=== PATIENT | female | born 1955 | race Caucasian/White ===

== ENCOUNTER 2016-10-11 17:23 | Emergency (ER) | payer OTHER ==
[2016-10-11 18:29] VITALS: RESP 18; TEMP 97.3
[2016-10-11] MEDS ORDERED: ONDANSETRON 4 MG/2 ML VIAL IVP STA (20:30)
[2016-10-11] MEDS ORDERED: SODIUM CHLORIDE 0.9% 1,000 ML IV STA (20:30)
[2016-10-11] MEDS ORDERED: hydrALAZINE HCL 20 MG/ML 1 ML VIAL IVP STA (20:48)
--- NOTE | 2016-10-11 20:50 | ED ---
General Adult HPI - General Chief complaint: Urogenital Stated complaint: UTI Time Seen by Provider: 10/11/16 20:17 Source: patient, RN notes reviewed Mode of arrival: ambulatory Limitations: no limitations - History of Present Illness Initial comments: Patient is a 7-year-old female who presents to emergency room with multiple complaints. She does admit that she's been having abdominal pain and lower abdomen over the last 2 weeks. Does admit that she had a urinary tract infection which she did take Macrobid for. States still feels like she maybe has this is same infection. She states she's felt nauseated. She states she had an episode of vomiting. She denies any diarrhea or constipation. She also admits to having a headache over the last 3 days. She states she's noticed blood pressures been running high. States she did not take her medications today She knew she was getting come to the emergency room. Patient states she feels that the headache may be attributed to her blood pressure. She states comes and goes. States headache is located in the front of her head. She denies any other complaints or associated symptoms. Patient denies any recent fever, chills, shortness of breath, chest pain, back pain, numbness or tingling , dysuria or hematuria, constipation or diarrhea, visual changes, or any other complaints. - Related Data Home Medications Medication Instructions Recorded Confirmed Albuterol Inhaler [Ventolin Hfa 2 puff INHALATION RT-Q6H PRN 10/11/16 10/11/16 Inhaler] Aspirin EC [Ecotrin Low Dose] 81 mg PO DAILY 10/11/16 10/11/16 Atorvastatin [Lipitor] 10 mg PO HS 10/11/16 10/11/16 Cetirizine HCl [Zyrtec] 5 mg PO DAILY 10/11/16 10/11/16 Cyclobenzaprine [Flexeril] 10 mg PO BID 10/11/16 10/11/16 Diazepam [Valium] 5 mg PO HS PRN 10/11/16 10/11/16 Fluticasone Nasal [place] [Flonase 2 spr EA NOSTRIL DAILY PRN 10/11/16 10/11/16 Nasal [place]] Fluticasone/Salmeterol [Advair 1 puff INHALATION RT-BID 10/11/16 10/11/16 100-50 Diskus] Furosemide [Lasix] 40 mg PO DAILY PRN 10/11/16 10/11/16 Previous Rx's Medication Instructions Recorded Amoxicillin/Potassium Clav 1 each PO Q12HR #20 tab 10/11/16 [Augmentin 875-125 Tablet] Fluticasone Propionate [Flonase 1 - 2 spray EA NOSTRIL DAILY 5 Days 10/11/16 Allergy Relief] Allergies Allergy/AdvReac Type Severity Reaction Status Date / Time ibuprofen [From Motrin] Allergy Rash/Hives Verified 10/11/16 20:28 sulfamethoxazole Allergy Rash/Hives Verified 10/11/16 20:28 [From Septra] trimethoprim [From Mayra] Allergy Rash/Hives Verified 10/11/16 20:28 Review of Systems ROS Statement: Those systems with pertinent positive or pertinent negative responses have been documented in the HPI. ROS Other: All systems not noted in ROS Statement are negative. Past Medical History Past Medical History: No Reported History Additional Past Medical History / Comment(s): endometriosis History of Any Multi-Drug Resistant Organisms: MRSA Date of last positivie culture/infection: 2005 MDRO Source:: foot Past Surgical History: Section, Cholecystectomy Additional Past Surgical History / Comment(s): endometriosis Past Anesthesia/Blood Transfusion Reactions: No Reported Reaction Past Psychological History: No Psychological Hx Reported Smoking Status: Never smoker Past Alcohol Use History: None Reported Past Drug Use History: None Reported - Past Family History Mother Family Medical History: No Reported History Father Family Medical History: Coronary Artery Disease (CAD) General Exam - General Exam Comments Initial Comments: General: The patient is awake and alert, in no distress, and does not appear acutely ill. Eye: Pupils are equal, round and reactive to light, extra-ocular movements are intact. No nystagmus. There is normal conjunctiva bilaterally. No signs of icterus. Ears, nose, mouth and throat: There are moist mucous membranes and no oral lesions. Neck: The neck is supple, there is no tenderness or JVD. Cardiovascular: There is a regular rate and rhythm. No murmur, rub or gallop is appreciated. Respiratory: Lungs are clear to auscultation, respirations are non-labored, breath sounds are equal. No wheezes, stridor, rales, or rhonchi. Gastrointestinal: Normal appearance them. Normal bowel sounds. Abdomen soft on palpation. Patient does have mild tenderness lower abdomen. No rebound tenderness. No guarding. No CVA tenderness. Musculoskeletal: Normal ROM, no tenderness. Strength 5/5. Sensation intact. Pulses equal bilaterally 2+. Neurological: A&O x 3. CN II-XII intact, There are no obvious motor or sensory deficits. Coordination appears grossly intact. Speech is normal. Skin: Skin is warm and dry and no rashes or lesions are noted. Psychiatric: Cooperative, appropriate mood & affect, normal judgment. Limitations: no limitations Course Vital Signs 10/11/16 10/11/16 18:25 21:45 Temperature 97.3 F L Pulse Rate 66 74 Respiratory 18 18 Rate Blood Pressure 180/103 168/88 O2 Sat by Pulse 98 96 Oximetry Medical Decision Making - Medical Decision Making Patient reexamined at this time shows no signs of distress. Does not that her blood pressure has improved here in the emergency room after medication and headache is improved and gone at this time. States feeling better. Patient's labs reviewed are unremarkable. No evidence for UTI. Patient does admit to increased sinus drainage on reexam. Does have tenderness over both frontal and maxillary sinuses. Will be started on amoxicillin advised most with a viral illness. Advised follow-up family doctor. He'll be given a prescription for Flonase. Advised return for any other concerns. - Lab Data Result diagrams: 10/11/16 21:10 10/11/16 21:10 Lab Results 10/11/16 10/11/16 10/11/16 Range/Units 21:10 21:10 21:10 WBC 5.1 (3.8-10.6) k/uL RBC 4.20 (3.80-5.40) m/uL Hgb 11.9 (11.4-16.0) gm/dL Hct 37.3 (34.0-46.0) % MCV 88.9 (80.0-100.0) fL MCH 28.4 (25.0-35.0) pg MCHC 31.9 (31.0-37.0) g/dL RDW 13.2 (11.5-15.5) % Plt Count 292 (150-450) k/uL Neutrophils % 63 % Lymphocytes % 27 % Monocytes % 6 % Eosinophils % 3 % Basophils % 1 % Neutrophils # 3.2 (1.3-7.7) k/uL Lymphocytes # 1.3 (1.0-4.8) k/uL Monocytes # 0.3 (0-1.0) k/uL Eosinophils # 0.1 (0-0.7) k/uL Basophils # 0.0 (0-0.2) k/uL Sodium 143 (137-145) mmol/L Potassium 4.4 (3.5-5.1) mmol/L Chloride 106 (98-107) mmol/L Carbon Dioxide 26 (22-30) mmol/L Anion Gap 11 mmol/L BUN 12 (7-17) mg/dL Creatinine 0.70 (0.52-1.04) mg/dL Est GFR (MDRD) Af Amer >60 (>60 ml/min/1.73 sqM) Est GFR (MDRD) Non-Af >60 (>60 ml/min/1.73 sqM) Glucose 93 (74-99) mg/dL Calcium 9.6 (8.4-10.2) mg/dL Total Bilirubin 0.5 (0.2-1.3) mg/dL AST 43 H (14-36) U/L ALT 38 (9-52) U/L Alkaline Phosphatase 102 (38-126) U/L Total Protein 6.6 (6.3-8.2) g/dL Albumin 4.4 (3.5-5.0) g/dL Amylase 41 (30-110) U/L Lipase 38 (23-300) U/L Urine Color Light Yellow Urine Appearance Clear (Clear) Urine pH 6.5 (5.0-8.0) Ur Specific [place] 1.007 (1.001-1.035) Urine Protein Negative (Negative) Urine Glucose (UA) Negative (Negative) Urine Ketones Negative (Negative) Urine Blood Negative (Negative) Urine Nitrate Negative (Negative) Urine Bilirubin Negative (Negative) Urine Urobilinogen <2.0 (<2.0) mg/dL Ur Leukocyte Esterase Negative (Negative) Disposition Clinical Impression: Acute sinusitis, Hypertension Disposition: HOME SELF-CARE Condition: Good Instructions: Sinusitis (ED) Additional Instructions: Please use medication as discussed. Please follow-up family doctor have blood pressure rechecked. Please follow-up with family doctor in the next 2 days of symptoms have not improved. Please return to emergency room if the symptoms increase or worsen or for any other concerns. Prescriptions: Amoxicillin/Potassium Clav [Augmentin 875-125 Tablet] 1 each PO Q12HR #20 tab Fluticasone Propionate [Flonase Allergy Relief] 1 - 2 spray EA NOSTRIL DAILY 5 Days Time of Disposition: 22:04
--- NOTE | 2016-10-11 21:28 | XR ---
EXAMINATION TYPE: XR KUB DATE OF EXAM: 10/11/2016 9:25 PM COMPARISON: NONE HISTORY: Pain TECHNIQUE: Single supine KUB image of the abdomen is obtained FINDINGS: Small bowel demonstrates no evidence for dilatation or air fluid levels. Gas and fecal material is seen in non-distended colon. No convincing evidence for pneumoperitoneum. No unusual calcifications. The lung bases are clear. The osseous structures are intact. IMPRESSION: 1. Overall nonobstructive bowel gas pattern.
[2016-10-11 21:35] LABS: Basophils % (A) 1 %; CHCM 33.9; Eosinophils # (A) 0.1 k/uL (0-0.7); Eosinophils % (A) 3 %; HCT 37.3 % (34.0-46.0); HDW 2.85; HGB 11.9 gm/dL (11.4-16.0); Luc # (Auto) 0.06; Luc % (Auto) 1; Lymphocytes # (A) 1.3 k/uL (1.0-4.8); Lymphocytes % (A) 27 %; MCH 28.4 pg (25.0-35.0); MCHC 31.9 g/dL (31.0-37.0); MCV 88.9 fL (80.0-100.0); Mean Platelet Volume 7.6; Monocytes # (A) 0.3 k/uL (0-1.0); Monocytes % (A) 6 %; Neutrophils # (A) 3.2 k/uL (1.3-7.7); Neutrophils % (A) 63 %; RDW 13.2 % (11.5-15.5); WBC 5.1 k/uL (3.8-10.6); WBC (Perox) 5.19
[2016-10-11 21:38] LABS: Appearance,Urine Clear (Clear); Bilirubin,Urine Negative (Negative); Glucose,Urine (UA) Negative (Negative); Ketones,Urine Negative (Negative); Leukocyte Esterase,Urine Negative (Negative); Nitrite,Urine Negative (Negative); PH, Urine 6.5 (5.0-8.0); Protein,Urine Negative (Negative); Specific Gravity,Urine 1.007 (1.001-1.035); UA Billing (MACRO vs. MICRO) CHEM; Urobilinogen,Urine <2.0 mg/dL (<2.0)
[2016-10-11 21:44] LABS: ALT 38 U/L (9-52); AST 43 U/L (14-36); Alkaline Phosphatase 102 U/L (38-126); Amylase 41 U/L (30-110); Anion Gap 11 mmol/L; Blood Urea Nitrogen 12 mg/dL (7-17); Calcium 9.6 mg/dL (8.4-10.2); Carbon Dioxide 26 mmol/L (22-30); Chloride 106 mmol/L (98-107); Glucose 93 mg/dL (74-99); Non-African American GFR(MDRD) >60 (>60 ml/min/1.73 sqM); Potassium 4.4 mmol/L (3.5-5.1); Sodium 143 mmol/L (137-145); Total Bilirubin 0.5 mg/dL (0.2-1.3); Total Protein 6.6 g/dL (6.3-8.2)
[2016-10-11 21:46] VITALS: BP 168/88; PULSE 74
[2016-10-11] MEDS ORDERED: ACETAMINOPHEN TAB 325 MG TAB PO STA (22:21)
[2016-10-11] MEDS ORDERED: AMOXIC-POT CLAV 875MG STARTER 2 EACH TABLET PO STA (22:21)
== END 2016-10-11 22:28 | disposition home or self-care (01) ==
LOC: EC 17:23
DX: J01.90 Acute sinusitis, unspecified (principal); I10 Essential (primary) hypertension; B34.9 Viral infection, unspecified; R10.9 Unspecified abdominal pain; R11.2 Nausea with vomiting, unspecified; Z79.82 Long term (current) use of aspirin; Z79.51 Long term (current) use of inhaled steroids; Z79.899 Other long term (current) drug therapy; Z88.8 Allergy status to other drugs, medicaments and biological substances; Z88.1 Allergy status to other antibiotic agents; Z88.2 Allergy status to sulfonamides
CPT/HCPCS: 96374; 96375; 36415; 80053; 82150; 83690; 85025; 81003; 87086; 74000; 99283; J0360; J2405

== ENCOUNTER 2016-11-16 18:29 | Emergency (ER) | payer OTHER ==
[2016-11-16] MEDS ORDERED: ACETAMINOPHEN TAB 500 MG TAB PO STA (19:05)
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
--- NOTE | 2016-11-16 19:33 | XR ---
EXAMINATION TYPE: XR wrist complete RT DATE OF EXAM: 11/16/2016 7:28 PM COMPARISON: NONE HISTORY: Wrist pain TECHNIQUE: 4 views FINDINGS: I see no fracture nor dislocation. Radial styloid process is slightly irregular that could relate to old injury. I see no fracture line. IMPRESSION: No acute abnormality of the right wrist.
--- NOTE | 2016-11-16 19:34 | XR ---
EXAMINATION TYPE: XR elbow complete RT DATE OF EXAM: 11/16/2016 7:28 PM COMPARISON: NONE HISTORY: Pain and injury TECHNIQUE: 3 views FINDINGS: I see no fracture nor dislocation. Joint spaces are normal. There is no sign of elbow joint effusion. IMPRESSION: Negative right elbow exam.
--- NOTE | 2016-11-16 19:35 | XR ---
EXAMINATION TYPE: XR Hip Complete RT DATE OF EXAM: 11/16/2016 7:28 PM COMPARISON: NONE HISTORY: Pain TECHNIQUE: 2 views FINDINGS: I see no fracture nor dislocation. Hip joint space is fairly normal. Sacroiliac joint appea rs normal. IMPRESSION: Negative right hip exam.
--- NOTE | 2016-11-16 19:35 | XR ---
EXAMINATION TYPE: XR knee complete RT DATE OF EXAM: 11/16/2016 7:28 PM COMPARISON: NONE HISTORY: Knee pain TECHNIQUE: 3 views FINDINGS: There is spurring of the femoral and tibial condyles. There is spurring on the patella. The re is narrowing of patellofemoral joint space. I see no fracture nor dislocation. There is no sign of joint effusion. 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 No fracture.
[2016-11-16 20:37] VITALS: BP 138/78; PULSE 72; RESP 14; TEMP 97.8
== END 2016-11-16 20:36 | disposition home or self-care (01) ==
LOC: EC 18:29
DX: S70.00XA Contusion of unspecified hip, initial encounter (principal); S80.00XA Contusion of unspecified knee, initial encounter; S60.219A Contusion of unspecified wrist, initial encounter; S50.00XA Contusion of unspecified elbow, initial encounter; V09.9XXA Pedestrian injured in unspecified transport accident, initial encounter; Z79.82 Long term (current) use of aspirin; Z79.899 Other long term (current) drug therapy; Z79.51 Long term (current) use of inhaled steroids; Z86.14 Personal history of Methicillin resistant Staphylococcus aureus infection; Z88.6 Allergy status to analgesic agent; Z88.1 Allergy status to other antibiotic agents; Z88.2 Allergy status to sulfonamides
CPT/HCPCS: 73502; 99284

== ENCOUNTER 2016-12-14 13:22 | Emergency (ER) | payer OTHER ==
[2016-12-14 13:55] VITALS: TEMP 97.9
[2016-12-14 15:04] LABS: Basophils % (A) 1 %; CH 30.1; CHCM 33.4; Eosinophils # (A) 0.1 k/uL (0-0.7); Eosinophils % (A) 3 %; HCT 38.8 % (34.0-46.0); HDW 2.87; Luc # (Auto) 0.15; Luc % (Auto) 3; Lymphocytes # (A) 1.3 k/uL (1.0-4.8); Lymphocytes % (A) 29 %; MCH 30.3 pg (25.0-35.0); MCHC 33.5 g/dL (31.0-37.0); MCV 90.5 fL (80.0-100.0); Mean Platelet Volume 6.8; Monocytes # (A) 0.2 k/uL (0-1.0); Monocytes % (A) 5 %; Neutrophils # (A) 2.7 k/uL (1.3-7.7); Neutrophils % (A) 59 %; RBC 4.29 m/uL (3.80-5.40); RDW 13.1 % (11.5-15.5); WBC 4.6 k/uL (3.8-10.6)
[2016-12-14 15:10] LABS: Anion Gap 10 mmol/L; Blood Urea Nitrogen 17 mg/dL (7-17); Calcium 9.4 mg/dL (8.4-10.2); Carbon Dioxide 26 mmol/L (22-30); Chloride 108 mmol/L (98-107); Glucose 102 mg/dL (74-99); Non-African American GFR(MDRD) >60 (>60 ml/min/1.73 sqM); Potassium 4.4 mmol/L (3.5-5.1); Sodium 144 mmol/L (137-145)
[2016-12-14 15:11] VITALS: BP 166/99; PULSE 75; RESP 18
--- NOTE | 2016-12-14 15:52 | ED ---
General Adult HPI - General Chief complaint: Recheck/Abnormal Lab/Rx Stated complaint: Dr Sent/EDILMA Time Seen by Provider: 12/14/16 14:17 Source: patient Mode of arrival: ambulatory Limitations: no limitations - History of Present Illness Initial comments: 61-year-old female presented for evaluation of hypertension. She was also have a dental procedure 2 days ago and due to her hypertension was canceled and she was advised to follow-up with her primary care physician. She called her primary care physician's office today and was advised to have her blood pressure rechecked at the local pharmacy and then to proceed to the ER if it was still elevated. Blood pressure was about 180 systolic and she proceeded to the ED. She denies any other symptoms with the exception of tooth #5 pain for which she was about to have her procedure. She denies any shortness breath , headache, chest pain, fevers, chills, nausea, vomiting. - Related Data Home Medications Medication Instructions Recorded Confirmed Cetirizine HCl [Zyrtec] 5 mg PO DAILY 10/11/16 12/14/16 Cyclobenzaprine [Flexeril] 10 mg PO BID 10/11/16 12/14/16 Furosemide [Lasix] 40 mg PO DAILY PRN 10/11/16 12/14/16 Previous Rx's Medication Instructions Recorded Acetaminophen-Codeine 300-30mg 1 tab PO Q4H PRN #14 tablet 12/14/16 [Tylenol #3] Hydrochlorothiazide 25 mg PO DAILY #30 tablet 12/14/16 Ibuprofen [Motrin] 800 mg PO Q8HR PRN #20 tab 12/14/16 Allergies Allergy/AdvReac Type Severity Reaction Status Date / Time ibuprofen [From Motrin] Allergy Rash/Hives Verified 12/14/16 14:27 sulfamethoxazole Allergy Rash/Hives Verified 12/14/16 14:27 [From Septra] trimethoprim [From Septra] Allergy Rash/Hives Verified 12/14/16 14:27 Review of Systems ROS Statement: Those systems with pertinent positive or pertinent negative responses have been documented in the HPI. General: Patient denies fever, chills,nausea, or vomiting. HEENT: No visual changes. No eye pain. No nasal symptoms. No dysphagia.No odynophagia. Positive tooth pain. Cardiac: No chest pain. No palpitations. Pulmonary; No dyspnea. Denies cough GI: No abdominal pain. No diarrhea. No constipation. No bowel habit changes. No melena. No hematochezia. See general. : No dysuria.No hematuria. No hesitancy. No urgency. No renal lithiasis history. Musculoskeletal: No musculoskeletal pain. Orthopedic: Denies fracture history. Integumentary: Denies rash. Denies pruritis. Neurologic: Denies any lateralizing weakness. Denies numbness. Denies tingling. No seizure activity. Denies TIA or CVA. Endocrine: Denies polyuria and polydipsia Heme/Onc: Denies anemia. Denies cancer. Denies adenopathy. ROS Other: All systems not noted in ROS Statement are negative. Past Medical History Past Medical History: No Reported History Additional Past Medical History / Comment(s): endometriosis History of Any Multi-Drug Resistant Organisms: ESBL, MRSA Date of last positivie culture/infection: 10/02/07 MRSA:09/19/16 ESBL E.coli MDRO Source:: MRSA-site unknonw; ESBL-Urine Past Surgical History: Section, Cholecystectomy Additional Past Surgical History / Comment(s): endometriosis Past Anesthesia/Blood Transfusion Reactions: No Reported Reaction Past Psychological History: No Psychological Hx Reported Smoking Status: Never smoker Past Alcohol Use History: None Reported Past Drug Use History: None Reported - Past Family History Mother Family Medical History: No Reported History Father Family Medical History: Coronary Artery Disease (CAD) General Exam Limitations: no limitations General appearance: alert, in no apparent distress Head exam: Present: atraumatic, normocephalic Eye exam: Present: normal appearance, PERRL, EOMI. Absent: scleral icterus, conjunctival injection ENT exam: Present: normal exam, mucous membranes moist Neck exam: Present: normal inspection, full ROM Respiratory exam: Present: normal lung sounds bilaterally. Absent: respiratory distress, wheezes, rales Cardiovascular Exam: Present: regular rate, normal rhythm, normal heart sounds. Absent: bradycardia, tachycardia, irregular rhythm GI/Abdominal exam: Present: soft, normal bowel sounds. Absent: distended, tenderness Rectal exam: Present: deferred Extremities exam: Present: normal inspection, full ROM. Absent: tenderness Back exam: Present: normal inspection, full ROM. Absent: tenderness, CVA tenderness (R) Neurological exam: Present: alert, oriented X3, CN II-XII intact Psychiatric exam: Present: normal affect, normal mood Skin exam: Present: warm, dry, intact Course Vital Signs 12/14/16 12/14/16 12/14/16 13:49 14:24 15:10 Temperature 97.9 F Pulse Rate 87 75 Pulse Rate [ 84 Pulse Oximetery ] Respiratory 20 18 Rate Blood Pressure 184/87 166/99 O2 Sat by Pulse 96 99 Oximetry EKG Findings - EKG Comments: EKG Findings:: Normal sinus rhythm with a ventricular rate of 66, ERMA 164, QRS 72, QT/QTc 408/427. Medical Decision Making - Medical Decision Making 61-year-old female presented for evaluation of hypertension. She states that she has been diagnosed with hypertension the past but has not been prescribed medications. She does present with an elevated blood pressure but no signs of hypertensive emergency. Baseline labs were obtained as well as EKG which showed no significant abnormalities. The patient was reevaluated and had improvement in her blood pressure. She was informed of these results and that should be discharged with instructions to follow-up with her primary care physician. She was further informed that should be given a prescription for chlorothiazide which she should take as instructed on the prescription. The patient acknowledged an understanding of this information and agreed with this plan of care. - Lab Data Result diagrams: 12/14/16 14:46 12/14/16 14:46 Lab Results 12/14/16 12/14/16 Range/Units 14:46 14:46 WBC 4.6 (3.8-10.6) k/uL RBC 4.29 (3.80-5.40) m/uL Hgb 13.0 (11.4-16.0) gm/dL Hct 38.8 (34.0-46.0) % MCV 90.5 (80.0-100.0) fL MCH 30.3 (25.0-35.0) pg MCHC 33.5 (31.0-37.0) g/dL RDW 13.1 (11.5-15.5) % Plt Count 297 (150-450) k/uL Neutrophils % 59 % Lymphocytes % 29 % Monocytes % 5 % Eosinophils % 3 % Basophils % 1 % Neutrophils # 2.7 (1.3-7.7) k/uL Lymphocytes # 1.3 (1.0-4.8) k/uL Monocytes # 0.2 (0-1.0) k/uL Eosinophils # 0.1 (0-0.7) k/uL Basophils # 0.0 (0-0.2) k/uL Sodium 144 (137-145) mmol/L Potassium 4.4 (3.5-5.1) mmol/L Chloride 108 H (98-107) mmol/L Carbon Dioxide 26 (22-30) mmol/L Anion Gap 10 mmol/L BUN 17 (7-17) mg/dL Creatinine 0.70 (0.52-1.04) mg/dL Est GFR (MDRD) Af Amer >60 (>60 ml/min/1.73 sqM) Est GFR (MDRD) Non-Af >60 (>60 ml/min/1.73 sqM) Glucose 102 H (74-99) mg/dL Calcium 9.4 (8.4-10.2) mg/dL Disposition Clinical Impression: Hypertension Disposition: HOME SELF-CARE Condition: Stable Instructions: Hydrochlorothiazide (By mouth), Hypertension (ED) Additional Instructions: Please use medication as discussed. Please follow up with family doctor if symptoms have not improved over the next two days. Please return to the emergency room if your symptoms increase or worsen or for any other concerns. Prescriptions: Acetaminophen-Codeine 300-30mg [Tylenol #3] 1 tab PO Q4H PRN #14 tablet PRN Reason: Pain Hydrochlorothiazide 25 mg PO DAILY #30 tablet Ibuprofen [Motrin] 800 mg PO Q8HR PRN #20 tab PRN Reason: Analgesia Referrals: Gene Cobos MD [Primary Care Provider] - 1-2 days Time of Disposition: 15:53
== END 2016-12-14 16:15 | disposition home or self-care (01) ==
LOC: EC 13:22
DX: I10 Essential (primary) hypertension (principal); Z79.899 Other long term (current) drug therapy; Z88.6 Allergy status to analgesic agent; Z88.8 Allergy status to other drugs, medicaments and biological substances
CPT/HCPCS: 36415; 80048; 85025; 93005; 99283

== ENCOUNTER 2016-12-18 16:15 | Emergency (ER) | payer OTHER ==
--- NOTE | 2016-12-18 19:11 | ED ---
General Adult HPI - General Chief complaint: Recheck/Abnormal Lab/Rx Stated complaint: Upset Stomach Time Seen by Provider: 12/18/16 18:52 Source: patient Mode of arrival: ambulatory Limitations: no limitations - History of Present Illness Initial comments: 61-year-old female presented for evaluation of hypertension. She was at the dentist and told that her blood pressure was too high to finish the procedure. She was therefore sent over to [facility] to have it re-taken and she was told that it remained high. Upon presentation to the ED her blood pressure is within normal limits. Patient states she has no other complaints at this time. She was recently seen at this facility for hypertension was started on hydrochlorothiazide. She has yet to follow-up with her primary care physician - Related Data Home Medications Medication Instructions Recorded Confirmed Cetirizine HCl [Zyrtec] 5 mg PO DAILY 10/11/16 12/18/16 Cyclobenzaprine [Flexeril] 10 mg PO BID 10/11/16 12/18/16 Furosemide [Lasix] 40 mg PO DAILY PRN 10/11/16 12/18/16 Previous Rx's Medication Instructions Recorded Acetaminophen-Codeine 300-30mg 1 tab PO Q4H PRN #14 tablet 12/14/16 [Tylenol #3] Hydrochlorothiazide 25 mg PO DAILY #30 tablet 12/14/16 Ibuprofen [Motrin] 800 mg PO Q8HR PRN #20 tab 12/14/16 Allergies Allergy/AdvReac Type Severity Reaction Status Date / Time ibuprofen [From Motrin] Allergy Rash/Hives Verified 12/18/16 17:03 sulfamethoxazole Allergy Rash/Hives Verified 12/18/16 17:03 [From Septra] trimethoprim [From Septra] Allergy Rash/Hives Verified 12/18/16 17:03 Review of Systems ROS Statement: Those systems with pertinent positive or pertinent negative responses have been documented in the HPI. ROS Other: All systems not noted in ROS Statement are negative. Constitutional: Denies: fever, chills, weakness, weight change Eyes: Denies: eye pain, eye discharge ENT: Denies: ear pain, throat pain Respiratory: Denies: cough, dyspnea Cardiovascular: Denies: chest pain, palpitations Endocrine: Denies: fatigue, polydipsia Gastrointestinal: Denies: abdominal pain, nausea, vomiting Genitourinary: Denies: urgency, dysuria Musculoskeletal: Denies: back pain, arthralgia Skin: Denies: rash, lesions Neurological: Denies: headache, weakness Psychiatric: Denies: anxiety, depression Past Medical History Past Medical History: No Reported History Additional Past Medical History / Comment(s): endometriosis History of Any Multi-Drug Resistant Organisms: ESBL, MRSA Date of last positivie culture/infection: 10/02/07 MRSA:09/19/16 ESBL E.coli MDRO Source:: MRSA-site unknonw; ESBL-Urine Past Surgical History: Section, Cholecystectomy Additional Past Surgical History / Comment(s): endometriosis Past Anesthesia/Blood Transfusion Reactions: No Reported Reaction Past Psychological History: No Psychological Hx Reported Smoking Status: Never smoker Past Alcohol Use History: None Reported Past Drug Use History: None Reported - Past Family History Mother Family Medical History: No Reported History Father Family Medical History: Coronary Artery Disease (CAD) General Exam Limitations: no limitations General appearance: alert, in no apparent distress Head exam: Present: atraumatic, normocephalic, normal inspection Eye exam: Present: normal appearance, PERRL, EOMI. Absent: scleral icterus, conjunctival injection, periorbital swelling ENT exam: Present: normal exam, mucous membranes moist Neck exam: Present: normal inspection. Absent: tenderness, meningismus, lymphadenopathy Respiratory exam: Present: normal lung sounds bilaterally. Absent: respiratory distress, wheezes, rales, rhonchi, stridor Cardiovascular Exam: Present: regular rate, normal rhythm, normal heart sounds. Absent: systolic murmur, diastolic murmur, rubs, gallop, clicks GI/Abdominal exam: Present: soft, normal bowel sounds. Absent: distended, tenderness, guarding, rebound, rigid Rectal exam: Present: deferred Extremities exam: Present: normal inspection, full ROM, normal capillary refill. Absent: tenderness, pedal edema, joint swelling, calf tenderness Back exam: Present: normal inspection Neurological exam: Present: alert, oriented X3, CN II-XII intact Psychiatric exam: Present: normal affect, normal mood Skin exam: Present: warm, dry, intact, normal color. Absent: rash Course Vital Signs 12/18/16 12/18/16 16:59 19:23 Temperature 99.1 F 97.8 F Pulse Rate 82 98 Respiratory 16 18 Rate Blood Pressure 140/94 159/98 O2 Sat by Pulse 97 Oximetry Medical Decision Making - Medical Decision Making 7-year-old female presented for evaluation of hypertension after being sent away at the dentist office and having it rechecked at the local pharmacy. Upon presentation to this facility her blood pressures within normal limits. She is recently started on hydrochlorothiazide during her last visit to this ED but she has yet to follow-up with her primary care physician. She was informed about her blood pressure was and through continuous discussion it was decided that she would be discharged with instructions to follow-up with the primary care physician but to return to this facility if her symptoms should worsen or persist. She is further advised to talk with her dentist about what her pressure actually was and what pressures they were allowed to perform procedures under. The patient acknowledged an understanding of this information and agreed with this plan of care. Disposition Clinical Impression: HTN (hypertension), Anxiety Disposition: HOME SELF-CARE Condition: Stable Instructions: Chronic Hypertension (ED), Hypertensive Crisis (ED) Referrals: Richard Montano MD [Primary Care Provider] - 1-2 days Time of Disposition: 19:11
[2016-12-18 19:24] VITALS: BP 159/98; PULSE 98; RESP 18; TEMP 97.8
== END 2016-12-18 19:24 | disposition home or self-care (01) ==
LOC: EC 16:15
DX: I10 Essential (primary) hypertension (principal); F41.9 Anxiety disorder, unspecified; Z79.899 Other long term (current) drug therapy; Z88.6 Allergy status to analgesic agent; Z88.8 Allergy status to other drugs, medicaments and biological substances
CPT/HCPCS: 99283

== ENCOUNTER 2017-01-30 19:29 | Emergency (ER) | payer OTHER ==
[2017-01-30 19:46] VITALS: BP 146/75; PULSE 83; RESP 18; TEMP 97.2
--- NOTE | 2017-01-30 19:56 | ED ---
Lower Extremity Injury HPI - General Chief Complaint: Extremity Injury, Lower Stated Complaint: glass in rt foot Time Seen by Provider: 01/30/17 19:51 Source: patient, RN notes reviewed Mode of arrival: ambulatory Limitations: no limitations - History of Present Illness Initial Comments: 61 yo Female presents emergency department with right foot pain. Patient states that she felt like she stepped on something earlier today just to make sure this of her foot. Patient states there is no bleeding areas THAT she noticed she has noticed some pain when she was walking. Patient denies any falls or other injuries. Patient states she is not currently having any other symptoms.Patient denies any recent fever, chills, shortness of breath, chest pain, back pain, abdominal pain, nausea vomiting, numbness or tingling, dysuria or hematuria, constipation or diarrhea, headaches or visual changes, or any other current symptoms. - Related Data Home Medications Medication Instructions Recorded Confirmed Cetirizine HCl [Zyrtec] 5 mg PO DAILY 10/11/16 12/18/16 Cyclobenzaprine [Flexeril] 10 mg PO BID 10/11/16 12/18/16 Furosemide [Lasix] 40 mg PO DAILY PRN 10/11/16 12/18/16 Previous Rx's Medication Instructions Recorded Acetaminophen-Codeine 300-30mg 1 tab PO Q4H PRN #14 tablet 12/14/16 [Tylenol #3] Hydrochlorothiazide 25 mg PO DAILY #30 tablet 12/14/16 Ibuprofen [Motrin] 800 mg PO Q8HR PRN #20 tab 12/14/16 Allergies Allergy/AdvReac Type Severity Reaction Status Date / Time ibuprofen [From Motrin] Allergy Rash/Hives Verified 01/30/17 19:46 sulfamethoxazole Allergy Rash/Hives Verified 01/30/17 19:46 [From Septra] trimethoprim [From Septra] Allergy Rash/Hives Verified 01/30/17 19:46 Review of Systems ROS Statement: Those systems with pertinent positive or pertinent negative responses have been documented in the HPI. ROS Other: All systems not noted in ROS Statement are negative. Past Medical History Past Medical History: No Reported History Additional Past Medical History / Comment(s): endometriosis History of Any Multi-Drug Resistant Organisms: ESBL, MRSA Date of last positivie culture/infection: 10/02/07 MRSA:09/19/16 ESBL E.coli MDRO Source:: MRSA-site unknonw; ESBL-Urine Past Surgical History: Section, Cholecystectomy Additional Past Surgical History / Comment(s): endometriosis Past Anesthesia/Blood Transfusion Reactions: No Reported Reaction Past Psychological History: No Psychological Hx Reported Smoking Status: Never smoker Past Alcohol Use History: None Reported Past Drug Use History: None Reported - Past Family History Mother Family Medical History: No Reported History Father Family Medical History: Coronary Artery Disease (CAD) General Exam Limitations: no limitations General appearance: alert, in no apparent distress ENT exam: Present: normal exam, mucous membranes moist Neck exam: Present: normal inspection. Absent: tenderness, meningismus, lymphadenopathy Respiratory exam: Present: normal lung sounds bilaterally. Absent: respiratory distress, wheezes, rales, rhonchi, stridor Cardiovascular Exam: Present: regular rate, normal rhythm, normal heart sounds. Absent: systolic murmur, diastolic murmur, rubs, gallop, clicks Right Ankle exam: Present: normal inspection, full ROM. Absent: tenderness, swelling Foot/Toe exam: Present: normal inspection, full ROM. Absent: tenderness, swelling Neurovascular tendon exam: Present: no vascular compromise Gait: observed and normal Neurological exam: Present: alert, oriented X3 Skin exam: Present: warm, dry, intact, normal color. Absent: rash Course Vital Signs 01/30/17 19:43 Temperature 97.2 F L Pulse Rate 83 Respiratory 18 Rate Blood Pressure 146/75 O2 Sat by Pulse 94 L Oximetry Medical Decision Making - Medical Decision Making 61-year-old female presents emergency room chief complaint of concern for possible presents to the right foot. Exam shows no sign of trauma shows no sign of foreign body shows no sign of entry point. This time x-ray shows no foreign body. We discussed that she continue to follow-up with her doctor we did give her oral fluids well. We discussed return parameters and all her questions. She states she understood and she is in agreement with the plan. She will be discharged. - Radiology Data Radiology results: report reviewed, image reviewed Disposition Clinical Impression: Right foot pain Disposition: HOME SELF-CARE Condition: Stable Instructions: Foot Contusion (ED) Additional Instructions: Please use medication as discussed. Please follow up with family doctor if symptoms have not improved over the next two days. Please return to the emergency room if your symptoms increase or worsen or for any other concerns. Referrals: Richard Montano MD [Primary Care Provider] - 1-2 days Nakul Kent DO [Doctor of Osteopathic Medicine] - 1-2 days Time of Disposition: 20:12
--- NOTE | 2017-01-30 20:10 | XR ---
EXAMINATION TYPE: XR foot complete RT DATE OF EXAM: 01/30/2017 8:02 PM COMPARISON: NONE HISTORY: Laceration TECHNIQUE: 3 views FINDINGS: There is narrowing and spurring at the first MP joint. Metatarsals are intact. I see no fra cture nor dislocation. There is no sign of a foreign body. 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 No sign of a foreign body. No fracture.
== END 2017-01-30 20:25 | disposition home or self-care (01) ==
LOC: EC 19:29
DX: M79.671 Pain in right foot (principal); Z79.899 Other long term (current) drug therapy; Z88.6 Allergy status to analgesic agent; Z88.8 Allergy status to other drugs, medicaments and biological substances
CPT/HCPCS: 99283

== ENCOUNTER 2017-04-10 22:12 | Emergency (ER) | payer OTHER ==
[2017-04-10 22:38] VITALS: BP 146/87; PULSE 93; RESP 20; TEMP 98.3
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
[2017-04-11 00:17] LABS: Appearance,Urine Clear (Clear); Bilirubin,Urine Negative (Negative); Glucose,Urine (UA) Negative (Negative); Ketones,Urine Negative (Negative); Leukocyte Esterase,Urine Small (Negative); Mucus,Urine Rare /hpf; Nitrite,Urine Negative (Negative); PH, Urine 5.5 (5.0-8.0); Particle Count 452; Protein,Urine Negative (Negative); Specific Gravity,Urine 1.002 (1.001-1.035); Squamous Epithelial Cell,Urine <1 /hpf (0-4); UA Billing (MACRO vs. MICRO) MICRO; Urobilinogen,Urine <2.0 mg/dL (<2.0); WBC,Urine 2 /hpf (0-5)
== END 2017-04-11 00:57 | disposition home or self-care (01) ==
LOC: EC 22:12
DX: S09.90XA Unspecified injury of head, initial encounter (principal); Z86.14 Personal history of Methicillin resistant Staphylococcus aureus infection; Z00.8 Encounter for other general examination; Z79.1 Long term (current) use of non-steroidal anti-inflammatories (NSAID); Z79.51 Long term (current) use of inhaled steroids; Z79.82 Long term (current) use of aspirin; Z79.899 Other long term (current) drug therapy; Z88.1 Allergy status to other antibiotic agents; Z88.2 Allergy status to sulfonamides; Z88.6 Allergy status to analgesic agent; W26.0XXA Contact with knife, initial encounter
CPT/HCPCS: 80306; 81001; 82075; 99284

== ENCOUNTER 2017-05-04 12:29 | Emergency (ER) | payer OTHER ==
[2017-05-04 12:34] VITALS: BP 178/90; PULSE 72; RESP 18; TEMP 98.7
[2017-05-04] MEDS ORDERED: KETOROLAC 60 MG/2 ML VIAL IM STA (12:38)
[2017-05-04] MEDS ORDERED: diphenhydrAMINE 50 MG CAP PO STA (12:38)
--- NOTE | 2017-05-04 12:40 | ED ---
Skin/Abscess/FB HPI - General Chief complaint: Skin/Abscess/Foreign Body Stated complaint: Bee Sting Time Seen by Provider: 05/04/17 12:34 Source: patient Mode of arrival: ambulatory Limitations: no limitations - History of Present Illness Initial comments: 62-year-old female patient presents to emergency department today for evaluation of a bee sting to the left anterior thigh. Patient states that she was stung yesterday by a bumble bee. States that she does have an ALLERGY. States when she woke up today the area was more swollen and red. She states that she did apply some hydrocortisone cream to the area. Patient denies any throat swelling, shortness of breath, wheezing, or other symptoms. States she does have a mild headache and is requesting Toradol for this. Agent denies any blurred or double vision. States that this headache is very typical for her. She denies any neck pain, back pain, fever, chills, dizziness, weakness, abdominal pain, nausea, vomiting, hematuria, dysuria, urinary difficulty, urinary urgency. She denies any trouble with bowel movements. She states she did not take any Benadryl for the bee sting. - Related Data Home Medications Medication Instructions Recorded Confirmed Cyclobenzaprine [Flexeril] 10 mg PO BID 10/11/16 12/18/16 Furosemide [Lasix] 40 mg PO DAILY PRN 10/11/16 12/18/16 Albuterol Inhaler [Ventolin Hfa 1 - 2 puff INHALATION RT-Q6H PRN 04/10/17 Inhaler] Amoxicillin 500 mg PO Q12H 04/10/17 04/10/17 Aspirin EC [Ecotrin Low Dose] 81 mg PO DAILY 04/10/17 04/10/17 Atorvastatin [Lipitor] 10 mg PO DAILY 04/10/17 04/10/17 Cetirizine HCl [Zyrtec] 10 mg PO DAILY 04/10/17 04/10/17 Diazepam [Valium] 5 mg PO HS 04/10/17 04/10/17 Fluticasone/Salmeterol [Advair 1 puff INHALATION RT-BID 04/10/17 04/10/17 100-50 Diskus] HYDROcodone/APAP 7.5-325MG [[place] 1 tab PO BID PRN 04/10/17 04/10/17 7.5-325] Ibuprofen [Motrin] 800 mg PO BID 04/10/17 04/10/17 hydrALAZINE HCL [Hydralazine HCl] 25 mg PO DAILY 04/10/17 04/10/17 Previous Rx's Medication Instructions Recorded Hydrochlorothiazide 25 mg PO DAILY #30 tablet 12/14/16 Allergies Allergy/AdvReac Type Severity Reaction Status Date / Time ibuprofen [From Motrin] Allergy Rash/Hives Verified 05/04/17 12:34 sulfamethoxazole Allergy Rash/Hives Verified 05/04/17 12:34 [From Septra] trimethoprim [From Septra] Allergy Rash/Hives Verified 05/04/17 12:34 Review of Systems ROS Statement: Those systems with pertinent positive or pertinent negative responses have been documented in the HPI. ROS Other: All systems not noted in ROS Statement are negative. Past Medical History Past Medical History: No Reported History Additional Past Medical History / Comment(s): endometriosis History of Any Multi-Drug Resistant Organisms: ESBL, MRSA Date of last positivie culture/infection: 10/02/07 MRSA:09/19/16 ESBL E.coli MDRO Source:: MRSA-site unknonw; ESBL-Urine Past Surgical History: Section, Cholecystectomy Additional Past Surgical History / Comment(s): endometriosis Past Anesthesia/Blood Transfusion Reactions: No Reported Reaction Past Psychological History: No Psychological Hx Reported Smoking Status: Never smoker Past Alcohol Use History: None Reported Past Drug Use History: None Reported - Past Family History Mother Family Medical History: No Reported History Father Family Medical History: Coronary Artery Disease (CAD) General Exam Limitations: no limitations General appearance: alert, in no apparent distress Head exam: Present: atraumatic, normocephalic, normal inspection Eye exam: Present: normal appearance, PERRL, EOMI. Absent: scleral icterus, conjunctival injection, periorbital swelling ENT exam: Present: normal exam, normal oropharynx, mucous membranes moist Neck exam: Present: normal inspection, full ROM. Absent: tenderness, meningismus, lymphadenopathy Respiratory exam: Present: normal lung sounds bilaterally. Absent: respiratory distress, wheezes, rales, rhonchi, stridor Cardiovascular Exam: Present: regular rate, normal rhythm, normal heart sounds. Absent: systolic murmur, diastolic murmur, rubs, gallop, clicks GI/Abdominal exam: Present: soft, normal bowel sounds. Absent: distended, tenderness, guarding, rebound, rigid Extremities exam: Present: normal inspection, full ROM, normal capillary refill , other (Large area of warmth, erythema, and swelling to the anterior left thigh.). Absent: tenderness, pedal edema, joint swelling, calf tenderness Back exam: Present: normal inspection Neurological exam: Present: alert, oriented X3, CN II-XII intact Psychiatric exam: Present: normal affect, normal mood Skin exam: Present: warm, dry, intact, normal color. Absent: rash Course Vital Signs 05/04/17 12:32 Temperature 98.7 F Pulse Rate 72 Respiratory 18 Rate Blood Pressure 178/90 O2 Sat by Pulse 96 Oximetry Medical Decision Making - Medical Decision Making 2-year-old female patient presents for evaluation of bee sting to the left anterior thigh. Patient witnessed a bumble bee sting her. She did apply hydrocortisone cream however was continued to have pain and swelling to the area. Patient will be given a dose of Benadryl and Toradol for headache. Patient is neurologically intact on physical exam. Than will be discharged home with instructions to continue applying hydrocortisone cream to the sting and to take Benadryl every 6 hours. Patient instructed to follow up for recheck with her primary care physician in one to 2 days. Instructed to return medially for any new, worsening, or concerning symptoms. Disposition Clinical Impression: Bee sting Disposition: HOME SELF-CARE Condition: Good Instructions: Insect Bite or Sting (ED) Additional Instructions: Continue to apply hydrocortisone cream. Take Benadryl every 6 hours for symptom relief. Take ibuprofen for pain control. Return for any new, worsening , or concerning symptoms. Follow up with primary care physician for recheck in 1-2 days. Referrals: Richard Montano MD [Primary Care Provider] - 1-2 days Time of Disposition: 12:40
== END 2017-05-04 13:06 | disposition home or self-care (01) ==
LOC: EC 12:29
DX: T63.441A Toxic effect of venom of bees, accidental (unintentional), initial encounter (principal); R51 Headache; Z86.14 Personal history of Methicillin resistant Staphylococcus aureus infection; Z79.1 Long term (current) use of non-steroidal anti-inflammatories (NSAID); Z79.51 Long term (current) use of inhaled steroids; Z79.82 Long term (current) use of aspirin; Z79.899 Other long term (current) drug therapy; Z88.1 Allergy status to other antibiotic agents; Z88.2 Allergy status to sulfonamides; Z88.6 Allergy status to analgesic agent
CPT/HCPCS: 99282; 96372; J1885

== ENCOUNTER 2017-08-22 13:10 | Emergency (ER) | payer OTHER ==
[2017-08-22 13:23] VITALS: BP 147/75; PULSE 91; RESP 18; TEMP 97.8
[2017-08-22] MEDS ORDERED: PENICILLIN VK 500MG STARTER 4 TAB BTL PO STA (13:31)
[2017-08-22] MEDS ORDERED: HYDROcodone/APAP 5-325MG 1 EACH TAB PO STA (13:32)
--- NOTE | 2017-08-22 13:37 | ED ---
ENT HPI - General Chief complaint: Dental/Oral Stated complaint: dental pain Time Seen by Provider: 08/22/17 13:26 Source: patient, RN notes reviewed, old records reviewed Mode of arrival: ambulatory Limitations: no limitations - History of Present Illness Initial comments: 62-year-old female presents emergency Department chief complaint of left-sided lower dental pain radiating up towards her upper teeth at this time. She denies any fever or chills. She reports she called her dentist who told her to come here for antibiotics. She states that she has had a history of poor dentition multiple crowns and cavities in been filled. Patient states that the pain started last night into today. She denies any difficulty swallowing, trismus, and foul odor or drainage from the gums. She is concerned she may have an abscess. She states that she cannot take any pain medicine besides Lortab.Patient denies any recent fever, chills, shortness of breath, chest pain , back pain, abdominal pain, nausea vomiting, numbness or tingling, dysuria or hematuria, constipation or diarrhea, headaches or visual changes, or any other current symptoms - Related Data Home Medications Medication Instructions Recorded Confirmed Cyclobenzaprine [Flexeril] 10 mg PO BID 10/11/16 12/18/16 Furosemide [Lasix] 40 mg PO DAILY PRN 10/11/16 12/18/16 Albuterol Inhaler [Ventolin Hfa 1 - 2 puff INHALATION RT-Q6H PRN 04/10/17 Inhaler] Amoxicillin 500 mg PO Q12H 04/10/17 04/10/17 Aspirin EC [Ecotrin Low Dose] 81 mg PO DAILY 04/10/17 04/10/17 Atorvastatin [Lipitor] 10 mg PO DAILY 04/10/17 04/10/17 Cetirizine HCl [Zyrtec] 10 mg PO DAILY 04/10/17 04/10/17 Diazepam [Valium] 5 mg PO HS 04/10/17 04/10/17 Fluticasone/Salmeterol [Advair 1 puff INHALATION RT-BID 04/10/17 04/10/17 100-50 Diskus] HYDROcodone/APAP 7.5-325MG [[place] 1 tab PO BID PRN 04/10/17 04/10/17 7.5-325] Ibuprofen [Motrin] 800 mg PO BID 04/10/17 04/10/17 hydrALAZINE HCL [Hydralazine HCl] 25 mg PO DAILY 04/10/17 04/10/17 Previous Rx's Medication Instructions Recorded Hydrochlorothiazide 25 mg PO DAILY #30 tablet 12/14/16 Hydrocortisone Cream 1 applic TOPICAL TID #15 gm 05/04/17 [Hydrocortisone 1% Cream] HYDROcodone/APAP 5-325MG [[place] 5] 1 each PO Q6HR PRN #12 tab 08/22/17 Penicillin V Potassium [Pen Vee K] 500 mg PO QID #40 tablet 08/22/17 Allergies Allergy/AdvReac Type Severity Reaction Status Date / Time ibuprofen [From Motrin] Allergy Rash/Hives Verified 08/22/17 13:20 sulfamethoxazole Allergy Rash/Hives Verified 08/22/17 13:20 [From Septra] trimethoprim [From ] Allergy Rash/Hives Verified 08/22/17 13:20 Review of Systems ROS Statement: Those systems with pertinent positive or pertinent negative responses have been documented in the HPI. ROS Other: All systems not noted in ROS Statement are negative. Past Medical History Past Medical History: No Reported History Additional Past Medical History / Comment(s): endometriosis History of Any Multi-Drug Resistant Organisms: ESBL, MRSA Date of last positivie culture/infection: 10/02/07 MRSA:09/19/16 ESBL E.coli MDRO Source:: MRSA-site unknonw; ESBL-Urine Past Surgical History: Section, Cholecystectomy Additional Past Surgical History / Comment(s): endometriosis Past Anesthesia/Blood Transfusion Reactions: No Reported Reaction Past Psychological History: No Psychological Hx Reported Smoking Status: Never smoker Past Alcohol Use History: None Reported Past Drug Use History: None Reported - Past Family History Mother Family Medical History: No Reported History Father Family Medical History: Coronary Artery Disease (CAD) General Exam - General Exam Comments Initial Comments: This is a 62-year-old female. No distress. Limitations: no limitations General appearance: alert, in no apparent distress Head exam: Present: atraumatic, normocephalic, normal inspection Eye exam: Present: normal appearance, PERRL, EOMI. Absent: scleral icterus, conjunctival injection, periorbital swelling ENT exam: Present: normal exam, mucous membranes moist. Absent: normal oropharynx (Patient has some swelling and erythema noted around the canal of tooth #19.) Neck exam: Present: normal inspection Respiratory exam: Present: normal lung sounds bilaterally. Absent: respiratory distress, wheezes, rales, rhonchi, stridor Cardiovascular Exam: Present: regular rate, normal rhythm, normal heart sounds. Absent: systolic murmur, diastolic murmur, rubs, gallop, clicks GI/Abdominal exam: Present: soft, normal bowel sounds. Absent: distended, tenderness, guarding, rebound, rigid Extremities exam: Present: normal inspection, full ROM, normal capillary refill. Absent: tenderness, pedal edema, joint swelling, calf tenderness Back exam: Present: normal inspection Neurological exam: Present: alert, oriented X3, CN II-XII intact Psychiatric exam: Present: normal affect, normal mood Skin exam: Present: warm, dry, intact, normal color. Absent: rash Course Vital Signs 08/22/17 13:20 Temperature 97.8 F Pulse Rate 91 Respiratory 18 Rate Blood Pressure 147/75 O2 Sat by Pulse 98 Oximetry Medical Decision Making - Medical Decision Making 62-year-old female presents emergency Department chief complaint of dental pain for approximately one day. Return for possible abscess patient has swelling and erythema around tooth #19. This time patient will be placed on Pen-Vee K, given a starter pack emergency department. She is requesting Lortab. Discussed I will leave her for [place] fives, and only a small prescription. Discussed that she needs follow-up with her primary care provider as well as a dentist. Discussed returning if there is swelling or drainage or any other symptoms worsen. Patient agrees to treatment plan will comply. Return parameters were discussed. Disposition Clinical Impression: Pain, dental Disposition: HOME SELF-CARE Condition: Good Instructions: Dental Caries (ED), Dental Abscess (ED) Additional Instructions: [facility] [place] [address] [place] [address] [phone] (existing clients only) For new clients: [phone] 1st consult: $50 (includes Xrays) Usually 30% less then private dentist for visits after. [employer] Have to pay $50 for Xrays anmd rest is covered. [phone] Prescriptions: HYDROcodone/APAP 5-325MG [[place] 5] 1 each PO Q6HR PRN #12 tab PRN Reason: Pain Penicillin V Potassium [Pen Vee K] 500 mg PO QID #40 tablet Referrals: Richard Montano MD [Primary Care Provider] - 1-2 days Time of Disposition: 13:35
== END 2017-08-22 13:59 | disposition home or self-care (01) ==
LOC: EC 13:10
DX: K08.89 Other specified disorders of teeth and supporting structures (principal); Z86.14 Personal history of Methicillin resistant Staphylococcus aureus infection; Z79.82 Long term (current) use of aspirin; Z79.51 Long term (current) use of inhaled steroids; Z79.1 Long term (current) use of non-steroidal anti-inflammatories (NSAID); Z79.899 Other long term (current) drug therapy; Z88.6 Allergy status to analgesic agent; Z88.8 Allergy status to other drugs, medicaments and biological substances
CPT/HCPCS: 99283

== ENCOUNTER 2017-10-17 15:48 | Emergency (ER) | payer OTHER ==
[2017-10-17] MEDS ORDERED: diphenhydrAMINE 50 MG/ML 1 ML VIAL IVP STA (18:31)
[2017-10-17] MEDS ORDERED: SODIUM CHLORIDE 0.9% 1,000 ML IV STA (18:31)
[2017-10-17] MEDS ORDERED: METOCLOPRAMIDE 5 MG/ML 2 ML VIAL IVP STA (18:31)
[2017-10-17] MEDS ORDERED: ACETAMINOPHEN TAB 500 MG TAB PO STA (18:31)
[2017-10-17] MEDS ORDERED: ORPHENADRINE 30 MG/ML 2 ML VIAL IM STA (18:33)
--- NOTE | 2017-10-17 18:35 | ED ---
Headache HPI - General Chief Complaint: Headache Stated Complaint: headache Time Seen by Provider: 10/17/17 18:18 Source: RN notes reviewed, old records reviewed Mode of arrival: ambulatory Limitations: no limitations - History of Present Illness Initial Comments: This patient is a 62-year-old female presents emergency Department with a chief complaint of migraine headache for the past 2 days. Patient reports it's mainly over the front of her head. Patient states that she feels nauseated and had an episode of vomiting yesterday. She denies any vision changes. She reports that occasionally she'll notice some pain within her neck. Patient states that she has had no fever or chills. She denies any chest pain, shortness of breath, vomiting, abdominal pain. - Related Data Home Medications Medication Instructions Recorded Confirmed Albuterol Inhaler [Ventolin Hfa 1 - 2 puff INHALATION RT-Q6H PRN 04/10/17 Inhaler] Atorvastatin [Lipitor] 10 mg PO HS 04/10/17 10/17/17 Diazepam [Valium] 5 mg PO HS PRN 04/10/17 10/17/17 hydrALAZINE HCL [Hydralazine HCl] 25 mg PO DAILY 04/10/17 10/17/17 Aspirin EC [Ecotrin Low Dose] 81 mg PO DAILY 10/17/17 10/17/17 Calcium Carbonate/Vitamin D3 1 tab PO BID 10/17/17 10/17/17 [Calcium 600-Vit D3 200 Tablet] Cetirizine HCl [Zyrtec] 10 mg PO DAILY 10/17/17 10/17/17 Cyclobenzaprine [Flexeril] 10 mg PO BID PRN 10/17/17 10/17/17 Fluticasone Nasal [place] [Flonase 1 - 2 spr EA NOSTRIL DAILY 10/17/17 10/17/17 Nasal [place]] Furosemide [Lasix] 40 mg PO DAILY 10/17/17 10/17/17 HYDROcodone/APAP 7.5-325MG [[place] 1 tab PO BID PRN 10/17/17 10/17/17 7.5-325] Hydrocortisone Cream 1 applic TOPICAL BID PRN 10/17/17 10/17/17 [Hydrocortisone 2.5% Cream] Ibuprofen [Motrin] 800 mg PO BID PRN 10/17/17 10/17/17 Nystatin 100,000Unit/gm Cream 1 applic TOPICAL BID PRN 10/17/17 10/17/17 [Mycostatin Cream] Previous Rx's Medication Instructions Recorded Hydrochlorothiazide 25 mg PO DAILY #30 tablet 12/14/16 Allergies Allergy/AdvReac Type Severity Reaction Status Date / Time ibuprofen [From Motrin] Allergy Rash/Hives Verified 10/17/17 18:26 sulfamethoxazole Allergy Rash/Hives Verified 10/17/17 18:26 [From Septra] trimethoprim [From Septra] Allergy Rash/Hives Verified 10/17/17 18:26 Review of Systems ROS Statement: Those systems with pertinent positive or pertinent negative responses have been documented in the HPI. ROS Other: All systems not noted in ROS Statement are negative. Past Medical History Past Medical History: No Reported History Additional Past Medical History / Comment(s): endometriosis History of Any Multi-Drug Resistant Organisms: ESBL, MRSA Date of last positivie culture/infection: 10/02/07 MRSA:09/19/16 ESBL E.coli MDRO Source:: MRSA-site unknonw; ESBL-Urine Past Surgical History: Section, Cholecystectomy Additional Past Surgical History / Comment(s): endometriosis Past Anesthesia/Blood Transfusion Reactions: No Reported Reaction Past Psychological History: No Psychological Hx Reported Smoking Status: Never smoker Past Alcohol Use History: None Reported Past Drug Use History: None Reported - Past Family History Mother Family Medical History: No Reported History Father Family Medical History: Coronary Artery Disease (CAD) General Exam - General Exam Comments Initial Comments: 62-year-old female. Alert and oriented 4. No acute distress. Limitations: no limitations General appearance: alert Head exam: Present: atraumatic, normocephalic, normal inspection Eye exam: Present: normal appearance, PERRL, EOMI. Absent: scleral icterus, conjunctival injection, periorbital swelling ENT exam: Present: normal exam, mucous membranes moist Neck exam: Present: normal inspection Respiratory exam: Present: normal lung sounds bilaterally. Absent: respiratory distress, wheezes, rales, rhonchi, stridor Cardiovascular Exam: Present: regular rate, normal rhythm, normal heart sounds. Absent: systolic murmur, diastolic murmur, rubs, gallop, clicks GI/Abdominal exam: Present: soft, normal bowel sounds. Absent: distended, tenderness, guarding, rebound, rigid Extremities exam: Present: normal inspection, full ROM, normal capillary refill. Absent: tenderness, pedal edema, joint swelling, calf tenderness Back exam: Present: normal inspection Neurological exam: Present: alert, oriented X3, CN II-XII intact Psychiatric exam: Present: normal affect, normal mood Skin exam: Present: warm, dry, intact, normal color. Absent: rash Course Vital Signs 10/17/17 10/17/17 16:02 18:56 Temperature 98.0 F Pulse Rate 90 76 Respiratory 20 18 Rate Blood Pressure 131/61 153/74 O2 Sat by Pulse 99 99 Oximetry - Reevaluation(s) Reevaluation #1: 10/17/17 19:31 is reevaluated. She reports that her headache is diminished at this time. Patient states that she would like to go home. Medical Decision Making - Medical Decision Making This is a 62-year-old female presents a chief complaint of headache. She reports she has history of migraines. She did not take any Motrin or Tylenol prior to arrival. Patient states that she's had some nausea and episodes of vomiting yesterday. Patient was given IV fluids a migraine cocktail with Reglan Benadryl and Tylenol. Patient reports that she does feel better at this time and her headache is diminished. She has no neurological deficits. Patient will be discharged at this time. All questions were answered and return parameters were discussed. Disposition Clinical Impression: Migraine Disposition: HOME SELF-CARE Condition: Good Instructions: Acute Headache (ED) Additional Instructions: Patient advised to take Motrin or Tylenol for further headaches. Patient should follow-up with primary care provider. Rest remain hydrated. Return to the emergency department if any alarming signs or symptoms occur. Referrals: Richard Montano MD [Primary Care Provider] - 1-2 days Time of Disposition: 19:33
[2017-10-17 18:57] VITALS: RESP 18
[2017-10-17 19:59] VITALS: BP 143/69; PULSE 74; TEMP 97
== END 2017-10-17 19:58 | disposition home or self-care (01) ==
LOC: EC 15:48
DX: G43.909 Migraine, unspecified, not intractable, without status migrainosus (principal); M54.2 Cervicalgia; Z79.51 Long term (current) use of inhaled steroids; Z79.82 Long term (current) use of aspirin; Z79.899 Other long term (current) drug therapy; Z88.1 Allergy status to other antibiotic agents; Z88.6 Allergy status to analgesic agent; Z86.14 Personal history of Methicillin resistant Staphylococcus aureus infection
CPT/HCPCS: 99284; 96374; 96375; 96361; 96372; J1200; J2360; J2765

== ENCOUNTER 2018-01-02 14:25 | Emergency (ER) | payer OTHER ==
[2018-01-02 14:57] VITALS: BP 136/79; PULSE 73; RESP 18; TEMP 99.3
--- NOTE | 2018-01-02 16:18 | ED ---
ENT HPI - General Chief complaint: ENT Stated complaint: rt ear ache Time Seen by Provider: 01/02/18 15:28 Source: patient, RN notes reviewed, old records reviewed Mode of arrival: ambulatory Limitations: no limitations - History of Present Illness Initial comments: This patient is a 62 year old female with CC of right ear pain and sinus congestion for a month. She reports it started around December 07. She denies ear drainage. She relates that she has had sinus drainage and discomfort. She reports eye drainage occasionally as well. She reports occasional headaches. No other symptoms. - Related Data Home Medications Medication Instructions Recorded Confirmed Albuterol Inhaler [Ventolin Hfa 1 - 2 puff INHALATION RT-Q6H PRN 04/10/17 Inhaler] Atorvastatin [Lipitor] 10 mg PO HS 04/10/17 01/02/18 Diazepam [Valium] 5 mg PO HS PRN 04/10/17 01/02/18 hydrALAZINE HCL [Hydralazine HCl] 25 mg PO DAILY 04/10/17 01/02/18 Aspirin EC [Ecotrin Low Dose] 81 mg PO DAILY 10/17/17 01/02/18 Calcium Carbonate/Vitamin D3 1 tab PO BID 10/17/17 01/02/18 [Calcium 600-Vit D3 200 Tablet] Cetirizine HCl [Zyrtec] 10 mg PO DAILY 10/17/17 01/02/18 Cyclobenzaprine [Flexeril] 10 mg PO BID PRN 10/17/17 01/02/18 Fluticasone Nasal [place] [Flonase 1 - 2 spr EA NOSTRIL DAILY PRN 10/17/17 Nasal [place]] Furosemide [Lasix] 40 mg PO DAILY PRN 10/17/17 01/02/18 HYDROcodone/APAP 7.5-325MG [[place] 1 tab PO BID PRN 10/17/17 01/02/18 7.5-325] Ibuprofen [Motrin] 800 mg PO BID PRN 10/17/17 01/02/18 Hydrocortisone Cream 1 applic TOPICAL BID PRN 01/02/18 01/02/18 [Hydrocortisone 1% Cream] Potassium Chloride ER [K-[place] 10] 10 meq PO DAILY 01/02/18 01/02/18 Previous Rx's Medication Instructions Recorded Hydrochlorothiazide 25 mg PO DAILY #30 tablet 12/14/16 Amoxicillin 500 mg PO TID #30 capsule 01/02/18 Ofloxacin 0.3% Otic Soln [Floxin 5 drops BOTH EARS BID #1 bottle 01/02/18 0.3% Otic Soln] Allergies Allergy/AdvReac Type Severity Reaction Status Date / Time ibuprofen [From Motrin] Allergy Rash/Hives Verified 01/02/18 15:52 sulfamethoxazole Allergy Rash/Hives Verified 01/02/18 15:52 [From Septra] trimethoprim [From Septra] Allergy Rash/Hives Verified 01/02/18 15:52 Review of Systems ROS Statement: Those systems with pertinent positive or pertinent negative responses have been documented in the HPI. ROS Other: All systems not noted in ROS Statement are negative. Past Medical History Past Medical History: No Reported History Additional Past Medical History / Comment(s): endometriosis History of Any Multi-Drug Resistant Organisms: ESBL, MRSA Date of last positivie culture/infection: 10/02/07 MRSA:09/19/16 ESBL E.coli MDRO Source:: MRSA-site unknonw; ESBL-Urine Past Surgical History: Section, Cholecystectomy Additional Past Surgical History / Comment(s): endometriosis Past Anesthesia/Blood Transfusion Reactions: No Reported Reaction Past Psychological History: No Psychological Hx Reported Smoking Status: Never smoker Past Alcohol Use History: None Reported Past Drug Use History: None Reported - Past Family History Mother Family Medical History: No Reported History Father Family Medical History: Coronary Artery Disease (CAD) General Exam - General Exam Comments Initial Comments: This is a well appearing 62 year old female, no distress. Limitations: no limitations General appearance: alert, in no apparent distress Head exam: Present: atraumatic, normocephalic, normal inspection Eye exam: Present: normal appearance, PERRL, EOMI. Absent: scleral icterus, conjunctival injection, periorbital swelling ENT exam: Present: normal exam, mucous membranes moist, other (right ear cerumen impaction\) Respiratory exam: Present: normal lung sounds bilaterally. Absent: respiratory distress, wheezes, rales, rhonchi, stridor Cardiovascular Exam: Present: regular rate, normal rhythm, normal heart sounds. Absent: systolic murmur, diastolic murmur, rubs, gallop, clicks Extremities exam: Present: normal inspection, full ROM, normal capillary refill. Absent: tenderness, pedal edema, joint swelling, calf tenderness Back exam: Present: normal inspection Neurological exam: Present: alert, oriented X3, CN II-XII intact Psychiatric exam: Present: normal affect, normal mood Skin exam: Present: warm, dry, intact, normal color. Absent: rash Course Vital Signs 01/02/18 14:55 Temperature 99.3 F Pulse Rate 73 Respiratory 18 Rate Blood Pressure 136/79 O2 Sat by Pulse 95 Oximetry Procedures - Ear Wax Removal Right Ear Ear Canal Irrigated by: other (PA) Ear Canal(s) Curetted: plastic scoops, plastic loops Results: Re-examined: some cerumen remains, removal reattempted TM Visible: TM(s) intact, normal appearance, TM(s) erythematous Ear Canal: bleeding Noted Patient Tolerated Procedure: well Complications: no problems - Foreign Body Removal Ear Location: ear canal (R) Medical Decision Making - Medical Decision Making 62 year old female with right ear pain and sinus drainange and occasional headache. Patient has evidence of right ear cerumen impaction. I attempted removal with currette and was able to partially remove it. Patient otherwise appears well. She will be started on ear drops and antibiotics for sinus and ear infection. Discussed PCP follow up. Disposition Clinical Impression: Impacted cerumen of right ear, Otitis media, Sinusitis Disposition: HOME SELF-CARE Condition: Good Instructions: Earache (ED) Additional Instructions: Patient advised follow-up with primary care provider. Use the eardrops and take anabiotic as prescribed. Return to emergency department if any alarming signs or symptoms occur. Prescriptions: Amoxicillin 500 mg PO TID #30 capsule Ofloxacin 0.3% Otic Soln [Floxin 0.3% Otic Soln] 5 drops BOTH EARS BID #1 bottle Referrals: Richard Montano MD [Primary Care Provider] - 1-2 days Time of Disposition: 16:19
[2018-01-02] MEDS ORDERED: ACETAMINOPHEN TAB 325 MG TAB PO STA (16:32)
== END 2018-01-02 16:40 | disposition home or self-care (01) ==
LOC: EC 14:25
DX: H61.21 Impacted cerumen, right ear (principal); H66.91 Otitis media, unspecified, right ear; J32.9 Chronic sinusitis, unspecified; Z86.14 Personal history of Methicillin resistant Staphylococcus aureus infection; Z79.82 Long term (current) use of aspirin; Z88.6 Allergy status to analgesic agent; Z88.2 Allergy status to sulfonamides
CPT/HCPCS: 69210; 99283

== ENCOUNTER 2018-03-06 16:56 | Emergency (ER) | payer OTHER ==
[2018-03-06] MEDS ORDERED: KETOROLAC 30 MG/ML 1 ML VIAL IM STA (18:35)
--- NOTE | 2018-03-06 18:41 | ED ---
General Adult HPI - General Chief complaint: Dental/Oral Stated complaint: dental Source: patient, RN notes reviewed Mode of arrival: ambulatory Limitations: no limitations - History of Present Illness Initial comments: 63-year-old female presents to the emergency department for a chief complaint of tooth pain times one week. Patient states she tried to see her dentist earlier today but they did not have any appointments and told her to come here. Patient states the pain is radiating from her lower jaw up to her ear. Patient denies any fevers or chills. Patient states she has had this before and antibiotics worked for her. Patient denies any pain in the neck or head. No neck stiffness. Patient has no other complaints at this time including shortness of breath, chest pain, abdominal pain, nausea or vomiting, headache, or visual changes. - Related Data Home Medications Medication Instructions Recorded Confirmed Albuterol Inhaler [Ventolin Hfa 1 - 2 puff INHALATION RT-Q6H PRN 04/10/17 Inhaler] Atorvastatin [Lipitor] 10 mg PO HS 04/10/17 03/06/18 hydrALAZINE HCL [Hydralazine HCl] 25 mg PO DAILY 04/10/17 03/06/18 Aspirin EC [Ecotrin Low Dose] 81 mg PO DAILY 10/17/17 03/06/18 Calcium Carbonate/Vitamin D3 1 tab PO BID 10/17/17 03/06/18 [Calcium 600-Vit D3 200 Tablet] Cetirizine HCl [Zyrtec] 10 mg PO DAILY 10/17/17 03/06/18 Cyclobenzaprine [Flexeril] 10 mg PO BID PRN 10/17/17 03/06/18 Fluticasone Nasal [place] [Flonase 1 - 2 spr EA NOSTRIL DAILY PRN 10/17/17 Nasal [place]] Furosemide [Lasix] 40 mg PO DAILY PRN 10/17/17 03/06/18 HYDROcodone/APAP 7.5-325MG [[place] 1 tab PO BID PRN 10/17/17 03/06/18 7.5-325] Ibuprofen [Motrin] 800 mg PO BID PRN 10/17/17 03/06/18 Hydrocortisone Cream 1 applic TOPICAL BID PRN 01/02/18 03/06/18 [Hydrocortisone 1% Cream] Potassium Chloride ER [K-Dur 10] 10 meq PO DAILY 01/02/18 03/06/18 Previous Rx's Medication Instructions Recorded Hydrochlorothiazide 25 mg PO DAILY #30 tablet 12/14/16 Amoxicillin/Potassium Clav 1 tab PO Q12HR #20 tab 03/06/18 [Augmentin 875-125 Tablet] Allergies Allergy/AdvReac Type Severity Reaction Status Date / Time ibuprofen [From Motrin] Allergy Rash/Hives Verified 03/06/18 17:57 sulfamethoxazole Allergy Rash/Hives Verified 03/06/18 17:57 [From Septra] trimethoprim [From Septra] Allergy Rash/Hives Verified 03/06/18 17:57 Review of Systems ROS Statement: Those systems with pertinent positive or pertinent negative responses have been documented in the HPI. ROS Other: All systems not noted in ROS Statement are negative. Past Medical History Past Medical History: No Reported History Additional Past Medical History / Comment(s): endometriosis History of Any Multi-Drug Resistant Organisms: ESBL, MRSA Date of last positivie culture/infection: 10/02/07 MRSA:09/19/16 ESBL E.coli MDRO Source:: MRSA-site unknonw; ESBL-Urine Past Surgical History: Section, Cholecystectomy Additional Past Surgical History / Comment(s): endometriosis Past Anesthesia/Blood Transfusion Reactions: No Reported Reaction Past Psychological History: No Psychological Hx Reported Smoking Status: Never smoker Past Alcohol Use History: None Reported Past Drug Use History: None Reported - Past Family History Mother Family Medical History: No Reported History Father Family Medical History: Coronary Artery Disease (CAD) General Exam Limitations: no limitations General appearance: alert, in no apparent distress Head exam: Present: atraumatic, normocephalic, normal inspection Eye exam: Present: normal appearance, PERRL, EOMI. Absent: scleral icterus, conjunctival injection, periorbital swelling ENT exam: Present: mucous membranes moist, TM's normal bilaterally (Patient does have some cerumen impaction for. No erythema of the tympanic membranes bilaterally that can be visualized through the cerumen.), normal external ear exam. Absent: normal oropharynx (Patient has tenderness to tooth 30. No fractures of the tooth noted. No dental abscesses noted that can be drained. Oropharynx patent. Uvula midline.) Neck exam: Present: normal inspection, full ROM. Absent: tenderness (No tenderness or stiffness in the neck.), meningismus, lymphadenopathy Respiratory exam: Present: normal lung sounds bilaterally. Absent: respiratory distress, wheezes, rales, rhonchi, stridor Cardiovascular Exam: Present: regular rate, normal rhythm, normal heart sounds. Absent: systolic murmur, diastolic murmur, rubs, gallop, clicks Course Vital Signs 03/06/18 03/06/18 17:27 18:47 Temperature 97.7 F 97.9 F Pulse Rate 79 82 Respiratory 18 17 Rate Blood Pressure 117/69 120/78 O2 Sat by Pulse 97 97 Oximetry Medical Decision Making - Medical Decision Making 63-year-old female presents to the emergency department for a chief complaint of dental pain x 1 week. Patient tried to see her dentist today but could not see him because he had no appointments. He said to come here. Patient states the pain is on her lower jaw and radiates to her ear. Patient denies fevers or chills at home. Patient states she has had similar problems before and antibiotics helped. Patient denies any pain or stiffness in the neck. On exam patient has tenderness of tooth 30. No fractures of the tooth noted. No drainable abscesses in the mouth and noted. Patient's right ear did have cerumen but what was visualized of the tympanic membrane showed no signs of infection or redness. Patient agrees to follow up with primary care for cerumen management. Patient will be given Augmentin for tooth infection. She will follow up with dentist in 1-2 days. She'll return to the emergency Department if she develops fever or any other worsening symptoms Disposition Clinical Impression: Dental infection Disposition: HOME SELF-CARE Condition: Good Instructions: Toothache (ED) Additional Instructions: Please take Tylenol for pain. Please follow-up with your dentist in one to 2 days. Please return to the emergency Department if any worsening symptoms or develops fevers. Prescriptions: Amoxicillin/Potassium Clav [Augmentin 875-125 Tablet] 1 tab PO Q12HR #20 tab Is patient prescribed a controlled substance at d/c from ED?: No Referrals: Richard Montano MD [Primary Care Provider] - 1-2 days Time of Disposition: 18:40
[2018-03-06 18:48] VITALS: BP 120/78; PULSE 82; RESP 17; TEMP 97.9
== END 2018-03-06 18:47 | disposition home or self-care (01) ==
LOC: EC 16:56
DX: K04.7 Periapical abscess without sinus (principal); Z86.14 Personal history of Methicillin resistant Staphylococcus aureus infection; Z79.82 Long term (current) use of aspirin; Z79.899 Other long term (current) drug therapy; Z88.6 Allergy status to analgesic agent; Z88.8 Allergy status to other drugs, medicaments and biological substances
CPT/HCPCS: 99282; 96372; J1885

== ENCOUNTER 2018-03-07 15:36 | Emergency (ER) | payer OTHER ==
[2018-03-07 15:44] VITALS: BP 171/92; PULSE 79; RESP 18; TEMP 98.1
--- NOTE | 2018-03-07 16:10 | ED ---
General Adult HPI - General Chief complaint: Dental/Oral Stated complaint: headache & toothache Time Seen by Provider: 03/07/18 15:45 Source: patient, RN notes reviewed Mode of arrival: ambulatory Limitations: no limitations - History of Present Illness Initial comments: 63-year-old female presents to the emergency department for a chief complaint of tooth pain times one week. Patient was seen in the emergency department for tooth pain yesterday and given Augmentin. Patient states he Augmentin makes her stomach upset and she vomited once today because of it. Patient states the pain is now in the upper tooth as well. Patient will be making an appointment with [facility]. Patient states she would like a different antibiotic that won't upset her stomach. Patient states she tolerates amoxicillin well. Patient denies fevers or chills at home. Patient denies neck stiffness or neck pain. Patient has no other complaints at this time including shortness of breath, chest pain, abdominal pain, nausea or vomiting, headache, or visual changes. - Related Data Home Medications Medication Instructions Recorded Confirmed Albuterol Inhaler [Ventolin Hfa 1 - 2 puff INHALATION RT-Q6H PRN 04/10/17 Inhaler] Atorvastatin [Lipitor] 10 mg PO HS 04/10/17 03/06/18 hydrALAZINE HCL [Hydralazine HCl] 25 mg PO DAILY 04/10/17 03/06/18 Aspirin EC [Ecotrin Low Dose] 81 mg PO DAILY 10/17/17 03/06/18 Calcium Carbonate/Vitamin D3 1 tab PO BID 10/17/17 03/06/18 [Calcium 600-Vit D3 200 Tablet] Cetirizine HCl [Zyrtec] 10 mg PO DAILY 10/17/17 03/06/18 Cyclobenzaprine [Flexeril] 10 mg PO BID PRN 10/17/17 03/06/18 Fluticasone Nasal [place] [Flonase 1 - 2 spr EA NOSTRIL DAILY PRN 10/17/17 Nasal [place]] Furosemide [Lasix] 40 mg PO DAILY PRN 10/17/17 03/06/18 HYDROcodone/APAP 7.5-325MG [[place] 1 tab PO BID PRN 10/17/17 03/06/18 7.5-325] Ibuprofen [Motrin] 800 mg PO BID PRN 10/17/17 03/06/18 Hydrocortisone Cream 1 applic TOPICAL BID PRN 01/02/18 03/06/18 [Hydrocortisone 1% Cream] Potassium Chloride ER [K-Dur 10] 10 meq PO DAILY 01/02/18 03/06/18 Previous Rx's Medication Instructions Recorded Hydrochlorothiazide 25 mg PO DAILY #30 tablet 12/14/16 Amoxicillin/Potassium Clav 1 tab PO Q12HR #20 tab 03/06/18 [Augmentin 875-125 Tablet] Acetaminophen [Tylenol] 500 mg PO Q4-6H PRN #20 tab 03/07/18 Amoxicillin 500 mg PO Q8H 10 Days capsule 03/07/18 Ondansetron HCl [Zofran] 4 mg PO Q8HR PRN #10 tablet 03/07/18 Allergies Allergy/AdvReac Type Severity Reaction Status Date / Time ibuprofen [From Motrin] Allergy Rash/Hives Verified 03/07/18 15:43 sulfamethoxazole Allergy Rash/Hives Verified 03/07/18 15:43 [From Septra] trimethoprim [From Septra] Allergy Rash/Hives Verified 03/07/18 15:43 Review of Systems ROS Statement: Those systems with pertinent positive or pertinent negative responses have been documented in the HPI. ROS Other: All systems not noted in ROS Statement are negative. Past Medical History Past Medical History: No Reported History Additional Past Medical History / Comment(s): endometriosis History of Any Multi-Drug Resistant Organisms: ESBL, MRSA Date of last positivie culture/infection: 10/02/07 MRSA:09/19/16 ESBL E.coli MDRO Source:: MRSA-site unknonw; ESBL-Urine Past Surgical History: Section, Cholecystectomy Additional Past Surgical History / Comment(s): endometriosis Past Anesthesia/Blood Transfusion Reactions: No Reported Reaction Past Psychological History: No Psychological Hx Reported Smoking Status: Never smoker Past Alcohol Use History: None Reported Past Drug Use History: None Reported - Past Family History Mother Family Medical History: No Reported History Father Family Medical History: Coronary Artery Disease (CAD) General Exam Limitations: no limitations General appearance: alert, in no apparent distress Head exam: Present: atraumatic, normocephalic, normal inspection Eye exam: Present: normal appearance, PERRL, EOMI. Absent: scleral icterus, conjunctival injection, periorbital swelling ENT exam: Present: normal exam, mucous membranes moist, TM's normal bilaterally , normal external ear exam, other (patient has tenderness to tooth 2.) Neck exam: Present: normal inspection, full ROM. Absent: tenderness, meningismus, lymphadenopathy, thyromegaly Respiratory exam: Present: normal lung sounds bilaterally. Absent: respiratory distress, wheezes, rales, rhonchi, stridor Cardiovascular Exam: Present: regular rate, normal rhythm, normal heart sounds. Absent: systolic murmur, diastolic murmur, rubs, gallop, clicks Course Vital Signs 03/07/18 15:41 Temperature 98.1 F Pulse Rate 79 Respiratory 18 Rate Blood Pressure 171/92 O2 Sat by Pulse 100 Oximetry Medical Decision Making - Medical Decision Making 63-year-old female presents to the emergency department for a chief complaint of tooth pain and swelling. Patient was seen here for it yesterday and was given Augmentin. Patient states it makes her stomach upset. She would like amoxicillin instead. Patient denies pain or stiffness in the neck. Patient denies worsening symptoms from yesterday. Patient does state that the pain is mostly in the right upper teeth at this point. On exam patient does have tenderness to tooth 2. Patient does have a crown on that tooth. No drainable abscesses noted. No swelling or redness of the jaw. Patient will be given amoxicillin. She will also be given Zofran for nausea. She will be given Tylenol for pain. She will follow-up with the dentist in one to 2 days. She will return if she has worsening pain or fever or any other worsening symptoms. Disposition Clinical Impression: Tooth pain Disposition: HOME SELF-CARE Condition: Good Instructions: Toothache (ED) Additional Instructions: Please discontinue Augmentin. Please take amoxicillin instead. Take Zofran if you feel nauseous. Take Tylenol for pain. Follow-up with dentist in 1-2 days. Return to the emergency department if you have any worsening symptoms. Prescriptions: Acetaminophen [Tylenol] 500 mg PO Q4-6H PRN #20 tab PRN Reason: Pain Amoxicillin 500 mg PO Q8H 10 Days capsule Ondansetron HCl [Zofran] 4 mg PO Q8HR PRN #10 tablet PRN Reason: Nausea Is patient prescribed a controlled substance at d/c from ED?: No Referrals: Richard Montano MD [Primary Care Provider] - 1-2 days Time of Disposition: 16:06
== END 2018-03-07 16:19 | disposition home or self-care (01) ==
LOC: EC 15:36
DX: K08.89 Other specified disorders of teeth and supporting structures (principal); K30 Functional dyspepsia; Z79.82 Long term (current) use of aspirin; Z79.899 Other long term (current) drug therapy; Z88.1 Allergy status to other antibiotic agents; Z88.6 Allergy status to analgesic agent; Z86.14 Personal history of Methicillin resistant Staphylococcus aureus infection; Z90.49 Acquired absence of other specified parts of digestive tract; Z98.811 Dental restoration status
CPT/HCPCS: 99283

== ENCOUNTER 2018-03-09 20:44 | Emergency (ER) | payer OTHER ==
[2018-03-09 20:59] VITALS: BP 141/72; PULSE 82; RESP 16; TEMP 97.7
[2018-03-09] MEDS ORDERED: KETOROLAC 30 MG/ML 1 ML VIAL IM STA (21:31)
--- NOTE | 2018-03-09 21:45 | ED ---
General Adult HPI - General Chief complaint: Dental/Oral Stated complaint: headache; tooth ache Time Seen by Provider: 03/09/18 21:10 Source: patient, RN notes reviewed Mode of arrival: ambulatory Limitations: no limitations - History of Present Illness Initial comments: 63-year-old female presents to the emergency department for right upper tooth pain. Patient was seen here for the same thing for the past 2 days. Patient states the pain is causing a headache. Patient states she gets migraines and this is not a migraine. Patient states the pain is very mild. Patient did not sustain any head trauma. Patient states the pain has not worsened over the past few days and is consistent. Patient states "Tylenol" is not working. Patient states nausea is much better since getting the Zofran. Patient has no other complaints at this time including shortness of breath, chest pain, abdominal pain, nausea or vomiting, headache, or visual changes. - Related Data Home Medications Medication Instructions Recorded Confirmed Albuterol Inhaler [Ventolin Hfa 1 - 2 puff INHALATION RT-Q6H PRN 04/10/17 Inhaler] Atorvastatin [Lipitor] 10 mg PO HS 04/10/17 03/09/18 hydrALAZINE HCL [Hydralazine HCl] 25 mg PO DAILY 04/10/17 03/09/18 Aspirin EC [Ecotrin Low Dose] 81 mg PO DAILY 10/17/17 03/09/18 Calcium Carbonate/Vitamin D3 1 tab PO BID 10/17/17 03/09/18 [Calcium 600-Vit D3 200 Tablet] Cetirizine HCl [Zyrtec] 10 mg PO DAILY 10/17/17 03/09/18 Cyclobenzaprine [Flexeril] 10 mg PO BID PRN 10/17/17 03/09/18 Fluticasone Nasal [place] [Flonase 1 - 2 spr EA NOSTRIL DAILY PRN 10/17/17 Nasal [place]] Furosemide [Lasix] 40 mg PO DAILY PRN 10/17/17 03/09/18 HYDROcodone/APAP 7.5-325MG [[address] 1 tab PO BID PRN 10/17/17 03/09/18 7.5-325] Ibuprofen [Motrin] 800 mg PO BID PRN 10/17/17 03/09/18 Hydrocortisone Cream 1 applic TOPICAL BID PRN 01/02/18 03/09/18 [Hydrocortisone 1% Cream] Potassium Chloride ER [K-Dur 10] 10 meq PO DAILY 01/02/18 03/09/18 Previous Rx's Medication Instructions Recorded Hydrochlorothiazide 25 mg PO DAILY #30 tablet 12/14/16 Amoxicillin/Potassium Clav 1 tab PO Q12HR #20 tab 03/06/18 [Augmentin 875-125 Tablet] Acetaminophen [Tylenol] 500 mg PO Q4-6H PRN #20 tab 03/07/18 Amoxicillin 500 mg PO Q8H 10 Days capsule 03/07/18 Ondansetron HCl [Zofran] 4 mg PO Q8HR PRN #10 tablet 03/07/18 Allergies Allergy/AdvReac Type Severity Reaction Status Date / Time ibuprofen [From Motrin] Allergy Rash/Hives Verified 03/09/18 20:59 sulfamethoxazole Allergy Rash/Hives Verified 03/09/18 20:59 [From Septra] trimethoprim [From Septra] Allergy Rash/Hives Verified 03/09/18 20:59 Review of Systems ROS Statement: Those systems with pertinent positive or pertinent negative responses have been documented in the HPI. ROS Other: All systems not noted in ROS Statement are negative. Past Medical History Past Medical History: No Reported History Additional Past Medical History / Comment(s): endometriosis History of Any Multi-Drug Resistant Organisms: ESBL, MRSA Date of last positivie culture/infection: 10/02/07 MRSA:09/19/16 ESBL E.coli MDRO Source:: MRSA-site unknonw; ESBL-Urine Past Surgical History: Section, Cholecystectomy Additional Past Surgical History / Comment(s): endometriosis Past Anesthesia/Blood Transfusion Reactions: No Reported Reaction Past Psychological History: No Psychological Hx Reported Smoking Status: Never smoker Past Alcohol Use History: None Reported Past Drug Use History: None Reported - Past Family History Mother Family Medical History: No Reported History Father Family Medical History: Coronary Artery Disease (CAD) General Exam Limitations: no limitations General appearance: alert, in no apparent distress Head exam: Present: atraumatic, normocephalic, normal inspection Eye exam: Present: normal appearance, PERRL, EOMI. Absent: scleral icterus, conjunctival injection, nystagmus, periorbital swelling Pupils: Present: normal accommodation ENT exam: Present: normal exam, normal oropharynx (tenderness to tooth . No drainable abscess noted), mucous membranes moist, TM's normal bilaterally, normal external ear exam Neck exam: Present: normal inspection, full ROM. Absent: tenderness, meningismus, lymphadenopathy Respiratory exam: Present: normal lung sounds bilaterally. Absent: respiratory distress, wheezes, rales, rhonchi, stridor Cardiovascular Exam: Present: regular rate, normal rhythm, normal heart sounds. Absent: systolic murmur, diastolic murmur, rubs, gallop, clicks Neurological exam: Present: alert, oriented X3, CN II-XII intact, other (GCS 15) Course Vital Signs 03/09/18 20:55 Temperature 97.7 F Pulse Rate 82 Respiratory 16 Rate Blood Pressure 141/72 O2 Sat by Pulse 95 Oximetry Medical Decision Making - Medical Decision Making 63-year-old female presents to the emergency department for a chief complaint of tooth pain consistent over the past 3 days. Patient was seen in the emergency department twice before this for the same thing. Patient states she has one day of amoxicillin in. Patient denies the pain getting worse over the past few days. Patient denies neck stiffness. Patient states she has a mild headache due to the pain. Patient denies it being the worst headache of her life. Patient denies it being a migraine. No focal neuro deficits. Tooth 3 is tender to palpation. No drainable abscess noted. Patient states "Tylenol" is not helping. Patient would like Toradol for pain. Patient has had Toradol multiple times in the past which works well for her and she is not ALLERGIC to it. According to maps, patient had a prescription of [address] 7.5 filled 2 weeks ago. Patient does admit to taking that. Patient was educated that she will not be getting another prescription for pain because of this. Patient is okay with that. Patient will follow up with dentist. States she has an appointment. She will return to the emergency Department if she has any worsening symptoms or develops fevers. Disposition Clinical Impression: Tooth pain Disposition: HOME SELF-CARE Condition: Good Instructions: Toothache (ED) Additional Instructions: Please continue amoxicillin given to you previously. Please take your [address] given to you by another provider. Please follow-up with the dentist and primary care. Return to the emergency department if you have worsening symptoms or develops fevers. Is patient prescribed a controlled substance at d/c from ED?: No Referrals: Richard Montano MD [Primary Care Provider] - 1-2 days Time of Disposition: 21:44
== END 2018-03-09 21:49 | disposition home or self-care (01) ==
LOC: EC 20:44
DX: K08.89 Other specified disorders of teeth and supporting structures (principal); R51 Headache; R40.2412 Glasgow coma scale score 13-15, at arrival to emergency department; Z86.69 Personal history of other diseases of the nervous system and sense organs; Z86.14 Personal history of Methicillin resistant Staphylococcus aureus infection; Z79.82 Long term (current) use of aspirin; Z79.899 Other long term (current) drug therapy; Z88.6 Allergy status to analgesic agent; Z88.2 Allergy status to sulfonamides
CPT/HCPCS: 99283; 96372; J1885

== ENCOUNTER 2018-07-08 14:42 | Emergency (ER) | payer OTHER ==
--- NOTE | 2018-07-08 15:46 | ED ---
General Adult HPI - General Chief complaint: Headache Stated complaint: Headache Time Seen by Provider: 07/08/18 15:31 Source: patient, RN notes reviewed Mode of arrival: ambulatory Limitations: no limitations - History of Present Illness Initial comments: Patient 64-year-old female presented to the emergency room today with multiple complaints patient patient does admit that she has had symptoms of urinary tract infection and sinus infection over the last 4 days. She states that it started approximately same time. She does admit to increased headache with sinus pressure. States consistent with sinus infections that she has had the past. Has not been taking anything for her she states was not having medicine at home. Patient also admits to increased urinary frequency and some dysuria with urination. She denies any other complaints or symptoms. Patient denies any recent fever, chills, shortness of breath, chest pain, back pain, abdominal pain, nausea or vomiting, numbness or tingling, dysuria or hematuria, constipation or diarrhea, headaches or visual changes, or any other complaints. - Related Data Home Medications Medication Instructions Recorded Confirmed Cyclobenzaprine [Flexeril] 10 mg PO HS PRN 10/17/17 07/08/18 Multivitamins, Thera [Multivitamin 1 tab PO DAILY 07/08/18 07/08/18 (formulary)] Previous Rx's Medication Instructions Recorded Cephalexin [Keflex] 500 mg PO Q12HR 10 Days cap 07/08/18 Fluticasone Propionate [Flonase 1 - 2 spray EA NOSTRIL DAILY 5 07/08/18 Allergy Relief] Days ml Allergies Allergy/AdvReac Type Severity Reaction Status Date / Time ibuprofen [From Motrin] Allergy Rash/Hives Verified 07/08/18 16:12 sulfamethoxazole Allergy Rash/Hives Verified 07/08/18 16:12 [From Septra] trimethoprim [From Septra] Allergy Rash/Hives Verified 07/08/18 16:12 Review of Systems ROS Statement: Those systems with pertinent positive or pertinent negative responses have been documented in the HPI. ROS Other: All systems not noted in ROS Statement are negative. Past Medical History Past Medical History: No Reported History Additional Past Medical History / Comment(s): endometriosis History of Any Multi-Drug Resistant Organisms: ESBL, MRSA Date of last positivie culture/infection: 10/02/07 MRSA:09/19/16 ESBL E.coli MDRO Source:: MRSA-site unknonw; ESBL-Urine Past Surgical History: Section, Cholecystectomy Additional Past Surgical History / Comment(s): endometriosis Past Anesthesia/Blood Transfusion Reactions: No Reported Reaction Past Psychological History: No Psychological Hx Reported Smoking Status: Never smoker Past Alcohol Use History: None Reported Past Drug Use History: None Reported - Past Family History Mother Family Medical History: No Reported History Father Family Medical History: Coronary Artery Disease (CAD) General Exam - General Exam Comments Initial Comments: General: The patient is awake and alert, in no distress, and does not appear acutely ill. Eye: Pupils are equal, round and reactive to light. Extra-ocular movements are intact. No nystagmus. There is normal conjunctiva bilaterally. No signs of icterus. Ears, nose, mouth and throat: There are moist mucous membranes and no oral lesions. Tender palpation over both frontal and maxillary sinuses. Neck: The neck is supple, there is no tenderness or JVD. Cardiovascular: There is a regular rate and rhythm. No murmur, rub or gallop is appreciated. Respiratory: Lungs are clear to auscultation, respirations are non-labored, breath sounds are equal. No wheezes, stridor, rales, or rhonchi. Gastrointestinal: Soft on palpation. Nontender. Musculoskeletal: Normal ROM, no tenderness. Sensation intact. Strength 5/5. Pulses equal bilaterally 2+. Neurological: A&O x 3. CN II-XII intact, There are no obvious motor or sensory deficits. Coordination appears grossly intact. Speech is normal. Skin: Skin is warm and dry and no rashes or lesions are noted. Psychiatric: Cooperative, appropriate mood & affect, normal judgment. Limitations: no limitations Course Vital Signs 07/08/18 15:07 Temperature 97.5 F L Pulse Rate 74 Respiratory 20 Rate Blood Pressure 109/77 O2 Sat by Pulse 98 Oximetry Medical Decision Making - Medical Decision Making Patient reexamined at this time shows no signs of distress. She is resting comfortably. Patient does admit to symptoms consistent with sinus infection this in the past. She is tender over the frontal or maxillary sinuses. Patient also admits to increased urinary frequency is worried about possible UTI. Her urine sample reviewed. Culture is pending. Patient will be treated for sinus infection. - Lab Data Lab Results 07/08/18 Range/Units 16:09 Urine Color Dark Yellow Urine Appearance Clear (Clear) Urine pH 6.0 (5.0-8.0) Ur Specific Banks 1.025 (1.001-1.035) Urine Protein Trace H (Negative) Urine Glucose (UA) Negative (Negative) Urine Ketones Negative (Negative) Urine Blood Negative (Negative) Urine Nitrite Negative (Negative) Urine Bilirubin Negative (Negative) Urine Urobilinogen 2.0 (<2.0) mg/dL Ur Leukocyte Esterase Small H (Negative) Urine RBC 1 (0-5) /hpf Urine WBC 4 (0-5) /hpf Ur Squamous Epith Cells 2 (0-4) /hpf Hyaline Casts 4 H (0-2) /lpf Urine Mucus Few H (None) /hpf Disposition Clinical Impression: Sinus infection Disposition: HOME SELF-CARE Condition: Good Instructions: Sinusitis (ED) Additional Instructions: Please use medication as discussed. Please follow-up with family doctor in the next 2 days of symptoms have not improved. Please return to emergency room if the symptoms increase or worsen or for any other concerns. Prescriptions: Cephalexin [Keflex] 500 mg PO Q12HR 10 Days cap Fluticasone Propionate [Flonase Allergy Relief] 1 - 2 spray EA NOSTRIL DAILY 5 Days ml Is patient prescribed a controlled substance at d/c from ED?: No Referrals: Richard Montano MD [Primary Care Provider] - 1-2 days Time of Disposition: 16:32
[2018-07-08 16:23] LABS: Appearance,Urine Clear (Clear); Bilirubin,Urine Negative (Negative); Blood,Urine Negative (Negative); Color,Urine Dark Yellow; Glucose,Urine (UA) Negative (Negative); Hyaline Casts,Urine 4 /lpf (0-2); Ketones,Urine Negative (Negative); Leukocyte Esterase,Urine Small (Negative); Mucus,Urine Few /hpf; Nitrite,Urine Negative (Negative); Protein,Urine Trace (Negative); RBC,Urine 1 /hpf (0-5); Specific Gravity,Urine 1.025 (1.001-1.035); Squamous Epithelial Cell,Urine 2 /hpf (0-4)
[2018-07-08 16:47] VITALS: BP 141/93; PULSE 86; RESP 18; TEMP 97.3
== END 2018-07-08 16:40 | disposition home or self-care (01) ==
LOC: EC 14:42
DX: J32.9 Chronic sinusitis, unspecified (principal); R35.0 Frequency of micturition; R30.0 Dysuria; Z86.14 Personal history of Methicillin resistant Staphylococcus aureus infection; Z88.6 Allergy status to analgesic agent; Z88.2 Allergy status to sulfonamides
CPT/HCPCS: 77067; 77080; 81001; 99284

== ENCOUNTER → 2018-07-08 | Outpatient (CLI) | payer OTHER ==
--- NOTE | 2018-07-08 19:08 | BD ---
EXAMINATION TYPE: Axial Bone Density DATE OF EXAM: 07/08/2018 COMPARISON: NONE CLINICAL HISTORY: 63-year-old female disorder of bone Height: 62 Weight: 221.4 FRAX RISK QUESTIONS: Alcohol (3 or more units per day): no Family History (Parent hip fracture): no Glucocorticoids (More than 3mos): no (Ex: prednisone, prednisolone, methylprednisolone, dexamethasone, and hydrocortisone). History of Fracture in Adulthood: no Secondary Osteoporosis: 1. Type 1 Diabetes: no 2. Hyperthyroidism: no 3. Menopause before 45: no 4. Malnutrition: no 5. Chronic liver disease: no Rheumatoid Arthritis: no Current Tobacco Use: no RISK FACTORS HISTORY OF: Family History of Osteoporosis: no Active: yes Diet low in dairy products/other sources of calcium: yes Postmenopausal woman: age 49 Lost more than 2 inches in height since high school: no MEDICATIONS: flexeril Additional History: EXAM MEASUREMENTS: Bone mineral densitometry was performed using the [employer] System. Bone mineral density as measured about the Lumbar spine is: ----- L1-L4(G/cm2): 1.229 T Score Values are as follows: ----- L2: 0.8 ----- L3: 1.8 ----- L4: -0.6 ----- L1-L4: 0.4 Bone mineral density has: increased 7.8 % since study of: 09.01.2013 Bone mineral density about the R hip (g/cm2): 1.026 Bone mineral density about the L hip (g/cm2): 0.987 T Score values are as follows: -----R Neck: -0.1 -----L Neck: -0.4 -----R Total: 0.0 -----L Total: -0.1 Bone mineral density has: increased 5.7 % since study of: 09.01.2013 IMPRESSION: Normal (Values between +1 and -1 indicate normal bone mass). Consider repeating this study in 5 year s or sooner if there is some new clinical indication. NOTE: T-SCORE=SD OF THE YOUNG ADULT MEAN.
--- NOTE | 2018-07-09 10:24 | MM ---
Reason for exam: screening (asymptomatic). Last mammogram was performed 3 years and 2 months ago. History: Patient is postmenopausal. Physical Findings: A clinical breast exam by your physician is recommended on an annual basis and results should be correlated with mammographic findings. MG Screening Mammo w CAD Bilateral CC and MLO view(s) were taken. Prior study comparison: May 18, 2015, bilateral MG screening mammo w CAD. August 11, 2013, bilateral digital screening mammo w/CAD. There is a new middle depth upper inner quadrant mass 5-6cm from nipple on the right. No suspicious abnormality on the left breast. ASSESSMENT: Incomplete: need additional imaging evaluation, BI-RAD 0 RECOMMENDATION: Special view mammogram of the right breast. If lesion persists on supplemental views, image directed ultrasound is recommended. [facility] will attempt to contact patient to return for supplemental views and ultrasound if indicated.
== END | disposition home or self-care (01) ==
LOC: RADBDWWP 12:46
PROVIDERS: ATTEND Obstetrics & Gynecology
DX: Z12.31 Encounter for screening mammogram for malignant neoplasm of breast (principal); M85.80 Other specified disorders of bone density and structure, unspecified site
CPT/HCPCS: 77067; 77080

== ENCOUNTER → 2018-07-16 | Outpatient (CLI) | payer OTHER ==
--- NOTE | 2018-07-17 09:01 | MM ---
Reason for exam: additional evaluation requested from abnormal screening. Last mammogram was performed less than 1 month ago. History: Patient is postmenopausal. Physical Findings: Nurse did not find any significant physical abnormalities on exam. MG Work Up Mamm w CAD RT Spot compression CC, spot compression MLO, and LM view(s) were taken of the right breast. Prior study comparison: July 08, 2018, bilateral MG screening mammo w CAD. May 18, 2015, bilateral MG screening mammo w CAD. The breast tissue is heterogeneously dense. This may lower the sensitivity of mammography. No suspicious abnormality. The previously seen focal asymmetry resolves on additional view and appears as fibroglandular tissue. These results were verbally communicated with the patient and result sheet given to the patient on 07/16/18. ASSESSMENT: Benign, BI-RAD 2 RECOMMENDATION: Return to routine screening mammogram schedule for both breasts.
== END | disposition home or self-care (01) ==
LOC: RADMAMWWP 13:23
PROVIDERS: ATTEND Obstetrics & Gynecology
DX: R92.8 Other abnormal and inconclusive findings on diagnostic imaging of breast (principal)
CPT/HCPCS: 77065

== ENCOUNTER → 2018-08-30 | Outpatient (CLI) | payer OTHER ==
[2018-08-30 16:32] LABS: Basophils % (A) 1 %; Eosinophils # (A) 0.2 k/uL (0-0.7); Eosinophils % (A) 3 %; HCT 40.7 % (34.0-46.0); Lymphocytes # (A) 2.3 k/uL (1.0-4.8); Lymphocytes % (A) 36 %; MCH 29.8 pg (25.0-35.0); MCHC 31.9 g/dL (31.0-37.0); MCV 93.3 fL (80.0-100.0); Mean Platelet Volume 6.7; Monocytes # (A) 0.3 k/uL (0-1.0); Monocytes % (A) 5 %; Neutrophils # (A) 3.3 k/uL (1.3-7.7); Neutrophils % (A) 53 %; Platelet Count 362 k/uL (150-450); RBC 4.37 m/uL (3.80-5.40); RDW 13.9 % (11.5-15.5); WBC 6.2 k/uL (3.8-10.6)
[2018-08-31 02:36] LABS: Albumin 4.7 g/dL (3.80-4.90); Albumin/Globulin Ratio 2.76 (1.20-2.10); Anion Gap 11.1 mmol/L (4.00-12.00); Calcium 9.3 mg/dL (8.7-10.3); Carbon Dioxide 23.9 mmol/L (21.6-31.8); Globulin 1.7 g/dL (2.1-3.7); LDL Cholesterol,Calculated 86.2 mg/dL (0.0-131.0); Potassium 4.6 mmol/L (3.5-5.5); Total Bilirubin 0.4 mg/dL (0.3-1.2); Total Protein 6.4 g/dL (6.2-8.2); VLDL Calculation 54.8 mg/dL (5.00-40.00)
== END | disposition home or self-care (01) ==
LOC: LABWHC1 15:55
PROVIDERS: ATTEND Internal Medicine
DX: I10 Essential (primary) hypertension (principal); G89.29 Other chronic pain
CPT/HCPCS: 36415; 80053; 80061; 84443; 85025

== ENCOUNTER 2018-10-10 14:17 | Emergency (ER) | payer OTHER ==
[2018-10-10 14:23] VITALS: BP 128/94; RESP 18; TEMP 97.6
[2018-10-10] MEDS ORDERED: ACETAMINOPHEN TAB 325 MG TAB PO STA (14:46)
--- NOTE | 2018-10-10 15:00 | ED ---
General Adult HPI - General Chief complaint: Skin/Abscess/Foreign Body Stated complaint: infection under left breast Source: patient, RN notes reviewed, old records reviewed Mode of arrival: ambulatory Limitations: no limitations - History of Present Illness Initial comments: 63-year-old female patient past medical history of hypertension, hyperlipidemia resents to ED for rash beneath left breast for 2 days. Patient states that is similar to candidal dermatitis rash that she has had in the past. Patient states that it is itchy and burning. Patient denies any other rashes. Patient denies all other complaints. Systemic: Pt denies fatigue, myalgia, fever/chills. Pt denies weakness, night sweats, weight loss. Neuro: Pt denies headache, visual disturbances, syncope or pre-syncope. HEENT: Pt denies ocular discharge or irritation, otalgia, rhinorrhea, pharyngitis or notable lymphadenopathy. Cardiopulmonary: Pt denies chest pain, SOB, heart palpitations, dyspnea on exertion. Abdominal/GI: Pt denies abdominal pain, n/v/d. : Pt denies dysuria, burning w/ urination, frequency/urgency. Denies new onset urinary or bowel incontinence. MSK: Pt denies myalgia, loss of strength or function in extremities. Neuro: Pt denies new onset weakness, paresthesias. - Related Data Home Medications Medication Instructions Recorded Confirmed Cyclobenzaprine [Flexeril] 10 mg PO HS PRN 10/17/17 07/08/18 Multivitamins, Thera [Multivitamin 1 tab PO DAILY 07/08/18 07/08/18 (formulary)] Previous Rx's Medication Instructions Recorded Cephalexin [Keflex] 500 mg PO Q12HR 10 Days cap 07/08/18 Fluticasone Propionate [Flonase 1 - 2 spray EA NOSTRIL DAILY 5 07/08/18 Allergy Relief] Days ml Clotrimazole [Clotrimazole 1% Top 1 applic TOPICAL Q12HR 14 Days #1 10/10/18 Soln] tube Allergies Allergy/AdvReac Type Severity Reaction Status Date / Time ibuprofen [From Motrin] Allergy Rash/Hives Verified 10/10/18 14:20 sulfamethoxazole Allergy Rash/Hives Verified 10/10/18 14:20 [From Septra] trimethoprim [From Septra] Allergy Rash/Hives Verified 10/10/18 14:20 Review of Systems ROS Statement: Those systems with pertinent positive or pertinent negative responses have been documented in the HPI. ROS Other: All systems not noted in ROS Statement are negative. Past Medical History Past Medical History: No Reported History Additional Past Medical History / Comment(s): endometriosis History of Any Multi-Drug Resistant Organisms: ESBL, MRSA Date of last positivie culture/infection: 10/02/07 MRSA:09/19/16 ESBL E.coli MDRO Source:: MRSA-site unknonw; ESBL-Urine Past Surgical History: Section, Cholecystectomy Additional Past Surgical History / Comment(s): endometriosis Past Anesthesia/Blood Transfusion Reactions: No Reported Reaction Past Psychological History: No Psychological Hx Reported Smoking Status: Never smoker Past Alcohol Use History: None Reported Past Drug Use History: None Reported - Past Family History Mother Family Medical History: No Reported History Father Family Medical History: Coronary Artery Disease (CAD) General Exam - General Exam Comments Initial Comments: Constitutional: NAD, AOX3, Pt has pleasant affect. HEENT: NC/AT, trachea midline, neck supple, no lymphadenopathy. Posterior pharynx non erythematous, without exudates. External ears appear normal, without discharge. Mucous membranes moist. Eyes PERRLA, EOM intact. There is no scleral icterus. No pallor noted. Cardiopulmonary: RRR, no murmurs, rubs or gallops, no JVD noted. Lungs CTAB in anterior and posterior rojo. No peripheral edema. Abdominal exam: Abdomen soft and non-distended. Abdomen non-tender to palpation in all 4 quadrants. Bowel sounds active in LLQ. No hepatosplenomegaly. No ecchymosis Neuro: CN II-XII grossly intact. No nuchal rigidity. MSK: 4x2 inch erythematous, intertrigimous, macerated rash noted beneath L breast. Exam chaperogned by JENIFER Bueno. No posterior calf tenderness bilaterally, homans sign negative bilaterally. Posterior tibialis and radial pulse +2 bilaterally. Sensation intact in upper and lower extremities. Full active ROM in upper and lower extremities, 5/5 stregnth. Limitations: no limitations Course Vital Signs 10/10/18 10/10/18 14:20 15:02 Temperature 97.6 F Pulse Rate 106 H 80 Respiratory 18 18 Rate Blood Pressure 128/94 O2 Sat by Pulse 97 96 Oximetry Medical Decision Making - Medical Decision Making 63-year-old female patient past medical history of hypertension, hyperlipidemia presents to ED for rash beneath left breast for 2 days. Physical exam displayed candial dermatitis rash. Pt dx with candial dermatitis. Pt rx clotrimazole to use BID for 2 weeks. Pt to f/u with PCP tomorrow. Pt to return to ED if new s// sx develop or if condition worsens in anyway. Case discussed in depth with Dr. Garcia. Disposition Clinical Impression: Intertrigo, Candidal dermatitis Disposition: HOME SELF-CARE Condition: Stable Instructions: Skin Yeast Infection (ED) Additional Instructions: Patient to adhere to previously discussed treatment plan and will take medication(s) as directed. Patient to follow up with PCP in 1-2 days. Patient to return to ED if symptoms do not improve. Prescriptions: Clotrimazole [Clotrimazole 1% Top Soln] 1 applic TOPICAL Q12HR 14 Days #1 tube Is patient prescribed a controlled substance at d/c from ED?: No Referrals: Richard Montano MD [Primary Care Provider] - 1-2 days Time of Disposition: 15:00
[2018-10-10 15:08] VITALS: PULSE 80
== END 2018-10-10 15:15 | disposition home or self-care (01) ==
LOC: EC 14:17
DX: B37.9 Candidiasis, unspecified (principal); L30.9 Dermatitis, unspecified; L30.4 Erythema intertrigo; Z86.14 Personal history of Methicillin resistant Staphylococcus aureus infection; Z88.1 Allergy status to other antibiotic agents; Z88.6 Allergy status to analgesic agent
CPT/HCPCS: 99283

== ENCOUNTER 2018-12-27 14:04 | Emergency (ER) | payer OTHER ==
[2018-12-27 14:17] VITALS: BP 154/92; PULSE 73; RESP 20; TEMP 97.6
--- NOTE | 2018-12-27 14:43 | ED ---
General Adult HPI - General Chief complaint: Skin/Abscess/Foreign Body Stated complaint: Female Time Seen by Provider: 12/27/18 14:29 Source: patient, RN notes reviewed Mode of arrival: ambulatory Limitations: no limitations - History of Present Illness Initial comments: 63-year-old female presents emergency Department with chief complaint of rash un derneath her left breast. Patient states started last day or so. Patient states is itchy. Patient had this in the past and has had improvement with antifungals. Patient states that she is a nondiabetic. Patient states she always has a large amount of moisture in her breast. Patient offers no other complaints. - Related Data Home Medications Medication Instructions Recorded Confirmed Cyclobenzaprine [Flexeril] 10 mg PO HS PRN 10/17/17 07/08/18 Multivitamins, Thera [Multivitamin 1 tab PO DAILY 07/08/18 07/08/18 (formulary)] Previous Rx's Medication Instructions Recorded Cephalexin [Keflex] 500 mg PO Q12HR 10 Days cap 07/08/18 Fluticasone Propionate [Flonase 1 - 2 spray EA NOSTRIL DAILY 5 07/08/18 Allergy Relief] Days ml Clotrimazole [Clotrimazole 1% Top 1 applic TOPICAL Q12HR 14 Days #1 10/10/18 Soln] tube Fluconazole [Diflucan] 150 mg PO ONCE #3 tab 12/27/18 Nystatin 100,000Unit/gm Cream 1 applic TOPICAL BID #30 gram 12/27/18 [Mycostatin Cream] Allergies Allergy/AdvReac Type Severity Reaction Status Date / Time ibuprofen [From Motrin] Allergy Rash/Hives Verified 12/27/18 14:17 sulfamethoxazole Allergy Rash/Hives Verified 12/27/18 14:17 [From Septra] trimethoprim [From Septra] Allergy Rash/Hives Verified 12/27/18 14:17 Review of Systems ROS Statement: Those systems with pertinent positive or pertinent negative responses have been documented in the HPI. ROS Other: All systems not noted in ROS Statement are negative. Past Medical History Past Medical History: No Reported History Additional Past Medical History / Comment(s): endometriosis History of Any Multi-Drug Resistant Organisms: ESBL, MRSA Date of last positivie culture/infection: 10/02/07 MRSA:09/19/16 ESBL E.coli MDRO Source:: MRSA-site unknonw; ESBL-Urine Past Surgical History: Section, Cholecystectomy Additional Past Surgical History / Comment(s): endometriosis Past Anesthesia/Blood Transfusion Reactions: No Reported Reaction Past Psychological History: No Psychological Hx Reported Smoking Status: Never smoker Past Alcohol Use History: None Reported Past Drug Use History: None Reported - Past Family History Mother Family Medical History: No Reported History Father Family Medical History: Coronary Artery Disease (CAD) General Exam Limitations: no limitations General appearance: alert, in no apparent distress Head exam: Present: atraumatic, normocephalic, normal inspection Respiratory exam: Present: normal lung sounds bilaterally. Absent: respiratory distress, wheezes, rales, rhonchi, stridor Cardiovascular Exam: Present: regular rate, normal rhythm, normal heart sounds. Absent: systolic murmur, diastolic murmur, rubs, gallop, clicks Skin exam: Present: warm, dry, intact, normal color, rash (Erythematous slightly papular rash with raised borders noted on the left breast) Course Vital Signs 12/27/18 14:15 Temperature 97.6 F Pulse Rate 73 Respiratory 20 Rate Blood Pressure 154/92 O2 Sat by Pulse 99 Oximetry Medical Decision Making - Medical Decision Making 63-year-old female presented for rash patient had rash underneath her left breast. Patient we treated for yeast infection with Diflucan and nystatin. Disposition Clinical Impression: Tinea corporis Disposition: HOME SELF-CARE Condition: Stable Instructions (If sedation given, give patient instructions): Skin Yeast Infection (ED) Additional Instructions: Please return to the Emergency Department if symptoms worsen or any other concerns. Prescriptions: Fluconazole [Diflucan] 150 mg PO ONCE #3 tab Nystatin 100,000Unit/gm Cream [Mycostatin Cream] 1 applic TOPICAL BID #30 gram Is patient prescribed a controlled substance at d/c from ED?: No Referrals: Richard Montano MD [Primary Care Provider] - 1-2 days Time of Disposition: 14:42
== END 2018-12-27 14:40 | disposition home or self-care (01) ==
LOC: EC 14:04
DX: B35.4 Tinea corporis (principal); Z88.1 Allergy status to other antibiotic agents; Z88.2 Allergy status to sulfonamides; Z88.6 Allergy status to analgesic agent; Z86.14 Personal history of Methicillin resistant Staphylococcus aureus infection
CPT/HCPCS: 99282

== ENCOUNTER 2019-02-17 10:56 | Emergency (ER) | payer OTHER ==
[2019-02-17 11:27] VITALS: BP 123/79; PULSE 81; RESP 18; TEMP 98.5
--- NOTE | 2019-02-17 12:36 | ED ---
General Adult HPI - General Chief complaint: Skin/Abscess/Foreign Body Stated complaint: Yeast infection under arm Time Seen by Provider: 02/17/19 11:47 Source: patient, RN notes reviewed, old records reviewed Mode of arrival: ambulatory Limitations: no limitations - History of Present Illness Initial comments: Patient is a 64-year-old female presents today with concerns for u yeast infection over the right axilla. She's had symptoms for the past 3 days. She's had this happen before. Patient states that she was told previously to compare for oral Diflucan medication which usually treats this for her. Patient states that she's had no other complaints at this time. - Related Data Home Medications Medication Instructions Recorded Confirmed Cyclobenzaprine [Flexeril] 10 mg PO HS PRN 10/17/17 07/08/18 Multivitamins, Thera [Multivitamin 1 tab PO DAILY 07/08/18 07/08/18 (formulary)] Previous Rx's Medication Instructions Recorded Cephalexin [Keflex] 500 mg PO Q12HR 10 Days cap 07/08/18 Fluticasone Propionate [Flonase 1 - 2 spray EA NOSTRIL DAILY 5 07/08/18 Allergy Relief] Days ml Clotrimazole [Clotrimazole 1% Top 1 applic TOPICAL Q12HR 14 Days #1 10/10/18 Soln] tube Fluconazole [Diflucan] 150 mg PO ONCE #3 tab 12/27/18 Nystatin 100,000Unit/gm Cream 1 applic TOPICAL BID #30 gram 12/27/18 [Mycostatin Cream] Fluconazole [Diflucan] 150 mg PO ONCE #3 tab 02/17/19 Nystatin 100,000 Unit/gm Oint 1 applic TOPICAL BID #30 gm 02/17/19 [Mycostatin Oint] Nystatin 100,000 Unit/gm Powd 1 applic TOPICAL BID #30 gm 02/17/19 [Mycostatin Powder] Allergies Allergy/AdvReac Type Severity Reaction Status Date / Time ibuprofen [From Motrin] Allergy Rash/Hives Verified 02/17/19 11:25 sulfamethoxazole Allergy Rash/Hives Verified 02/17/19 11:25 [From Septra] trimethoprim [From Septra] Allergy Rash/Hives Verified 02/17/19 11:25 Review of Systems ROS Statement: Those systems with pertinent positive or pertinent negative responses have been documented in the HPI. ROS Other: All systems not noted in ROS Statement are negative. Past Medical History Past Medical History: No Reported History Additional Past Medical History / Comment(s): endometriosis History of Any Multi-Drug Resistant Organisms: ESBL, MRSA Date of last positivie culture/infection: 10/02/07 MRSA:09/19/16 ESBL E.coli MDRO Source:: MRSA-site unknonw; ESBL-Urine Past Surgical History: Section, Cholecystectomy Additional Past Surgical History / Comment(s): endometriosis Past Anesthesia/Blood Transfusion Reactions: No Reported Reaction Past Psychological History: No Psychological Hx Reported Smoking Status: Never smoker Past Alcohol Use History: None Reported Past Drug Use History: None Reported - Past Family History Mother Family Medical History: No Reported History Father Family Medical History: Coronary Artery Disease (CAD) General Exam - General Exam Comments Initial Comments: Pleasant 64-year-old female. No distress. Limitations: no limitations General appearance: alert, in no apparent distress Head exam: Present: atraumatic, normocephalic, normal inspection Eye exam: Present: normal appearance, PERRL, EOMI. Absent: scleral icterus, conjunctival injection, periorbital swelling ENT exam: Present: normal exam Neck exam: Present: normal inspection. Absent: tenderness, meningismus, lymphadenopathy Respiratory exam: Present: normal lung sounds bilaterally. Absent: respiratory distress, wheezes, rales, rhonchi, stridor Cardiovascular Exam: Present: regular rate, normal rhythm, normal heart sounds. Absent: systolic murmur, diastolic murmur, rubs, gallop, clicks GI/Abdominal exam: Present: soft, normal bowel sounds. Absent: distended, tenderness, guarding, rebound, rigid Extremities exam: Present: normal inspection, full ROM, normal capillary refill, other (Erythematous, macular like rash over the right axilla. Patient reports periodic.). Absent: tenderness, pedal edema, joint swelling, calf tenderness Back exam: Present: normal inspection Neurological exam: Present: alert, oriented X3, CN II-XII intact Psychiatric exam: Present: normal affect, normal mood Course Vital Signs 02/17/19 11:25 Temperature 98.5 F Pulse Rate 81 Respiratory 18 Rate Blood Pressure 123/79 O2 Sat by Pulse 95 Oximetry Medical Decision Making - Medical Decision Making 64 tear old female with A pruritic rash in her right axilla. History of candidal skin infections. She states is similar to her previous. Patient this time will be discharged with prescription for Diflucan, nystatin powder. Discussed kidney area clean and dry. ANSWER return parameters were discussed. Disposition Clinical Impression: Candidal intertrigo Disposition: HOME SELF-CARE Condition: Good Instructions (If sedation given, give patient instructions): Yeast Infection (ED) Additional Instructions: Follow up with primary care physician. Take the medication as prescribed. Keep the area clean and dry as much as possible. Prescriptions: Fluconazole [Diflucan] 150 mg PO ONCE #3 tab Nystatin 100,000 Unit/gm Oint [Mycostatin Oint] 1 applic TOPICAL BID #30 gm Nystatin 100,000 Unit/gm Powd [Mycostatin Powder] 1 applic TOPICAL BID #30 gm Is patient prescribed a controlled substance at d/c from ED?: No Referrals: Richard Montano MD [Primary Care Provider] - 1-2 days Time of Disposition: 12:35
== END 2019-02-17 12:47 | disposition home or self-care (01) ==
LOC: EC 10:56
DX: B37.2 Candidiasis of skin and nail (principal); Z88.2 Allergy status to sulfonamides; Z88.6 Allergy status to analgesic agent; Z86.14 Personal history of Methicillin resistant Staphylococcus aureus infection
CPT/HCPCS: 99283

== ENCOUNTER 2019-06-27 14:07 | Emergency (ER) | payer OTHER ==
[2019-06-27 14:29] VITALS: BP 127/62; PULSE 76; RESP 18; TEMP 97.7
--- NOTE | 2019-06-27 14:44 | ED ---
Skin/Abscess/FB HPI - General Source: patient Mode of arrival: ambulatory <Liat Winkler - Last Filed: 06/28/19 00:52> <NeydaLeidy Ashok - Last Filed: 07/01/19 22:45> - General Chief complaint: Skin/Abscess/Foreign Body Stated complaint: skin [id number] Time Seen by Provider: 06/27/19 14:43 - History of Present Illness Initial comments: 63 yo female presents emergency department for evaluation of lesion on right side of back. States that she is unable to see the right side of her back directly but feels that there is an itchy spot and what she can see from the mirror there is a red spot. Patient will be sure this was not infection and presents emergency department. Patient states she thinks it may be a bug bite. Patient denies any fever flu like symptoms. Patient denies any other areas of lesions or associates symptoms. Patient denies oral lesions. Remaining ROS (-). (Liat Winkler) - Related Data Home Medications Medication Instructions Recorded Confirmed Cyclobenzaprine [Flexeril] 10 mg PO HS PRN 10/17/17 07/08/18 Multivitamins, Thera [Multivitamin 1 tab PO DAILY 07/08/18 07/08/18 (formulary)] Previous Rx's Medication Instructions Recorded Cephalexin [Keflex] 500 mg PO Q12HR 10 Days cap 07/08/18 Fluticasone Propionate [Flonase 1 - 2 spray EA NOSTRIL DAILY 5 07/08/18 Allergy Relief] Days ml Clotrimazole [Clotrimazole 1% Top 1 applic TOPICAL Q12HR 14 Days #1 10/10/18 Soln] tube Fluconazole [Diflucan] 150 mg PO ONCE #3 tab 12/27/18 Nystatin 100,000Unit/gm Cream 1 applic TOPICAL BID #30 gram 12/27/18 [Mycostatin Cream] Fluconazole [Diflucan] 150 mg PO ONCE #3 tab 02/17/19 Nystatin 100,000 Unit/gm Oint 1 applic TOPICAL BID #30 gm 02/17/19 [Mycostatin Oint] Nystatin 100,000 Unit/gm Powd 1 applic TOPICAL BID #30 gm 02/17/19 [Mycostatin Powder] diphenhydrAMINE & Zinc Cream 1 applic TOPICAL BID 5 Days #1 tube 06/27/19 [Benadryl Cream] Allergies Allergy/AdvReac Type Severity Reaction Status Date / Time ibuprofen [From Motrin] Allergy Rash/Hives Verified 06/27/19 14:29 sulfamethoxazole Allergy Rash/Hives Verified 06/27/19 14:29 [From Septra] trimethoprim [From Septra] Allergy Rash/Hives Verified 06/27/19 14:29 Review of Systems ROS Other: All systems not noted in ROS Statement are negative. <Liat Winkler El - Last Filed: 06/28/19 00:52> ROS Other: All systems not noted in ROS Statement are negative. <NicocandiceLeidy Ashok - Last Filed: 07/01/19 22:45> ROS Statement: Those systems with pertinent positive or pertinent negative responses have been documented in the HPI. Past Medical History Past Medical History: No Reported History Additional Past Medical History / Comment(s): endometriosis History of Any Multi-Drug Resistant Organisms: ESBL, MRSA Date of last positivie culture/infection: 10/02/07 MRSA:09/19/16 ESBL E.coli MDRO Source:: MRSA-site unknonw; ESBL-Urine Past Surgical History: Section, Cholecystectomy Additional Past Surgical History / Comment(s): endometriosis Past Anesthesia/Blood Transfusion Reactions: No Reported Reaction Past Psychological History: No Psychological Hx Reported Smoking Status: Never smoker Past Alcohol Use History: None Reported Past Drug Use History: None Reported - Past Family History Mother Family Medical History: No Reported History Father Family Medical History: Coronary Artery Disease (CAD) <Liat Winkler El - Last Filed: 06/28/19 00:52> General Exam <Liat Winkler El - Last Filed: 06/28/19 00:52> - General Exam Comments Initial Comments: General: The patient is awake and alert, in no distress, and does not appear acutely ill. Eye: Pupils are equal, round and reactive to light, extra-ocular movements are intact. No nystagmus. There is normal conjunctiva bilaterally. No signs of icterus. Ears, nose, mouth and throat: There are moist mucous membranes and no oral lesions. Neck: The neck is supple, there is no tenderness or JVD. Cardiovascular: There is a regular rate and rhythm. No murmur, rub or gallop is appreciated. Respiratory: Lungs are clear to auscultation, respirations are non-labored, breath sounds are equal. No wheezes, stridor, rales, or rhonchi. Gastrointestinal: Soft, non-distended, non-tender abdomen without masses or organomegaly noted. There is no rebound or guarding present. Musculoskeletal: Normal ROM, no tenderness. Strength 5/5. Sensation intact. Radial pulses equal bilaterally 2+. Neurological: A&O x 3. CN II-XII intact grossly, There are no obvious motor or sensory deficits. Coordination appears grossly intact. Speech is normal. Skin: Skin is warm and dry and no rashes. Smalled raised erythatmous lesion right side of back, papules not pustule no vesciular characteristics. Mild external excoriation. No diffuse redness. No fluctuance. Psychiatric: Cooperative, appropriate mood & affect, normal judgment. (Liat Winkler) Course Vital Signs 06/27/19 14:27 Temperature 97.7 F Pulse Rate 76 Respiratory 18 Rate Blood Pressure 127/62 O2 Sat by Pulse 96 Oximetry Medical Decision Making <Liat Winkler - Last Filed: 06/28/19 00:52> <Leidy Faye - Last Filed: 07/01/19 22:45> - Medical Decision Making 64-year-old female presents emergency department for possible insect bite. There is evidence of insect bite on right mid back. No evidence of other lesions. No lesions of the hands feet mouth. No evidence of cellulitis. Aislinn ears to be local reaction. Patient we'll prescribe be prescribed a Benadryl cream. I discussed the case with attending provider who is agreeable to plan discharge at this time. Patient is agreeable to plan return parameters discussed patient discharged appearing well (Liat Winkler) I was available for consultation in the emergency department. The history and physical exam were done by the midlevel provider. I was consulted for this patients care. I reviewed the case with the midlevel provider and based on their presentation of the patient, I agree with the assessment, medical decision making and plan of care as documented. Chart was dictated using [employer] dictation software. Attempts were made to correct any dictation errors however some typographical errors may persist. (Leidy Faye) Disposition Is patient prescribed a controlled substance at d/c from ED?: No Time of Disposition: 14:47 <Liat Winkler - Last Filed: 06/28/19 00:52> <Leidy Faye - Last Filed: 07/01/19 22:45> Clinical Impression: Insect bite Disposition: HOME SELF-CARE Condition: Good Instructions (If sedation given, give patient instructions): Insect Bite or Sting (ED) Additional Instructions: Please use medication as discussed. Please follow-up with family doctor in the next 2 days. Please return to emergency room if the symptoms increase or worsen or for any other concerns. Prescriptions: diphenhydrAMINE & Zinc Cream [Benadryl Cream] 1 applic TOPICAL BID 5 Days #1 tube Referrals: Richard Montano MD [Primary Care Provider] - 1-2 days
== END 2019-06-27 14:51 | disposition home or self-care (01) ==
LOC: EC 14:07
DX: S30.860A Insect bite (nonvenomous) of lower back and pelvis, initial encounter (principal); Z88.1 Allergy status to other antibiotic agents; Z88.2 Allergy status to sulfonamides; Z88.6 Allergy status to analgesic agent; W57.XXXA Bitten or stung by nonvenomous insect and other nonvenomous arthropods, initial encounter
CPT/HCPCS: 99282

== ENCOUNTER 2019-08-05 23:32 | Emergency (ER) | payer OTHER ==
[2019-08-05 23:37] VITALS: BP 143/76; PULSE 94; RESP 18; TEMP 97.6
[2019-08-05] MEDS ORDERED: KETOROLAC 30 MG/ML 1 ML VIAL IM STA (23:48)
--- NOTE | 2019-08-05 23:51 | ED ---
Skin/Abscess/FB HPI - General Chief complaint: Skin/Abscess/Foreign Body Stated complaint: abd pain Time Seen by Provider: 08/05/19 23:42 Source: patient Mode of arrival: ambulatory Limitations: no limitations - History of Present Illness Initial comments: 64-year-old female patient presents to the emergency department today for evaluation of rash and headache. Patient states she noticed a rash under her right breast today. States it is red and has a burning pain. She denies any drainage or blistering. States she has had this in the past and was given antifungal cream. Patient is also reporting headache times one hour. Denies taking any medication for her headache. States she does occasionally get headaches and this is similar to her usual symptoms. She is requesting toradol for this. She denies any nausea or vomiting. Denies blurred or double vision. Denies any numbness, tingling, weakness to her extremities. Denies any head injury. Patient denies any recent rash, fever, chills, shortness breath, chest pain, abdominal pain, diarrhea, constipation, back pain, dizziness, weakness, hematuria, dysuria, urinary urgency, urinary frequency, or any other complaints. - Related Data Home Medications Medication Instructions Recorded Confirmed Cyclobenzaprine [Flexeril] 10 mg PO HS PRN 10/17/17 07/08/18 Multivitamins, Thera [Multivitamin 1 tab PO DAILY 07/08/18 07/08/18 (formulary)] Previous Rx's Medication Instructions Recorded Cephalexin [Keflex] 500 mg PO Q12HR 10 Days cap 07/08/18 Fluticasone Propionate [Flonase 1 - 2 spray EA NOSTRIL DAILY 5 07/08/18 Allergy Relief] Days ml Clotrimazole [Clotrimazole 1% Top 1 applic TOPICAL Q12HR 14 Days #1 10/10/18 Soln] tube Fluconazole [Diflucan] 150 mg PO ONCE #3 tab 12/27/18 Nystatin 100,000Unit/gm Cream 1 applic TOPICAL BID #30 gram 12/27/18 [Mycostatin Cream] Fluconazole [Diflucan] 150 mg PO ONCE #3 tab 02/17/19 Nystatin 100,000 Unit/gm Oint 1 applic TOPICAL BID #30 gm 02/17/19 [Mycostatin Oint] Nystatin 100,000 Unit/gm Powd 1 applic TOPICAL BID #30 gm 02/17/19 [Mycostatin Powder] diphenhydrAMINE & Zinc Cream 1 applic TOPICAL BID 5 Days #1 tube 06/27/19 [Benadryl Cream] Fluconazole [Diflucan] 150 mg PO ONCE #3 tab 08/05/19 Ketoconazole 2% Cream [Nizoral 2%] 1 applic TOPICAL DAILY #30 gm 08/05/19 Allergies Allergy/AdvReac Type Severity Reaction Status Date / Time ibuprofen [From Motrin] Allergy Rash/Hives Verified 08/05/19 23:37 sulfamethoxazole Allergy Rash/Hives Verified 08/05/19 23:37 [From Septra] trimethoprim [From Septra] Allergy Rash/Hives Verified 08/05/19 23:37 Review of Systems ROS Statement: Those systems with pertinent positive or pertinent negative responses have been documented in the HPI. ROS Other: All systems not noted in ROS Statement are negative. Past Medical History Past Medical History: No Reported History Additional Past Medical History / Comment(s): endometriosis History of Any Multi-Drug Resistant Organisms: ESBL, MRSA Date of last positivie culture/infection: 10/02/07 MRSA:09/19/16 ESBL E.coli MDRO Source:: MRSA-site unknonw; ESBL-Urine Past Surgical History: Section, Cholecystectomy Additional Past Surgical History / Comment(s): endometriosis Past Anesthesia/Blood Transfusion Reactions: No Reported Reaction Past Psychological History: No Psychological Hx Reported Smoking Status: Never smoker Past Alcohol Use History: None Reported Past Drug Use History: None Reported - Past Family History Mother Family Medical History: No Reported History Father Family Medical History: Coronary Artery Disease (CAD) General Exam Limitations: no limitations General appearance: alert, in no apparent distress, other (This is a well- developed, well-nourished adult female patient in no acute distress. Vital signs upon presentation are temperature 97.6F, pulse 94, respirations 18, blood pressure 143/76.) Eye exam: Present: normal appearance, PERRL, EOMI. Absent: scleral icterus, conjunctival injection, nystagmus, periorbital swelling ENT exam: Present: normal exam, normal oropharynx, mucous membranes moist Respiratory exam: Present: normal lung sounds bilaterally. Absent: respiratory distress, wheezes, rales, rhonchi, stridor Cardiovascular Exam: Present: regular rate, normal rhythm, normal heart sounds. Absent: systolic murmur, diastolic murmur, rubs, gallop, clicks GI/Abdominal exam: Present: soft, normal bowel sounds. Absent: distended, tenderness, guarding, rebound, rigid Neurological exam: Present: alert, oriented X3, CN II-XII intact, other (Strength in all 4 extremities is 5/5) Psychiatric exam: Present: normal affect, normal mood Skin exam: Present: warm, dry, intact, normal color, rash (There is intertrigo type rash noted to the area beneath the right breast. There is no vesicles, no open wounds, no drainage.) Course Vital Signs 08/05/19 23:33 Temperature 97.6 F Pulse Rate 94 Respiratory 18 Rate Blood Pressure 143/76 Medical Decision Making - Medical Decision Making 64-year-old female patient presents to the emergency department today for evaluation of rash beneath the right breast, and headache. Physical examination did reveal cutaneous yeast infection beneath the right breast. We'll treat with ketoconazole and oral Diflucan which patient that has worked for her in the past. She is also reporting headache with no other concerning symptoms. She is neurologically intact with no focal deficits. This is not the worst headache of her life. She is requesting Toradol, this will be given. To be discharged follow up with her primary care physician for recheck in 1-2 days. Return parameters were discussed in detail. She verbalizes understanding and agrees with this plan. Disposition Clinical Impression: Cutaneous candidiasis, Headache Disposition: HOME SELF-CARE Condition: Good Instructions (If sedation given, give patient instructions): Acute Headache (ED), Skin Yeast Infection (ED) Additional Instructions: Use medications as directed. Follow-up with your primary care physician for recheck in 1-2 days. Return to the emergency department immediately for any new, worsening, or concerning symptoms. Prescriptions: Fluconazole [Diflucan] 150 mg PO ONCE #3 tab Ketoconazole 2% Cream [Nizoral 2%] 1 applic TOPICAL DAILY #30 gm Is patient prescribed a controlled substance at d/c from ED?: No Referrals: Richard Montano MD [Primary Care Provider] - 1-2 days Time of Disposition: 23:51
== END 2019-08-06 00:20 | disposition home or self-care (01) ==
LOC: EC 23:32
DX: B37.2 Candidiasis of skin and nail (principal); R51 Headache; Z88.6 Allergy status to analgesic agent; Z88.2 Allergy status to sulfonamides; Z88.1 Allergy status to other antibiotic agents; Z85.42 Personal history of malignant neoplasm of other parts of uterus; Z86.14 Personal history of Methicillin resistant Staphylococcus aureus infection
CPT/HCPCS: 96372; 99283; J1885

== ENCOUNTER → 2019-09-15 | Outpatient (CLI) | payer OTHER ==
[2019-09-15 16:13] LABS: Basophils % (A) 0 %; Eosinophils # (A) 0.1 k/uL (0-0.7); Eosinophils % (A) 1 %; HCT 34.9 % (34.0-46.0); HGB 11.6 gm/dL (11.4-16.0); Lymphocytes # (A) 1.3 k/uL (1.0-4.8); Lymphocytes % (A) 23 %; MCH 30.8 pg (25.0-35.0); MCHC 33.2 g/dL (31.0-37.0); MCV 92.9 fL (80.0-100.0); Mean Platelet Volume 7.8; Monocytes # (A) 0.3 k/uL (0-1.0); Monocytes % (A) 4 %; Neutrophils # (A) 4.1 k/uL (1.3-7.7); Neutrophils % (A) 69 %; Platelet Count 299 k/uL (150-450); RBC 3.76 m/uL (3.80-5.40); RDW 13.1 % (11.5-15.5); WBC 5.8 k/uL (3.8-10.6)
[2019-09-15 23:57] LABS: African American GFR (CKD) 90.9 (60.0-200.0); Albumin 4.4 g/dL (3.80-4.90); Albumin/Globulin Ratio 2.93 (1.60-3.17); Anion Gap 7.4 mmol/L (4.00-12.00); BUN/Creat Ratio 27.5 Ratio (12.00-20.00); Calcium 9.5 mg/dL (8.7-10.3); Carbon Dioxide 28.6 mmol/L (21.6-31.8); Chol/HDL Ratio 3.6; Globulin 1.5 g/dL (1.6-3.3); LDL Cholesterol,Calculated 87.6 mg/dL (0.0-131.0); Non-African American GFR(CKD) 78.5 (60.0-200.0); Potassium 4.7 mmol/L (3.5-5.5); Total Bilirubin 0.3 mg/dL (0.2-1.2); Total Protein 5.9 g/dL (6.2-8.2); VLDL Calculation 42.4 mg/dL (5.00-40.00)
== END | disposition home or self-care (01) ==
LOC: LABWHC1 15:30
PROVIDERS: ATTEND Internal Medicine
DX: Z00.00 Encounter for general adult medical examination without abnormal findings (principal)
CPT/HCPCS: 36415; 80053; 80061; 84443; 85025

== ENCOUNTER 2019-09-18 12:34 | Emergency (ER) | payer OTHER ==
--- NOTE | 2019-09-18 14:25 | XR ---
Right ankle HISTORY: Trauma and pain 3 views of the right ankle Soft tissue swelling is noted. Bone mineralization is reduced. Alignment and joint spaces are [place]tai nette. IMPRESSION: No fracture or dislocation. Soft tissue swelling is noted.
--- NOTE | 2019-09-18 14:26 | XR ---
Right foot HISTORY: Trauma and pain 3 views of the right foot, correlation prior right foot dated 01/30/2017 Bone mineralization is reduced. Alignment and joint spaces are remarkable for hallux valgus deformity , slight medial subluxation at the metatarsophalangeal joint of the first digit as on prior exam. Sma ll ossific density present in the soft tissues medial to the distal first metatarsal. IMPRESSION: No fracture or dislocation.
--- NOTE | 2019-09-18 14:28 | XR ---
Right knee HISTORY: Trauma and pain 3 views the right knee correlated to prior exam 11/16/2016 Osteoarthritic changes are again noted. Alignment is stable. Bone mineralization is reduced. Suprapat ellar increased density suggests joint effusion. Joint space loss is greatest at the patellofemoral j oint with marginal spurring. Small loose bodies are suspected at the posterior aspect of the joint. IMPRESSION: No fracture or dislocation. Synovial osteochondromatosis, osteoarthritis.
--- NOTE | 2019-09-18 14:34 | ED ---
Lower Extremity Injury HPI - General Chief Complaint: Extremity Injury, Lower Stated Complaint: Ankle Injury Time Seen by Provider: 09/18/19 14:24 Source: patient Mode of arrival: wheelchair Limitations: no limitations - History of Present Illness Initial Comments: Patient is a 64-year-old female presenting to emergency Department with chief complaint of an ankle sprain. Patient reports she was walking when she inverted her right ankle causing an injury to. Patient reports initially was only small amounts of pain but today she noticed some swelling along the lateral malleoli. Reports the pain is minimal and only exacerbated when weightbearing. Denies taking medication to alleviate the symptoms. Denies any numbness and tingling. Denies any bruising to the region. Denies any knee pain. - Related Data Home Medications Medication Instructions Recorded Confirmed Cyclobenzaprine [Flexeril] 10 mg PO HS PRN 10/17/17 07/08/18 Multivitamins, Thera [Multivitamin 1 tab PO DAILY 07/08/18 07/08/18 (formulary)] Previous Rx's Medication Instructions Recorded Cephalexin [Keflex] 500 mg PO Q12HR 10 Days cap 07/08/18 Fluticasone Propionate [Flonase 1 - 2 spray EA NOSTRIL DAILY 5 07/08/18 Allergy Relief] Days ml Clotrimazole [Clotrimazole 1% Top 1 applic TOPICAL Q12HR 14 Days #1 10/10/18 Soln] tube Fluconazole [Diflucan] 150 mg PO ONCE #3 tab 12/27/18 Nystatin 100,000Unit/gm Cream 1 applic TOPICAL BID #30 gram 12/27/18 [Mycostatin Cream] Fluconazole [Diflucan] 150 mg PO ONCE #3 tab 02/17/19 Nystatin 100,000 Unit/gm Oint 1 applic TOPICAL BID #30 gm 02/17/19 [Mycostatin Oint] Nystatin 100,000 Unit/gm Powd 1 applic TOPICAL BID #30 gm 02/17/19 [Mycostatin Powder] diphenhydrAMINE & Zinc Cream 1 applic TOPICAL BID 5 Days #1 tube 06/27/19 [Benadryl Cream] Fluconazole [Diflucan] 150 mg PO ONCE #3 tab 08/05/19 Ketoconazole 2% Cream [Nizoral 2%] 1 applic TOPICAL DAILY #30 gm 08/05/19 Allergies Allergy/AdvReac Type Severity Reaction Status Date / Time ibuprofen [From Motrin] Allergy Rash/Hives Verified 09/18/19 13:07 sulfamethoxazole Allergy Rash/Hives Verified 09/18/19 13:07 [From Septra] trimethoprim [From Septra] Allergy Rash/Hives Verified 09/18/19 13:07 Review of Systems ROS Statement: Those systems with pertinent positive or pertinent negative responses have been documented in the HPI. ROS Other: All systems not noted in ROS Statement are negative. Past Medical History Past Medical History: No Reported History Additional Past Medical History / Comment(s): endometriosis History of Any Multi-Drug Resistant Organisms: ESBL, MRSA Date of last positivie culture/infection: 10/02/07 MRSA:09/19/16 ESBL E.coli MDRO Source:: MRSA-site unknonw; ESBL-Urine Past Surgical History: Section, Cholecystectomy Additional Past Surgical History / Comment(s): endometriosis Past Anesthesia/Blood Transfusion Reactions: No Reported Reaction Past Psychological History: No Psychological Hx Reported Smoking Status: Never smoker Past Alcohol Use History: None Reported Past Drug Use History: None Reported - Past Family History Mother Family Medical History: No Reported History Father Family Medical History: Coronary Artery Disease (CAD) General Exam Limitations: no limitations General appearance: alert, in no apparent distress Head exam: Present: atraumatic, normocephalic, normal inspection Eye exam: Present: normal appearance, PERRL, EOMI Pupils: Present: normal accommodation ENT exam: Present: normal exam, mucous membranes moist Neck exam: Present: normal inspection, full ROM Respiratory exam: Present: normal lung sounds bilaterally Cardiovascular Exam: Present: regular rate, normal rhythm, normal heart sounds Extremities exam: Present: normal inspection, full ROM, tenderness (Very mild tenderness at the lateral malleolus of right ankle.), normal capillary refill, joint swelling (Lateral malleolus of right ankle swelling, mild.), other (+2 dorsalis pedis and posterior tibialis bilaterally.). Absent: pedal edema Back exam: Present: normal inspection, full ROM Neurological exam: Present: alert, oriented X3 Psychiatric exam: Present: normal affect, normal mood Skin exam: Present: warm, dry, intact, normal color Course Vital Signs 09/18/19 13:04 Temperature 97.9 F Pulse Rate 79 Respiratory 18 Rate Blood Pressure 130/95 O2 Sat by Pulse 97 Oximetry Medical Decision Making - Medical Decision Making Patient is 64-year-old female presenting to the emergency department with a chief complaint of right ankle pain. On exam patient has some swelling in the lateral malleolus of the right ankle. Full range of motion with no skin discoloration. Negative anterior drawer. No tenderness along the calf or knee. X-ray of the knee shows osteoarthritic changes but otherwise unremarkable. Foot and ankle x-ray are negative for acute fractures, dislocations. Patient advised to keep foot elevated and apply ice compress to minimize symptoms. Strict return parameters were thoroughly discussed the patient was up standing and agreeable. Patient was to follow-up with orthopedic dentist if symptoms not improved. Case discussed with physician. Disposition Clinical Impression: Mild sprain of right ankle Disposition: HOME SELF-CARE Condition: Stable Instructions (If sedation given, give patient instructions): Ankle Sprain (ED) Additional Instructions: Apply ice compresses and keep foot elevated to minimize symptoms. Take Tylenol for pain. Follow-up in orthopedic dentist if symptoms are not improved. Please return to emergency department if symptoms worsen. Is patient prescribed a controlled substance at d/c from ED?: No Referrals: Richard Montano MD [Primary Care Provider] - 1-2 days Hernando East DO [Medical Doctor] - 1-2 days Time of Disposition: 14:36
[2019-09-18] MEDS ORDERED: KETOROLAC 30 MG/ML 1 ML VIAL IM STA (14:39)
[2019-09-18 15:06] VITALS: BP 159/85; PULSE 81; RESP 17; TEMP 98.3
== END 2019-09-18 15:06 | disposition home or self-care (01) ==
LOC: EC 12:34
DX: S93.401A Sprain of unspecified ligament of right ankle, initial encounter (principal); Z88.6 Allergy status to analgesic agent; Z88.1 Allergy status to other antibiotic agents; Z88.2 Allergy status to sulfonamides; X50.9XXA Other and unspecified overexertion or strenuous movements or postures, initial encounter; Y93.01 Activity, walking, marching and hiking
CPT/HCPCS: 73562; 73610; 73630; 99283; 96372; J1885

== ENCOUNTER 2019-09-18 18:04 | Emergency (ER) | payer OTHER ==
[2019-09-18 18:42] VITALS: BP 135/82; PULSE 84; RESP 17; TEMP 97.9
--- NOTE | 2019-09-18 18:58 | ED ---
Extremity Problem HPI - General Chief complaint: Extremity Problem,Nontraumatic Stated complaint: Revisit-Ankle Injury Time Seen by Provider: 09/18/19 18:46 Source: family Mode of arrival: ambulatory - History of Present Illness Initial comments: Patient is 64-year-old male presenting to emergency Department with chief complaint of right ankle pain. Patient states that she was in the ED to 3 hours prior to this and was diagnosed with an ankle sprain. Patient is returning to emergency department because she does not have ice at home. Patient is coming to the ED to get more ice packs. She has no other complaints at this time. - Related Data Home Medications Medication Instructions Recorded Confirmed Cyclobenzaprine [Flexeril] 10 mg PO HS PRN 10/17/17 07/08/18 Multivitamins, Thera [Multivitamin 1 tab PO DAILY 07/08/18 07/08/18 (formulary)] Previous Rx's Medication Instructions Recorded Cephalexin [Keflex] 500 mg PO Q12HR 10 Days cap 07/08/18 Fluticasone Propionate [Flonase 1 - 2 spray EA NOSTRIL DAILY 5 07/08/18 Allergy Relief] Days ml Clotrimazole [Clotrimazole 1% Top 1 applic TOPICAL Q12HR 14 Days #1 10/10/18 Soln] tube Fluconazole [Diflucan] 150 mg PO ONCE #3 tab 12/27/18 Nystatin 100,000Unit/gm Cream 1 applic TOPICAL BID #30 gram 12/27/18 [Mycostatin Cream] Fluconazole [Diflucan] 150 mg PO ONCE #3 tab 02/17/19 Nystatin 100,000 Unit/gm Oint 1 applic TOPICAL BID #30 gm 02/17/19 [Mycostatin Oint] Nystatin 100,000 Unit/gm Powd 1 applic TOPICAL BID #30 gm 02/17/19 [Mycostatin Powder] diphenhydrAMINE & Zinc Cream 1 applic TOPICAL BID 5 Days #1 tube 06/27/19 [Benadryl Cream] Fluconazole [Diflucan] 150 mg PO ONCE #3 tab 08/05/19 Ketoconazole 2% Cream [Nizoral 2%] 1 applic TOPICAL DAILY #30 gm 08/05/19 Allergies Allergy/AdvReac Type Severity Reaction Status Date / Time ibuprofen [From Motrin] Allergy Rash/Hives Verified 09/18/19 18:42 sulfamethoxazole Allergy Rash/Hives Verified 09/18/19 18:42 [From Septra] trimethoprim [From Septra] Allergy Rash/Hives Verified 09/18/19 18:42 Review of Systems ROS Statement: Those systems with pertinent positive or pertinent negative responses have been documented in the HPI. ROS Other: All systems not noted in ROS Statement are negative. Past Medical History Past Medical History: No Reported History Additional Past Medical History / Comment(s): endometriosis History of Any Multi-Drug Resistant Organisms: ESBL, MRSA Date of last positivie culture/infection: 10/02/07 MRSA:09/19/16 ESBL E.coli MDRO Source:: MRSA-site unknonw; ESBL-Urine Past Surgical History: Section, Cholecystectomy Additional Past Surgical History / Comment(s): endometriosis Past Anesthesia/Blood Transfusion Reactions: No Reported Reaction Past Psychological History: No Psychological Hx Reported Smoking Status: Never smoker Past Alcohol Use History: None Reported Past Drug Use History: None Reported - Past Family History Mother Family Medical History: No Reported History Father Family Medical History: Coronary Artery Disease (CAD) General Exam Limitations: no limitations General appearance: alert, in no apparent distress Head exam: Present: atraumatic, normocephalic, normal inspection Eye exam: Present: normal appearance Pupils: Present: normal accommodation ENT exam: Present: normal exam Neck exam: Present: normal inspection, full ROM Respiratory exam: Present: normal lung sounds bilaterally Cardiovascular Exam: Present: regular rate, normal rhythm, normal heart sounds Extremities exam: Present: normal inspection, full ROM, normal capillary refill Back exam: Present: normal inspection, full ROM Neurological exam: Present: alert, oriented X3 Psychiatric exam: Present: normal affect, normal mood Skin exam: Present: warm, dry, intact, normal color Course Vital Signs 09/18/19 18:40 Temperature 97.9 F Pulse Rate 84 Respiratory 17 Rate Blood Pressure 135/82 O2 Sat by Pulse 96 Oximetry Medical Decision Making - Medical Decision Making Patient is a 64-year-old female presenting to emergency by with a chief complaint of right ankle pain. I examined the patient and diagnosed her with an ankle sprain about 2 hours ago. Now she is coming back because she did not have ice packs at home. Patient is given multiple ice packs. All other instructions were discussed with her 2 hours prior to this. Strict return parameters were thoroughly discussed with patient was understanding and agreeable. Case discussed with physician. Disposition Clinical Impression: Right ankle sprain Disposition: HOME SELF-CARE Condition: Stable Instructions (If sedation given, give patient instructions): Ankle Sprain (DC) Additional Instructions: Follow-up with cash reconciliation specialist if symptoms unimproved. Eyes multiple times a day for 10-15 minutes each. Please return to emergency department if symptoms worsen. Is patient prescribed a controlled substance at d/c from ED?: No Referrals: Richard Montano MD [Primary Care Provider] - 1-2 days Hernando East DO [Medical Doctor] - 1-2 days Time of Disposition: 18:57
== END 2019-09-18 19:09 | disposition home or self-care (01) ==
LOC: EC 18:04
DX: S93.401D Sprain of unspecified ligament of right ankle, subsequent encounter (principal); Z86.14 Personal history of Methicillin resistant Staphylococcus aureus infection; Z88.6 Allergy status to analgesic agent; Z88.2 Allergy status to sulfonamides
CPT/HCPCS: 99282

== ENCOUNTER 2019-11-10 22:02 | Emergency (ER) | payer OTHER ==
[2019-11-10 22:07] VITALS: BP 116/69; PULSE 92; RESP 20; TEMP 98.6
[2019-11-10] MEDS ORDERED: FLUCONAZOLE 150 MG TAB PO STA (22:18)
[2019-11-10] MEDS ORDERED: ACETAMINOPHEN TAB 325 MG TAB PO STA (22:18)
--- NOTE | 2019-11-10 22:21 | ED ---
Skin/Abscess/FB HPI - General Chief complaint: Skin/Abscess/Foreign Body Stated complaint: yeast infection on breast Time Seen by Provider: 11/10/19 22:10 Source: patient Mode of arrival: ambulatory Limitations: no limitations - History of Present Illness Initial comments: 64-year-old female patient presents to the emergency department today for evaluation of possible yeast infection beneath her breasts. Patient states she has had this in the past. Patient states she just noted itching and erythema beneath the rest today. Patient denies any fevers or chills. States she was recently tested for diabetes and was negative. Patient states she usually gets Diflucan and ketoconazole cream and it cures the infection. Patient denies any recent rash, shortness breath, chest pain, abdominal pain, nausea, vomiting, diarrhea, constipation, back pain, numbness, tingling, dizziness, weakness, hematuria, dysuria, urinary urgency, urinary frequency, headache, visual changes, or any other complaints. - Related Data Home Medications Medication Instructions Recorded Confirmed Cyclobenzaprine [Flexeril] 10 mg PO HS PRN 10/17/17 07/08/18 Multivitamins, Thera [Multivitamin 1 tab PO DAILY 07/08/18 07/08/18 (formulary)] Previous Rx's Medication Instructions Recorded Cephalexin [Keflex] 500 mg PO Q12HR 10 Days cap 07/08/18 Fluticasone Propionate [Flonase 1 - 2 spray EA NOSTRIL DAILY 5 07/08/18 Allergy Relief] Days ml Clotrimazole [Clotrimazole 1% Top 1 applic TOPICAL Q12HR 14 Days #1 10/10/18 Soln] tube Fluconazole [Diflucan] 150 mg PO ONCE #3 tab 12/27/18 Nystatin 100,000Unit/gm Cream 1 applic TOPICAL BID #30 gram 12/27/18 [Mycostatin Cream] Fluconazole [Diflucan] 150 mg PO ONCE #3 tab 02/17/19 Nystatin 100,000 Unit/gm Oint 1 applic TOPICAL BID #30 gm 02/17/19 [Mycostatin Oint] Nystatin 100,000 Unit/gm Powd 1 applic TOPICAL BID #30 gm 02/17/19 [Mycostatin Powder] diphenhydrAMINE & Zinc Cream 1 applic TOPICAL BID 5 Days #1 tube 06/27/19 [Benadryl Cream] Fluconazole [Diflucan] 150 mg PO ONCE #3 tab 08/05/19 Ketoconazole 2% Cream [Nizoral 2%] 1 applic TOPICAL DAILY #30 gm 08/05/19 Fluconazole [Diflucan] 150 mg PO ONCE #2 tab 11/10/19 Allergies Allergy/AdvReac Type Severity Reaction Status Date / Time ibuprofen [From Motrin] Allergy Rash/Hives Verified 11/10/19 22:13 sulfamethoxazole Allergy Rash/Hives Verified 11/10/19 22:13 [From Septra] trimethoprim [From Septra] Allergy Rash/Hives Verified 11/10/19 22:13 Review of Systems ROS Statement: Those systems with pertinent positive or pertinent negative responses have been documented in the HPI. ROS Other: All systems not noted in ROS Statement are negative. Past Medical History Past Medical History: No Reported History Additional Past Medical History / Comment(s): endometriosis History of Any Multi-Drug Resistant Organisms: ESBL, MRSA Date of last positivie culture/infection: 10/02/07 MRSA:09/19/16 ESBL E.coli MDRO Source:: MRSA-site unknonw; ESBL-Urine Past Surgical History: Section, Cholecystectomy Additional Past Surgical History / Comment(s): endometriosis Past Anesthesia/Blood Transfusion Reactions: No Reported Reaction Past Psychological History: No Psychological Hx Reported Smoking Status: Never smoker Past Alcohol Use History: None Reported Past Drug Use History: None Reported - Past Family History Mother Family Medical History: No Reported History Father Family Medical History: Coronary Artery Disease (CAD) General Exam Limitations: no limitations General appearance: alert, in no apparent distress, other (This is a well- developed, well-nourished adult female patient in no acute distress. Vital signs upon presentation are temperature 98.6F, pulse 92, respirations 20, blood pressure 116/69, pulse ox 97% on room air.) Eye exam: Present: normal appearance, PERRL, EOMI. Absent: scleral icterus, conjunctival injection, periorbital swelling Respiratory exam: Present: normal lung sounds bilaterally. Absent: respiratory distress, wheezes, rales, rhonchi, stridor Cardiovascular Exam: Present: regular rate, normal rhythm, normal heart sounds. Absent: systolic murmur, diastolic murmur, rubs, gallop, clicks GI/Abdominal exam: Present: soft, normal bowel sounds. Absent: distended, tenderness, guarding, rebound, rigid Neurological exam: Present: alert, oriented X3, CN II-XII intact Psychiatric exam: Present: normal affect, normal mood Skin exam: Present: warm, dry, intact, normal color, rash (There is erythematous rash beneath each breast, does appear to be moist. No blistering, no drainage, no sign of cellulitis. This is consistent with intertrigo.) Course Vital Signs 11/10/19 22:04 Temperature 98.6 F Pulse Rate 92 Respiratory 20 Rate Blood Pressure 116/69 O2 Sat by Pulse 97 Oximetry Medical Decision Making - Medical Decision Making 64-year-old female patient presented to the emergency department today for evaluation of rash to both breasts. She'll be treated for cutaneous candidiasis infection beneath each breast. We'll treat with clotrimazole and Diflucan which she says has worked for her in the past. She'll be discharged to follow up with her primary care physician for recheck in 1-2 days. Return parameters discussed in detail. She verbalizes understanding and agrees with this plan. Disposition Clinical Impression: Cutaneous candidiasis Disposition: HOME SELF-CARE Condition: Good Instructions (If sedation given, give patient instructions): Skin Yeast Infection (ED) Additional Instructions: Use cream twice daily. Take medications as directed. Follow-up through primary care physician for recheck in 1-2 days. Return to the emergency department immediately for any new, worsening, or concerning symptoms. Prescriptions: Fluconazole [Diflucan] 150 mg PO ONCE #2 tab Is patient prescribed a controlled substance at d/c from ED?: No Referrals: Richard Montano MD [Primary Care Provider] - 1-2 days Time of Disposition: 22:21
[2019-11-10] MEDS ORDERED: CLOTRIMAZOLE 1% CREAM 15 GM TUBE TOPICAL ONE (22:30)
[2019-11-10] MEDS ORDERED: FLUCONAZOLE 150 MG TAB PO ONE ×2 (22:45→22:50)
== END 2019-11-10 22:52 | disposition home or self-care (01) ==
LOC: EC 22:02
DX: B37.2 Candidiasis of skin and nail (principal); Z88.1 Allergy status to other antibiotic agents; Z88.2 Allergy status to sulfonamides; Z88.6 Allergy status to analgesic agent
CPT/HCPCS: 99283

== ENCOUNTER 2020-08-11 16:46 | Emergency (ER) | payer OTHER ==
[2020-08-11 16:58] VITALS: BP 127/81; PULSE 83; RESP 18; TEMP 97.5
[2020-08-11] MEDS ORDERED: ONDANSETRON ODT 4 MG TAB PO STA (18:30)
[2020-08-11] MEDS ORDERED: HYDROmorphone 1 MG/ML 1 ML SYRINGE IM STA (18:30)
--- NOTE | 2020-08-11 18:35 | ED ---
General Adult HPI - General Chief complaint: Headache Stated complaint: Headache Time Seen by Provider: 08/11/20 18:21 Source: patient, RN notes reviewed Mode of arrival: ambulatory Limitations: no limitations - History of Present Illness Initial comments: 65-year-old female with a past medical history of hyperlipidemia, hypertension, endometriosis presents to the emergency room for several complaints. Patient's main complaint seems to be headache. Patient reports she has had this headache for the past couple days. States this headache is around her whole head. Patient reports she has had this exact same headache before. This is not worse headache of her life.. Patient denies any thunderclap or sudden onset headaches. Patient is also nauseous and has vomiting with this headache. Denies vomiting at this time. Patient denies fevers. Denies neck stiffness.Patient has no other complaints at this time including shortness of breath, chest pain, abdominal pain, visual changes. - Related Data Home Medications Medication Instructions Recorded Confirmed Cyclobenzaprine [Flexeril] 10 mg PO HS PRN 10/17/17 07/08/18 Multivitamins, Thera [Multivitamin 1 tab PO DAILY 07/08/18 07/08/18 (formulary)] Previous Rx's Medication Instructions Recorded Cephalexin [Keflex] 500 mg PO Q12HR 10 Days cap 07/08/18 Fluticasone Propionate [Flonase 1 - 2 spray EA NOSTRIL DAILY 5 07/08/18 Allergy Relief] Days ml Clotrimazole [Clotrimazole 1% Top 1 applic TOPICAL Q12HR 14 Days #1 10/10/18 Soln] tube Fluconazole [Diflucan] 150 mg PO ONCE #3 tab 12/27/18 Nystatin 100,000Unit/gm Cream 1 applic TOPICAL BID #30 gram 12/27/18 [Mycostatin Cream] Fluconazole [Diflucan] 150 mg PO ONCE #3 tab 02/17/19 Nystatin 100,000 Unit/gm Oint 1 applic TOPICAL BID #30 gm 02/17/19 [Mycostatin Oint] Nystatin 100,000 Unit/gm Powd 1 applic TOPICAL BID #30 gm 02/17/19 [Mycostatin Powder] diphenhydrAMINE & Zinc Cream 1 applic TOPICAL BID 5 Days #1 tube 06/27/19 [Benadryl Cream] Fluconazole [Diflucan] 150 mg PO ONCE #3 tab 08/05/19 Ketoconazole 2% Cream [Nizoral 2%] 1 applic TOPICAL DAILY #30 gm 08/05/19 Fluconazole [Diflucan] 150 mg PO ONCE #2 tab 11/10/19 Allergies Allergy/AdvReac Type Severity Reaction Status Date / Time ibuprofen [From Motrin] Allergy Rash/Hives Verified 08/11/20 16:59 Penicillins Allergy Unknown Verified 08/11/20 16:59 sulfamethoxazole Allergy Rash/Hives Verified 08/11/20 16:59 [From Septra] trimethoprim [From Septra] Allergy Rash/Hives Verified 08/11/20 16:59 Review of Systems ROS Statement: Those systems with pertinent positive or pertinent negative responses have been documented in the HPI. ROS Other: All systems not noted in ROS Statement are negative. Past Medical History Past Medical History: Hyperlipidemia, Hypertension Additional Past Medical History / Comment(s): endometriosis History of Any Multi-Drug Resistant Organisms: ESBL, MRSA Date of last positivie culture/infection: 10/02/07 MRSA:09/19/16 ESBL E.coli MDRO Source:: MRSA-site unknonw; ESBL-Urine Past Surgical History: Section, Cholecystectomy Additional Past Surgical History / Comment(s): endometriosis Past Anesthesia/Blood Transfusion Reactions: No Reported Reaction Past Psychological History: No Psychological Hx Reported Smoking Status: Never smoker Past Alcohol Use History: None Reported Past Drug Use History: None Reported - Past Family History Mother Family Medical History: No Reported History Father Family Medical History: Coronary Artery Disease (CAD) General Exam Limitations: no limitations General appearance: alert, in no apparent distress Head exam: Present: atraumatic, normocephalic, normal inspection Eye exam: Present: normal appearance, PERRL, EOMI. Absent: scleral icterus, conjunctival injection, periorbital swelling ENT exam: Present: normal exam, mucous membranes moist Neck exam: Present: normal inspection, full ROM. Absent: tenderness, meningismus, lymphadenopathy Respiratory exam: Present: normal lung sounds bilaterally. Absent: respiratory distress, wheezes, rales, rhonchi, stridor Cardiovascular Exam: Present: regular rate, normal rhythm, normal heart sounds. Absent: systolic murmur, diastolic murmur, rubs, gallop, clicks GI/Abdominal exam: Present: soft, normal bowel sounds. Absent: distended, tenderness, guarding, rebound, rigid Neurological exam: Present: alert, oriented X3, normal gait, other (GCS 15) Course Vital Signs 08/11/20 08/11/20 16:56 18:16 Temperature 97.5 F L Pulse Rate 83 Respiratory 18 18 Rate Blood Pressure 127/81 O2 Sat by Pulse 97 Oximetry Medical Decision Making - Medical Decision Making Vitals are stable. Patient is well-appearing. No focal neurologic deficits. Patient has had this exact headaches several times before but waited too long to come in this time for pain medication. Seen here several times for headaches in the past. Patient was given pain medication and did have improvement in symptoms. Patient requesting discharge at this time so she can go home and rest as she has not been able to sleep well and is now feeling better. Patient will be discharged home to follow up with primary care. She is to return here for any worsening symptoms. Disposition Clinical Impression: Headache Disposition: HOME SELF-CARE Condition: Good Instructions (If sedation given, give patient instructions): Acute Headache (ED) Additional Instructions: Please follow-up with your doctor in one to 2 days. Return to the emergency room for any worsening symptoms. Is patient prescribed a controlled substance at d/c from ED?: No Referrals: Richard Montano MD [Primary Care Provider] - 1-2 days Time of Disposition: 19:38
== END 2020-08-11 20:12 | disposition home or self-care (01) ==
LOC: EC 16:46
DX: R51.9 Headache, unspecified (principal); Z88.6 Allergy status to analgesic agent; Z88.0 Allergy status to penicillin; Z88.2 Allergy status to sulfonamides; Z88.1 Allergy status to other antibiotic agents
CPT/HCPCS: 99284 ×2; 96372 ×2; J1170

== ENCOUNTER 2020-11-29 14:56 | Emergency (ER) | payer OTHER ==
[2020-11-29 15:05] VITALS: BP 133/77; PULSE 84; RESP 18; TEMP 98.2
--- NOTE | 2020-11-29 16:45 | ED ---
Female Urogenital HPI - General Chief complaint: Urogenital Stated complaint: Female Time Seen by Provider: 11/29/20 16:17 Source: patient Mode of arrival: ambulatory Limitations: no limitations - History of Present Illness Initial comments: Patient is a 65-year-old female presenting to the emergency Department with complaints of a yeast infection for the past few days. Patient states she has some itchiness and redness as well as some mild discharge. She states the redness is also starting to spread on her right lateral groin area as well as up per thighs. Patient states she's had this issue in the past, she normally takes Diflucan as well as topical nystatin. She denies any fever or chills, no abdominal pain, no nausea or vomiting. She is not sexually active. She states she called her [facility] today however they were not able to see her. Patient has no further complaints. - Related Data Home Medications Medication Instructions Recorded Confirmed Cyclobenzaprine [Flexeril] 10 mg PO HS PRN 10/17/17 07/08/18 Multivitamins, Thera [Multivitamin 1 tab PO DAILY 07/08/18 07/08/18 (formulary)] Previous Rx's Medication Instructions Recorded Cephalexin [Keflex] 500 mg PO Q12HR 10 Days cap 07/08/18 Fluticasone Propionate [Flonase 1 - 2 spray EA NOSTRIL DAILY 5 07/08/18 Allergy Relief] Days ml Clotrimazole [Clotrimazole 1% Top 1 applic TOPICAL Q12HR 14 Days #1 10/10/18 Soln] tube Fluconazole [Diflucan] 150 mg PO ONCE #3 tab 12/27/18 Fluconazole [Diflucan] 150 mg PO ONCE #3 tab 02/17/19 Nystatin 100,000 Unit/gm Oint 1 applic TOPICAL BID #30 gm 02/17/19 [Mycostatin Oint] Nystatin 100,000 Unit/gm Powd 1 applic TOPICAL BID #30 gm 02/17/19 [Mycostatin Powder] diphenhydrAMINE & Zinc Cream 1 applic TOPICAL BID 5 Days #1 tube 06/27/19 [Benadryl Cream] Fluconazole [Diflucan] 150 mg PO ONCE #3 tab 08/05/19 Ketoconazole 2% Cream [Nizoral 2%] 1 applic TOPICAL DAILY #30 gm 08/05/19 Fluconazole [Diflucan] 150 mg PO ONCE #2 tab 11/29/20 Nystatin 100,000Unit/gm Cream 1 applic TOPICAL BID #30 gram 11/29/20 [Mycostatin Cream] Allergies Allergy/AdvReac Type Severity Reaction Status Date / Time ibuprofen [From Motrin] Allergy Rash/Hives Verified 11/29/20 15:05 Penicillins Allergy Unknown Verified 11/29/20 15:05 sulfamethoxazole Allergy Rash/Hives Verified 11/29/20 15:05 [From Septra] trimethoprim [From Septra] Allergy Rash/Hives Verified 11/29/20 15:05 Review of Systems ROS Statement: Those systems with pertinent positive or pertinent negative responses have been documented in the HPI. ROS Other: All systems not noted in ROS Statement are negative. Past Medical History Past Medical History: Hyperlipidemia, Hypertension Additional Past Medical History / Comment(s): endometriosis History of Any Multi-Drug Resistant Organisms: ESBL, MRSA Date of last positivie culture/infection: 10/02/07 MRSA:09/19/16 ESBL E.coli MDRO Source:: MRSA-site unknonw; ESBL-Urine Past Surgical History: Section, Cholecystectomy Additional Past Surgical History / Comment(s): endometriosis Past Anesthesia/Blood Transfusion Reactions: No Reported Reaction Past Psychological History: No Psychological Hx Reported Smoking Status: Never smoker Past Alcohol Use History: None Reported Past Drug Use History: None Reported - Past Family History Mother Family Medical History: No Reported History Father Family Medical History: Coronary Artery Disease (CAD) General Exam - General Exam Comments Initial Comments: GENERAL: Patient is well-developed and well-nourished. Patient is nontoxic and in no acute distress. HEAD: Atraumatic, normocephalic. EYES: Pupils equal round and reactive to light, extraocular movements intact, sclera anicteric, conjunctiva are normal. Eyelids were unremarkable. ENT: TMs normal, nares patent, oropharynx clear without exudates. Moist mucous membranes. NECK: Normal range of motion, supple without lymphadenopathy or JVD. LUNGS: Unlabored respirations. Breath sounds clear to auscultation bilaterally and equal. No wheezes rales or rhonchi. HEART: Regular rate and rhythm without murmurs, rubs or gallops. ABDOMEN: Soft, nontender, normoactive bowel sounds. No guarding, no rebound. No masses appreciated. : Deferred MUSCULOSKELETAL: Normal extremities with adequate strength and normal range of motion, no pitting or edema. No clubbing or cyanosis. NEUROLOGICAL: Patient is alert and oriented x 3. Symmetrical smile. Normal speech, normal gait. PSYCH: Normal mood, normal affect. SKIN: Warm, Dry, normal turgor. Patient has some mild erythema, rash consistent with yeast of bilateral groins and upper thighs. Limitations: no limitations Course Vital Signs 11/29/20 15:02 Temperature 98.2 F Pulse Rate 84 Respiratory 18 Rate Blood Pressure 133/77 O2 Sat by Pulse 96 Oximetry Medical Decision Making - Medical Decision Making Patient is a 65-year-old female presenting with complaints of a yeast infection as well as a rash of bilateral groin and upper legs consistent with yeast as well. She's had this issue in the past. Patient declined a vaginal exam but I did do an external exam, consistent with yeast. Patient will be given prescription for Diflucan and topical nystatin. Patient is in agreement with this. Patient is stable for discharge. Patient is in agreement with this plan of care. Return parameters were discussed with the patient and they verbalized understanding. Case discussed with Dr. Garcia. Disposition Clinical Impression: Vaginitis, Zofia infection of genital region Disposition: HOME SELF-CARE Condition: Stable Instructions (If sedation given, give patient instructions): Yeast Infection (ED) Additional Instructions: Please return to the Emergency Department if symptoms worsen or any other concerns. Please take the dictation as prescribed. Please follow-up with your regular doctor symptoms persist. Prescriptions: Fluconazole [Diflucan] 150 mg PO ONCE #2 tab Nystatin 100,000Unit/gm Cream [Mycostatin Cream] 1 applic TOPICAL BID #30 gram Is patient prescribed a controlled substance at d/c from ED?: No Referrals: Richard Montano MD [Primary Care Provider] - 1-2 days
[2020-11-29] MEDS ORDERED: ACETAMINOPHEN TAB 500 MG TAB PO STA (17:04)
== END 2020-11-29 17:10 | disposition home or self-care (01) ==
LOC: EC 14:56
DX: N76.0 Acute vaginitis (principal); B37.49 Other urogenital candidiasis; I10 Essential (primary) hypertension; E78.5 Hyperlipidemia, unspecified
CPT/HCPCS: 99282

== ENCOUNTER 2021-02-20 14:07 | Emergency (ER) | payer OTHER ==
[2021-02-20 14:15] VITALS: BP 154/77; PULSE 76; RESP 18; TEMP 98.4
[2021-02-20] MEDS ORDERED: LIDOCAINE 1%-EPI 1:100,000 20 ML VIAL SQ STA (14:48)
--- NOTE | 2021-02-20 15:16 | ED ---
Skin/Abscess/FB HPI - General Chief complaint: Skin/Abscess/Foreign Body Stated complaint: Poss Hair Follicle Cyst Time Seen by Provider: 02/20/21 14:38 Source: patient Mode of arrival: ambulatory Limitations: no limitations - History of Present Illness Initial comments: 66-year-old female presents to the emergency department with a chief complaint of an abscess. Has history of MRSA. Reports the abscess been going on there for about 2-3 weeks and it is slightly increasing in pain and appearance. Patient reports it is erythematous and she noticed some yellow discharge coming from it. She denies any fevers or chills. States it is located near the left groin region. - Related Data Home Medications Medication Instructions Recorded Confirmed Cyclobenzaprine [Flexeril] 10 mg PO HS PRN 10/17/17 07/08/18 Multivitamins, Thera [Multivitamin 1 tab PO DAILY 07/08/18 07/08/18 (formulary)] Previous Rx's Medication Instructions Recorded Cephalexin [Keflex] 500 mg PO Q12HR 10 Days cap 07/08/18 Fluticasone Propionate [Flonase 1 - 2 spray EA NOSTRIL DAILY 5 07/08/18 Allergy Relief] Days ml Clotrimazole [Clotrimazole 1% Top 1 applic TOPICAL Q12HR 14 Days #1 10/10/18 Soln] tube Fluconazole [Diflucan] 150 mg PO ONCE #3 tab 12/27/18 Fluconazole [Diflucan] 150 mg PO ONCE #3 tab 02/17/19 Nystatin 100,000 Unit/gm Oint 1 applic TOPICAL BID #30 gm 02/17/19 [Mycostatin Oint] Nystatin 100,000 Unit/gm Powd 1 applic TOPICAL BID #30 gm 02/17/19 [Mycostatin Powder] diphenhydrAMINE & Zinc Cream 1 applic TOPICAL BID 5 Days #1 tube 06/27/19 [Benadryl Cream] Fluconazole [Diflucan] 150 mg PO ONCE #3 tab 08/05/19 Ketoconazole 2% Cream [Nizoral 2%] 1 applic TOPICAL DAILY #30 gm 08/05/19 Fluconazole [Diflucan] 150 mg PO ONCE #2 tab 11/29/20 Nystatin 100,000Unit/gm Cream 1 applic TOPICAL BID #30 gram 11/29/20 [Mycostatin Cream] Allergies Allergy/AdvReac Type Severity Reaction Status Date / Time ibuprofen [From Motrin] Allergy Rash/Hives Verified 02/20/21 14:15 Penicillins Allergy Unknown Verified 02/20/21 14:15 sulfamethoxazole Allergy Rash/Hives Verified 02/20/21 14:15 [From Septra] trimethoprim [From Septra] Allergy Rash/Hives Verified 02/20/21 14:15 Review of Systems ROS Statement: Those systems with pertinent positive or pertinent negative responses have been documented in the HPI. ROS Other: All systems not noted in ROS Statement are negative. Past Medical History Past Medical History: Hyperlipidemia, Hypertension Additional Past Medical History / Comment(s): endometriosis History of Any Multi-Drug Resistant Organisms: ESBL, MRSA Date of last positivie culture/infection: 10/02/07 MRSA:09/19/16 ESBL E.coli MDRO Source:: MRSA-site unknonw; ESBL-Urine Past Surgical History: Section, Cholecystectomy Additional Past Surgical History / Comment(s): endometriosis Past Anesthesia/Blood Transfusion Reactions: No Reported Reaction Past Psychological History: No Psychological Hx Reported Smoking Status: Never smoker Past Alcohol Use History: None Reported Past Drug Use History: None Reported - Past Family History Mother Family Medical History: No Reported History Father Family Medical History: Coronary Artery Disease (CAD) General Exam Limitations: no limitations General appearance: alert, in no apparent distress Head exam: Present: atraumatic, normocephalic, normal inspection Eye exam: Present: normal appearance, PERRL, EOMI Pupils: Present: normal accommodation ENT exam: Present: normal exam, normal oropharynx, mucous membranes moist Neck exam: Present: normal inspection, full ROM. Absent: tenderness, lymphadenopathy Respiratory exam: Present: normal lung sounds bilaterally. Absent: respiratory distress, wheezes, rales, rhonchi, stridor, chest wall tenderness, accessory muscle use Cardiovascular Exam: Present: regular rate, normal rhythm, normal heart sounds GI/Abdominal exam: Present: soft (Small abscess noted near the left groin region measuring approximately 1 cm diameter. no surrounding cellulitis.). Absent: distended, tenderness, guarding, rebound Extremities exam: Present: normal inspection, full ROM. Absent: tenderness Back exam: Present: normal inspection, full ROM. Absent: tenderness, CVA tenderness (R), CVA tenderness (L) Neurological exam: Present: alert, oriented X3 Psychiatric exam: Present: normal affect, normal mood Skin exam: Present: warm, dry, intact, normal color Course Vital Signs 02/20/21 14:12 Temperature 98.4 F Pulse Rate 76 Respiratory 18 Rate Blood Pressure 154/77 O2 Sat by Pulse 98 Oximetry Procedures - Incision & Drainage Consent Obtained: verbal consent, written consent Indication: Abscess Site: other (Left groin) Size (cm): 1 Anesthetic Used: lidocaine 1%, with epi Amount (mLs): 2 I&D Cleaning Method: Alcohol Wipe Sterile Field Used?: No Scalpel Used: #11 Needle Aspiration Performed?: No Irrigation Performed?: No I&D Drainage Obtained: Pus, Blood Culture Obtained?: No Patient Tolerated Procedure: well, no complications Medical Decision Making - Medical Decision Making 66-year-old female presents to the emergency department with a chief complaint of an abscess. Patient has history of MRSA. Incision and drainage performed with some amounts of pus removed. Patient advised to apply warm compresses. Will be started on doxycycline because she is ALLERGIC to sulfa. Return parameters were thoroughly discussed the patient was understanding agreeable. Case discussed with physician Disposition Clinical Impression: Abscess Disposition: HOME SELF-CARE Condition: Stable Instructions (If sedation given, give patient instructions): Abscess (ED), Abscess Incision and Drainage (DC) Additional Instructions: Please return to the Emergency Department if symptoms worsen or any other concerns. Is patient prescribed a controlled substance at d/c from ED?: No Referrals: Richard Montano MD [Primary Care Provider] - 1-2 days Time of Disposition: 15:15
== END 2021-02-20 15:34 | disposition home or self-care (01) ==
LOC: EC 14:07
DX: L02.214 Cutaneous abscess of groin (principal); I10 Essential (primary) hypertension; Z88.1 Allergy status to other antibiotic agents; Z88.0 Allergy status to penicillin; Z88.2 Allergy status to sulfonamides; Z88.6 Allergy status to analgesic agent
CPT/HCPCS: 10060; 99282

== ENCOUNTER 2021-02-27 22:47 | Emergency (ER) | payer MEDICARE, OTHER ==
[2021-02-27 22:53] VITALS: BP 150/84; PULSE 81; RESP 20; TEMP 98.5
[2021-02-27] MEDS ORDERED: CLOTRIMAZOLE 1% CREAM 30 GM TUBE TOPICAL STA (23:16)
[2021-02-27] MEDS ORDERED: FLUCONAZOLE 150 MG TAB PO STA (23:16)
--- NOTE | 2021-02-27 23:20 | ED ---
General Adult HPI - General Chief complaint: Skin/Abscess/Foreign Body Stated complaint: Pain all over Time Seen by Provider: 02/27/21 23:08 Source: patient Mode of arrival: ambulatory Limitations: no limitations - History of Present Illness Initial comments: 66 year-old female patient presents to the emergency department for evaluation of redness and itching to the skin beneath her right breast and under her abdominal skin fold. Patient states it started yesterday when it was really hot outside. States she has had this before and generally is treated with topical ketoconazole and oral diflucan. Denies history of Diabetes. Denies any blisters to the area. Denies any fever or chills. Denies any other symptoms or concerns. - Related Data Home Medications Medication Instructions Recorded Confirmed Cyclobenzaprine [Flexeril] 10 mg PO HS PRN 10/17/17 07/08/18 Multivitamins, Thera [Multivitamin 1 tab PO DAILY 07/08/18 07/08/18 (formulary)] Previous Rx's Medication Instructions Recorded Cephalexin [Keflex] 500 mg PO Q12HR 10 Days cap 07/08/18 Fluticasone Propionate [Flonase 1 - 2 spray EA NOSTRIL DAILY 5 07/08/18 Allergy Relief] Days ml Clotrimazole [Clotrimazole 1% Top 1 applic TOPICAL Q12HR 14 Days #1 10/10/18 Soln] tube Fluconazole [Diflucan] 150 mg PO ONCE #3 tab 12/27/18 Fluconazole [Diflucan] 150 mg PO ONCE #3 tab 02/17/19 Nystatin 100,000 Unit/gm Oint 1 applic TOPICAL BID #30 gm 02/17/19 [Mycostatin Oint] Nystatin 100,000 Unit/gm Powd 1 applic TOPICAL BID #30 gm 02/17/19 [Mycostatin Powder] diphenhydrAMINE & Zinc Cream 1 applic TOPICAL BID 5 Days #1 tube 06/27/19 [Benadryl Cream] Fluconazole [Diflucan] 150 mg PO ONCE #3 tab 08/05/19 Ketoconazole 2% Cream [Nizoral 2%] 1 applic TOPICAL DAILY #30 gm 08/05/19 Fluconazole [Diflucan] 150 mg PO ONCE #2 tab 11/29/20 Nystatin 100,000Unit/gm Cream 1 applic TOPICAL BID #30 gram 11/29/20 [Mycostatin Cream] Doxycycline Monohydrate [Monodox] 100 mg PO Q12HR #20 cap 02/20/21 Fluconazole [Diflucan] 150 mg PO ONCE #2 tab 02/27/21 Ketoconazole 2% Cream [Nizoral 2%] 1 applic TOPICAL DAILY #30 gm 02/27/21 Allergies Allergy/AdvReac Type Severity Reaction Status Date / Time ibuprofen [From Motrin] Allergy Rash/Hives Verified 02/27/21 22:53 Penicillins Allergy Unknown Verified 02/27/21 22:53 sulfamethoxazole Allergy Rash/Hives Verified 02/27/21 22:53 [From Septra] trimethoprim [From Septra] Allergy Rash/Hives Verified 02/27/21 22:53 Review of Systems ROS Statement: Those systems with pertinent positive or pertinent negative responses have been documented in the HPI. ROS Other: All systems not noted in ROS Statement are negative. Past Medical History Past Medical History: Hyperlipidemia, Hypertension Additional Past Medical History / Comment(s): endometriosis History of Any Multi-Drug Resistant Organisms: ESBL, MRSA Date of last positivie culture/infection: 10/02/07 MRSA:09/19/16 ESBL E.coli MDRO Source:: MRSA-site unknonw; ESBL-Urine Past Surgical History: Section, Cholecystectomy Additional Past Surgical History / Comment(s): endometriosis Past Anesthesia/Blood Transfusion Reactions: No Reported Reaction Past Psychological History: No Psychological Hx Reported Smoking Status: Never smoker Past Alcohol Use History: None Reported Past Drug Use History: None Reported - Past Family History Mother Family Medical History: No Reported History Father Family Medical History: Coronary Artery Disease (CAD) General Exam Limitations: no limitations General appearance: alert, in no apparent distress, other (This is a well- developed, well-nourished adult female patient in no acute distress. Vital signs upon presentation are temperature 98.5F, pulse 81, respirations 20, blood pressure 150/84, pulse ox 96% on room air.) Respiratory exam: Present: normal lung sounds bilaterally. Absent: respiratory distress, wheezes, rales, rhonchi, stridor Cardiovascular Exam: Present: regular rate, normal rhythm, normal heart sounds. Absent: systolic murmur, diastolic murmur, rubs, gallop, clicks Neurological exam: Present: alert, oriented X3, CN II-XII intact Psychiatric exam: Present: normal affect, normal mood Skin exam: Present: warm, dry, intact, normal color, rash (Patchy erythema with satellite lesions noted beneath the right breast, beneath the abdominal skin fold. lesions are non-petechial, nonvesicular, non-purpuric.) Course Vital Signs 02/27/21 22:48 Temperature 98.5 F Pulse Rate 81 Respiratory 20 Rate Blood Pressure 150/84 O2 Sat by Pulse 96 Oximetry Medical Decision Making - Medical Decision Making 66-year-old female patient presents to emergency department today for evaluation of rash beneath her right breast into the lower abdomen. Physical examination did reveal patchy erythema with satellite lesions consistent with cutaneous candidiasis. She has had ear infections in the past. Denies history of diabetes. She is afebrile. She'll be given clotrimazole cream to apply an oral Diflucan. She is instructed to follow-up with her primary care physician for recheck in 1-2 days. Return parameters discussed in detail. She verbalizes understanding and agrees with this plan. My attending is Dr. Hdz. - Lab Data Lab Results 02/27/21 Range/Units 23:32 POC Glucose (mg/dL) 135 H (75-99) mg/dL POC Glu Wet End Supervisor ID Moses Vieira Disposition Clinical Impression: Cutaneous candidiasis Disposition: HOME SELF-CARE Condition: Good Instructions (If sedation given, give patient instructions): Skin Yeast Inf ection (ED) Additional Instructions: Use cream to the affected areas three times daily. Take medication as directed. Follow up with your primary care physician for recheck in 1-2 days. Return for any new, worsening, or concerning symptoms. Prescriptions: Fluconazole [Diflucan] 150 mg PO ONCE #2 tab Ketoconazole 2% Cream [Nizoral 2%] 1 applic TOPICAL DAILY #30 gm Is patient prescribed a controlled substance at d/c from ED?: No Referrals: Richard Montano MD [Primary Care Provider] - 1-2 days Time of Disposition: 23:20
[2021-02-27 23:34] LABS: Glucose,Whole Blood 135 mg/dL (75-99)
== END 2021-02-27 23:42 | disposition home or self-care (01) ==
LOC: EC 22:47
DX: B37.2 Candidiasis of skin and nail (principal); I10 Essential (primary) hypertension; Z88.6 Allergy status to analgesic agent; Z88.0 Allergy status to penicillin; Z88.2 Allergy status to sulfonamides; Z88.1 Allergy status to other antibiotic agents
CPT/HCPCS: 36415; 99283

== ENCOUNTER 2021-03-30 | Emergency (ER) | payer MEDICARE, OTHER | END 2021-03-30 17:51 | disposition home or self-care (01) | CPT/HCPCS: 81001; 99283; 96372; J1200 ==

== ENCOUNTER 2021-06-17 15:02 | Emergency (ER) | payer OTHER ==
[2021-06-17 15:45] VITALS: BP 156/75; PULSE 78; RESP 20; TEMP 98.2
[2021-06-17] MEDS ORDERED: FLUCONAZOLE 150 MG TAB PO STA (16:53)
--- NOTE | 2021-06-17 16:59 | ED ---
General Adult HPI - General Chief complaint: Skin/Abscess/Foreign Body Stated complaint: Breast pain Time Seen by Provider: 06/17/21 16:48 Source: patient, RN notes reviewed, old records reviewed Mode of arrival: ambulatory Limitations: no limitations - History of Present Illness Initial comments: This is a well-appearing 66-year-old female patient presents to the emergency room with complaints of a rash under her left breast. She states that she gets this often is treated with Diflucan and ketoconazole. She states that she did call Dr. Castro who told her to come to the emergency room for treatment. She denies any fevers or any other rashes. -: days(s) (2) Location: chest (Under left breast rash) Severity scale (1-10): 4 Quality: constant Consistency: constant Associated Symptoms: denies other symptoms Treatments Prior to Arrival: none - Related Data Home Medications Medication Instructions Recorded Confirmed Cyclobenzaprine [Flexeril] 10 mg PO HS PRN 10/17/17 07/08/18 Multivitamins, Thera [Multivitamin 1 tab PO DAILY 07/08/18 07/08/18 (formulary)] Previous Rx's Medication Instructions Recorded Cephalexin [Keflex] 500 mg PO Q12HR 10 Days cap 07/08/18 Fluticasone Propionate [Flonase 1 - 2 spray EA NOSTRIL DAILY 5 07/08/18 Allergy Relief] Days ml Clotrimazole [Clotrimazole 1% Top 1 applic TOPICAL Q12HR 14 Days #1 10/10/18 Soln] tube Fluconazole [Diflucan] 150 mg PO ONCE #3 tab 12/27/18 Fluconazole [Diflucan] 150 mg PO ONCE #3 tab 02/17/19 Nystatin 100,000 Unit/gm Oint 1 applic TOPICAL BID #30 gm 02/17/19 [Mycostatin Oint] Nystatin 100,000 Unit/gm Powd 1 applic TOPICAL BID #30 gm 02/17/19 [Mycostatin Powder] diphenhydrAMINE & Zinc Cream 1 applic TOPICAL BID 5 Days #1 tube 06/27/19 [Benadryl Cream] Fluconazole [Diflucan] 150 mg PO ONCE #3 tab 08/05/19 Ketoconazole 2% Cream [Nizoral 2%] 1 applic TOPICAL DAILY #30 gm 08/05/19 Fluconazole [Diflucan] 150 mg PO ONCE #2 tab 11/29/20 Nystatin 100,000Unit/gm Cream 1 applic TOPICAL BID #30 gram 11/29/20 [Mycostatin Cream] Doxycycline Monohydrate [Monodox] 100 mg PO Q12HR #20 cap 02/20/21 Fluconazole [Diflucan] 150 mg PO ONCE #2 tab 02/27/21 Ketoconazole 2% Cream [Nizoral 2%] 1 applic TOPICAL DAILY #30 gm 02/27/21 Nitrofurantoin Monohyd/M-Cryst 100 mg PO Q12HR #10 cap 03/30/21 [Macrobid] Fluconazole [Diflucan] 150 mg PO ONCE #2 tab 06/17/21 Fluconazole [Diflucan] 150 mg PO ONCE #2 tab 06/17/21 Ketoconazole 2% Cream [Nizoral 2%] 1 applic TOPICAL DAILY #30 gm 06/17/21 Ketoconazole 2% Cream [Nizoral 2%] 1 applic TOPICAL DAILY #30 gm 06/17/21 Allergies Allergy/AdvReac Type Severity Reaction Status Date / Time ibuprofen [From Motrin] Allergy Rash/Hives Verified 06/17/21 15:45 Penicillins Allergy Unknown Verified 06/17/21 15:45 sulfamethoxazole Allergy Rash/Hives Verified 06/17/21 15:45 [From Septra] trimethoprim [From Septra] Allergy Rash/Hives Verified 06/17/21 15:45 Review of Systems ROS Statement: Those systems with pertinent positive or pertinent negative responses have been documented in the HPI. ROS Other: All systems not noted in ROS Statement are negative. Past Medical History Past Medical History: Hyperlipidemia, Hypertension Additional Past Medical History / Comment(s): endometriosis History of Any Multi-Drug Resistant Organisms: ESBL, MRSA Date of last positivie culture/infection: 10/02/07 MRSA:09/19/16 ESBL E.coli MDRO Source:: MRSA-site unknonw; ESBL-Urine Past Surgical History: Section, Cholecystectomy Additional Past Surgical History / Comment(s): endometriosis Past Anesthesia/Blood Transfusion Reactions: No Reported Reaction Past Psychological History: No Psychological Hx Reported Smoking Status: Never smoker Past Alcohol Use History: None Reported Past Drug Use History: None Reported - Past Family History Mother Family Medical History: No Reported History Father Family Medical History: Coronary Artery Disease (CAD) General Exam Limitations: no limitations General appearance: alert, in no apparent distress Head exam: Present: atraumatic, normocephalic, normal inspection Eye exam: Present: normal appearance, EOMI Neck exam: Present: normal inspection, full ROM. Absent: tenderness, meningismus, lymphadenopathy Respiratory exam: Present: normal lung sounds bilaterally. Absent: respiratory distress, wheezes, rales, rhonchi, stridor Cardiovascular Exam: Present: regular rate, normal rhythm, normal heart sounds. Absent: systolic murmur, diastolic murmur, rubs, gallop, clicks Neurological exam: Present: alert, oriented X3 Psychiatric exam: Present: normal affect, normal mood Skin exam: Present: warm, dry, normal color, other (rash under left breast). Absent: rash Course Vital Signs 06/17/21 15:44 Temperature 98.2 F Pulse Rate 78 Respiratory 20 Rate Blood Pressure 156/75 O2 Sat by Pulse 99 Oximetry Medical Decision Making - Medical Decision Making Patient presents to the emergency room with a rash under her left breast. Patient states that she gets zofia rash is under breasts often. She states last treated 6 months ago with Diflucan and ketoconazole. She did contact her doctor Matthew who told her to come to the emergency room. She states that the rash came get severe quickly without treatment. She denies any fevers. She was directed to follow up with her primary care doctor next week. Return to the emergency room with any new or worsening symptoms. Disposition Clinical Impression: Zofia infection Disposition: HOME SELF-CARE Condition: Good Additional Instructions: Use medication as prescribed and follow-up with your primary care doctor in 1 week. Return to the emergency room with any new or worsening symptoms including rapid spread of rash or fevers. Prescriptions: Fluconazole [Diflucan] 150 mg PO ONCE #2 tab Fluconazole [Diflucan] 150 mg PO ONCE #2 tab Ketoconazole 2% Cream [Nizoral 2%] 1 applic TOPICAL DAILY #30 gm Ketoconazole 2% Cream [Nizoral 2%] 1 applic TOPICAL DAILY #30 gm Is patient prescribed a controlled substance at d/c from ED?: No Referrals: Richard Montano MD [Primary Care Provider] - 1-2 days Time of Disposition: 16:58
== END 2021-06-17 17:30 | disposition home or self-care (01) ==
LOC: EC 15:02
DX: B37.9 Candidiasis, unspecified (principal); E78.5 Hyperlipidemia, unspecified; I10 Essential (primary) hypertension; Z88.0 Allergy status to penicillin; Z88.1 Allergy status to other antibiotic agents; Z88.2 Allergy status to sulfonamides; Z88.6 Allergy status to analgesic agent
CPT/HCPCS: 99283

== ENCOUNTER 2021-06-24 18:40 | Emergency (ER) | payer OTHER ==
[2021-06-24 18:49] VITALS: TEMP 98.1
[2021-06-24] MEDS ORDERED: KETOROLAC 15 MG/ML 1 ML VIAL IM STA (18:56)
--- NOTE | 2021-06-24 18:59 | ED ---
General Adult HPI - General Chief complaint: Extremity Problem,Nontraumatic Stated complaint: leg pain Time Seen by Provider: 06/24/21 18:50 Source: patient Mode of arrival: ambulatory Limitations: no limitations - History of Present Illness Initial comments: Dictation was produced using [employer] dictation software. please excuse any grammatical, word or spelling errors. Chief Complaint: 66-year-old female presents with left knee pain History of Present Illness: Patient is a 66-year-old female she presents today with left knee pain. Patient has been having on-and-off pain symptoms for the last several weeks. Patient states that initially was to her left lateral knee. States the pain moved to her popliteal area and now it's in her left medial knee. She does not have any more pain in the lateral or posterior knee. Patient has any calf pain. No medial thigh pain. She denies any active pain at this time. States worse with ambulating. No history of blood clots or DVT. No other complaints. The ROS documented in this emergency department record has been reviewed and confirmed by me. Those systems with pertinent positive or negative responses have been documented in the HPI. All other systems are other negative and/or noncontributory. PHYSICAL EXAM: General Impression: Alert and oriented x3, not in acute distress HEENT: Normocephalic atraumatic, extra-ocular movements intact, pupils equal and reactive to light bilaterally, mucous membranes moist. Cardiovascular: Heart regular rate and rhythm Chest: Able to complete full sentences, no retractions, no tachypnea Abdomen: abdomen soft, non-tender, non-distended, no organomegaly Musculoskeletal: Pulses present and equal in all extremities, no peripheral ed mery Left lower extremity: Mild palpatory tenderness to the left medial knee, no crepitus or clicking with external, internal rotation, valgus and naris stress. Passive and active range of motion intact. Motor: no focal deficits noted Neurological: CN II-XII grossly intact, no focal motor or sensory deficits noted Skin: Intact with no visualized rashes Psych: Normal affect and mood ED course: 66-year-old female presents with mechanical knee pain. Vital Signs upon arrival are within acceptable limits. Knee x-ray is unremarkable for any acute processes. There is osteoarthritis. Patient given IM Toradol.. Patient with discharge. - Related Data Home Medications Medication Instructions Recorded Confirmed Cyclobenzaprine [Flexeril] 10 mg PO HS PRN 10/17/17 07/08/18 Multivitamins, Thera [Multivitamin 1 tab PO DAILY 07/08/18 07/08/18 (formulary)] Previous Rx's Medication Instructions Recorded Cephalexin [Keflex] 500 mg PO Q12HR 10 Days cap 07/08/18 Fluticasone Propionate [Flonase 1 - 2 spray EA NOSTRIL DAILY 5 07/08/18 Allergy Relief] Days ml Clotrimazole [Clotrimazole 1% Top 1 applic TOPICAL Q12HR 14 Days #1 10/10/18 Soln] tube Fluconazole [Diflucan] 150 mg PO ONCE #3 tab 12/27/18 Fluconazole [Diflucan] 150 mg PO ONCE #3 tab 02/17/19 Nystatin 100,000 Unit/gm Oint 1 applic TOPICAL BID #30 gm 02/17/19 [Mycostatin Oint] Nystatin 100,000 Unit/gm Powd 1 applic TOPICAL BID #30 gm 02/17/19 [Mycostatin Powder] diphenhydrAMINE & Zinc Cream 1 applic TOPICAL BID 5 Days #1 tube 06/27/19 [Benadryl Cream] Fluconazole [Diflucan] 150 mg PO ONCE #3 tab 08/05/19 Ketoconazole 2% Cream [Nizoral 2%] 1 applic TOPICAL DAILY #30 gm 08/05/19 Fluconazole [Diflucan] 150 mg PO ONCE #2 tab 11/29/20 Nystatin 100,000Unit/gm Cream 1 applic TOPICAL BID #30 gram 11/29/20 [Mycostatin Cream] Doxycycline Monohydrate [Monodox] 100 mg PO Q12HR #20 cap 02/20/21 Fluconazole [Diflucan] 150 mg PO ONCE #2 tab 02/27/21 Ketoconazole 2% Cream [Nizoral 2%] 1 applic TOPICAL DAILY #30 gm 02/27/21 Nitrofurantoin Monohyd/M-Cryst 100 mg PO Q12HR #10 cap 03/30/21 [Macrobid] Fluconazole [Diflucan] 150 mg PO ONCE #2 tab 06/17/21 Fluconazole [Diflucan] 150 mg PO ONCE #2 tab 06/17/21 Ketoconazole 2% Cream [Nizoral 2%] 1 applic TOPICAL DAILY #30 gm 06/17/21 Ketoconazole 2% Cream [Nizoral 2%] 1 applic TOPICAL DAILY #30 gm 06/17/21 Allergies Allergy/AdvReac Type Severity Reaction Status Date / Time ibuprofen [From Motrin] Allergy Rash/Hives Verified 06/24/21 18:49 Penicillins Allergy Unknown Verified 06/24/21 18:49 sulfamethoxazole Allergy Rash/Hives Verified 06/24/21 18:49 [From Septra] trimethoprim [From Septra] Allergy Rash/Hives Verified 06/24/21 18:49 Review of Systems ROS Statement: Those systems with pertinent positive or pertinent negative responses have been documented in the HPI. ROS Other: All systems not noted in ROS Statement are negative. Past Medical History Past Medical History: Hyperlipidemia, Hypertension Additional Past Medical History / Comment(s): endometriosis History of Any Multi-Drug Resistant Organisms: ESBL, MRSA Date of last positivie culture/infection: 10/02/07 MRSA:09/19/16 ESBL E.coli MDRO Source:: MRSA-site unknonw; ESBL-Urine Past Surgical History: Section, Cholecystectomy Additional Past Surgical History / Comment(s): endometriosis Past Anesthesia/Blood Transfusion Reactions: No Reported Reaction Past Psychological History: No Psychological Hx Reported Smoking Status: Never smoker Past Alcohol Use History: None Reported Past Drug Use History: None Reported - Past Family History Mother Family Medical History: No Reported History Father Family Medical History: Coronary Artery Disease (CAD) General Exam Limitations: no limitations Course Vital Signs 06/24/21 18:46 Temperature 98.1 F Pulse Rate 86 Respiratory 18 Rate Blood Pressure 133/79 O2 Sat by Pulse 95 Oximetry Disposition Clinical Impression: Knee pain Disposition: HOME SELF-CARE Condition: Good Instructions (If sedation given, give patient instructions): Knee Pain (ED) Is patient prescribed a controlled substance at d/c from ED?: No Referrals: Richard Montano MD [Primary Care Provider] - 1-2 days
--- NOTE | 2021-06-24 19:27 | XR ---
EXAMINATION TYPE: XR knee complete LT DATE OF EXAM: 06/24/2021 COMPARISON: NONE HISTORY: Knee pain TECHNIQUE: 3 views FINDINGS: 3 views of left knee show some narrowing of the joint spaces. There is spurring of the femo ral and tibial condyles. There is narrowing of the patellofemoral joint space with spurring. There is no significant joint effusion. There is no evidence of a fracture. IMPRESSION: Osteoarthritis. No fracture.
[2021-06-24] MEDS ORDERED: traMADol 50 MG STARTER PACK 3 TAB BTL PO STA (19:32)
[2021-06-24 20:07] VITALS: BP 149/81; PULSE 76; RESP 18
== END 2021-06-24 20:07 | disposition home or self-care (01) ==
LOC: EC 18:40
DX: M25.562 Pain in left knee (principal); I10 Essential (primary) hypertension; Z88.0 Allergy status to penicillin; Z88.2 Allergy status to sulfonamides; Z88.6 Allergy status to analgesic agent; Z88.1 Allergy status to other antibiotic agents
CPT/HCPCS: 73562; 99283; 96372; J1885

== ENCOUNTER 2021-07-18 22:23 | Emergency (ER) | payer MEDICARE, OTHER ==
[2021-07-18] MEDS ORDERED: MORPHINE SULFATE 4 MG/ML SYRINGE IM STA (23:26)
--- NOTE | 2021-07-19 00:34 | ED ---
Extremity Problem HPI - General Chief complaint: Extremity Problem,Nontraumatic Stated complaint: Leg Pain Time Seen by Provider: 07/18/21 23:14 Source: patient, RN notes reviewed Mode of arrival: wheelchair - History of Present Illness Initial comments: Patient is a 66-year-old female presents to emergency department complaining of chronic bilateral lower leg pain. She also notes that she became nauseous and oriented today. Skin emergency department get evaluated. She notes she has not been tested for Covid recently. She was otherwise well-appearing. She was slightly anxious upon exam interview. She denied chest pain shortness of breath headache nausea vomiting diarrhea constipation fever fatigue chills. - Related Data Home Medications Medication Instructions Recorded Confirmed Cyclobenzaprine [Flexeril] 10 mg PO HS PRN 10/17/17 07/08/18 Multivitamins, Thera [Multivitamin 1 tab PO DAILY 07/08/18 07/08/18 (formulary)] Previous Rx's Medication Instructions Recorded Cephalexin [Keflex] 500 mg PO Q12HR 10 Days cap 07/08/18 Fluticasone Propionate [Flonase 1 - 2 spray EA NOSTRIL DAILY 5 07/08/18 Allergy Relief] Days ml Clotrimazole [Clotrimazole 1% Top 1 applic TOPICAL Q12HR 14 Days #1 10/10/18 Soln] tube Fluconazole [Diflucan] 150 mg PO ONCE #3 tab 12/27/18 Fluconazole [Diflucan] 150 mg PO ONCE #3 tab 02/17/19 Nystatin 100,000 Unit/gm Oint 1 applic TOPICAL BID #30 gm 02/17/19 [Mycostatin Oint] Nystatin 100,000 Unit/gm Powd 1 applic TOPICAL BID #30 gm 02/17/19 [Mycostatin Powder] diphenhydrAMINE & Zinc Cream 1 applic TOPICAL BID 5 Days #1 tube 06/27/19 [Benadryl Cream] Fluconazole [Diflucan] 150 mg PO ONCE #3 tab 08/05/19 Ketoconazole 2% Cream [Nizoral 2%] 1 applic TOPICAL DAILY #30 gm 08/05/19 Fluconazole [Diflucan] 150 mg PO ONCE #2 tab 11/29/20 Nystatin 100,000Unit/gm Cream 1 applic TOPICAL BID #30 gram 11/29/20 [Mycostatin Cream] Doxycycline Monohydrate [Monodox] 100 mg PO Q12HR #20 cap 02/20/21 Fluconazole [Diflucan] 150 mg PO ONCE #2 tab 02/27/21 Ketoconazole 2% Cream [Nizoral 2%] 1 applic TOPICAL DAILY #30 gm 02/27/21 Nitrofurantoin Monohyd/M-Cryst 100 mg PO Q12HR #10 cap 03/30/21 [Macrobid] Fluconazole [Diflucan] 150 mg PO ONCE #2 tab 06/17/21 Fluconazole [Diflucan] 150 mg PO ONCE #2 tab 06/17/21 Ketoconazole 2% Cream [Nizoral 2%] 1 applic TOPICAL DAILY #30 gm 06/17/21 Ketoconazole 2% Cream [Nizoral 2%] 1 applic TOPICAL DAILY #30 gm 06/17/21 Allergies Allergy/AdvReac Type Severity Reaction Status Date / Time ibuprofen [From Motrin] Allergy Rash/Hives Verified 07/18/21 22:58 Penicillins Allergy Unknown Verified 07/18/21 22:58 sulfamethoxazole Allergy Rash/Hives Verified 07/18/21 22:58 [From Septra] trimethoprim [From Septra] Allergy Rash/Hives Verified 07/18/21 22:58 Review of Systems ROS Statement: Those systems with pertinent positive or pertinent negative responses have been documented in the HPI. ROS Other: All systems not noted in ROS Statement are negative. 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 Source:: MRSA-site unknonw; ESBL-Urine Past Surgical History: Section, Cholecystectomy Additional Past Surgical History / Comment(s): endometriosis Past Anesthesia/Blood Transfusion Reactions: No Reported Reaction Past Psychological History: No Psychological Hx Reported Smoking Status: Never smoker Past Alcohol Use History: None Reported Past Drug Use History: None Reported - Past Family History Mother Family Medical History: No Reported History Father Family Medical History: Coronary Artery Disease (CAD) General Exam General appearance: alert, in no apparent distress, obese Head exam: Present: atraumatic, normocephalic, normal inspection Eye exam: Present: normal appearance, PERRL, EOMI. Absent: scleral icterus, conjunctival injection, periorbital swelling ENT exam: Present: normal exam, mucous membranes moist Neck exam: Present: normal inspection Respiratory exam: Present: normal lung sounds bilaterally. Absent: respiratory distress, wheezes, rales, rhonchi, stridor Cardiovascular Exam: Present: regular rate, normal rhythm, normal heart sounds. Absent: systolic murmur, diastolic murmur, rubs, gallop, clicks GI/Abdominal exam: Present: soft, normal bowel sounds. Absent: distended, tenderness, guarding, rebound, rigid Extremities exam: Present: normal inspection, full ROM, normal capillary refill. Absent: tenderness, pedal edema, joint swelling, calf tenderness Neurological exam: Present: alert, oriented X3 Psychiatric exam: Present: normal affect, normal mood Skin exam: Present: warm, dry, intact, normal color. Absent: rash Course Vital Signs 07/18/21 22:55 Temperature 98 F Pulse Rate 96 Respiratory 18 Rate Blood Pressure 161/78 O2 Sat by Pulse 97 Oximetry Medical Decision Making - Medical Decision Making 66-year-old female complaining of bilateral lower extremities pain and nausea with possible upper stretcher symptoms. Covid test ordered. Patient recently had x-rays done that showed osteoporosis with no fractures. Patient denied injury trauma. Patient to discharge home with follow-up primary care. Case discussed with Dr. Felix, patient can discharge home. - Lab Data Lab Results 07/18/21 Range/Units 23:41 Coronavirus (PCR) Not Detected (Not Detectd) Disposition Clinical Impression: Chronic pain, Nausea, Osteoarthritis Disposition: HOME SELF-CARE Condition: Stable Instructions (If sedation given, give patient instructions): Arthritis (ED) Additional Instructions: Please return to the Emergency Department if symptoms worsen or any other concerns. Is patient prescribed a controlled substance at d/c from ED?: No Referrals: Richard Montano MD [Primary Care Provider] - 1-2 days Time of Disposition: 00:34
[2021-07-19] MEDS ORDERED: ONDANSETRON 4 MG ODT STARTER PACK 2 TAB BTL PO STA (01:09)
[2021-07-19 01:28] VITALS: BP 141/80; PULSE 86; RESP 16; TEMP 97.8
== END 2021-07-19 01:28 | disposition home or self-care (01) ==
LOC: EC 22:23
DX: M19.09 Primary osteoarthritis, other specified site (principal); R11.0 Nausea; I10 Essential (primary) hypertension; Z88.0 Allergy status to penicillin; Z88.6 Allergy status to analgesic agent; Z88.2 Allergy status to sulfonamides; Z20.822 Contact with and (suspected) exposure to COVID-19
CPT/HCPCS: 87635; 99283; 96372; J2270

== ENCOUNTER 2022-02-18 00:06 | Emergency (ER) | payer MEDICARE, OTHER ==
[2022-02-18 00:13] VITALS: RESP 18
[2022-02-18 04:56] LABS: Appearance,Urine Clear (Clear); Bacteria,Urine Rare /hpf; Bilirubin,Urine Negative (Negative); Blood,Urine Negative (Negative); Color,Urine Yellow; Glucose,Urine (UA) Negative (Negative); Hyaline Casts,Urine 4 /lpf (0-2); Ketones,Urine Negative (Negative); Leukocyte Esterase,Urine Small (Negative); Mucus,Urine Rare /hpf; Nitrite,Urine Negative (Negative); Protein,Urine Negative (Negative); RBC,Urine 1 /hpf (0-5); Specific Gravity,Urine 1.022 (1.001-1.035); Squamous Epithelial Cell,Urine <1 /hpf (0-4); Urobilinogen,Urine <2.0 mg/dL (<2.0); WBC,Urine 11 /hpf (0-5)
[2022-02-18] MEDS ORDERED: FLUCONAZOLE 150 MG TAB PO STA (05:05)
[2022-02-18] MEDS ORDERED: NITROFURANTOIN MONOHYD/M-CRYST 100 MG CAP PO STA (05:05)
--- NOTE | 2022-02-18 05:28 | ED ---
General Adult HPI - General Chief complaint: Skin/Abscess/Foreign Body Stated complaint: infection under breast Time Seen by Provider: 02/18/22 04:56 Source: patient Mode of arrival: ambulatory Limitations: no limitations - History of Present Illness Initial comments: Patient is 67-year-old woman who presents with 2 complaints. She is complaining of some skin irritation and mild burning sensation in the inframammary fold on the right side. She states she has history of fungal infection there. She was previously treated with Diflucan and she uses a skin cream. And then in addition, patient has had a little bit of dysuria. -: days(s) Location: chest Radiation: non-radiation Quality: burning Improves with: none Worsens with: none - Related Data Home Medications Medication Instructions Recorded Confirmed Cyclobenzaprine [Flexeril] 10 mg PO HS PRN 10/17/17 07/08/18 Multivitamins, Thera [Multivitamin 1 tab PO DAILY 07/08/18 07/08/18 (formulary)] Previous Rx's Medication Instructions Recorded Cephalexin [Keflex] 500 mg PO Q12HR 10 Days cap 07/08/18 Fluticasone Propionate [Flonase 1 - 2 spray EA NOSTRIL DAILY 5 07/08/18 Allergy Relief] Days ml Clotrimazole [Clotrimazole 1% Top 1 applic TOPICAL Q12HR 14 Days #1 10/10/18 Soln] tube Fluconazole [Diflucan] 150 mg PO ONCE #3 tab 12/27/18 Fluconazole [Diflucan] 150 mg PO ONCE #3 tab 02/17/19 Nystatin 100,000 Unit/gm Oint 1 applic TOPICAL BID #30 gm 02/17/19 [Mycostatin Oint] Nystatin 100,000 Unit/gm Powd 1 applic TOPICAL BID #30 gm 02/17/19 [Mycostatin Powder] diphenhydrAMINE & Zinc Cream 1 applic TOPICAL BID 5 Days #1 tube 06/27/19 [Benadryl Cream] Fluconazole [Diflucan] 150 mg PO ONCE #3 tab 08/05/19 Ketoconazole 2% Cream [Nizoral 2%] 1 applic TOPICAL DAILY #30 gm 08/05/19 Fluconazole [Diflucan] 150 mg PO ONCE #2 tab 11/29/20 Nystatin 100,000Unit/gm Cream 1 applic TOPICAL BID #30 gram 11/29/20 [Mycostatin Cream] Doxycycline Monohydrate [Monodox] 100 mg PO Q12HR #20 cap 02/20/21 Fluconazole [Diflucan] 150 mg PO ONCE #2 tab 02/27/21 Ketoconazole 2% Cream [Nizoral 2%] 1 applic TOPICAL DAILY #30 gm 02/27/21 Nitrofurantoin Monohyd/M-Cryst 100 mg PO Q12HR #10 cap 03/30/21 [Macrobid] Fluconazole [Diflucan] 150 mg PO ONCE #2 tab 06/17/21 Fluconazole [Diflucan] 150 mg PO ONCE #2 tab 06/17/21 Ketoconazole 2% Cream [Nizoral 2%] 1 applic TOPICAL DAILY #30 gm 06/17/21 Ketoconazole 2% Cream [Nizoral 2%] 1 applic TOPICAL DAILY #30 gm 06/17/21 Fluconazole [Diflucan] 150 mg PO ONCE #1 tab 02/18/22 Nitrofurantoin Monohyd/M-Cryst 100 mg PO Q12HR #6 cap 02/18/22 [Macrobid] Allergies Allergy/AdvReac Type Severity Reaction Status Date / Time ibuprofen [From Motrin] Allergy Rash/Hives Verified 07/18/21 22:58 Penicillins Allergy Unknown Verified 07/18/21 22:58 sulfamethoxazole Allergy Rash/Hives Verified 07/18/21 22:58 [From Septra] trimethoprim [From Septra] Allergy Rash/Hives Verified 07/18/21 22:58 Review of Systems ROS Statement: Those systems with pertinent positive or pertinent negative responses have been documented in the HPI. ROS Other: All systems not noted in ROS Statement are negative. Constitutional: Denies: fever, chills Respiratory: Denies: cough, dyspnea Cardiovascular: Denies: chest pain, palpitations Gastrointestinal: Denies: abdominal pain, vomiting Genitourinary: Reports: dysuria Skin: Reports: as per HPI, rash 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 Source:: MRSA-site unknonw; ESBL-Urine Past Surgical History: Section, Cholecystectomy Additional Past Surgical History / Comment(s): endometriosis Past Anesthesia/Blood Transfusion Reactions: No Reported Reaction Past Psychological History: No Psychological Hx Reported Smoking Status: Never smoker Past Alcohol Use History: None Reported Past Drug Use History: None Reported - Past Family History Mother Family Medical History: No Reported History Father Family Medical History: Coronary Artery Disease (CAD) General Exam Limitations: no limitations General appearance: alert, in no apparent distress Head exam: Present: atraumatic, normocephalic Eye exam: Present: normal appearance Respiratory exam: Present: normal lung sounds bilaterally. Absent: respiratory distress, wheezes, rales, rhonchi, stridor Cardiovascular Exam: Present: regular rate, normal rhythm, normal heart sounds. Absent: systolic murmur, diastolic murmur, rubs, gallop GI/Abdominal exam: Present: soft. Absent: tenderness Skin exam: Present: warm, dry, rash (There is intertrigo in the right inframammary fold.), erythema Course Vital Signs 02/18/22 02/18/22 00:07 05:54 Temperature 97.8 F 97.6 F Pulse Rate 92 81 Respiratory 18 18 Rate Blood Pressure 124/77 132/90 O2 Sat by Pulse 96 97 Oximetry Medical Decision Making - Lab Data Lab Results 02/18/22 Range/Units 04:36 Urine Color Yellow Urine Appearance Clear (Clear) Urine pH 6.0 (5.0-8.0) Ur Specific [place] 1.022 (1.001-1.035) Urine Protein Negative (Negative) Urine Glucose (UA) Negative (Negative) Urine Ketones Negative (Negative) Urine Blood Negative (Negative) Urine Nitrite Negative (Negative) Urine Bilirubin Negative (Negative) Urine Urobilinogen <2.0 (<2.0) mg/dL Ur Leukocyte Esterase Small H (Negative) Urine RBC 1 (0-5) /hpf Urine WBC 11 H (0-5) /hpf Ur Squamous Epith Cells <1 (0-4) /hpf Urine Bacteria Rare H (None) /hpf Hyaline Casts 4 H (0-2) /lpf Urine Mucus Rare H (None) /hpf Disposition Clinical Impression: Intertrigo Disposition: HOME SELF-CARE Instructions (If sedation given, give patient instructions): Yeast Infection (ED) Prescriptions: Fluconazole [Diflucan] 150 mg PO ONCE #1 tab Nitrofurantoin Monohyd/M-Cryst [Macrobid] 100 mg PO Q12HR #6 cap Is patient prescribed a controlled substance at d/c from ED?: No Referrals: Richard Montano MD [Primary Care Provider] - 1-2 days
[2022-02-18 05:54] VITALS: BP 132/90; PULSE 81; TEMP 97.6
== END 2022-02-18 05:59 | disposition home or self-care (01) ==
LOC: EC 00:06
DX: L30.4 Erythema intertrigo (principal); E78.5 Hyperlipidemia, unspecified; I10 Essential (primary) hypertension; Z88.2 Allergy status to sulfonamides; Z88.0 Allergy status to penicillin; Z88.1 Allergy status to other antibiotic agents
CPT/HCPCS: 81001; 87086

== ENCOUNTER 2022-03-13 19:05 | Emergency (ER) | payer MEDICARE, OTHER ==
[2022-03-13 19:17] VITALS: BP 130/89; PULSE 84; RESP 18; TEMP 98.1
[2022-03-13] MEDS ORDERED: CARBAMIDE PEROXIDE 6.5% DROPS 15 ML BTL BOTH EARS STA (21:06)
[2022-03-13] MEDS ORDERED: KETOROLAC 15 MG/ML 1 ML VIAL IM STA (21:24)
--- NOTE | 2022-03-13 22:18 | ED ---
ENT HPI - General Chief complaint: ENT Stated complaint: bilat hearing loss Time Seen by Provider: 03/13/22 20:57 Source: patient, RN notes reviewed Mode of arrival: ambulatory Limitations: no limitations - History of Present Illness Initial comments: This is a 67 year old female who presents to the emergency department for bilateral ear pain. Patient states that this started with the right ear 2 days ago and the left ear started hurting last night. Prior to that she had sinus drainage and a sore throat. She has a hx of ear infections as a child. Denies any hearing changes and drainage from the ears. Denies any fevers, chills, cough, dyspnea, chest pain, palpitations, abdominal pain, nausea, vomiting, diarrhea, back pain, or headaches. MD complaint: ear pain (bilateral) Onset/Timin -: days(s) Location: R ear, L ear - Related Data Home Medications Medication Instructions Recorded Confirmed Cyclobenzaprine [Flexeril] 10 mg PO HS PRN 10/17/17 07/08/18 Multivitamins, Thera [Multivitamin 1 tab PO DAILY 07/08/18 07/08/18 (formulary)] Previous Rx's Medication Instructions Recorded Cephalexin [Keflex] 500 mg PO Q12HR 10 Days cap 07/08/18 Fluticasone Propionate [Flonase 1 - 2 spray EA NOSTRIL DAILY 5 07/08/18 Allergy Relief] Days ml Clotrimazole [Clotrimazole 1% Top 1 applic TOPICAL Q12HR 14 Days #1 10/10/18 Soln] tube Fluconazole [Diflucan] 150 mg PO ONCE #3 tab 12/27/18 Fluconazole [Diflucan] 150 mg PO ONCE #3 tab 02/17/19 Nystatin 100,000 Unit/gm Oint 1 applic TOPICAL BID #30 gm 02/17/19 [Mycostatin Oint] Nystatin 100,000 Unit/gm Powd 1 applic TOPICAL BID #30 gm 02/17/19 [Mycostatin Powder] diphenhydrAMINE & Zinc Cream 1 applic TOPICAL BID 5 Days #1 tube 06/27/19 [Benadryl Cream] Fluconazole [Diflucan] 150 mg PO ONCE #3 tab 08/05/19 Ketoconazole 2% Cream [Nizoral 2%] 1 applic TOPICAL DAILY #30 gm 08/05/19 Fluconazole [Diflucan] 150 mg PO ONCE #2 tab 11/29/20 Nystatin 100,000Unit/gm Cream 1 applic TOPICAL BID #30 gram 11/29/20 [Mycostatin Cream] Doxycycline Monohydrate [Monodox] 100 mg PO Q12HR #20 cap 02/20/21 Fluconazole [Diflucan] 150 mg PO ONCE #2 tab 02/27/21 Ketoconazole 2% Cream [Nizoral 2%] 1 applic TOPICAL DAILY #30 gm 02/27/21 Nitrofurantoin Monohyd/M-Cryst 100 mg PO Q12HR #10 cap 03/30/21 [Macrobid] Fluconazole [Diflucan] 150 mg PO ONCE #2 tab 06/17/21 Fluconazole [Diflucan] 150 mg PO ONCE #2 tab 06/17/21 Ketoconazole 2% Cream [Nizoral 2%] 1 applic TOPICAL DAILY #30 gm 06/17/21 Ketoconazole 2% Cream [Nizoral 2%] 1 applic TOPICAL DAILY #30 gm 06/17/21 Fluconazole [Diflucan] 150 mg PO ONCE #1 tab 02/18/22 Nitrofurantoin Monohyd/M-Cryst 100 mg PO Q12HR #6 cap 02/18/22 [Macrobid] Cefdinir [Omnicef] 300 mg PO Q12HR 7 Days #14 capsule 03/13/22 Ofloxacin 0.3% Otic Soln [Floxin 10 drops BOTH EARS QAM 7 Days #10 03/13/22 0.3% Otic Soln] ml Allergies Allergy/AdvReac Type Severity Reaction Status Date / Time ibuprofen [From Motrin] Allergy Rash/Hives Verified 07/18/21 22:58 Penicillins Allergy Unknown Verified 07/18/21 22:58 sulfamethoxazole Allergy Rash/Hives Verified 07/18/21 22:58 [From Septra] trimethoprim [From Septra] Allergy Rash/Hives Verified 07/18/21 22:58 Review of Systems ROS Statement: Those systems with pertinent positive or pertinent negative responses have been documented in the HPI. ROS Other: All systems not noted in ROS Statement are negative. 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 Source:: MRSA-site unknonw; ESBL-Urine Past Surgical History: Section, Cholecystectomy Additional Past Surgical History / Comment(s): endometriosis Past Anesthesia/Blood Transfusion Reactions: No Reported Reaction Past Psychological History: No Psychological Hx Reported Smoking Status: Never smoker Past Alcohol Use History: None Reported Past Drug Use History: None Reported - Past Family History Mother Family Medical History: No Reported History Father Family Medical History: Coronary Artery Disease (CAD) General Exam Limitations: no limitations General appearance: alert, in no apparent distress Head exam: Present: atraumatic, normocephalic, normal inspection ENT exam: Present: other (Bilateral cerumen impaction, after removal there was right TM and canal erythema. Pain with movement of the pinna and tragus.) Respiratory exam: Present: normal lung sounds bilaterally. Absent: respiratory distress, wheezes, rales, rhonchi, stridor Cardiovascular Exam: Present: regular rate, normal rhythm, normal heart sounds. Absent: systolic murmur, diastolic murmur, rubs, gallop, clicks Neurological exam: Present: alert, oriented X3, CN II-XII intact Psychiatric exam: Present: normal affect, normal mood Skin exam: Present: warm, dry, intact, normal color. Absent: rash Course Vital Signs 03/13/22 19:16 Temperature 98.1 F Pulse Rate 84 Respiratory 18 Rate Blood Pressure 130/89 O2 Sat by Pulse 96 Oximetry Medical Decision Making - Medical Decision Making This is a 67 year old female who presents to the emergency department with bilateral ear pain. Physical exam revealed bilateral cerumen impaction. Debrox was placed in the ears and ear irrigation was performed afterwards. Cerumen was fully removed from the left and partially removed from the right. The right TM was partially visualized and found to be erythematous. The canal was also erythematous. Patient sent home with Debrox to continue cerumen removal at home. Rx for Cefdinir and Ofloxacin ear drops prescribed for AOM. Advised taking Tylenol for any pain and fevers. Return precautions reviewed in depth, the patient is instructed to return to the emergency department with any new, worsening, or concerning symptoms. Patient verbalized understanding. This case was discussed in detail with the attending ED physician. Presentation, findings, and treatment plan discussed in detail as well. Disposition Clinical Impression: Impacted cerumen of both ears, AOM (acute otitis media), Otitis externa Disposition: HOME SELF-CARE Instructions (If sedation given, give patient instructions): Ear Infection (ED) Additional Instructions: Return to the emergency department with any new, worsening, or concerning symptoms. Take the antibiotic and use the eardrops as prescribed. Follow up with your primary care provider in 1-2 days. Prescriptions: Ofloxacin 0.3% Otic Soln [Floxin 0.3% Otic Soln] 10 drops BOTH EARS QAM 7 Days #10 ml Cefdinir [Omnicef] 300 mg PO Q12HR 7 Days #14 capsule Is patient prescribed a controlled substance at d/c from ED?: No Referrals: Richard Montano MD [Primary Care Provider] - 1-2 days
== END 2022-03-13 22:25 | disposition home or self-care (01) ==
LOC: EC 19:05
DX: H66.93 Otitis media, unspecified, bilateral (principal); H61.23 Impacted cerumen, bilateral; H60.93 Unspecified otitis externa, bilateral; I10 Essential (primary) hypertension; Z88.6 Allergy status to analgesic agent; Z88.0 Allergy status to penicillin; Z88.2 Allergy status to sulfonamides
CPT/HCPCS: 99282; 96372; J1885

== ENCOUNTER 2022-05-25 20:01 | Emergency (ER) | payer MEDICARE, OTHER ==
[2022-05-25 20:39] VITALS: BP 119/69; PULSE 89; RESP 18; TEMP 98
[2022-05-25] MEDS ORDERED: diphenhydrAMINE 25 MG CAP PO STA (22:49)
--- NOTE | 2022-05-25 22:51 | ED ---
Skin/Abscess/FB HPI - General Chief complaint: Skin/Abscess/Foreign Body Stated complaint: stung by bee, allergic Time Seen by Provider: 05/25/22 22:48 Source: patient Mode of arrival: ambulatory - History of Present Illness Initial comments: Patient is a 67-year-old female presenting with chief complaint of painful itchy lesion on the back. Patient noticed it this morning. The patient scratched the area this morning she felt something hard over the area. The lesion has been painful and pruritic throughout today. Patient is not taking any medication at home. Patient has been unable to see the lesion and had no one to look at it for her. She denies any fever, chills, nausea, vomiting, abdominal pain, chest pain, shortness of breath, dysphagia, discharge, weakness. - Related Data Home Medications Medication Instructions Recorded Confirmed Cyclobenzaprine [Flexeril] 10 mg PO HS PRN 10/17/17 07/08/18 Multivitamins, Thera [Multivitamin 1 tab PO DAILY 07/08/18 07/08/18 (formulary)] Previous Rx's Medication Instructions Recorded Cephalexin [Keflex] 500 mg PO Q12HR 10 Days cap 07/08/18 Fluticasone Propionate [Flonase 1 - 2 spray EA NOSTRIL DAILY 5 07/08/18 Allergy Relief] Days ml Clotrimazole [Clotrimazole 1% Top 1 applic TOPICAL Q12HR 14 Days #1 10/10/18 Soln] tube Fluconazole [Diflucan] 150 mg PO ONCE #3 tab 12/27/18 Fluconazole [Diflucan] 150 mg PO ONCE #3 tab 02/17/19 Nystatin 100,000 Unit/gm Oint 1 applic TOPICAL BID #30 gm 02/17/19 [Mycostatin Oint] Nystatin 100,000 Unit/gm Powd 1 applic TOPICAL BID #30 gm 02/17/19 [Mycostatin Powder] diphenhydrAMINE & Zinc Cream 1 applic TOPICAL BID 5 Days #1 tube 06/27/19 [Benadryl Cream] Fluconazole [Diflucan] 150 mg PO ONCE #3 tab 08/05/19 Ketoconazole 2% Cream [Nizoral 2%] 1 applic TOPICAL DAILY #30 gm 08/05/19 Fluconazole [Diflucan] 150 mg PO ONCE #2 tab 03/08/21 Nystatin 100,000Unit/gm Cream 1 applic TOPICAL BID #30 gram 11/29/20 [Mycostatin Cream] Doxycycline Monohydrate [Monodox] 100 mg PO Q12HR #20 cap 02/20/21 Fluconazole [Diflucan] 150 mg PO ONCE #2 tab 02/27/21 Ketoconazole 2% Cream [Nizoral 2%] 1 applic TOPICAL DAILY #30 gm 02/27/21 Nitrofurantoin Monohyd/M-Cryst 100 mg PO Q12HR #10 cap 03/30/21 [Macrobid] Fluconazole [Diflucan] 150 mg PO ONCE #2 tab 06/17/21 Fluconazole [Diflucan] 150 mg PO ONCE #2 tab 06/17/21 Ketoconazole 2% Cream [Nizoral 2%] 1 applic TOPICAL DAILY #30 gm 06/17/21 Ketoconazole 2% Cream [Nizoral 2%] 1 applic TOPICAL DAILY #30 gm 06/17/21 Fluconazole [Diflucan] 150 mg PO ONCE #1 tab 02/18/22 Nitrofurantoin Monohyd/M-Cryst 100 mg PO Q12HR #6 cap 02/18/22 [Macrobid] Cefdinir [Omnicef] 300 mg PO Q12HR 7 Days #14 capsule 03/13/22 Ofloxacin 0.3% Otic Soln [Floxin 10 drops BOTH EARS QAM 7 Days #10 03/13/22 0.3% Otic Soln] ml Allergies Allergy/AdvReac Type Severity Reaction Status Date / Time ibuprofen [From Motrin] Allergy Rash/Hives Verified 05/25/22 20:39 Penicillins Allergy Unknown Verified 05/25/22 20:39 sulfamethoxazole Allergy Rash/Hives Verified 05/25/22 20:39 [From Septra] trimethoprim [From Septra] Allergy Rash/Hives Verified 05/25/22 20:39 Review of Systems ROS Statement: Those systems with pertinent positive or pertinent negative responses have been documented in the HPI. ROS Other: All systems not noted in ROS Statement are negative. 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 Source:: MRSA-site unknonw; ESBL-Urine Past Surgical History: Section, Cholecystectomy Additional Past Surgical History / Comment(s): endometriosis Past Anesthesia/Blood Transfusion Reactions: No Reported Reaction Past Psychological History: No Psychological Hx Reported Smoking Status: Never smoker Past Alcohol Use History: None Reported Past Drug Use History: None Reported - Past Family History Mother Family Medical History: No Reported History Father Family Medical History: Coronary Artery Disease (CAD) General Exam Limitations: no limitations General appearance: alert, in no apparent distress Head exam: Present: atraumatic, normocephalic, normal inspection Eye exam: Present: normal appearance, EOMI. Absent: scleral icterus, periorbital swelling Neck exam: Present: normal inspection Back exam: Present: full ROM, rash noted (Small 1cm x 1 cm red slightly warm lesion which appears to be a bug bite, 2 supericial punctures noticed in the center) Neurological exam: Present: alert, oriented X3, CN II-XII intact Psychiatric exam: Present: normal affect, normal mood Course Vital Signs 05/25/22 20:35 Temperature 98.0 F Pulse Rate 89 Respiratory 18 Rate Blood Pressure 119/69 O2 Sat by Pulse 96 Oximetry Medical Decision Making - Medical Decision Making Patient is a 67-year-old female presenting with chief complaint of painful and itching lesion on the back. Patient noticed it this morning. She states it feels somewhat warm. She was concerned as she was unable the home and had no one to look for her. On examination there is a small 1 cm x 1 cm round lesion that resembles a bug bite, there are 2 superficial punctures in the center to support the diagnosis of a bug bite. There is no red streaking, discharge, fever, chills. Patient is otherwise asymptomatic. Patient is given Benadryl, she did not drive here today. Take Benadryl at home as needed. Follow-up with PCP. Report back to ER with any new or worsening symptoms. Discussed return parameters and answered all questions. Patient conveyed verbal understanding and agreed to the plan. I discussed this case with my attending Dr. Godfrey Disposition Clinical Impression: Bug bite Disposition: HOME SELF-CARE Condition: Good Instructions (If sedation given, give patient instructions): Insect Bite or Sting (ED) Additional Instructions: Follow-up with PCP. Report back to ER if any new or worsening symptoms. Take Benadryl as needed, this may cause drowsiness, do not take before driving or operating heavy machinery. Is patient prescribed a controlled substance at d/c from ED?: No Referrals: Richard Montano MD [Primary Care Provider] - 1-2 days Time of Disposition: 22:50
== END 2022-05-25 23:34 | disposition home or self-care (01) ==
LOC: EC 20:01
DX: T63.441A Toxic effect of venom of bees, accidental (unintentional), initial encounter (principal); E78.5 Hyperlipidemia, unspecified; I10 Essential (primary) hypertension; Z88.6 Allergy status to analgesic agent; Z88.0 Allergy status to penicillin; Z88.2 Allergy status to sulfonamides
CPT/HCPCS: 99282

== ENCOUNTER → 2022-06-12 | Outpatient (CLI) | payer MEDICARE, OTHER ==
[2022-06-12 23:50] LABS: Chol/HDL Ratio 4.31 Ratio; LDL Cholesterol,Calculated 107.5 mg/dL (0.0-131.0)
== END | disposition home or self-care (01) ==
LOC: LABWHC1 16:12
PROVIDERS: ATTEND Internal Medicine
DX: E78.5 Hyperlipidemia, unspecified (principal)
CPT/HCPCS: 36415; 80061

== ENCOUNTER 2022-06-21 22:42 | Emergency (ER) | payer MEDICARE, OTHER ==
[2022-06-21 23:23] VITALS: RESP 16; TEMP 97.7
[2022-06-21] MEDS ORDERED: FLUCONAZOLE 150 MG TAB PO STA (23:36)
[2022-06-21] MEDS ORDERED: traMADol 50 MG TAB PO STA (23:38)
[2022-06-21] MEDS ORDERED: ACETAMINOPHEN TAB 500 MG TAB PO STA (23:38)
--- NOTE | 2022-06-21 23:45 | ED ---
Skin/Abscess/FB HPI - General Chief complaint: Skin/Abscess/Foreign Body Stated complaint: Yeast Infection,Headache Time Seen by Provider: 06/21/22 23:30 Source: patient, RN notes reviewed Mode of arrival: ambulatory Limitations: no limitations - History of Present Illness Initial comments: This is a pleasant 67-year-old female who presents to emergency department with recurrent inframammary candidiasis. Patient states this happens somewhat frequently. Patient is not diabetic. Patient states she just had laboratory work done and everything was normal. Patient denying any liver dysfunction. States she feels well otherwise. Patient is complaining of a mild headache which she states she gets from time to time. Patient states that she previously was given acetaminophen and Ultram for headache. Patient denies any fever or chills. No change in vision or hearing. No dizziness. No gait disturbance. No focal weakness. no fever or chills, no changes in vision or hearing, no sore throat or difficulty with speech, no neck pain, no chest pain or shortness of breath, no abdominal pain, no nausea or vomiting, no changes in urination or bowel movements, no numbness or tingling, no extremity pain Past medical, surgical, social, and family history reviewed. MD complaint: rash - Related Data Home Medications Medication Instructions Recorded Confirmed Cyclobenzaprine [Flexeril] 10 mg PO HS PRN 10/17/17 07/08/18 Multivitamins, Thera [Multivitamin 1 tab PO DAILY 07/08/18 07/08/18 (formulary)] Previous Rx's Medication Instructions Recorded Cephalexin [Keflex] 500 mg PO Q12HR 10 Days cap 07/08/18 Fluticasone Propionate [Flonase 1 - 2 spray EA NOSTRIL DAILY 5 07/08/18 Allergy Relief] Days ml Clotrimazole [Clotrimazole 1% Top 1 applic TOPICAL Q12HR 14 Days #1 10/10/18 Soln] tube Fluconazole [Diflucan] 150 mg PO ONCE #3 tab 12/27/18 Fluconazole [Diflucan] 150 mg PO ONCE #3 tab 02/17/19 Nystatin 100,000 Unit/gm Oint 1 applic TOPICAL BID #30 gm 02/17/19 [Mycostatin Oint] Nystatin 100,000 Unit/gm Powd 1 applic TOPICAL BID #30 gm 05/27/19 [Mycostatin Powder] diphenhydrAMINE & Zinc Cream 1 applic TOPICAL BID 5 Days #1 tube 06/27/19 [Benadryl Cream] Fluconazole [Diflucan] 150 mg PO ONCE #3 tab 08/05/19 Ketoconazole 2% Cream [Nizoral 2%] 1 applic TOPICAL DAILY #30 gm 08/05/19 Fluconazole [Diflucan] 150 mg PO ONCE #2 tab 11/29/20 Nystatin 100,000Unit/gm Cream 1 applic TOPICAL BID #30 gram 11/29/20 [Mycostatin Cream] Doxycycline Monohydrate [Monodox] 100 mg PO Q12HR #20 cap 02/20/21 Fluconazole [Diflucan] 150 mg PO ONCE #2 tab 02/27/21 Ketoconazole 2% Cream [Nizoral 2%] 1 applic TOPICAL DAILY #30 gm 02/27/21 Nitrofurantoin Monohyd/M-Cryst 100 mg PO Q12HR #10 cap 03/30/21 [Macrobid] Fluconazole [Diflucan] 150 mg PO ONCE #2 tab 06/17/21 Fluconazole [Diflucan] 150 mg PO ONCE #2 tab 06/17/21 Ketoconazole 2% Cream [Nizoral 2%] 1 applic TOPICAL DAILY #30 gm 06/17/21 Ketoconazole 2% Cream [Nizoral 2%] 1 applic TOPICAL DAILY #30 gm 06/17/21 Fluconazole [Diflucan] 150 mg PO ONCE #1 tab 02/18/22 Nitrofurantoin Monohyd/M-Cryst 100 mg PO Q12HR #6 cap 02/18/22 [Macrobid] Cefdinir [Omnicef] 300 mg PO Q12HR 7 Days #14 capsule 03/13/22 Ofloxacin 0.3% Otic Soln [Floxin 10 drops BOTH EARS QAM 7 Days #10 03/13/22 0.3% Otic Soln] ml Clotrimazole Cream [Lotrimin Cream] 1 applic TOPICAL BID 14 Days #30 gm 06/21/22 Fluconazole [Diflucan] 150 mg PO DAILY #4 tab 06/21/22 Allergies Allergy/AdvReac Type Severity Reaction Status Date / Time ibuprofen [From Motrin] Allergy Rash/Hives Verified 05/25/22 20:39 Penicillins Allergy Unknown Verified 05/25/22 20:39 sulfamethoxazole Allergy Rash/Hives Verified 05/25/22 20:39 [From ] trimethoprim [From ] Allergy Rash/Hives Verified 05/25/22 20:39 Review of Systems ROS Statement: Those systems with pertinent positive or pertinent negative responses have been documented in the HPI. ROS Other: All systems not noted in ROS Statement are negative. 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 Source:: MRSA-site unknonw; ESBL-Urine Past Surgical History: Section, Cholecystectomy Additional Past Surgical History / Comment(s): endometriosis Past Anesthesia/Blood Transfusion Reactions: No Reported Reaction Past Psychological History: No Psychological Hx Reported Smoking Status: Never smoker Past Alcohol Use History: None Reported Past Drug Use History: None Reported - Past Family History Mother Family Medical History: No Reported History Father Family Medical History: Coronary Artery Disease (CAD) General Exam - General Exam Comments Initial Comments: Patient in no acute distress. Vital signs stable, patient afebrile. Vision appears to be adequately hydrated. Limitations: no limitations General appearance: alert, in no apparent distress, obese Head exam: Present: atraumatic, normocephalic, normal inspection Eye exam: Present: normal appearance, PERRL, EOMI. Absent: scleral icterus, conjunctival injection, periorbital swelling ENT exam: Present: normal exam, mucous membranes moist Neck exam: Present: normal inspection. Absent: tenderness, meningismus, lymphadenopathy Respiratory exam: Present: normal lung sounds bilaterally. Absent: respiratory distress, wheezes, rales, rhonchi, stridor, chest wall tenderness, accessory muscle use Cardiovascular Exam: Present: regular rate, normal rhythm, normal heart sounds. Absent: systolic murmur, diastolic murmur, rubs, gallop, clicks GI/Abdominal exam: Present: soft, normal bowel sounds. Absent: distended, tenderness, guarding, rebound, rigid Extremities exam: Present: normal inspection, full ROM, normal capillary refill. Absent: tenderness, pedal edema, joint swelling, calf tenderness Back exam: Present: normal inspection Neurological exam: Present: alert, oriented X3, CN II-XII intact Psychiatric exam: Present: normal affect, normal mood Skin exam: Present: warm, dry, intact, rash (Patient has an erythematous inframammary rash consistent with candidiasis, satellite lesions noted. No evidence of pustules. No evidence of secondary infection.) Course Vital Signs 06/21/22 23:20 Temperature 97.7 F Pulse Rate 83 Respiratory 16 Rate Blood Pressure 148/72 O2 Sat by Pulse 98 Oximetry Medical Decision Making - Medical Decision Making Patient will be treated with topical antifungal cream as well as Diflucan which is been required in the past for this to clear up with the patient. Patient denies any liver dysfunction. I did look up the previous laboratory values and the patient's liver function was normal. I will go ahead and do an Accu-Chek just to make sure the patient has not hyperglycemic. Well otherwise. Patient states that she has a headache which is normal for her. No neck stiffness. 5 out of 10 in intensity. Patient states that previously she was given Ultram for this headache here in the ER. Patient was told to return to the ER for any signs or symptoms worsen. Told to return immediately if any other problems arise. All questions answered. Treatment plan discussed. Patient in agreement Every effort has been made to ensure accuracy of this dictation. However, due to the limitations of electronic medical records and dictation devices, errors in charting still occur. Group Home Paraprofessional Dr. Hdz Disposition Clinical Impression: Cutaneous candidiasis, Tension headache, chronic Disposition: HOME SELF-CARE Condition: Good Instructions (If sedation given, give patient instructions): Acute Headache (ED), Skin Yeast Infection (ED) Additional Instructions: Applied the cream twice daily. You can use the antifungal cream and have her home or the fungal cream I prescribed. Take Diflucan as directed. Follow-up with her regular doctor, your liver function test may need to be checked after taking this medication. Keep the area dry as possible. Follow-up with your regular physician as directed. Return to the ER immediately if any symptoms worsen, new symptoms arise, or any other problems develop. Prescriptions: Fluconazole [Diflucan] 150 mg PO DAILY #4 tab Clotrimazole Cream [Lotrimin Cream] 1 applic TOPICAL BID 14 Days #30 gm Is patient prescribed a controlled substance at d/c from ED?: No Referrals: Nonstaff,Physician [Primary Care Provider] - 1-2 days Time of Disposition: 23:41
[2022-06-22 00:18] LABS: Glucose,Whole Blood 133 mg/dL (70-110)
[2022-06-22 00:24] VITALS: BP 165/92; PULSE 93
== END 2022-06-22 00:24 | disposition home or self-care (01) ==
LOC: EC 22:42
DX: B37.2 Candidiasis of skin and nail (principal); G44.209 Tension-type headache, unspecified, not intractable; E78.5 Hyperlipidemia, unspecified; I10 Essential (primary) hypertension; Z88.0 Allergy status to penicillin; Z88.2 Allergy status to sulfonamides; Z79.899 Other long term (current) drug therapy
CPT/HCPCS: 36415; 99284

== ENCOUNTER → 2022-07-12 | Outpatient (CLI) | payer MEDICARE, OTHER ==
[2022-07-12 18:04] LABS: HCT 39.1 % (37.2-46.3); HGB 12.8 g/dL (12.0-15.0); MCH 30.1 pg (27.0-32.0); MCHC 32.7 g/dL (32.0-37.0); Mean Platelet Volume 9.8 fL (9.5-12.2); NRBC Per 100 WBC 0 /100 WBCS (0.0-0.0); Platelet Count 360 X 10*3/uL (140-440); RBC 4.25 X 10*6/uL (4.10-5.20); WBC 6.15 X 10*3/uL (4.50-10.00)
[2022-07-12 18:21] LABS: Erythrocyte Sedimentation Rate 5 mm/Hr (0-30)
[2022-07-12 19:08] LABS: ALT 13 U/L (8-44); AST 17 U/L (13-35); Albumin 4.7 g/dL (3.8-4.9); Albumin/Globulin Ratio 2.24 (1.60-3.17); Alkaline Phosphatase 110 U/L (41-126); BUN/Creat Ratio 29.63 Ratio (12.00-20.00); Bilirubin, Conjugated <0.20 mg/dL (0.20-0.40); Blood Urea Nitrogen 23.7 mg/dL (9.0-27.0); Calcium 9.7 mg/dL (8.7-10.3); Chloride 102 mmol/L (96-109); Globulin 2.1 g/dL (1.6-3.3); Glucose 118 mg/dL (70-110); Non-African American GFR(CKD) 76.8 (60.0-200.0); Potassium 4.8 mmol/L (3.5-5.5); Sodium 139 mmol/L (135-145); Total Protein 6.8 g/dL (6.2-8.2)
== END | disposition home or self-care (01) ==
LOC: LABWHC1 13:32
PROVIDERS: ATTEND Internal Medicine
DX: E78.2 Mixed hyperlipidemia (principal); J45.909 Unspecified asthma, uncomplicated
CPT/HCPCS: 36415; 80053; 82248; 84443; 85027; 85652

== ENCOUNTER 2022-12-24 18:52 | Emergency (ER) | payer MEDICARE, OTHER ==
[2022-12-24 19:05] VITALS: BP 136/83; PULSE 90; RESP 20; TEMP 97.6
[2022-12-24] MEDS ORDERED: KETOROLAC 15 MG/ML 1 ML VIAL IM STA (19:13)
[2022-12-24] MEDS ORDERED: dexAMETHasone 2 MG TAB PO STA (19:13)
--- NOTE | 2022-12-24 19:19 | ED ---
ENT HPI - General Chief complaint: ENT Stated complaint: Sore Throat,Headache Time Seen by Provider: 12/24/22 19:06 Source: patient, RN notes reviewed Mode of arrival: ambulatory Limitations: no limitations - History of Present Illness Initial comments: This is a 67-year-old female who presents to the emergency department for a sore throat and a headache. Patient states that this started one week ago. Believes that she has lost her voice as well. She has minor associated coughing. Feels like she's had the chills but has not checked her temperature. Denies any sick contacts. Patient requesting Toradol for her headache. Denies any chest pain or difficulty breathing. Denies any dyspnea, chest pain, palpitations, abdominal pain, nausea, vomiting, diarrhea, or back pain. MD complaint: sore throat Onset/Timin -: days(s) - Related Data Home Medications Medication Instructions Recorded Confirmed Cyclobenzaprine [Flexeril] 10 mg PO HS PRN 10/17/17 07/08/18 Multivitamins, Thera [Multivitamin 1 tab PO DAILY 07/08/18 07/08/18 (formulary)] Previous Rx's Medication Instructions Recorded Cephalexin [Keflex] 500 mg PO Q12HR 10 Days cap 07/08/18 Fluticasone Propionate [Flonase 1 - 2 spray EA NOSTRIL DAILY 5 07/08/18 Allergy Relief] Days ml Clotrimazole [Clotrimazole 1% Top 1 applic TOPICAL Q12HR 14 Days #1 10/10/18 Soln] tube Fluconazole [Diflucan] 150 mg PO ONCE #3 tab 12/27/18 Fluconazole [Diflucan] 150 mg PO ONCE #3 tab 02/17/19 Nystatin 100,000 Unit/gm Oint 1 applic TOPICAL BID #30 gm 02/17/19 [Mycostatin Oint] Nystatin 100,000 Unit/gm Powd 1 applic TOPICAL BID #30 gm 02/17/19 [Mycostatin Powder] diphenhydrAMINE & Zinc Cream 1 applic TOPICAL BID 5 Days #1 tube 06/27/19 [Benadryl Cream] Fluconazole [Diflucan] 150 mg PO ONCE #3 tab 08/05/19 Ketoconazole 2% Cream [Nizoral 2%] 1 applic TOPICAL DAILY #30 gm 11/12/19 Fluconazole [Diflucan] 150 mg PO ONCE #2 tab 11/29/20 Nystatin 100,000Unit/gm Cream 1 applic TOPICAL BID #30 gram 11/29/20 [Mycostatin Cream] Doxycycline Monohydrate [Monodox] 100 mg PO Q12HR #20 cap 02/20/21 Fluconazole [Diflucan] 150 mg PO ONCE #2 tab 02/27/21 Ketoconazole 2% Cream [Nizoral 2%] 1 applic TOPICAL DAILY #30 gm 02/27/21 Nitrofurantoin Monohyd/M-Cryst 100 mg PO Q12HR #10 cap 03/30/21 [Macrobid] Fluconazole [Diflucan] 150 mg PO ONCE #2 tab 06/17/21 Fluconazole [Diflucan] 150 mg PO ONCE #2 tab 06/17/21 Ketoconazole 2% Cream [Nizoral 2%] 1 applic TOPICAL DAILY #30 gm 06/17/21 Ketoconazole 2% Cream [Nizoral 2%] 1 applic TOPICAL DAILY #30 gm 06/17/21 Fluconazole [Diflucan] 150 mg PO ONCE #1 tab 02/18/22 Nitrofurantoin Monohyd/M-Cryst 100 mg PO Q12HR #6 cap 02/18/22 [Macrobid] Cefdinir [Omnicef] 300 mg PO Q12HR 7 Days #14 capsule 03/13/22 Ofloxacin 0.3% Otic Soln [Floxin 10 drops BOTH EARS QAM 7 Days #10 03/13/22 0.3% Otic Soln] ml Clotrimazole Cream [Lotrimin Cream] 1 applic TOPICAL BID 14 Days #30 gm 06/21/22 Fluconazole [Diflucan] 150 mg PO DAILY #4 tab 06/21/22 Cephalexin [Keflex] 500 mg PO Q8HR #21 cap 11/24/22 Nitrofurantoin Monohyd/M-Cryst 100 mg PO Q12HR 5 Days #10 cap 12/03/22 [Macrobid] Phenazopyridine [Pyridium] 100 mg PO TID 2 Days #6 tablet 12/03/22 Cephalexin [Keflex] 500 mg PO Q12HR 7 Days #14 cap 12/24/22 predniSONE 50 mg PO DAILY 5 Days #5 tab 12/24/22 Allergies Allergy/AdvReac Type Severity Reaction Status Date / Time ibuprofen [From Motrin] Allergy Rash/Hives Verified 12/24/22 19:05 Penicillins Allergy Unknown Verified 12/24/22 19:05 sulfamethoxazole Allergy Rash/Hives Verified 12/24/22 19:05 [From Septra] trimethoprim [From Septra] Allergy Rash/Hives Verified 12/24/22 19:05 Review of Systems ROS Statement: Those systems with pertinent positive or pertinent negative responses have been documented in the HPI. ROS Other: All systems not noted in ROS Statement are negative. 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 Source:: MRSA-site unknonw; ESBL-Urine Past Surgical History: Section, Cholecystectomy Additional Past Surgical History / Comment(s): endometriosis Past Anesthesia/Blood Transfusion Reactions: No Reported Reaction Past Psychological History: No Psychological Hx Reported Smoking Status: Never smoker Past Alcohol Use History: None Reported Past Drug Use History: None Reported - Past Family History Mother Family Medical History: No Reported History Father Family Medical History: Coronary Artery Disease (CAD) General Exam Limitations: no limitations General appearance: alert, in no apparent distress Head exam: Present: atraumatic, normocephalic, normal inspection ENT exam: Present: TM's normal bilaterally, normal external ear exam, other (Mild posterior pharyngeal erythema. No tonsillar hypertrophy or exudates.) Respiratory exam: Present: normal lung sounds bilaterally. Absent: respiratory distress, wheezes, rales, rhonchi, stridor Cardiovascular Exam: Present: regular rate, normal rhythm, normal heart sounds. Absent: systolic murmur, diastolic murmur, rubs, gallop, clicks Neurological exam: Present: alert, oriented X3, CN II-XII intact Psychiatric exam: Present: normal affect, normal mood Skin exam: Present: warm, dry, intact, normal color. Absent: rash Course Vital Signs 12/24/22 19:03 Temperature 97.6 F Pulse Rate 90 Respiratory 20 Rate Blood Pressure 136/83 O2 Sat by Pulse 96 Oximetry Medical Decision Making - Medical Decision Making This is a 67-year-old female who presents to the emergency department for a sore throat and headache. Was pt. sent in by a medical professional or institution? @ -No Did you speak to anyone other than the patient for history? @ -No Did you review nursing and triage notes? @ -Yes, and I agree, it is accurate with regards to the patient's symptoms. Were old charts reviewed? @ -No Differential Diagnosis? @ Differential Sore Throat: -Strep pharyngitis, herpes zoster, COVID, influenza, GERD, allergic rhinitis, mononucleosis, this is not meant to be an all-inclusive list. What testing was considered but not performed? (CT, X-rays, U/S, labs)? Why? @ -None What meds were considered but not given? Why? @ -None Did you discuss the management of the patient with other professionals? @ -No Did you reconcile home meds? @ -No Was smoking cessation discussed for >3mins.? @ -No Was critical care preformed (if so, how long)? @ -No Were there social determinants of health that impacted care today? How? (Homelessness, low income, unemployed, alcoholism, drug addiction, transportation, low edu. Level, literacy, decrease access to med. care, long-term, rehab)? @ -No Was there de-escalation of care discussed even if they declined? (Discuss DNR or withdrawal of care, Hospice)? @ -No What co-morbidities impacted this encounter? (DM, HTN, Smoking, COPD, CAD, Cancer, CVA, Hep., AIDS, mental health diagnosis, sleep apnea, morbid obesity)? @ -None Was patient admitted / discharged? @ -Discharged. Rapid strep test, Covid, influenza, and RSV testing negative. While this may be a viral process, because the symptoms have been present for one week at this point with no signs of improvement, will treat the patient with a course of antibiotics. Prescription for Keflex and prednisone provided with dosing instructions reviewed. Toradol administered for her headache, which she states was effective. Otherwise advised supportive care and follow up with her primary care provider. Undiagnosed new problem with uncertain prognosis? @ -None Drug Therapy requiring intensive monitoring for toxicity (Heparin, Nitro, Insulin, Cardizem)? @ -None Were any procedures done? @ -None Diagnosis/symptom? @ -Pharyngitis Acute, or Chronic, or Acute on Chronic? @ -Acute Uncomplicated (without systemic symptoms) or Complicated (systemic symptoms)? @ -Uncomplicated Side effects of treatment? @ -None Exacerbation, Progression, or Severe Exacerbation] @ -Not applicable Poses a threat to life or bodily function? @ -No Return precautions reviewed in depth, the patient is instructed to return to the emergency department with any new, worsening, or concerning symptoms. Patient verbalized understanding. This case was discussed in detail with the attending ED physician, Dr. Hdz. Presentation, findings, and treatment plan discussed in detail as well. - Lab Data Lab Results 12/24/22 12/24/22 Range/Units 19:18 19:18 Influenza Type A (PCR) Not Detected (Not Detectd) Influenza Type B (PCR) Not Detected (Not Detectd) RSV (PCR) Not Detected (Not Detectd) SARS-CoV-2 (PCR) Not Detected (Not Detectd) Group A Strep (PCR) NOT DETECTED (Not Detectd) Disposition Clinical Impression: Pharyngitis Disposition: HOME SELF-CARE Instructions (If sedation given, give patient instructions): Pharyngitis (ED) Additional Instructions: Return to the emergency department with any new, worsening, or concerning symptoms. Take the antibiotic as prescribed for 7 days and the steroid as prescribed for 5 days. Follow up with your primary care provider in 1-2 days. Prescriptions: Cephalexin [Keflex] 500 mg PO Q12HR 7 Days #14 cap predniSONE 50 mg PO DAILY 5 Days #5 tab Is patient prescribed a controlled substance at d/c from ED?: No Referrals: Richard Montano MD [Primary Care Provider] - 1-2 days
[2022-12-24] MEDS ORDERED: CEPHALEXIN 500 MG CAP PO STA (20:08)
== END 2022-12-24 20:27 | disposition home or self-care (01) ==
LOC: EC 18:52
DX: J02.9 Acute pharyngitis, unspecified (principal); I10 Essential (primary) hypertension; Z88.0 Allergy status to penicillin; Z88.2 Allergy status to sulfonamides; Z88.8 Allergy status to other drugs, medicaments and biological substances; Z79.899 Other long term (current) drug therapy; Z20.822 Contact with and (suspected) exposure to COVID-19
CPT/HCPCS: 87651; 87636; 99284; 96372; J8540; J1885

== ENCOUNTER 2023-03-09 15:36 | Emergency (ER) | payer MEDICARE, OTHER ==
--- NOTE | 2023-03-09 16:40 | ED ---
General Adult HPI - General Source: patient Mode of arrival: ambulatory Limitations: no limitations <Candi Rivero - Last Filed: 03/09/23 16:38> <Ochoa Fowler - Last Filed: 03/09/23 18:40> - General Chief complaint: Urogenital Stated complaint: poss uti, allergic reaction - History of Present Illness Initial comments: 68-year-old female presents to the emergency department complaining of urinary frequency, dysuria, itching3 days. Denies fever, chills. PMH includes HTN, HLD. (Candi Rivero) 68-year-old female presenting with chief complaint of "I think I have a UTI". Patient has been complaining of urinary frequency and dysuria ongoing for the last 3 days. No back pain, fever, chills, nausea, vomiting, abdominal pain. Patient is also complaining of an area of redness and itching to the forearm that formed after she removed and Band-Aid. No pain, discharge, warmth, tenderness. (Ochoa Fowler) - Related Data Home Medications Medication Instructions Recorded Confirmed Cyclobenzaprine [Flexeril] 10 mg PO HS PRN 10/17/17 07/08/18 Multivitamins, Thera [Multivitamin 1 tab PO DAILY 07/08/18 07/08/18 (formulary)] Previous Rx's Medication Instructions Recorded Cephalexin [Keflex] 500 mg PO Q12HR 10 Days cap 07/08/18 Fluticasone Propionate [Flonase 1 - 2 spray EA NOSTRIL DAILY 5 07/08/18 Allergy Relief] Days ml Clotrimazole [Clotrimazole 1% Top 1 applic TOPICAL Q12HR 14 Days #1 10/10/18 Soln] tube Fluconazole [Diflucan] 150 mg PO ONCE #3 tab 12/27/18 Fluconazole [Diflucan] 150 mg PO ONCE #3 tab 02/17/19 Nystatin 100,000 Unit/gm Oint 1 applic TOPICAL BID #30 gm 02/17/19 [Mycostatin Oint] Nystatin 100,000 Unit/gm Powd 1 applic TOPICAL BID #30 gm 02/17/19 [Mycostatin Powder] diphenhydrAMINE & Zinc Cream 1 applic TOPICAL BID 5 Days #1 tube 06/27/19 [Benadryl Cream] Fluconazole [Diflucan] 150 mg PO ONCE #3 tab 08/05/19 Ketoconazole 2% Cream [Nizoral 2%] 1 applic TOPICAL DAILY #30 gm 08/05/19 Fluconazole [Diflucan] 150 mg PO ONCE #2 tab 11/29/20 Nystatin 100,000Unit/gm Cream 1 applic TOPICAL BID #30 gram 11/29/20 [Mycostatin Cream] Doxycycline Monohydrate [Monodox] 100 mg PO Q12HR #20 cap 02/20/21 Fluconazole [Diflucan] 150 mg PO ONCE #2 tab 02/27/21 Ketoconazole 2% Cream [Nizoral 2%] 1 applic TOPICAL DAILY #30 gm 02/27/21 Nitrofurantoin Monohyd/M-Cryst 100 mg PO Q12HR #10 cap 03/30/21 [Macrobid] Fluconazole [Diflucan] 150 mg PO ONCE #2 tab 06/17/21 Fluconazole [Diflucan] 150 mg PO ONCE #2 tab 06/17/21 Ketoconazole 2% Cream [Nizoral 2%] 1 applic TOPICAL DAILY #30 gm 06/17/21 Ketoconazole 2% Cream [Nizoral 2%] 1 applic TOPICAL DAILY #30 gm 06/17/21 Fluconazole [Diflucan] 150 mg PO ONCE #1 tab 02/18/22 Nitrofurantoin Monohyd/M-Cryst 100 mg PO Q12HR #6 cap 02/18/22 [Macrobid] Cefdinir [Omnicef] 300 mg PO Q12HR 7 Days #14 capsule 03/13/22 Ofloxacin 0.3% Otic Soln [Floxin 10 drops BOTH EARS QAM 7 Days #10 03/13/22 0.3% Otic Soln] ml Clotrimazole Cream [Lotrimin Cream] 1 applic TOPICAL BID 14 Days #30 gm 06/21/22 Fluconazole [Diflucan] 150 mg PO DAILY #4 tab 06/21/22 Cephalexin [Keflex] 500 mg PO Q8HR #21 cap 11/24/22 Nitrofurantoin Monohyd/M-Cryst 100 mg PO Q12HR 5 Days #10 cap 12/03/22 [Macrobid] Phenazopyridine [Pyridium] 100 mg PO TID 2 Days #6 tablet 12/03/22 Cephalexin [Keflex] 500 mg PO Q12HR 7 Days #14 cap 12/24/22 predniSONE 50 mg PO DAILY 5 Days #5 tab 12/24/22 Cephalexin [Keflex] 500 mg PO Q12HR 7 Days #14 cap 03/09/23 Hydrocortisone Cream 1 applic TOPICAL BID #28 gm 03/09/23 [Hydrocortisone 1% Cream] Allergies Allergy/AdvReac Type Severity Reaction Status Date / Time ibuprofen [From Motrin] Allergy Rash/Hives Verified 03/09/23 16:29 Penicillins Allergy Unknown Verified 03/09/23 16:29 sulfamethoxazole Allergy Rash/Hives Verified 03/09/23 16:29 [From Septra] trimethoprim [From Septra] Allergy Rash/Hives Verified 03/09/23 16:29 Review of Systems ROS Other: All systems not noted in ROS Statement are negative. <Candi Rivero - Last Filed: 03/09/23 16:38> ROS Other: All systems not noted in ROS Statement are negative. <Ochoa Fowler - Last Filed: 03/09/23 18:40> ROS Statement: Those systems with pertinent positive or pertinent negative responses have been documented in the HPI. 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 Source:: MRSA-site unknonw; ESBL-Urine Past Surgical History: Section, Cholecystectomy Additional Past Surgical History / Comment(s): endometriosis Past Anesthesia/Blood Transfusion Reactions: No Reported Reaction Past Psychological History: No Psychological Hx Reported Smoking Status: Never smoker Past Alcohol Use History: None Reported Past Drug Use History: None Reported - Past Family History Mother Family Medical History: No Reported History Father Family Medical History: Coronary Artery Disease (CAD) <Candi Rivero - Last Filed: 03/09/23 16:38> General Exam Limitations: no limitations <Candi Rivero - Last Filed: 03/09/23 16:38> Limitations: no limitations General appearance: alert, in no apparent distress Head exam: Present: atraumatic, normocephalic, normal inspection Eye exam: Present: normal appearance, EOMI. Absent: scleral icterus, periorbital swelling Neck exam: Present: normal inspection, full ROM Respiratory exam: Present: normal lung sounds bilaterally. Absent: respiratory distress, wheezes, rales, rhonchi, stridor Cardiovascular Exam: Present: regular rate, normal rhythm, normal heart sounds. Absent: systolic murmur, diastolic murmur, rubs, gallop, clicks Neurological exam: Present: alert, oriented X3, CN II-XII intact Psychiatric exam: Present: normal affect, normal mood Skin exam: Present: warm, dry, intact, erythema (Small area of erythema and pruritus to the left antecubital fossa, patient states that this started after she removed and Band-Aid). Absent: rash <Ochoa Fowler - Last Filed: 03/09/23 18:40> - General Exam Comments Initial Comments: Visual Physical Exam Vital signs reviewed General: Well-appearing, nontoxic, no acute distress. Head: Normocephalic, atraumatic Eyes: PERRLA, EOMI ENT: Airway patent Chest: Nonlabored breathing Skin: No visual rash, normal skin tone Neuro: Alert and oriented 3 Musculoskeletal: No gross abnormalities (Kulka,Candi) Course Vital Signs 03/09/23 16:26 Temperature 98.9 F Pulse Rate 85 Respiratory 20 Rate Blood Pressure 128/81 O2 Sat by Pulse 96 Oximetry Medical Decision Making <Ochoa Fowler - Last Filed: 03/09/23 18:40> - Medical Decision Making Was pt. sent in by a medical professional or institution (, PA, PSYCHIATRIC RN, urgent care, hospital, or penitentiary...) When possible be specific @ -No Did you speak to anyone other than the patient for history (EMS, parent, family, police, friend...)? What history was obtained from this source @ -No Did you review nursing and triage notes (agree or disagree)? Why? @ -I reviewed and agree with nursing and triage notes Were old charts reviewed (outside hosp., previous admission, EMS record, old EKG, old radiological studies, urgent care reports/EKG's, penitentiary records)? Report findings @ -No old charts were reviewed Differential Diagnosis (chest pain, altered mental status, abdominal pain women, abdominal pain men, vaginal bleeding, weakness, fever, dyspnea, syncope, headache, dizziness, GI bleed, back pain, seizure, CVA, palpatations, mental health, musculoskeletal)? @ -Differential includes UTI, pyelonephritis, kidney stone. This is not an all inclusive list EKG interpreted by me (3pts min.). @ -As above X-rays interpreted by me (1pt min.). @ -None done CT interpreted by me (1pt min.). @ -None done U/S interpreted by me (1pt. min.). @ -None done What testing was considered but not performed or refused? (CT, X-rays, U/S, labs)? Why? @ -None What meds were considered but not given or refused? Why? @ -None Did you discuss the management of the patient with other professionals (professionals i.e. , PA, PSYCHIATRIC RN, lab, RT, psych nurse, social security benefits interviewer, visiting professor, teacher, project officer, lead case manager)? Give summary @ -No Was smoking cessation discussed for >3mins.? @ -No Was critical care preformed (if so, how long)? @ -No Were there social determinants of health that impacted care today? How? (Homelessness, low income, unemployed, alcoholism, drug addiction, transportation, low edu. Level, literacy, decrease access to med. care, custodial, rehab)? @ -No Was there de-escalation of care discussed even if they declined (Discuss DNR or withdrawal of care, Hospice)? DNR status @ -No What co-morbidities impacted this encounter? (DM, HTN, Smoking, COPD, CAD, Cancer, CVA, ARF, Chemo, Hep., AIDS, mental health diagnosis, sleep apnea, morbid obesity)? @ -None Was patient admitted / discharged? Hospital course, mention meds given and route, prescriptions, significant lab abnormalities, going to OR and other pertinent info. @ -68-year-old female presenting with chief complaint of urinary frequency and dysuria. Urine shows small leukocytes, given the patient's presentation we will treat with Keflex and some urine for culture. Patient is also complaining of an area of redness and itching to the left antecubital fossa. Appears to be consistent with contact dermatitis, patient states that this was caused by the adhesive of a bandage. She is prescribed hydrocortisone cream. Follow-up with PCP. Report back to ER with any new or worsening symptoms. Discussed return parameters and answered all questions. Patient conveyed verbal understanding and agreed to the plan. I discussed this case in detail with my attending Dr. Hdz Undiagnosed new problem with uncertain prognosis? @ -No Drug Therapy requiring intensive monitoring for toxicity (Heparin, Nitro, Insulin, Cardizem)? @ -No Were any procedures done? @ -No Diagnosis/symptom? @ -UTI Acute, or Chronic, or Acute on Chronic? @ -Acute Uncomplicated (without systemic symptoms) or Complicated (systemic symptoms)? @ -Uncomplicated Side effects of treatment? @ -No Exacerbation, Progression, or Severe Exacerbation? @ -No Poses a threat to life or bodily function? How? (Chest pain, USA, MS, pneumonia, PE, COPD, DKA, ARF, appy, cholecystitis, CVA, Diverticulitis, Homicidal, Suicidal, threat to staff... and all critical care pts) @ -No (Ochoa Fowler) - Lab Data Lab Results 03/09/23 Range/Units 17:00 Urine Color Yellow Urine Appearance Clear (Clear) Urine pH 6.5 (5.0-8.0) Ur Specific [place] 1.024 (1.001-1.035) Urine Protein Trace H (Negative) Urine Glucose (UA) Negative (Negative) Urine Ketones Negative (Negative) Urine Blood Negative (Negative) Urine Nitrite Negative (Negative) Urine Bilirubin Negative (Negative) Urine Urobilinogen 2.0 (<2.0) mg/dL Ur Leukocyte Esterase Moderate H (Negative) Urine RBC 2 (0-5) /hpf Urine WBC 8 H (0-5) /hpf Ur Squamous Epith Cells 1 (0-4) /hpf Urine Mucus Occasional H (None) /hpf Disposition <Candi Rivero - Last Filed: 03/09/23 16:38> Is patient prescribed a controlled substance at d/c from ED?: No Time of Disposition: 18:25 <Ochoa Fowler - Last Filed: 03/09/23 18:40> Clinical Impression: Urinary tract infection Disposition: HOME SELF-CARE Condition: Good Instructions (If sedation given, give patient instructions): Urinary Tract Infection in Women (ED) Additional Instructions: Follow-up with PCP. Report back to ER with any new or worsening symptoms. Take medication as prescribed. Prescriptions: Hydrocortisone Cream [Hydrocortisone 1% Cream] 1 applic TOPICAL BID #28 gm Cephalexin [Keflex] 500 mg PO Q12HR 7 Days #14 cap Referrals: Richard Montano MD [STAFF PHYSICIAN] - 1-2 days
[2023-03-09 18:12] LABS: Appearance,Urine Clear (Clear); Bilirubin,Urine Negative (Negative); Blood,Urine Negative (Negative); Color,Urine Yellow; Glucose,Urine (UA) Negative (Negative); Ketones,Urine Negative (Negative); Leukocyte Esterase,Urine Moderate (Negative); Mucus,Urine Occasional /hpf; Nitrite,Urine Negative (Negative); PH, Urine 6.5 (5.0-8.0); Protein,Urine Trace (Negative); RBC,Urine 2 /hpf (0-5); Specific Gravity,Urine 1.024 (1.001-1.035); Squamous Epithelial Cell,Urine 1 /hpf (0-4); WBC,Urine 8 /hpf (0-5)
[2023-03-09] MEDS ORDERED: KETOROLAC 15 MG/ML 1 ML VIAL IM STA (18:40)
[2023-03-09 19:03] VITALS: BP 163/81; PULSE 70; RESP 18; TEMP 98.2
== END 2023-03-09 19:03 | disposition home or self-care (01) ==
LOC: EC 15:36
DX: N39.0 Urinary tract infection, site not specified (principal); I10 Essential (primary) hypertension; Z88.0 Allergy status to penicillin; Z88.1 Allergy status to other antibiotic agents; Z88.2 Allergy status to sulfonamides; Z88.6 Allergy status to analgesic agent; Z79.899 Other long term (current) drug therapy
CPT/HCPCS: 81001; 99283; 96372; J1885

== ENCOUNTER 2023-03-24 16:43 | Emergency (ER) | payer MEDICARE, OTHER ==
[2023-03-24 16:50] VITALS: BP 125/78; PULSE 68; RESP 18; TEMP 98.5
[2023-03-24] MEDS ORDERED: LIDOCAINE 1% INJ 10MG/ML (30 ML VIAL-PF) SQ ONE (18:31)
[2023-03-24] MEDS ORDERED: KETOROLAC 15 MG/ML 1 ML VIAL IM STA (19:18)
--- NOTE | 2023-03-24 19:20 | ED ---
General Adult HPI - General Chief complaint: Skin/Abscess/Foreign Body Stated complaint: Lump Lt arm pit Time Seen by Provider: 03/24/23 17:57 Source: patient, RN notes reviewed Mode of arrival: ambulatory Limitations: no limitations - History of Present Illness Initial comments: 68-year-old female presents emergency department chief complaint of left armpit sore. Patient states that it has been there for about 2 days. She states that she feels like it moves around. She states that she has not noticed any drainage from the area. Denies fever, chills, nausea, vomiting. - Related Data Home Medications Medication Instructions Recorded Confirmed Cyclobenzaprine [Flexeril] 10 mg PO HS PRN 10/17/17 07/08/18 Multivitamins, Thera [Multivitamin 1 tab PO DAILY 07/08/18 07/08/18 (formulary)] Previous Rx's Medication Instructions Recorded Cephalexin [Keflex] 500 mg PO Q12HR 10 Days cap 07/08/18 Fluticasone Propionate [Flonase 1 - 2 spray EA NOSTRIL DAILY 5 07/08/18 Allergy Relief] Days ml Clotrimazole [Clotrimazole 1% Top 1 applic TOPICAL Q12HR 14 Days #1 10/10/18 Soln] tube Fluconazole [Diflucan] 150 mg PO ONCE #3 tab 12/27/18 Fluconazole [Diflucan] 150 mg PO ONCE #3 tab 02/17/19 Nystatin 100,000 Unit/gm Oint 1 applic TOPICAL BID #30 gm 02/17/19 [Mycostatin Oint] Nystatin 100,000 Unit/gm Powd 1 applic TOPICAL BID #30 gm 02/17/19 [Mycostatin Powder] diphenhydrAMINE & Zinc Cream 1 applic TOPICAL BID 5 Days #1 tube 06/27/19 [Benadryl Cream] Fluconazole [Diflucan] 150 mg PO ONCE #3 tab 08/05/19 Ketoconazole 2% Cream [Nizoral 2%] 1 applic TOPICAL DAILY #30 gm 08/05/19 Fluconazole [Diflucan] 150 mg PO ONCE #2 tab 11/29/20 Nystatin 100,000Unit/gm Cream 1 applic TOPICAL BID #30 gram 11/29/20 [Mycostatin Cream] Doxycycline Monohydrate [Monodox] 100 mg PO Q12HR #20 cap 02/20/21 Fluconazole [Diflucan] 150 mg PO ONCE #2 tab 02/27/21 Ketoconazole 2% Cream [Nizoral 2%] 1 applic TOPICAL DAILY #30 gm 02/27/21 Nitrofurantoin Monohyd/M-Cryst 100 mg PO Q12HR #10 cap 03/30/21 [Macrobid] Fluconazole [Diflucan] 150 mg PO ONCE #2 tab 06/17/21 Fluconazole [Diflucan] 150 mg PO ONCE #2 tab 06/17/21 Ketoconazole 2% Cream [Nizoral 2%] 1 applic TOPICAL DAILY #30 gm 06/17/21 Ketoconazole 2% Cream [Nizoral 2%] 1 applic TOPICAL DAILY #30 gm 06/17/21 Fluconazole [Diflucan] 150 mg PO ONCE #1 tab 02/18/22 Nitrofurantoin Monohyd/M-Cryst 100 mg PO Q12HR #6 cap 02/18/22 [Macrobid] Cefdinir [Omnicef] 300 mg PO Q12HR 7 Days #14 capsule 03/13/22 Ofloxacin 0.3% Otic Soln [Floxin 10 drops BOTH EARS QAM 7 Days #10 03/13/22 0.3% Otic Soln] ml Clotrimazole Cream [Lotrimin Cream] 1 applic TOPICAL BID 14 Days #30 gm 06/21/22 Fluconazole [Diflucan] 150 mg PO DAILY #4 tab 06/21/22 Cephalexin [Keflex] 500 mg PO Q8HR #21 cap 11/24/22 Nitrofurantoin Monohyd/M-Cryst 100 mg PO Q12HR 5 Days #10 cap 12/03/22 [Macrobid] Phenazopyridine [Pyridium] 100 mg PO TID 2 Days #6 tablet 12/03/22 Cephalexin [Keflex] 500 mg PO Q12HR 7 Days #14 cap 12/24/22 predniSONE 50 mg PO DAILY 5 Days #5 tab 12/24/22 Cephalexin [Keflex] 500 mg PO Q12HR 7 Days #14 cap 03/09/23 Hydrocortisone Cream 1 applic TOPICAL BID #28 gm 03/09/23 [Hydrocortisone 1% Cream] Allergies Allergy/AdvReac Type Severity Reaction Status Date / Time ibuprofen [From Motrin] Allergy Rash/Hives Verified 03/24/23 16:50 Penicillins Allergy Unknown Verified 03/24/23 16:50 sulfamethoxazole Allergy Rash/Hives Verified 03/24/23 16:50 [From ] trimethoprim [From ] Allergy Rash/Hives Verified 03/24/23 16:50 Review of Systems ROS Statement: Those systems with pertinent positive or pertinent negative responses have been documented in the HPI. ROS Other: All systems not noted in ROS Statement are negative. 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 Source:: MRSA-site unknonw; ESBL-Urine Past Surgical History: Section, Cholecystectomy Additional Past Surgical History / Comment(s): endometriosis Past Anesthesia/Blood Transfusion Reactions: No Reported Reaction Past Psychological History: No Psychological Hx Reported Smoking Status: Never smoker Past Alcohol Use History: None Reported Past Drug Use History: None Reported - Past Family History Mother Family Medical History: No Reported History Father Family Medical History: Coronary Artery Disease (CAD) General Exam Limitations: no limitations General appearance: alert, in no apparent distress Head exam: Present: atraumatic, normocephalic, normal inspection Eye exam: Present: normal appearance, PERRL, EOMI. Absent: scleral icterus, conjunctival injection, periorbital swelling ENT exam: Present: normal exam, mucous membranes moist Neck exam: Present: normal inspection. Absent: tenderness, meningismus, lymphadenopathy Respiratory exam: Present: normal lung sounds bilaterally. Absent: respiratory distress, wheezes, rales, rhonchi, stridor Cardiovascular Exam: Present: regular rate, normal rhythm, normal heart sounds. Absent: systolic murmur, diastolic murmur, rubs, gallop, clicks GI/Abdominal exam: Present: soft, normal bowel sounds. Absent: distended, tenderness, guarding, rebound, rigid Extremities exam: Present: normal inspection, full ROM, normal capillary refill. Absent: tenderness, pedal edema, joint swelling, calf tenderness Back exam: Present: normal inspection Neurological exam: Present: alert, oriented X3 Psychiatric exam: Present: normal affect, normal mood Skin exam: Present: warm, dry, intact, normal color, other (1.5cm cyst-like lesion under left axilla) Course Vital Signs 03/24/23 16:48 Temperature 98.5 F Pulse Rate 68 Respiratory 18 Rate Blood Pressure 125/78 O2 Sat by Pulse 99 Oximetry Medical Decision Making - Medical Decision Making Was pt. sent in by a medical professional or institution (JOSÉ MANUEL Watson, RESEARCH PROGRAM COORDINATOR, urgent care, hospital, or care home...) When possible be specific @ -No Did you speak to anyone other than the patient for history (EMS, parent, family, police, friend...)? What history was obtained from this source @ -No Did you review nursing and triage notes (agree or disagree)? Why? @ -I reviewed and agree with nursing and triage notes Were old charts reviewed (outside hosp., previous admission, EMS record, old EKG, old radiological studies, urgent care reports/EKG's, care home records)? Report findings @ -No old charts were reviewed Differential Diagnosis (chest pain, altered mental status, abdominal pain women, abdominal pain men, vaginal bleeding, weakness, fever, dyspnea, syncope, headache, dizziness, GI bleed, back pain, seizure, CVA, palpatations, mental health, musculoskeletal)? @ -cyst, abscess, lymph node, this list is not all inclusive EKG interpreted by me (3pts min.). @ -none X-rays interpreted by me (1pt min.). @ -None done CT interpreted by me (1pt min.). @ -None done U/S interpreted by me (1pt. min.). @ -None done What testing was considered but not performed or refused? (CT, X-rays, U/S, labs)? Why? @ -None What meds were considered but not given or refused? Why? @ -None Did you discuss the management of the patient with other professionals (professionals i.e. JOSÉ MANUEL Watson, RESEARCH PROGRAM COORDINATOR, lab, RT, psych nurse, social media community manager, rn pediatric icu, teacher, aoc aadc operations staff officer, caseworker protective services)? Give summary @ -No Was smoking cessation discussed for >3mins.? @ -No Was critical care preformed (if so, how long)? @ -No Were there social determinants of health that impacted care today? How? (Homelessness, low income, unemployed, alcoholism, drug addiction, transportation, low edu. Level, literacy, decrease access to med. care, detention, rehab)? @ -No Was there de-escalation of care discussed even if they declined (Discuss DNR or withdrawal of care, Hospice)? DNR status @ -No What co-morbidities impacted this encounter? (DM, HTN, Smoking, COPD, CAD, Cancer, CVA, ARF, Chemo, Hep., AIDS, mental health diagnosis, sleep apnea, morbid obesity)? @ -None Was patient admitted / discharged? Hospital course, mention meds given and route, prescriptions, significant lab abnormalities, going to OR and other pertinent info. @ -discharged, Patient presented to the emergency department for chief complaint of lump under her armpit x2 days. Patient has no signs of infectious etiology. The area was numbed and attempted to be drained which provided nonpurulent drainage. Patient was requesting toradol for pain. Patient advised to follow up with her primary care and return precautions discussed.. Patient discharged in stable condition. Case discussed with my attending, Dr. Melo who evaluated the patient. Undiagnosed new problem with uncertain prognosis? @ -No Drug Therapy requiring intensive monitoring for toxicity (Heparin, Nitro, Insulin, Cardizem)? @ -No Were any procedures done? @ -No Diagnosis/symptom? @ -cyst Acute, or Chronic, or Acute on Chronic? @ -acute Uncomplicated (without systemic symptoms) or Complicated (systemic symptoms)? @ -uncomplicated Side effects of treatment? @ -No Exacerbation, Progression, or Severe Exacerbation? @ -No Poses a threat to life or bodily function? How? (Chest pain, [place], [place], pneumonia, PE, COPD, DKA, ARF, appy, cholecystitis, CVA, Diverticulitis, Homicidal, Suicidal, threat to staff... and all critical care pts) @ -No Disposition Clinical Impression: Sebaceous cyst of axilla Disposition: HOME SELF-CARE Condition: Stable Instructions (If sedation given, give patient instructions): Cyst (ED) Additional Instructions: Follow up with Dr. Montano next week. Please return to the emergency department for new or worsening symptoms. Is patient prescribed a controlled substance at d/c from ED?: No Referrals: Richard Montano MD [Primary Care Provider] - 1-2 days Time of Disposition: 19:20
== END 2023-03-24 19:35 | disposition home or self-care (01) ==
LOC: EC 16:43
DX: L72.3 Sebaceous cyst (principal); I10 Essential (primary) hypertension; Z88.6 Allergy status to analgesic agent; Z88.0 Allergy status to penicillin; Z88.2 Allergy status to sulfonamides; Z88.1 Allergy status to other antibiotic agents
CPT/HCPCS: 99283; 96372; J2001; J1885

== ENCOUNTER 2023-08-03 13:14 | Emergency (ER) | payer MEDICARE, OTHER ==
[2023-08-03 13:41] VITALS: RESP 18; TEMP 98
[2023-08-03] MEDS ORDERED: ACETAMINOPHEN TAB 500 MG TAB PO STA (13:51)
--- NOTE | 2023-08-03 13:54 | ED ---
General Adult HPI - General Chief complaint: Upper Respiratory Infection Stated complaint: Headache,Cough Time Seen by Provider: 08/03/23 13:35 Source: patient, RN notes reviewed, old records reviewed Mode of arrival: ambulatory Limitations: no limitations - History of Present Illness Initial comments: This is a 68-year-old female who presents emergency Department complaining of some congestion and then pressure in her ears and now she complains of a sore throat and a cough. Patient states coughing up a little bit of yellow sputum. Patient denies any fever chills per patient denies any chest pain or difficulty breathing. Patient denies any abdominal pain patient denies nausea vomiting diarrhea per patient denies any rashes or lesions. Patient does complain of a mild headache as well. - Related Data Home Medications Medication Instructions Recorded Confirmed Aspirin [[place] Aspirin EC] 81 mg PO HS 08/03/23 08/03/23 Atorvastatin [Lipitor] 10 mg PO HS 08/03/23 08/03/23 Furosemide [Lasix] 40 mg PO HS 08/03/23 08/03/23 HYDROcodone/APAP 7.5-325MG [Bernie 1 tab PO BID PRN 08/03/23 08/03/23 7.5-325] diazePAM [Valium] 5 mg PO HS PRN 08/03/23 08/03/23 hydrALAZINE HCL [Apresoline] 25 mg PO HS 08/03/23 08/03/23 hydroCHLOROthiazide [Hydrodiuril] 25 mg PO HS 08/03/23 08/03/23 Previous Rx's Medication Instructions Recorded Nitrofurantoin Monohyd/M-Cryst 100 mg PO Q12HR #14 cap 08/03/23 [Macrobid] Allergies Allergy/AdvReac Type Severity Reaction Status Date / Time ibuprofen [From Motrin] Allergy Rash/Hives Verified 08/03/23 14:20 Penicillins Allergy Unknown Verified 08/03/23 14:20 Childhood sulfamethoxazole Allergy Rash/Hives Verified 08/03/23 14:20 [From Septra] trimethoprim [From Septra] Allergy Rash/Hives Verified 08/03/23 14:20 Review of Systems ROS Statement: Those systems with pertinent positive or pertinent negative responses have been documented in the HPI. ROS Other: All systems not noted in ROS Statement are negative. 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 Source:: MRSA-site unknonw; ESBL-Urine Past Surgical History: Section, Cholecystectomy Additional Past Surgical History / Comment(s): endometriosis Past Anesthesia/Blood Transfusion Reactions: No Reported Reaction Past Psychological History: No Psychological Hx Reported Smoking Status: Never smoker Past Alcohol Use History: None Reported Past Drug Use History: None Reported - Past Family History Mother Family Medical History: No Reported History Father Family Medical History: Coronary Artery Disease (CAD) General Exam - General Exam Comments Initial Comments: GENERAL: Patient is well-developed and well-nourished. Patient is nontoxic and well- hydrated and is in mild distress. ENT: Neck is soft and supple. No significant lymphadenopathy is noted. Oropharynx is clear. Moist mucous membranes. Neck has full range of motion without eliciting any pain. EYES: The sclera were anicteric and conjunctiva were pink and moist. Extraocular movements were intact and pupils were equal round and reactive to light. Ey elids were unremarkable. PULMONARY: Unlabored respirations. Good breath sounds bilaterally. No audible rales rhonchi or wheezing was noted. CARDIOVASCULAR: There is a regular rate and rhythm without any murmurs gallops or rubs. ABDOMEN: Soft and nontender with normal bowel sounds. SKIN: Skin is clear with no lesions or rashes and otherwise unremarkable. NEUROLOGIC: Patient is alert and oriented x3. Cranial nerves II through XII are grossly intact. Motor and sensory are also intact. Normal speech, volume and content. Symmetrical smile. MUSCULOSKELETAL: Normal extremities with adequate strength and full range of motion. No lower extremity swelling or edema. No calf tenderness. LYMPHATICS: No significant lymphadenopathy is noted PSYCHIATRIC: Normal psychiatric evaluation. Limitations: no limitations Course Vital Signs 08/03/23 13:25 Temperature 98 F Pulse Rate 81 Respiratory 18 Rate O2 Sat by Pulse 93 L Oximetry Medical Decision Making - Medical Decision Making Was pt. sent in by a medical professional or institution (, PA, NET WEB DEVELOPER, urgent care, hospital, or alf...) When possible be specific @ -No Did you speak to anyone other than the patient for history (EMS, parent, family, police, friend...)? What history was obtained from this source @ -No Did you review nursing and triage notes (agree or disagree)? Why? @ -I reviewed and agree with nursing and triage notes Were old charts reviewed (outside hosp., previous admission, EMS record, old EKG, old radiological studies, urgent care reports/EKG's, alf records)? Report findings @ -Per reviewed prior charts and radiological studies Differential Diagnosis (chest pain, altered mental status, abdominal pain women, abdominal pain men, vaginal bleeding, weakness, fever, dyspnea, syncope, headache, dizziness, GI bleed, back pain, seizure, CVA, palpatations, mental health, musculoskeletal)? @ -not applicable EKG interpreted by me (3pts min.). @ -As above X-rays interpreted by me (1pt min.). @ -Chest x-ray showed no acute abnormality CT interpreted by me (1pt min.). @ -None done U/S interpreted by me (1pt. min.). @ -None done What testing was considered but not performed or refused? (CT, X-rays, U/S, labs)? Why? @ -None What meds were considered but not given or refused? Why? @ -None Did you discuss the management of the patient with other professionals (professionals i.e. , PA, NET WEB DEVELOPER, lab, RT, psych nurse, social media marketing specialist, networking technician, teacher, foreign policy officer, vocational case manager)? Give summary @ -No Was smoking cessation discussed for >3mins.? @ -No Was critical care preformed (if so, how long)? @ -No Were there social determinants of health that impacted care today? How? (Homelessness, low income, unemployed, alcoholism, drug addiction, transportation, low edu. Level, literacy, decrease access to med. care, fpc, rehab)? @ -No Was there de-escalation of care discussed even if they declined (Discuss DNR or withdrawal of care, Hospice)? DNR status @ -No What co-morbidities impacted this encounter? (DM, HTN, Smoking, COPD, CAD, Cancer, CVA, ARF, Chemo, Hep., AIDS, mental health diagnosis, sleep apnea, morbid obesity)? @ -None Was patient admitted / discharged? Hospital course, mention meds given and route, prescriptions, significant lab abnormalities, going to OR and other pertinent info. @ -Patient's x-ray and viral swab showed no cold or influenza or RSV. Undiagnosed new problem with uncertain prognosis? @ -No Drug Therapy requiring intensive monitoring for toxicity (Heparin, Nitro, Ins ulin, Cardizem)? @ -No Were any procedures done? @ -No Diagnosis/symptom? @ -Viral syndrome Acute, or Chronic, or Acute on Chronic? @ -Acute Uncomplicated (without systemic symptoms) or Complicated (systemic symptoms)? @ -Uncomplicated Side effects of treatment? @ -No Exacerbation, Progression, or Severe Exacerbation? @ -No Poses a threat to life or bodily function? How? (Chest pain, [place], [place], pneumonia, PE, COPD, DKA, ARF, appy, cholecystitis, CVA, Diverticulitis, Homicidal, Suicidal, threat to staff... and all critical care pts) @ -No Diagnosis/symptom? @ -Urinary tract infection Acute, or Chronic, or Acute on Chronic? @ -Acute Uncomplicated (without systemic symptoms) or Complicated (systemic symptoms)? @ -Uncomplicated Side effects of treatment? @ -none Exacerbation, Progression, or Severe Exacerbation] @ -no Poses a threat to life or bodily function? @ -no - Lab Data Lab Results 08/03/23 08/03/23 Range/Units 14:08 14:18 Urine Color Yellow Urine Appearance Cloudy H (Clear) Urine pH 5.5 (5.0-8.0) Ur Specific [place] 1.028 (1.001-1.035) Urine Protein Trace H (Negative) Urine Glucose (UA) Negative (Negative) Urine Ketones Negative (Negative) Urine Blood Negative (Negative) Urine Nitrite Negative (Negative) Urine Bilirubin Negative (Negative) Urine Urobilinogen <2.0 (<2.0) mg/dL Ur Leukocyte Esterase Large H (Negative) Urine RBC 6 H (0-5) /hpf Urine WBC 88 H (0-5) /hpf Ur Squamous Epith Cells 2 (0-4) /hpf Urine Bacteria Rare H (None) /hpf Urine Mucus Moderate H (None) /hpf Influenza Type A (PCR) Not Detected (Not Detectd) Influenza Type B (PCR) Not Detected (Not Detectd) RSV (PCR) Not Detected (Not Detectd) SARS-CoV-2 (PCR) Not Detected (Not Detectd) Disposition Clinical Impression: Viral syndrome, Urinary tract infection Disposition: HOME SELF-CARE Condition: Good Instructions (If sedation given, give patient instructions): Viral Syndrome (ED) Prescriptions: Nitrofurantoin Monohyd/M-Cryst [Macrobid] 100 mg PO Q12HR #14 cap Is patient prescribed a controlled substance at d/c from ED?: No Referrals: Richard Montano MD [Primary Care Provider] - 1-2 days Time of Disposition: 15:21
--- NOTE | 2023-08-03 14:31 | XR ---
EXAMINATION TYPE: XR chest 2V DATE OF EXAM: 08/03/2023 2:27 PM COMPARISON: Chest radiographs from 03/30/2016 TECHNIQUE: XR chest 2V Frontal and lateral views of the chest. CLINICAL INDICATION:Female, 68 years old with history of Difficulty breathing ; FINDINGS: Lungs/Pleura: There is no evidence of pleural effusion, focal consolidation, or pneumothorax. Eventr ation of the right hemidiaphragm. Pulmonary vascularity: Unremarkable. Heart/mediastinum: Cardiomediastinal silhouette is unremarkable. Musculoskeletal: No acute osseous pathology. Other: Surgical clips in the upper abdomen. IMPRESSION: No acute cardiopulmonary disease/process.
[2023-08-03 16:18] LABS: Appearance,Urine Cloudy (Clear); Bacteria,Urine Rare /hpf; Bilirubin,Urine Negative (Negative); Blood,Urine Negative (Negative); Color,Urine Yellow; Glucose,Urine (UA) Negative (Negative); Ketones,Urine Negative (Negative); Leukocyte Esterase,Urine Large (Negative); Mucus,Urine Moderate /hpf; Nitrite,Urine Negative (Negative); PH, Urine 5.5 (5.0-8.0); Protein,Urine Trace (Negative); RBC,Urine 6 /hpf (0-5); Specific Gravity,Urine 1.028 (1.001-1.035); Squamous Epithelial Cell,Urine 2 /hpf (0-4); Urobilinogen,Urine <2.0 mg/dL (<2.0); WBC,Urine 88 /hpf (0-5)
[2023-08-03] MEDS ORDERED: cefTRIAXone IN SWFI 1,000 MG/10 ML SYRINGE IVP STA (16:21)
[2023-08-03 16:45] VITALS: BP 127/90; PULSE 79
== END 2023-08-03 16:37 | disposition home or self-care (01) ==
LOC: EC 13:14
DX: N39.0 Urinary tract infection, site not specified (principal); B34.9 Viral infection, unspecified; B96.20 Unspecified Escherichia coli [E. coli] as the cause of diseases classified elsewhere; E78.5 Hyperlipidemia, unspecified; I10 Essential (primary) hypertension; Z88.0 Allergy status to penicillin; Z88.6 Allergy status to analgesic agent; Z88.2 Allergy status to sulfonamides; Z79.82 Long term (current) use of aspirin; Z79.899 Other long term (current) drug therapy; Z20.822 Contact with and (suspected) exposure to COVID-19
CPT/HCPCS: 81001; 87086; 87077; 87186; 87636; 71046; 99284; 96374; J0696

== ENCOUNTER 2023-09-17 10:24 | Emergency (ER) | payer MEDICARE, OTHER ==
[2023-09-17 10:34] VITALS: RESP 18; TEMP 97.9
--- NOTE | 2023-09-17 11:01 | ED ---
General Adult HPI - General Chief complaint: Urogenital Stated complaint: uti/pain in right ear Time Seen by Provider: 09/17/23 10:30 Source: patient, RN notes reviewed, old records reviewed Mode of arrival: ambulatory Limitations: no limitations - History of Present Illness Initial comments: This is a 68-year-old female presents emergency Department who presents to the emergency department stating that for 2 days she's had some pain in her right ear and complains of some dysuria starting today. Patient denies any fevers chills. Patient denies any drainage from the ear pain. Patient denies any abdominal pain. Patient denies any hematuria. - Related Data Home Medications Medication Instructions Recorded Confirmed Aspirin [[place] Aspirin EC] 81 mg PO HS 08/03/23 08/03/23 Atorvastatin [Lipitor] 10 mg PO HS 08/03/23 08/03/23 Furosemide [Lasix] 40 mg PO HS 08/03/23 08/03/23 HYDROcodone/APAP 7.5-325MG [[place] 1 tab PO BID PRN 08/03/23 08/03/23 7.5-325] diazePAM [Valium] 5 mg PO HS PRN 08/03/23 08/03/23 hydrALAZINE HCL [Apresoline] 25 mg PO HS 08/03/23 08/03/23 hydroCHLOROthiazide [Hydrodiuril] 25 mg PO HS 08/03/23 08/03/23 Previous Rx's Medication Instructions Recorded Nitrofurantoin Monohyd/M-Cryst 100 mg PO Q12HR #14 cap 08/03/23 [Macrobid] Cefuroxime [Ceftin] 500 mg PO BID 10 Days #40 tab 09/17/23 Allergies Allergy/AdvReac Type Severity Reaction Status Date / Time ibuprofen [From Motrin] Allergy Rash/Hives Verified 09/17/23 10:30 Penicillins Allergy Unknown Verified 09/17/23 10:30 Childhood sulfamethoxazole Allergy Rash/Hives Verified 09/17/23 10:30 [From Septra] trimethoprim [From Mayra] Allergy Rash/Hives Verified 09/17/23 10:30 Review of Systems ROS Statement: Those systems with pertinent positive or pertinent negative responses have been documented in the HPI. ROS Other: All systems not noted in ROS Statement are negative. 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 Source:: MRSA-site unknonw; ESBL-Urine Past Surgical History: Section, Cholecystectomy Additional Past Surgical History / Comment(s): endometriosis Past Anesthesia/Blood Transfusion Reactions: No Reported Reaction Past Psychological History: No Psychological Hx Reported Smoking Status: Never smoker Past Alcohol Use History: None Reported Past Drug Use History: None Reported - Past Family History Mother Family Medical History: No Reported History Father Family Medical History: Coronary Artery Disease (CAD) General Exam - General Exam Comments Initial Comments: GENERAL: Patient is well-developed and well-nourished. Patient is nontoxic and well- hydrated and is in mild distress. ENT: Neck is soft and supple. No significant lymphadenopathy is noted. Oropharynx is clear. Moist mucous membranes. Neck has full range of motion without eliciting any pain. Right ear she had a red TM however there was significant amount of cerumen and the whole TM could not be visualized. Throat was not erythematous and there was no exudate EYES: The sclera were anicteric and conjunctiva were pink and moist. Extraocular movements were intact and pupils were equal round and reactive to light. Eyelids were unremarkable. PULMONARY: Unlabored respirations. Good breath sounds bilaterally. CARDIOVASCULAR: There is a regular rate and rhythm without any murmurs gallops or rubs. ABDOMEN: Soft and nontender with normal bowel sounds. SKIN: Skin is clear with no lesions or rashes and otherwise unremarkable. NEUROLOGIC: Patient is alert and oriented x3. Cranial nerves II through XII are grossly intact. Motor and sensory are also intact. Normal speech, volume and content. Symmetrical smile. MUSCULOSKELETAL: Normal extremities with adequate strength and full range of motion. LYMPHATICS: No significant lymphadenopathy is noted PSYCHIATRIC: Normal psychiatric evaluation. Limitations: no limitations Course Vital Signs 09/17/23 10:27 Temperature 97.9 F Pulse Rate 100 Respiratory 18 Rate O2 Sat by Pulse 95 Oximetry Medical Decision Making - Medical Decision Making Was pt. sent in by a medical professional or institution (, PA, [facility], urgent care, hospital, or half-way...) When possible be specific @ -No Did you speak to anyone other than the patient for history (EMS, parent, family, police, friend...)? What history was obtained from this source @ -No Did you review nursing and triage notes (agree or disagree)? Why? @ -I reviewed and agree with nursing and triage notes Were old charts reviewed (outside hosp., previous admission, EMS record, old EKG, old radiological studies, urgent care reports/EKG's, half-way records)? Report findings @ -No old charts were reviewed Differential Diagnosis (chest pain, altered mental status, abdominal pain women, abdominal pain men, vaginal bleeding, weakness, fever, dyspnea, syncope, headache, dizziness, GI bleed, back pain, seizure, CVA, palpatations, mental health, musculoskeletal)? @ -not applicable EKG interpreted by me (3pts min.). @ -As above X-rays interpreted by me (1pt min.). @ -None done CT interpreted by me (1pt min.). @ -None done U/S interpreted by me (1pt. min.). @ -None done What testing was considered but not performed or refused? (CT, X-rays, U/S, labs)? Why? @ -None What meds were considered but not given or refused? Why? @ -None Did you discuss the management of the patient with other professionals (professionals i.e. , PA, [facility], lab, RT, psych nurse, social services manager, rn pain management, teacher, training and development officer, case therapist)? Give summary @ -No Was smoking cessation discussed for >3mins.? @ -No Was critical care preformed (if so, how long)? @ -No Were there social determinants of health that impacted care today? How? (Homelessness, low income, unemployed, alcoholism, drug addiction, transportation, low edu. Level, literacy, decrease access to med. care, longterm, rehab)? @ -No Was there de-escalation of care discussed even if they declined (Discuss DNR or withdrawal of care, Hospice)? DNR status @ -No What co-morbidities impacted this encounter? (DM, HTN, Smoking, COPD, CAD, Cancer, CVA, ARF, Chemo, Hep., AIDS, mental health diagnosis, sleep apnea, morbid obesity)? @ -None Was patient admitted / discharged? Hospital course, mention meds given and route, prescriptions, significant lab abnormalities, going to OR and other pertinent info. @ -Patient has a urinary tract infection I gave the patient Rocephin IM. Patient also had some redness in the ears I will send the patient home on cefuroxime and this will treat both the urinary tract infection and the ear infection. Undiagnosed new problem with uncertain prognosis? @ -No Drug Therapy requiring intensive monitoring for toxicity (Heparin, Nitro, Insulin, Cardizem)? @ -No Were any procedures done? @ -No Diagnosis/symptom? @ -Urinary tract infection Acute, or Chronic, or Acute on Chronic? @ -Acute Uncomplicated (without systemic symptoms) or Complicated (systemic symptoms)? @ -Complicated Side effects of treatment? @ -No Exacerbation, Progression, or Severe Exacerbation? @ -No Poses a threat to life or bodily function? How? (Chest pain, [place], [place], pneumonia, PE, COPD, DKA, ARF, appy, cholecystitis, CVA, Diverticulitis, Homicidal, Suicidal, threat to staff... and all critical care pts) @ -No Diagnosis/symptom? @ -Otitis media Acute, or Chronic, or Acute on Chronic? @ -Acute Uncomplicated (without systemic symptoms) or Complicated (systemic symptoms)? @ -Uncomplicated Side effects of treatment? @ -none Exacerbation, Progression, or Severe Exacerbation] @ -no Poses a threat to life or bodily function? @ -no - Lab Data Lab Results 09/17/23 Range/Units 11:45 Urine Color Yellow Urine Appearance Cloudy H (Clear) Urine pH 5.5 (5.0-8.0) Ur Specific [place] 1.026 (1.001-1.035) Urine Protein Trace H (Negative) Urine Glucose (UA) Negative (Negative) Urine Ketones 1+ H (Negative) Urine Blood Negative (Negative) Urine Nitrite Negative (Negative) Urine Bilirubin Negative (Negative) Urine Urobilinogen <2.0 (<2.0) mg/dL Ur Leukocyte Esterase Large H (Negative) Urine RBC 2 (0-5) /hpf Urine WBC 79 H (0-5) /hpf Ur Squamous Epith Cells 5 H (0-4) /hpf Hyaline Casts 11 H (0-2) /lpf Urine Mucus Many H (None) /hpf Disposition Clinical Impression: Urinary tract infection, Otitis media Disposition: HOME SELF-CARE Condition: Good Instructions (If sedation given, give patient instructions): Urinary Tract Infection in Women (ED), Ear Infection (ED) Prescriptions: Cefuroxime [Ceftin] 500 mg PO BID 10 Days #40 tab Is patient prescribed a controlled substance at d/c from ED?: No Referrals: Richard Montano MD [Primary Care Provider] - 1-2 days Time of Disposition: 13:05
[2023-09-17] MEDS ORDERED: KETOROLAC 15 MG/ML 1 ML VIAL IM STA (12:37)
[2023-09-17 12:40] LABS: Appearance,Urine Cloudy (Clear); Bilirubin,Urine Negative (Negative); Blood,Urine Negative (Negative); Color,Urine Yellow; Glucose,Urine (UA) Negative (Negative); Hyaline Casts,Urine 11 /lpf (0-2); Ketones,Urine 1+ (Negative); Leukocyte Esterase,Urine Large (Negative); Mucus,Urine Many /hpf; Nitrite,Urine Negative (Negative); PH, Urine 5.5 (5.0-8.0); Protein,Urine Trace (Negative); RBC,Urine 2 /hpf (0-5); Specific Gravity,Urine 1.026 (1.001-1.035); Squamous Epithelial Cell,Urine 5 /hpf (0-4); Urobilinogen,Urine <2.0 mg/dL (<2.0); WBC,Urine 79 /hpf (0-5)
[2023-09-17] MEDS ORDERED: cefTRIAXone 1,000 MG VIAL (IM USE) IM STA (13:02)
[2023-09-17 13:21] VITALS: BP 128/74; PULSE 76
== END 2023-09-17 13:17 | disposition home or self-care (01) ==
LOC: EC 10:24
DX: N39.0 Urinary tract infection, site not specified (principal); H66.91 Otitis media, unspecified, right ear; E78.5 Hyperlipidemia, unspecified; I10 Essential (primary) hypertension; Z79.82 Long term (current) use of aspirin; Z79.899 Other long term (current) drug therapy; Z88.0 Allergy status to penicillin; Z88.2 Allergy status to sulfonamides; Z88.6 Allergy status to analgesic agent
CPT/HCPCS: 99283; 96372 ×2; 81001; J0696; J1885

== ENCOUNTER 2023-11-13 15:22 | Emergency (ER) | payer MEDICARE, OTHER ==
--- NOTE | 2023-11-13 16:24 | ED ---
Eye Problem HPI - General Chief complaint: Eye Problems Stated complaint: Eye irritation Time Seen by Provider: 11/13/23 15:54 Source: patient, RN notes reviewed Mode of arrival: ambulatory Limitations: no limitations - History of Present Illness Initial comments: This is a 68-year-old female who presents to the emergency department for eye irritation. Patient states that she rubbed her eyes too hard, which she believes she did while taking off makeup, and has since had pain around both eyes. Denies any visual changes or pain in the eye itself. She is also requesting we test her urine due to an increase in urinary urgency over the last 3 days. - Related Data Home Medications Medication Instructions Recorded Confirmed Aspirin [[place] Aspirin EC] 81 mg PO HS 08/03/23 08/03/23 Atorvastatin [Lipitor] 10 mg PO HS 08/03/23 08/03/23 Furosemide [Lasix] 40 mg PO HS 08/03/23 08/03/23 HYDROcodone/APAP 7.5-325MG [[place] 1 tab PO BID PRN 08/03/23 08/03/23 7.5-325] diazePAM [Valium] 5 mg PO HS PRN 08/03/23 08/03/23 hydrALAZINE HCL [Apresoline] 25 mg PO HS 08/03/23 08/03/23 hydroCHLOROthiazide [Hydrodiuril] 25 mg PO HS 08/03/23 08/03/23 Previous Rx's Medication Instructions Recorded Nitrofurantoin Monohyd/M-Cryst 100 mg PO Q12HR #14 cap 08/03/23 [Macrobid] Cefuroxime [Ceftin] 500 mg PO BID 10 Days #40 tab 09/17/23 Nitrofurantoin Monohyd/M-Cryst 100 mg PO Q12HR 7 Days #14 cap 11/13/23 [Macrobid] Allergies Allergy/AdvReac Type Severity Reaction Status Date / Time ibuprofen [From Motrin] Allergy Rash/Hives Verified 11/13/23 15:39 sulfamethoxazole Allergy Rash/Hives Verified 11/13/23 15:39 [From Septra] trimethoprim [From Septra] Allergy Rash/Hives Verified 11/13/23 15:39 Review of Systems ROS Statement: Those systems with pertinent positive or pertinent negative responses have been documented in the HPI. ROS Other: All systems not noted in ROS Statement are negative. 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 Source:: MRSA-site unknonw; ESBL-Urine Past Surgical History: Section, Cholecystectomy Additional Past Surgical History / Comment(s): endometriosis Past Anesthesia/Blood Transfusion Reactions: No Reported Reaction Past Psychological History: No Psychological Hx Reported Smoking Status: Never smoker Past Alcohol Use History: None Reported Past Drug Use History: None Reported - Past Family History Mother Family Medical History: No Reported History Father Family Medical History: Coronary Artery Disease (CAD) General Exam Limitations: no limitations General appearance: alert, in no apparent distress Head exam: Present: atraumatic, normocephalic, normal inspection Eye exam: Present: normal appearance, PERRL, EOMI. Absent: scleral icterus, conjunctival injection, periorbital swelling Respiratory exam: Present: normal lung sounds bilaterally. Absent: respiratory distress, wheezes, rales, rhonchi, stridor Cardiovascular Exam: Present: regular rate, normal rhythm, normal heart sounds. Absent: systolic murmur, diastolic murmur, rubs, gallop, clicks Neurological exam: Present: alert, oriented X3, CN II-XII intact Psychiatric exam: Present: normal affect, normal mood Skin exam: Present: warm, dry, intact, normal color. Absent: rash Course Vital Signs 11/13/23 11/13/23 15:36 17:47 Temperature 98 F 97.5 F L Pulse Rate 79 80 Respiratory 16 12 Rate Blood Pressure 158/110 144/84 O2 Sat by Pulse 98 96 Oximetry Medical Decision Making - Medical Decision Making This is a 68-year-old female who presents to the emergency department for eye pain. Was pt. sent in by a medical professional or institution? @ -No Did you speak to anyone other than the patient for history? @ -No Did you review nursing and triage notes? @ -Yes, and I agree, it is accurate with regards to the patient's symptoms. Were old charts reviewed? @ -No Differential Diagnosis? @ -Differential Eye Pain: Conjuncitivitis (viral, bacterial, allergic), corneal abrasion, foreign body, iritis, uveitis, keratitis, acute angle closure glaucoma, this is not meant to be an all-inclusive list. EKG interpreted by me (3pts min.)? @ -Not obtained X-rays interpreted by me (1pt min.)? @ -Not obtained CT interpreted by me (1pt min.)? @ -Not obtained U/S interpreted by me (1pt. min.)? @ -Not obtained What testing was considered but not performed? (CT, X-rays, U/S, labs)? Why? @ -None What meds were considered but not given? Why? @ -None Did you discuss the management of the patient with other professionals? @ -No Did you reconcile home meds? @ -No Was smoking cessation discussed for >3mins.? @ -No Was critical care preformed (if so, how long)? @ -No Were there social determinants of health that impacted care today? How? (Homelessness, low income, unemployed, alcoholism, drug addiction, transportation, low edu. Level, literacy, decrease access to med. care, senior living, rehab)? @ -No Was there de-escalation of care discussed even if they declined? (Discuss DNR or withdrawal of care, Hospice)? @ -No What co-morbidities impacted this encounter? (DM, HTN, Smoking, COPD, CAD, Cancer, CVA, Hep., AIDS, mental health diagnosis, sleep apnea, morbid obesity)? @ -None Was patient admitted / discharged? @ -Discharged. Physical examination of her eyes was entirely unremarkable. Patient had no complaints to the eyeballs themselves, and only the skin around it from irritation. Discussed nonirritating topicals such as petroleum jelly to help with irritation. This was administered in the emergency department, and she did find it to be beneficial. Also advised warm compresses. Urinalysis suggestive of potential developing infection. Given that she did have urinary complaints, she was given a prescription for Macrobid and the urine was sent for culture. Patient discharged home in stable condition. Undiagnosed new problem with uncertain prognosis? @ -None Drug Therapy requiring intensive monitoring for toxicity (Heparin, Nitro, Insulin, Cardizem)? @ -None Were any procedures done? @ -None Diagnosis/symptom? @ -Eye irritation, UTI Acute, or Chronic, or Acute on Chronic? @ -Acute Uncomplicated (without systemic symptoms) or Complicated (systemic symptoms)? @ -Uncomplicated Side effects of treatment? @ -None Exacerbation, Progression, or Severe Exacerbation] @ -Not applicable Poses a threat to life or bodily function? @ -No Return precautions reviewed in depth, the patient is instructed to return to the emergency department with any new, worsening, or concerning symptoms. Patient verbalized understanding. This case was discussed in detail with the attending ED physician, Dr. Yang. Presentation, findings, and treatment plan discussed in detail as well. - Lab Data Lab Results 11/13/23 Range/Units 16:59 Urine Color Colorless Urine Appearance Clear (Clear) Urine pH 7.0 (5.0-8.0) Ur Specific [place] 1.009 (1.001-1.035) Urine Protein Negative (Negative) Urine Glucose (UA) Negative (Negative) Urine Ketones Negative (Negative) Urine Blood Negative (Negative) Urine Nitrite Negative (Negative) Urine Bilirubin Negative (Negative) Urine Urobilinogen <2.0 (<2.0) mg/dL Ur Leukocyte Esterase Large H (Negative) Urine RBC <1 (0-5) /hpf Urine WBC 8 H (0-5) /hpf Ur Squamous Epith Cells 1 (0-4) /hpf Urine Mucus Rare H (None) /hpf Disposition Clinical Impression: Irritation of both eyes, UTI (urinary tract infection) Disposition: HOME SELF-CARE Instructions (If sedation given, give patient instructions): Urinary Tract Infection in Women (ED) Additional Instructions: Return to the emergency department with any new, worsening, or concerning symptoms. Take the antibiotic as prescribed for 7 days. You can use petroleum jelly around the eyes to help soften the skin and reduce irritation. You can also apply warm compresses. Follow up with your primary care provider in 1-2 days. Prescriptions: Nitrofurantoin Monohyd/M-Cryst [Macrobid] 100 mg PO Q12HR 7 Days #14 cap Is patient prescribed a controlled substance at d/c from ED?: No Referrals: Richard Montano MD [Primary Care Provider] - 1-2 days Time of Disposition: 16:26
[2023-11-13] MEDS: KETOROLAC 15 MG/ML 1 ML VIAL IM STA (16:41)
[2023-11-13] MEDS: PETROLATUM, WHITE OINT 50 GM TUBE TOPICAL STA (16:45)
[2023-11-13 17:30] LABS: Appearance,Urine Clear (Clear); Bilirubin,Urine Negative (Negative); Blood,Urine Negative (Negative); Color,Urine Colorless; Glucose,Urine (UA) Negative (Negative); Ketones,Urine Negative (Negative); Leukocyte Esterase,Urine Large (Negative); Mucus,Urine Rare /hpf; Nitrite,Urine Negative (Negative); Protein,Urine Negative (Negative); RBC,Urine <1 /hpf (0-5); Specific Gravity,Urine 1.009 (1.001-1.035); Squamous Epithelial Cell,Urine 1 /hpf (0-4); Urobilinogen,Urine <2.0 mg/dL (<2.0); WBC,Urine 8 /hpf (0-5)
[2023-11-13 18:08] VITALS: BP 144/84; PULSE 80; RESP 12; TEMP 97.5
== END 2023-11-13 17:50 | disposition home or self-care (01) ==
LOC: EC 15:22
DX: H57.13 Ocular pain, bilateral (principal); N39.0 Urinary tract infection, site not specified; E78.5 Hyperlipidemia, unspecified; I10 Essential (primary) hypertension; Z79.899 Other long term (current) drug therapy; Z88.2 Allergy status to sulfonamides; Z88.6 Allergy status to analgesic agent; Z88.1 Allergy status to other antibiotic agents; Z79.82 Long term (current) use of aspirin
CPT/HCPCS: 81001; 99283; 96372; J1885

== ENCOUNTER 2023-11-16 09:11 | Emergency (ER) | payer MEDICARE, OTHER ==
[2023-11-16 09:25] VITALS: BP 140/85; PULSE 92; RESP 18; TEMP 97.8
--- NOTE | 2023-11-16 09:50 | ED ---
Skin/Abscess/FB HPI - General Chief complaint: Skin/Abscess/Foreign Body Stated complaint: Yeast Infection Time Seen by Provider: 11/16/23 09:22 Source: patient, RN notes reviewed Mode of arrival: ambulatory Limitations: no limitations - History of Present Illness Initial comments: This is a 68 year old female who presents to the emergency department for concerns of a yeast infection. Reports redness and weeping in the skin under her abdomen and in her groin over the last 2 days. This is both itchy and painful. She does have a history of yeast infections, and states that she typically needs Diflucan. States that this has not gone to her breasts yet, however this does typically occur. She has been using over the counter treatment with no relief in symptoms. - Related Data Home Medications Medication Instructions Recorded Confirmed Aspirin [[place] Aspirin EC] 81 mg PO HS 08/03/23 08/03/23 Atorvastatin [Lipitor] 10 mg PO HS 08/03/23 08/03/23 Furosemide [Lasix] 40 mg PO HS 08/03/23 08/03/23 HYDROcodone/APAP 7.5-325MG [[place] 1 tab PO BID PRN 08/03/23 08/03/23 7.5-325] diazePAM [Valium] 5 mg PO HS PRN 08/03/23 08/03/23 hydrALAZINE HCL [Apresoline] 25 mg PO HS 08/03/23 08/03/23 hydroCHLOROthiazide [Hydrodiuril] 25 mg PO HS 08/03/23 08/03/23 Previous Rx's Medication Instructions Recorded Nitrofurantoin Monohyd/M-Cryst 100 mg PO Q12HR #14 cap 08/03/23 [Macrobid] Cefuroxime [Ceftin] 500 mg PO BID 10 Days #40 tab 09/17/23 Nitrofurantoin Monohyd/M-Cryst 100 mg PO Q12HR 7 Days #14 cap 11/13/23 [Macrobid] Fluconazole [Diflucan] 150 mg PO ONCE 1 Days #1 tab 11/16/23 Allergies Allergy/AdvReac Type Severity Reaction Status Date / Time ibuprofen [From Motrin] Allergy Rash/Hives Verified 11/16/23 09:22 sulfamethoxazole Allergy Rash/Hives Verified 11/16/23 09:22 [From Septra] trimethoprim [From Septra] Allergy Rash/Hives Verified 11/16/23 09:22 Review of Systems ROS Statement: Those systems with pertinent positive or pertinent negative responses have been documented in the HPI. ROS Other: All systems not noted in ROS Statement are negative. 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 Source:: MRSA-site unknonw; ESBL-Urine Past Surgical History: Section, Cholecystectomy Additional Past Surgical History / Comment(s): endometriosis Past Anesthesia/Blood Transfusion Reactions: No Reported Reaction Past Psychological History: No Psychological Hx Reported Smoking Status: Never smoker Past Alcohol Use History: None Reported Past Drug Use History: None Reported - Past Family History Mother Family Medical History: No Reported History Father Family Medical History: Coronary Artery Disease (CAD) General Exam Limitations: no limitations General appearance: alert, in no apparent distress Head exam: Present: atraumatic, normocephalic, normal inspection Respiratory exam: Present: normal lung sounds bilaterally. Absent: respiratory distress, wheezes, rales, rhonchi, stridor Cardiovascular Exam: Present: regular rate, normal rhythm, normal heart sounds. Absent: systolic murmur, diastolic murmur, rubs, gallop, clicks GI/Abdominal exam: Present: other (Erythematous and shiny skin with weeping in the abdomeinal panus and skin folds of the groin.) Neurological exam: Present: alert, oriented X3, CN II-XII intact Psychiatric exam: Present: normal affect, normal mood Skin exam: Present: warm, dry, intact Course Vital Signs 11/16/23 09:17 Temperature 97.8 F Pulse Rate 92 Respiratory 18 Rate Blood Pressure 140/85 O2 Sat by Pulse 97 Oximetry Medical Decision Making - Medical Decision Making This is a 68 year old female who presents to the emergency department for a rash. Was pt. sent in by a medical professional or institution? @ -No Did you speak to anyone other than the patient for history? @ -No Did you review nursing and triage notes? @ -Yes, and I agree, it is accurate with regards to the patient's symptoms. Were old charts reviewed? @ -No Differential Diagnosis? @ -Differential Rash: Rose[place], measles, Lyme disease, erythema multiforme, cellulitis, toxic shock syndrome, Manan Antonio syndrome, Kawasaki disease, shannan mountain spotted fever, contact dermatitis, allergic dermatitis, measles, mumps, rubella, varicella, meningococcal disease, drug reaction, coxsackievirus, This is not meant to be an all-inclusive list. EKG interpreted by me (3pts min.)? @ -Not obtained X-rays interpreted by me (1pt min.)? @ -Not obtained CT interpreted by me (1pt min.)? @ -Not obtained U/S interpreted by me (1pt. min.)? @ -Not obtained What testing was considered but not performed? (CT, X-rays, U/S, labs)? Why? @ -None What meds were considered but not given? Why? @ -None Did you discuss the management of the patient with other professionals? @ -No Did you reconcile home meds? @ -No Was smoking cessation discussed for >3mins.? @ -No Was critical care preformed (if so, how long)? @ -No Were there social determinants of health that impacted care today? How? (Homelessness, low income, unemployed, alcoholism, drug addiction, transportation, low edu. Level, literacy, decrease access to med. care, chcf, rehab)? @ -No Was there de-escalation of care discussed even if they declined? (Discuss DNR or withdrawal of care, Hospice)? @ -No What co-morbidities impacted this encounter? (DM, HTN, Smoking, COPD, CAD, Cancer, CVA, Hep., AIDS, mental health diagnosis, sleep apnea, morbid obesity)? @ -None Was patient admitted / discharged? @ -Discharged. Physical examination consistent with cutaneous candidiasis. This is present in the skin of the abdominal pannus and intertriginous regions of the groin. She was given a dose of Diflucan and I advised nystatin powder, however patient states that she does not like to use powder and only uses cream. She was subsequently given nystatin cream. She was given a prescription for Diflucan to be repeated in 72 hours if symptoms persist. She was sent home with the Nystatin cream to continue using 2-3x a day and I advised close follow up with her PCP. Patient discharged home in stable condition. Undiagnosed new problem with uncertain prognosis? @ -None Drug Therapy requiring intensive monitoring for toxicity (Heparin, Nitro, Insulin, Cardizem)? @ -None Were any procedures done? @ -None Diagnosis/symptom? @ -Cutaneous candidiasis Acute, or Chronic, or Acute on Chronic? @ -Acute Uncomplicated (without systemic symptoms) or Complicated (systemic symptoms)? @ -Uncomplicated Side effects of treatment? @ -None Exacerbation, Progression, or Severe Exacerbation] @ -Not applicable Poses a threat to life or bodily function? @ -No Return precautions reviewed in depth, the patient is instructed to return to the emergency department with any new, worsening, or concerning symptoms. Patient verbalized understanding. This case was discussed in detail with the attending ED physician, Dr. Melo. Presentation, findings, and treatment plan discussed in detail as well. Disposition Clinical Impression: Cutaneous candidiasis Disposition: HOME SELF-CARE Instructions (If sedation given, give patient instructions): Yeast Infection (ED), Skin Yeast Infection (ED) Additional Instructions: Return to the emergency department with any new, worsening, or concerning symptoms. Take the Diflucan in 3 days, on 11/19, if the rash is still present. Continue applying the Nystatin cream provided 2-3x daily. Follow up with your primary care provider in 1-2 days. Prescriptions: Fluconazole [Diflucan] 150 mg PO ONCE 1 Days #1 tab Is patient prescribed a controlled substance at d/c from ED?: No Referrals: Richard Montano MD [Primary Care Provider] - 1-2 days Time of Disposition: 09:58
[2023-11-16] MEDS: FLUCONAZOLE 150 MG TAB PO STA (09:55)
[2023-11-16] MEDS: NYSTATIN 100,000UNIT/GM CREAM 30 GM TUBE TOPICAL STA (10:12)
== END 2023-11-16 10:15 | disposition home or self-care (01) ==
LOC: EC 09:11
DX: B37.2 Candidiasis of skin and nail (principal); I10 Essential (primary) hypertension; E78.5 Hyperlipidemia, unspecified; Z79.82 Long term (current) use of aspirin; Z79.899 Other long term (current) drug therapy; Z88.1 Allergy status to other antibiotic agents; Z88.2 Allergy status to sulfonamides; Z88.6 Allergy status to analgesic agent
CPT/HCPCS: 99283

== ENCOUNTER 2023-11-24 11:26 | Emergency (ER) | payer MEDICARE, OTHER ==
[2023-11-24 12:25] VITALS: BP 124/80; PULSE 81; RESP 20; TEMP 97.6
--- NOTE | 2023-11-24 12:40 | ED ---
Skin/Abscess/FB HPI - General Chief complaint: Skin/Abscess/Foreign Body Stated complaint: Yeast Infection under R breast Time Seen by Provider: 11/24/23 12:00 Source: patient, RN notes reviewed Mode of arrival: ambulatory Limitations: no limitations - History of Present Illness Initial comments: Patient is a 68-year-old female presented to the ER with chief complaint of yeast infection under right breast. Patient states she was recently treated with Diflucan and nystatin cream. She states her genital yeast infection has improved but she she is still experiencing yeast infection under her right breast. She states she has been using arm and Hammer powder without relief. She states is extremely uncomfortable. Denies any fevers, chills, shortness of breath, chest pain, abdominal pain, urinary complaints or peripheral edema. - Related Data Home Medications Medication Instructions Recorded Confirmed Aspirin [[place] Aspirin EC] 81 mg PO HS 08/03/23 08/03/23 Atorvastatin [Lipitor] 10 mg PO HS 08/03/23 08/03/23 Furosemide [Lasix] 40 mg PO HS 08/03/23 08/03/23 HYDROcodone/APAP 7.5-325MG [[place] 1 tab PO BID PRN 08/03/23 08/03/23 7.5-325] diazePAM [Valium] 5 mg PO HS PRN 08/03/23 08/03/23 hydrALAZINE HCL [Apresoline] 25 mg PO HS 08/03/23 08/03/23 hydroCHLOROthiazide [Hydrodiuril] 25 mg PO HS 08/03/23 08/03/23 Previous Rx's Medication Instructions Recorded Nitrofurantoin Monohyd/M-Cryst 100 mg PO Q12HR #14 cap 08/03/23 [Macrobid] Cefuroxime [Ceftin] 500 mg PO BID 10 Days #40 tab 09/17/23 Nitrofurantoin Monohyd/M-Cryst 100 mg PO Q12HR 7 Days #14 cap 11/13/23 [Macrobid] Fluconazole [Diflucan] 150 mg PO ONCE 1 Days #1 tab 11/16/23 Fluconazole [Diflucan] 150 mg PO ONCE #2 tab 11/24/23 Nystatin 100,000 Unit/gm Powd 1 applic TOPICAL BID #15 gram 11/24/23 [Mycostatin Powder] Allergies Allergy/AdvReac Type Severity Reaction Status Date / Time ibuprofen [From Motrin] Allergy Rash/Hives Verified 11/16/23 09:22 sulfamethoxazole Allergy Rash/Hives Verified 11/16/23 09:22 [From Septra] trimethoprim [From Septra] Allergy Rash/Hives Verified 11/16/23 09:22 Review of Systems ROS Statement: Those systems with pertinent positive or pertinent negative responses have been documented in the HPI. ROS Other: All systems not noted in ROS Statement are negative. 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 Source:: MRSA-site unknonw; ESBL-Urine Past Surgical History: Section, Cholecystectomy Additional Past Surgical History / Comment(s): endometriosis Past Anesthesia/Blood Transfusion Reactions: No Reported Reaction Past Psychological History: No Psychological Hx Reported Smoking Status: Never smoker Past Alcohol Use History: None Reported Past Drug Use History: None Reported - Past Family History Mother Family Medical History: No Reported History Father Family Medical History: Coronary Artery Disease (CAD) General Exam Limitations: no limitations General appearance: alert, in no apparent distress Head exam: Present: atraumatic, normocephalic, normal inspection Eye exam: Present: normal appearance, PERRL, EOMI. Absent: scleral icterus, conjunctival injection, periorbital swelling Respiratory exam: Present: normal lung sounds bilaterally. Absent: respiratory distress, wheezes, rales, rhonchi, stridor Cardiovascular Exam: Present: regular rate, normal rhythm, normal heart sounds. Absent: systolic murmur, diastolic murmur, rubs, gallop, clicks GI/Abdominal exam: Present: soft, normal bowel sounds. Absent: distended, tenderness, guarding, rebound, rigid Neurological exam: Present: alert, oriented X3, CN II-XII intact Psychiatric exam: Present: normal affect, normal mood Skin exam: Present: warm, dry, intact, other (White moist plaque with surrounding erythema under right breast) Course Vital Signs 11/24/23 11:55 Temperature 97.6 F Pulse Rate 81 Respiratory 20 Rate Blood Pressure 124/80 O2 Sat by Pulse 96 Oximetry Medical Decision Making - Medical Decision Making Was pt. sent in by a medical professional or institution ([facility], [facility], urgent care, hospital, or long term...) When possible be specific @ -No Did you speak to anyone other than the patient for history (EMS, parent, family, police, friend...)? What history was obtained from this source @ -No Did you review nursing and triage notes (agree or disagree)? Why? @ -I reviewed and agree with nursing and triage notes Were old charts reviewed (outside hosp., previous admission, EMS record, old EKG, old radiological studies, urgent care reports/EKG's, long term records)? Report findings @ -Yes, reviewed ER visit from 11-16-2023 patient was diagnosed with cutaneous Zofia and prescribed Diflucan and nystatin cream. Differential Diagnosis (chest pain, altered mental status, abdominal pain women, abdominal pain men, vaginal bleeding, weakness, fever, dyspnea, syncope, headache, dizziness, GI bleed, back pain, seizure, CVA, palpatations, mental health, musculoskeletal)? @ -Cellulitis, Zofia, abrasion, wound, infection this list is not meant to be all-inclusive EKG interpreted by me (3pts min.). @ -None X-rays interpreted by me (1pt min.). @ -None done CT interpreted by me (1pt min.). @ -None done U/S interpreted by me (1pt. min.). @ -None done What testing was considered but not performed or refused? (CT, X-rays, U/S, labs)? Why? @ -None What meds were considered but not given or refused? Why? @ -None Did you discuss the management of the patient with other professionals (professionals i.e. [facility], [facility], lab, RT, psych nurse, family welfare social work professor, oven stripper, teacher, equal opportunity officer, case planner)? Give summary @ -No Was smoking cessation discussed for >3mins.? @ -No Was critical care preformed (if so, how long)? @ -No Were there social determinants of health that impacted care today? How? (Homelessness, low income, unemployed, alcoholism, drug addiction, transportation, low edu. Level, literacy, decrease access to med. care, chcf, rehab)? @ -No Was there de-escalation of care discussed even if they declined (Discuss DNR or withdrawal of care, Hospice)? DNR status @ -No What co-morbidities impacted this encounter? (DM, HTN, Smoking, COPD, CAD, Cancer, CVA, ARF, Chemo, Hep., AIDS, mental health diagnosis, sleep apnea, morbid obesity)? @ -Obese Was patient admitted / discharged? Hospital course, mention meds given and route, prescriptions, significant lab abnormalities, going to OR and other pertinent info. @ -Discharge. Patient is a 68-year-old female presented to the ER with chief complaint of yeast infection. History and physical exam completed. Vitals stable. Patient no signs of acute distress. Nontoxic-appearing. Patient did have moist white plaque under right breast with surrounding erythema. No other lesions present. She received by mouth Diflucan and Toradol for symptom control in the ER. I discussed with patient that it is important to keep area clean and dry and cream may not be appropriate as it keeps the area moist. Patient in agreement with nystatin powder. Patient prescribed nystatin powder and Diflucan. I advised her to keep area clean and dry. Return parameters discussed. Patient discharged stable condition follow-up PCP. Patient expressed understanding and agreement with care plan. Undiagnosed new problem with uncertain prognosis? @ -No Drug Therapy requiring intensive monitoring for toxicity (Heparin, Nitro, Insulin, Cardizem)? @ -No Were any procedures done? @ -No Diagnosis/symptom? @ -Cutaneous zofia Acute, or Chronic, or Acute on Chronic? @ -Acute Uncomplicated (without systemic symptoms) or Complicated (systemic symptoms)? @ -Uncomplicated Side effects of treatment? @ -No Exacerbation, Progression, or Severe Exacerbation? @ -No Poses a threat to life or bodily function? How? (Chest pain, [place], [place], pneumonia, PE, COPD, DKA, ARF, appy, cholecystitis, CVA, Diverticulitis, Homicidal, Suicidal, threat to staff... and all critical care pts) @ -No Disposition Clinical Impression: Cutaneous candidiasis Disposition: HOME SELF-CARE Condition: Stable Instructions (If sedation given, give patient instructions): Skin Yeast Infection (ED) Additional Instructions: Please follow-up with PCP. Return to ER for any new or worsening symptoms. Prescriptions: Fluconazole [Diflucan] 150 mg PO ONCE #2 tab Nystatin 100,000 Unit/gm Powd [Mycostatin Powder] 1 applic TOPICAL BID #15 gram Is patient prescribed a controlled substance at d/c from ED?: No Referrals: Richard Montano MD [Primary Care Provider] - 1-2 days Time of Disposition: 12:40
[2023-11-24] MEDS: KETOROLAC 15 MG/ML 1 ML VIAL IM STA (12:55)
[2023-11-24] MEDS: FLUCONAZOLE 150 MG TAB PO STA (12:57)
== END 2023-11-24 13:05 | disposition home or self-care (01) ==
LOC: EC 11:26
DX: B37.2 Candidiasis of skin and nail (principal); I10 Essential (primary) hypertension; E78.5 Hyperlipidemia, unspecified; Z79.82 Long term (current) use of aspirin; Z79.899 Other long term (current) drug therapy; Z88.1 Allergy status to other antibiotic agents; Z88.2 Allergy status to sulfonamides; Z88.6 Allergy status to analgesic agent
CPT/HCPCS: 99283; 96372; J1885

== ENCOUNTER 2024-01-07 12:26 | Emergency (ER) | payer MEDICARE, OTHER ==
--- NOTE | 2024-01-07 13:02 | ED ---
URI HPI - General Chief Complaint: Upper Respiratory Infection Stated Complaint: Throat Pain, Headache Time Seen by Provider: 01/07/24 12:41 Source: patient, RN notes reviewed Mode of arrival: ambulatory Limitations: no limitations - History of Present Illness Initial Comments: This is a 68-year-old female who presents to the emergency department for cou ghing, congestion, and a sore throat. Symptoms started 2 to 3 weeks ago. Denies any chest pain or shortness of breath. States that she is using her inhaler without any relief in symptoms. Also reports a headache. Denies any fever/chills or sick contacts. MD Complaint: cough, sore throat, nasal congestion - Related Data Home Medications Medication Instructions Recorded Confirmed Aspirin [[place] Aspirin EC] 81 mg PO HS 08/03/23 08/03/23 Atorvastatin [Lipitor] 10 mg PO HS 08/03/23 08/03/23 Furosemide [Lasix] 40 mg PO HS 08/03/23 08/03/23 HYDROcodone/APAP 7.5-325MG [[place] 1 tab PO BID PRN 08/03/23 08/03/23 7.5-325] diazePAM [Valium] 5 mg PO HS PRN 08/03/23 08/03/23 hydrALAZINE HCL [Apresoline] 25 mg PO HS 08/03/23 08/03/23 hydroCHLOROthiazide [Hydrodiuril] 25 mg PO HS 08/03/23 08/03/23 Previous Rx's Medication Instructions Recorded Nitrofurantoin Monohyd/M-Cryst 100 mg PO Q12HR #14 cap 08/03/23 [Macrobid] Cefuroxime [Ceftin] 500 mg PO BID 10 Days #40 tab 09/17/23 Nitrofurantoin Monohyd/M-Cryst 100 mg PO Q12HR 7 Days #14 cap 11/13/23 [Macrobid] Fluconazole [Diflucan] 150 mg PO ONCE 1 Days #1 tab 11/16/23 Fluconazole [Diflucan] 150 mg PO ONCE #2 tab 11/24/23 Nystatin 100,000 Unit/gm Powd 1 applic TOPICAL BID #15 gram 11/24/23 [Mycostatin Powder] Cephalexin [Keflex] 500 mg PO Q6HR 7 Days #28 cap 01/07/24 Promethazine/Dextromethorphan 5 ml PO Q4-6H PRN #473 ml 01/07/24 [Promethazine-Dm Syrup] Allergies Allergy/AdvReac Type Severity Reaction Status Date / Time ibuprofen [From Motrin] Allergy Rash/Hives Verified 11/16/23 09:22 sulfamethoxazole Allergy Rash/Hives Verified 11/16/23 09:22 [From Septra] trimethoprim [From Septra] Allergy Rash/Hives Verified 11/16/23 09:22 amoxicillin [From Augmentin] AdvReac Nausea & Verified 01/07/24 14:18 Vomiting & Diarrhea clavulanic acid AdvReac Nausea & Verified 01/07/24 14:18 [From Augmentin] Vomiting & Diarrhea Review of Systems ROS Statement: Those systems with pertinent positive or pertinent negative responses have been documented in the HPI. ROS Other: All systems not noted in ROS Statement are negative. 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 Source:: MRSA-site unknonw; ESBL-Urine Past Surgical History: Section, Cholecystectomy Additional Past Surgical History / Comment(s): endometriosis Past Anesthesia/Blood Transfusion Reactions: No Reported Reaction Past Psychological History: No Psychological Hx Reported Smoking Status: Never smoker Past Alcohol Use History: None Reported Past Drug Use History: None Reported - Past Family History Mother Family Medical History: No Reported History Father Family Medical History: Coronary Artery Disease (CAD) General Exam Limitations: no limitations General appearance: alert, in no apparent distress Head exam: Present: atraumatic, normocephalic, normal inspection ENT exam: Present: normal oropharynx, mucous membranes moist, TM's normal bilaterally Respiratory exam: Present: normal lung sounds bilaterally. Absent: respiratory distress, wheezes, rales, rhonchi, stridor Cardiovascular Exam: Present: regular rate, normal rhythm, normal heart sounds. Absent: systolic murmur, diastolic murmur, rubs, gallop, clicks Neurological exam: Present: alert, oriented X3, CN II-XII intact Psychiatric exam: Present: normal affect, normal mood Skin exam: Present: warm, dry, intact, normal color. Absent: rash Course Vital Signs 01/07/24 01/07/24 01/07/24 12:38 12:59 14:23 Temperature 97.4 F L 98.1 F Pulse Rate 77 76 Respiratory 20 18 18 Rate Blood Pressure 134/84 126/78 O2 Sat by Pulse 96 97 Oximetry Medical Decision Making - Medical Decision Making This is a 68 year old female who presents to the emergency department for coughing and congestion. Was pt. sent in by a medical professional or institution? @ -No Did you speak to anyone other than the patient for history? @ -No Did you review nursing and triage notes? @ -Yes, and I agree, it is accurate with regards to the patient's symptoms. Were old charts reviewed? @ -No Differential Diagnosis? @ -Differential Cough: Influenza, Covid, RSV, croup, allergic rhinitis, GERD, pneumonia, bronchitis, COPD, viral pharyngitis, streptococcal pharyngitis, this is not meant to be an all-inclusive list. EKG interpreted by me (3pts min.)? @ -Not obtained X-rays interpreted by me (1pt min.)? @ -Chest x-ray obtained, my interpretation identifies no localized consolidations or infiltrates. CT interpreted by me (1pt min.)? @ -Not obtained U/S interpreted by me (1pt. min.)? @ -Not obtained What testing was considered but not performed? (CT, X-rays, U/S, labs)? Why? @ -None What meds were considered but not given? Why? @ -None Did you discuss the management of the patient with other professionals? @ -No Did you reconcile home meds? @ -No Was smoking cessation discussed for >3mins.? @ -No Was critical care preformed (if so, how long)? @ -No Were there social determinants of health that impacted care today? How? (Homelessness, low income, unemployed, alcoholism, drug addiction, transportation, low edu. Level, literacy, decrease access to med. care, detention, rehab)? @ -No Was there de-escalation of care discussed even if they declined? (Discuss DNR or withdrawal of care, Hospice)? @ -No What co-morbidities impacted this encounter? (DM, HTN, Smoking, COPD, CAD, Cancer, CVA, Hep., AIDS, mental health diagnosis, sleep apnea, morbid obesity)? @ -None Was patient admitted / discharged? @ -Discharged. COVID, influenza, and RSV testing were negative. Rapid strep test negative. Chest x-ray reveals no acute process. Toradol and Mucinex administered in the emergency department. Advised that given the duration of her symptoms being 2-3 weeks, we can start her on antibiotic management if she would like, with the understanding that if this is viral, it will not offer any benefit. Patient expresses understanding and requests to proceed. Rx for Keflex and Promethazine DM cough syrup provided with dosing instructions reviewed. Patient discharged home in stable condition and advised to follow up with her PCP. Undiagnosed new problem with uncertain prognosis? @ -None Drug Therapy requiring intensive monitoring for toxicity (Heparin, Nitro, Insulin, Cardizem)? @ -None Were any procedures done? @ -None Diagnosis/symptom? @ -Bronchitis Acute, or Chronic, or Acute on Chronic? @ -Acute Uncomplicated (without systemic symptoms) or Complicated (systemic symptoms)? @ -Uncomplicated Side effects of treatment? @ -None Exacerbation, Progression, or Severe Exacerbation] @ -Not applicable Poses a threat to life or bodily function? @ -No Return precautions reviewed in depth, the patient is instructed to return to the emergency department with any new, worsening, or concerning symptoms. Patient verbalized understanding. This case was discussed in detail with the attending ED physician, Dr. Faye. Presentation, findings, and treatment plan discussed in detail as well. - Lab Data Lab Results 01/07/24 01/07/24 Range/Units 12:57 12:57 Influenza Type A (PCR) Not Detected (Not Detectd) Influenza Type B (PCR) Not Detected (Not Detectd) RSV (PCR) Not Detected (Not Detectd) SARS-CoV-2 (PCR) Not Detected (Not Detectd) Group A Strep (PCR) NOT DETECTED (Not Detectd) - Radiology Data Radiology results: report reviewed, image reviewed Disposition Clinical Impression: Bronchitis Disposition: HOME SELF-CARE Instructions (If sedation given, give patient instructions): Acute Bronchitis (ED) Additional Instructions: Return to the emergency department with any new, worsening, or concerning symptoms. Take the antibiotic as prescribed for 7 days. You can take the cough medication every 4-6 hours as needed. Follow up with your primary care provider in 1-2 days. Prescriptions: Cephalexin [Keflex] 500 mg PO Q6HR 7 Days #28 cap Promethazine/Dextromethorphan [Promethazine-Dm Syrup] 5 ml PO Q4-6H PRN #473 ml PRN Reason: Cough Is patient prescribed a controlled substance at d/c from ED?: No Referrals: Richard Montano MD [Primary Care Provider] - 1-2 days Time of Disposition: 14:05
[2024-01-07] MEDS: KETOROLAC 15 MG/ML 1 ML VIAL IM STA (13:09)
[2024-01-07] MEDS: guaiFENesin-DM 600/30MG 1 EACH TAB.ER.12H PO ONE (13:11)
[2024-01-07 13:23] VITALS: RESP 18
--- NOTE | 2024-01-07 13:24 | XR ---
EXAMINATION TYPE: XR chest 2V DATE OF EXAM: 01/07/2024 1:16 PM CLINICAL INDICATION:Female, 68 years old with history of Cough, ASHLEY; COMPARISON: Chest radiographs from 08/03/2023. TECHNIQUE: XR chest 2V Frontal and lateral views of the chest. FINDINGS: Lungs/Pleura: There is no evidence of pleural effusion, focal consolidation, or pneumothorax. Pulmonary vascularity: Unremarkable. Heart/mediastinum: Cardiomediastinal silhouette is unremarkable. Musculoskeletal: No acute osseous pathology. IMPRESSION: No acute cardiopulmonary disease/process.
[2024-01-07] MEDS: DEXAMETHASONE SOD PHOSPHATE 10 MG/ML 1 ML VIAL IM STA (14:18)
[2024-01-07 14:49] VITALS: BP 126/78; PULSE 76; TEMP 98.1
== END 2024-01-07 14:24 | disposition home or self-care (01) ==
LOC: EC 12:26
DX: J40 Bronchitis, not specified as acute or chronic (principal); Z88.0 Allergy status to penicillin; Z88.1 Allergy status to other antibiotic agents; Z88.2 Allergy status to sulfonamides; Z88.6 Allergy status to analgesic agent; Z90.49 Acquired absence of other specified parts of digestive tract
CPT/HCPCS: 87651; 87636; 71046; 99283; 96372 ×2; J1100; J1885

== ENCOUNTER 2024-02-13 16:26 | Emergency (ER) | payer MEDICARE, OTHER ==
--- NOTE | 2024-02-13 17:13 | ED ---
General Adult HPI - General Chief complaint: Headache Stated complaint: Headache Time Seen by Provider: 02/13/24 17:10 Source: patient, RN notes reviewed Mode of arrival: ambulatory - History of Present Illness Initial comments: 68 year old female presents to the emergency department for evaluation of possible cutaneous yeast infection. She states that it has been present for a round 5 days. She reports that it is in her groin. Patient has a history of yeast infections to her skin. She reports that they are usually resolved by diflucan and nystatin powder. She does not have any nystatin powder so she has been using over the counter powder. She has not had any recent lab work done. Denies any history of renal or hepatic impairment. Denies fever, chills. Admits to mild headache. She states that this has been going on for 3 days and is typical for her. She states that her headaches are usually resolved with toradol. - Related Data Home Medications Medication Instructions Recorded Confirmed Aspirin [[place] Aspirin EC] 81 mg PO HS 08/03/23 08/03/23 Atorvastatin [Lipitor] 10 mg PO HS 08/03/23 08/03/23 Furosemide [Lasix] 40 mg PO HS 08/03/23 08/03/23 HYDROcodone/APAP 7.5-325MG [[place] 1 tab PO BID PRN 08/03/23 08/03/23 7.5-325] diazePAM [Valium] 5 mg PO HS PRN 08/03/23 08/03/23 hydrALAZINE HCL [Apresoline] 25 mg PO HS 08/03/23 08/03/23 hydroCHLOROthiazide [Hydrodiuril] 25 mg PO HS 08/03/23 08/03/23 Previous Rx's Medication Instructions Recorded Nitrofurantoin Monohyd/M-Cryst 100 mg PO Q12HR #14 cap 08/03/23 [Macrobid] Cefuroxime [Ceftin] 500 mg PO BID 10 Days #40 tab 09/17/23 Nitrofurantoin Monohyd/M-Cryst 100 mg PO Q12HR 7 Days #14 cap 11/13/23 [Macrobid] Fluconazole [Diflucan] 150 mg PO ONCE 1 Days #1 tab 11/16/23 Fluconazole [Diflucan] 150 mg PO ONCE #2 tab 11/24/23 Nystatin 100,000 Unit/gm Powd 1 applic TOPICAL BID #15 gram 03/02/24 [Mycostatin Powder] Cephalexin [Keflex] 500 mg PO Q6HR 7 Days #28 cap 01/07/24 Promethazine/Dextromethorphan 5 ml PO Q4-6H PRN #473 ml 01/07/24 [Promethazine-Dm Syrup] Fluconazole [Diflucan] 150 mg PO ONCE #1 tab 02/13/24 Nystatin 100,000 Unit/gm Powd 1 applic TOPICAL BID #15 gram 02/13/24 [Mycostatin Powder] Allergies Allergy/AdvReac Type Severity Reaction Status Date / Time ibuprofen [From Motrin] Allergy Rash/Hives Verified 02/13/24 16:49 sulfamethoxazole Allergy Rash/Hives Verified 02/13/24 16:49 [From Septra] trimethoprim [From Septra] Allergy Rash/Hives Verified 02/13/24 16:49 amoxicillin [From Augmentin] AdvReac Nausea & Verified 02/13/24 16:49 Vomiting & Diarrhea clavulanic acid AdvReac Nausea & Verified 02/13/24 16:49 [From Augmentin] Vomiting & Diarrhea Review of Systems ROS Statement: Those systems with pertinent positive or pertinent negative responses have been documented in the HPI. ROS Other: All systems not noted in ROS Statement are negative. 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 Source:: MRSA-site unknonw; ESBL-Urine Past Surgical History: Section, Cholecystectomy Additional Past Surgical History / Comment(s): endometriosis Past Anesthesia/Blood Transfusion Reactions: No Reported Reaction Past Psychological History: No Psychological Hx Reported Smoking Status: Never smoker Past Alcohol Use History: None Reported Past Drug Use History: None Reported - Past Family History Mother Family Medical History: No Reported History Father Family Medical History: Coronary Artery Disease (CAD) General Exam Limitations: no limitations General appearance: alert, in no apparent distress Head exam: Present: atraumatic, normocephalic, normal inspection Eye exam: Present: normal appearance, PERRL, EOMI. Absent: scleral icterus, conjunctival injection, periorbital swelling ENT exam: Present: normal exam, mucous membranes moist Neck exam: Present: normal inspection. Absent: tenderness, meningismus, lymphadenopathy Respiratory exam: Present: normal lung sounds bilaterally. Absent: respiratory distress, wheezes, rales, rhonchi, stridor Cardiovascular Exam: Present: regular rate, normal rhythm, normal heart sounds. Absent: systolic murmur, diastolic murmur, rubs, gallop, clicks GI/Abdominal exam: Present: soft, normal bowel sounds. Absent: distended, tenderness, guarding, rebound, rigid Extremities exam: Present: normal inspection, full ROM, normal capillary refill. Absent: tenderness, pedal edema, joint swelling, calf tenderness Neurological exam: Present: alert, oriented X3 Psychiatric exam: Present: normal affect, normal mood Skin exam: Present: warm, dry, rash, erythema (candidal rash in inguinal folds ). Absent: normal color Course Vital Signs 02/13/24 02/13/24 16:43 18:53 Temperature 98.2 F Pulse Rate 72 72 Respiratory 16 18 Rate Blood Pressure 127/85 130/80 O2 Sat by Pulse 95 99 Oximetry Medical Decision Making - Medical Decision Making Was pt. sent in by a medical professional or institution (, PA, CASTING MACHINE OPERATOR, urgent care, hospital, or detention...) When possible be specific @ -No Did you speak to anyone other than the patient for history (EMS, parent, family, police, friend...)? What history was obtained from this source @ -No Did you review nursing and triage notes (agree or disagree)? Why? @ -I reviewed and agree with nursing and triage notes Were old charts reviewed (outside hosp., previous admission, EMS record, old EKG, old radiological studies, urgent care reports/EKG's, detention records)? Report findings @ -No old charts were reviewed Differential Diagnosis (chest pain, altered mental status, abdominal pain women, abdominal pain men, vaginal bleeding, weakness, fever, dyspnea, syncope, headache, dizziness, GI bleed, back pain, seizure, CVA, palpatations, mental health, musculoskeletal)? @ -Differential Headache: Migraine, tension, cluster, carbon monoxide, central venous thrombosis, pension karma temporal arteritis, acute closure glaucoma, intercranial hemorrhage, mastoiditis, sinusitis, head injury, this is not meant to be an all-inclusive list. EKG interpreted by me (3pts min.). @ -None X-rays interpreted by me (1pt min.). @ -None done CT interpreted by me (1pt min.). @ -None done U/S interpreted by me (1pt. min.). @ -None done What testing was considered but not performed or refused? (CT, X-rays, U/S, labs)? Why? @ -None What meds were considered but not given or refused? Why? @ -None Did you discuss the management of the patient with other professionals (professionals i.e. , PA, CASTING MACHINE OPERATOR, lab, RT, psych nurse, social services technician, chief of anesthesiology, teacher, account officer, case packer and sealer)? Give summary @ -No Was smoking cessation discussed for >3mins.? @ -No Was critical care preformed (if so, how long)? @ -No Were there social determinants of health that impacted care today? How? (Homelessness, low income, unemployed, alcoholism, drug addiction, transportation, low edu. Level, literacy, decrease access to med. care, long-term, rehab)? @ -No Was there de-escalation of care discussed even if they declined (Discuss DNR or withdrawal of care, Hospice)? DNR status @ -No What co-morbidities impacted this encounter? (DM, HTN, Smoking, COPD, CAD, Cancer, CVA, ARF, Chemo, Hep., AIDS, mental health diagnosis, sleep apnea, m orbid obesity)? @ -None Was patient admitted / discharged? Hospital course, mention meds given and route, prescriptions, significant lab abnormalities, going to OR and other pertinent info. @ -Discharged. Patient presented to the emergency department for evaluation of yeast infection. She reports a history of recurrent yeast infections. She denies fever, chills. Admits to slight headache. Laboratory studies obtained. CBC unremarkable, slight elevation BUN, creatinine. Patient was provided 1 L normal saline, toradol, dose of oral diflucan in the ED. prescription sent to patient's pharmacy for nystatin powder. Advised to keep area clean and dry and utilize the powder. Advised to follow-up with her PCP. Patient understanding and agreeable plan. Patient stable at time of discharge. Case discussed with Dr. Yang Undiagnosed new problem with uncertain prognosis? @ -No Drug Therapy requiring intensive monitoring for toxicity (Heparin, Nitro, Insulin, Cardizem)? @ -No Were any procedures done? @ -No Diagnosis/symptom? @ -Cutaneous candidiasis Acute, or Chronic, or Acute on Chronic? @ -Acute Uncomplicated (without systemic symptoms) or Complicated (systemic symptoms)? @ -uncomplicated Side effects of treatment? @ -No Exacerbation, Progression, or Severe Exacerbation? @ -No Poses a threat to life or bodily function? How? (Chest pain, [place], [place], pneumonia, PE, COPD, DKA, ARF, appy, cholecystitis, CVA, Diverticulitis, Homicidal, Suicidal, threat to staff... and all critical care pts) @ -No - Lab Data Result diagrams: 02/13/24 17:55 02/13/24 17:55 Lab Results 02/13/24 02/13/24 Range/Units 17:55 17:55 WBC 4.1 (3.8-10.6) k/uL RBC 4.00 (3.80-5.40) m/uL Hgb 12.4 (11.4-16.0) gm/dL Hct 37.3 (34.0-46.0) % MCV 93.3 (80.0-100.0) fL MCH 30.9 (25.0-35.0) pg MCHC 33.1 (31.0-37.0) g/dL RDW 13.2 (11.5-15.5) % Plt Count 238 (150-450) k/uL MPV 8.3 Neutrophils % 51 % Lymphocytes % 31 % Monocytes % 6 % Eosinophils % 8 % Basophils % 1 % Neutrophils # 2.1 (1.3-7.7) k/uL Lymphocytes # 1.3 (1.0-4.8) k/uL Monocytes # 0.3 (0-1.0) k/uL Eosinophils # 0.3 (0-0.7) k/uL Basophils # 0.0 (0-0.2) k/uL Sodium 144 (137-145) mmol/L Potassium 4.8 (3.5-5.1) mmol/L Chloride 110 H (98-107) mmol/L Carbon Dioxide 30 (22-30) mmol/L Anion Gap 4 mmol/L BUN 21 H (7-17) mg/dL Creatinine 1.43 H (0.52-1.04) mg/dL Est GFR (CKD-EPI)AfAm 44 (>60 ml/min/1.73 sqM) Est GFR (CKD-EPI)NonAf 38 (>60 ml/min/1.73 sqM) Glucose 108 H (74-99) mg/dL Calcium 9.0 (8.4-10.2) mg/dL Total Bilirubin 0.5 (0.2-1.3) mg/dL AST 39 H (14-36) U/L ALT 18 (4-34) U/L Alkaline Phosphatase 90 (38-126) U/L Total Protein 6.3 (6.3-8.2) g/dL Albumin 3.8 (3.5-5.0) g/dL Disposition Clinical Impression: Cutaneous candidiasis, Zofia rash of groin Disposition: HOME SELF-CARE Condition: Stable Instructions (If sedation given, give patient instructions): Acute Headache (ED), Skin Yeast Infection (ED) Additional Instructions: Utilize nystatin powder. Keep area clean and dry. Please follow up with your primary care provider. Return to the emergency department for new or worsening symptoms. Prescriptions: Fluconazole [Diflucan] 150 mg PO ONCE #1 tab Nystatin 100,000 Unit/gm Powd [Mycostatin Powder] 1 applic TOPICAL BID #15 gram Is patient prescribed a controlled substance at d/c from ED?: No Referrals: Richard Montano MD [Primary Care Provider] - 1-2 days
[2024-02-13 17:14] VITALS: PULSE 72; TEMP 98.2
[2024-02-13] MEDS: KETOROLAC 15 MG/ML 1 ML VIAL IVP STA (18:03)
[2024-02-13 18:10] LABS: Basophils % (A) 1 %; Eosinophils # (A) 0.3 k/uL (0-0.7); Eosinophils % (A) 8 %; HCT 37.3 % (34.0-46.0); HGB 12.4 gm/dL (11.4-16.0); Lymphocytes # (A) 1.3 k/uL (1.0-4.8); Lymphocytes % (A) 31 %; MCH 30.9 pg (25.0-35.0); MCHC 33.1 g/dL (31.0-37.0); MCV 93.3 fL (80.0-100.0); Mean Platelet Volume 8.3; Monocytes # (A) 0.3 k/uL (0-1.0); Monocytes % (A) 6 %; Neutrophils # (A) 2.1 k/uL (1.3-7.7); Neutrophils % (A) 51 %; Platelet Count 238 k/uL (150-450); RDW 13.2 % (11.5-15.5); WBC 4.1 k/uL (3.8-10.6)
[2024-02-13 18:21] LABS: ALT 18 U/L (4-34); AST 39 U/L (14-36); African American GFR (CKD) 44 (>60 ml/min/1.73 sqM); Albumin 3.8 g/dL (3.5-5.0); Alkaline Phosphatase 90 U/L (38-126); Anion Gap 4 mmol/L; Blood Urea Nitrogen 21 mg/dL (7-17); Carbon Dioxide 30 mmol/L (22-30); Chloride 110 mmol/L (98-107); Glucose 108 mg/dL (74-99); Non-African American GFR(CKD) 38 (>60 ml/min/1.73 sqM); Potassium 4.8 mmol/L (3.5-5.1); Sodium 144 mmol/L (137-145); Total Bilirubin 0.5 mg/dL (0.2-1.3); Total Protein 6.3 g/dL (6.3-8.2)
[2024-02-13] MEDS: MAG HYDROX/AL HYDROX/SIMETH 30 ML, HYOSCYAMINE ELIXIR 10 ML, LIDOCAINE VISCOUS 2% 10 ML PO STA (18:46)
[2024-02-13] MEDS: SODIUM CHLORIDE 0.9% 1,000 ML IV ONE (18:51)
[2024-02-13] MEDS: FLUCONAZOLE 150 MG TAB PO STA (19:33)
[2024-02-13 19:35] VITALS: BP 130/80; RESP 18
== END 2024-02-13 20:21 | disposition home or self-care (01) ==
LOC: EC 16:26
DX: B37.2 Candidiasis of skin and nail (principal); B35.6 Tinea cruris; Z88.6 Allergy status to analgesic agent; Z88.2 Allergy status to sulfonamides; Z88.1 Allergy status to other antibiotic agents; Z88.0 Allergy status to penicillin; Z88.8 Allergy status to other drugs, medicaments and biological substances
CPT/HCPCS: 36415; 80053; 85025; 99284; 96374; 96361; J1885

== ENCOUNTER 2024-02-29 13:13 | Emergency (ER) | payer MEDICARE, OTHER ==
[2024-02-29 13:17] VITALS: PULSE 76
--- NOTE | 2024-02-29 14:11 | ED ---
Headache HPI - General Chief Complaint: Headache Stated Complaint: Rash,headache Time Seen by Provider: 02/29/24 14:08 Source: patient, RN notes reviewed Mode of arrival: ambulatory Limitations: no limitations - History of Present Illness Initial Comments: 69-year-old female presented to the ER with a chief complaint of rash and headache. Patient reports for the past 2 days she has been endorsing a headache. She believes it is from her allergies and the weather. She reports the headache onset was gradual in onset. She denies any nausea, vomiting, double/blurry vision or neck pain. Patient also reports a red burning rash underneath her breast. She states she has a history of yeast infections and has been using [id number] ketoconazole ointment without relief. She denies any fevers, chills, chest pain, shortness of breath, abdominal pain or peripheral edema. - Related Data Home Medications Medication Instructions Recorded Confirmed Aspirin [[place] Aspirin EC] 81 mg PO HS 08/03/23 08/03/23 Atorvastatin [Lipitor] 10 mg PO HS 08/03/23 08/03/23 Furosemide [Lasix] 40 mg PO HS 08/03/23 08/03/23 HYDROcodone/APAP 7.5-325MG [[place] 1 tab PO BID PRN 08/03/23 08/03/23 7.5-325] diazePAM [Valium] 5 mg PO HS PRN 08/03/23 08/03/23 hydrALAZINE HCL [Apresoline] 25 mg PO HS 08/03/23 08/03/23 hydroCHLOROthiazide [Hydrodiuril] 25 mg PO HS 08/03/23 08/03/23 Previous Rx's Medication Instructions Recorded Nitrofurantoin Monohyd/M-Cryst 100 mg PO Q12HR #14 cap 08/03/23 [Macrobid] Cefuroxime [Ceftin] 500 mg PO BID 10 Days #40 tab 09/17/23 Nitrofurantoin Monohyd/M-Cryst 100 mg PO Q12HR 7 Days #14 cap 11/13/23 [Macrobid] Fluconazole [Diflucan] 150 mg PO ONCE 1 Days #1 tab 11/16/23 Fluconazole [Diflucan] 150 mg PO ONCE #2 tab 11/24/23 Nystatin 100,000 Unit/gm Powd 1 applic TOPICAL BID #15 gram 11/24/23 [Mycostatin Powder] Cephalexin [Keflex] 500 mg PO Q6HR 7 Days #28 cap 01/07/24 Promethazine/Dextromethorphan 5 ml PO Q4-6H PRN #473 ml 01/07/24 [Promethazine-Dm Syrup] Fluconazole [Diflucan] 150 mg PO ONCE #1 tab 02/13/24 Nystatin 100,000 Unit/gm Powd 1 applic TOPICAL BID #15 gram 02/13/24 [Mycostatin Powder] Fluconazole [Diflucan] 150 mg PO ONCE 1 Days #1 tab 02/29/24 Ketorolac [Toradol] 10 mg PO Q8HR #15 tab 02/29/24 Nystatin [Nystop] 1 applic TOPICAL BID 10 Days #30 gm 02/29/24 Allergies Allergy/AdvReac Type Severity Reaction Status Date / Time ibuprofen [From Motrin] Allergy Rash/Hives Verified 02/29/24 13:17 sulfamethoxazole Allergy Rash/Hives Verified 02/29/24 13:17 [From Septra] trimethoprim [From Septra] Allergy Rash/Hives Verified 02/29/24 13:17 amoxicillin [From Augmentin] AdvReac Nausea & Verified 02/29/24 13:17 Vomiting & Diarrhea clavulanic acid AdvReac Nausea & Verified 02/29/24 13:17 [From Augmentin] Vomiting & Diarrhea Review of Systems ROS Statement: Those systems with pertinent positive or pertinent negative responses have been documented in the HPI. ROS Other: All systems not noted in ROS Statement are negative. 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 Source:: MRSA-site unknonw; ESBL-Urine Past Surgical History: Section, Cholecystectomy Additional Past Surgical History / Comment(s): endometriosis Past Anesthesia/Blood Transfusion Reactions: No Reported Reaction Past Psychological History: No Psychological Hx Reported Smoking Status: Never smoker Past Alcohol Use History: None Reported Past Drug Use History: None Reported - Past Family History Mother Family Medical History: No Reported History Father Family Medical History: Coronary Artery Disease (CAD) General Exam Limitations: no limitations General appearance: alert, in no apparent distress Head exam: Present: atraumatic, normocephalic, normal inspection Eye exam: Present: normal appearance, PERRL, EOMI. Absent: scleral icterus, conjunctival injection, periorbital swelling Pupils: Present: normal accommodation (4mm) ENT exam: Present: normal exam, normal oropharynx, mucous membranes moist, TM's normal bilaterally Neck exam: Present: normal inspection. Absent: tenderness, meningismus, lymphadenopathy Respiratory exam: Present: normal lung sounds bilaterally. Absent: respiratory distress, wheezes, rales, rhonchi, stridor Cardiovascular Exam: Present: regular rate, normal rhythm, normal heart sounds. Absent: systolic murmur, diastolic murmur, rubs, gallop, clicks Neurological exam: Present: alert, oriented X3, CN II-XII intact Skin exam: Present: warm, dry, intact, normal color, rash (Candidal rash under bilateral breast.) Course Vital Signs 02/29/24 02/29/24 13:15 15:49 Temperature 98.1 F 98.2 F Pulse Rate 76 76 Respiratory 20 18 Rate Blood Pressure 153/83 142/79 O2 Sat by Pulse 97 97 Oximetry Medical Decision Making - Medical Decision Making Was pt. sent in by a medical professional or institution (, PA, HAMPER MAKER MACHINE, urgent care, hospital, or [facility]...) When possible be specific @ -No Did you speak to anyone other than the patient for history (EMS, parent, family, police, friend...)? What history was obtained from this source @ -No Did you review nursing and triage notes (agree or disagree)? Why? @ -I reviewed and agree with nursing and triage notes Were old charts reviewed (outside hosp., previous admission, EMS record, old EKG, old radiological studies, urgent care reports/EKG's, [facility] records)? Report findings @ -No old charts were reviewed Differential Diagnosis (chest pain, altered mental status, abdominal pain women, abdominal pain men, vaginal bleeding, weakness, fever, dyspnea, syncope, headache, dizziness, GI bleed, back pain, seizure, CVA, palpatations, mental health, musculoskeletal)? @ -Cutaneous Zofia, Uticaria, abrasion this list is not meant to be all inclusive EKG interpreted by me (3pts min.). @ -None X-rays interpreted by me (1pt min.). @ -None done CT interpreted by me (1pt min.). @ -None done U/S interpreted by me (1pt. min.). @ -None done What testing was considered but not performed or refused? (CT, X-rays, U/S, labs)? Why? @ -None What meds were considered but not given or refused? Why? @ -None Did you discuss the management of the patient with other professionals (professionals i.e. , PA, HAMPER MAKER MACHINE, lab, RT, psych nurse, social work instructor, presiding judge, teacher, property portfolio officer, case assistant)? Give summary @ -No Was smoking cessation discussed for >3mins.? @ -No Was critical care preformed (if so, how long)? @ -No Were there social determinants of health that impacted care today? How? (Homelessness, low income, unemployed, alcoholism, drug addiction, transportation, low edu. Level, literacy, decrease access to med. care, nursing home, rehab)? @ -No Was there de-escalation of care discussed even if they declined (Discuss DNR or withdrawal of care, Hospice)? DNR status @ -No What co-morbidities impacted this encounter? (DM, HTN, Smoking, COPD, CAD, Cancer, CVA, ARF, Chemo, Hep., AIDS, mental health diagnosis, sleep apnea, morbid obesity)? @ -None Was patient admitted / discharged? Hospital course, mention meds given and route, prescriptions, significant lab abnormalities, going to OR and other pertinent info. @ -Discharge. 69-year-old female presented to the ER with a chief complaint of rash and headache. History and physical exam completed. Vitals stable. Patient no signs of acute distress and nontoxic-appearing. No acute neurological findings on exam. There was a rash consistent with a candidal infection under bilateral breasts. Lung sounds clear to station bilaterally. Laboratory studies obtained unremarkable. Patient received 1 L IV fluids, Zofran and Toradol with improvement of headache. On reevaluation, patient resting comfortably in exam room eager for discharge. Diflucan prescribed, first dose in the ER. Nystatin powder and Toradol also prescribed. I advised patient to keep under bilateral breast clean and dry. Patient stable for discharge. Strict return parameters discussed. Patient discharged stable condition follow-up to PCP. Patient verbally expressed understanding and agreement with care plan. Case discussed with ED attending, Dr. Melo. Undiagnosed new problem with uncertain prognosis? @ -No Drug Therapy requiring intensive monitoring for toxicity (Heparin, Nitro, Insulin, Cardizem)? @ -No Were any procedures done? @ -No Diagnosis/symptom? @ -Cutaneous Zofia/headache Acute, or Chronic, or Acute on Chronic? @ -Acute Uncomplicated (without systemic symptoms) or Complicated (systemic symptoms)? @ -Uncomplicated Side effects of treatment? @ -No Exacerbation, Progression, or Severe Exacerbation? @ -No Poses a threat to life or bodily function? How? (Chest pain, [place], [place], pneumonia, PE, COPD, DKA, ARF, appy, cholecystitis, CVA, Diverticulitis, Homicidal, Suicidal, threat to staff... and all critical care pts) @ -No - Lab Data Result diagrams: 02/29/24 14:26 02/29/24 14:26 Lab Results 02/29/24 02/29/24 Range/Units 14:26 14:26 WBC 4.5 (3.8-10.6) k/uL RBC 3.98 (3.80-5.40) m/uL Hgb 12.0 (11.4-16.0) gm/dL Hct 37.2 (34.0-46.0) % MCV 93.5 (80.0-100.0) fL MCH 30.2 (25.0-35.0) pg MCHC 32.3 (31.0-37.0) g/dL RDW 13.2 (11.5-15.5) % Plt Count 283 (150-450) k/uL MPV 8.1 Neutrophils % 49 % Lymphocytes % 35 % Monocytes % 5 % Eosinophils % 9 % Basophils % 1 % Neutrophils # 2.2 (1.3-7.7) k/uL Lymphocytes # 1.6 (1.0-4.8) k/uL Monocytes # 0.2 (0-1.0) k/uL Eosinophils # 0.4 (0-0.7) k/uL Basophils # 0.0 (0-0.2) k/uL Sodium 139 (137-145) mmol/L Potassium 4.4 (3.5-5.1) mmol/L Chloride 107 (98-107) mmol/L Carbon Dioxide 27 (22-30) mmol/L Anion Gap 5 mmol/L BUN 22 H (7-17) mg/dL Creatinine 0.72 (0.52-1.04) mg/dL Est GFR (CKD-EPI)AfAm >90 (>60 ml/min/1.73 sqM) Est GFR (CKD-EPI)NonAf 87 (>60 ml/min/1.73 sqM) Glucose 101 H (74-99) mg/dL Calcium 9.2 (8.4-10.2) mg/dL Total Bilirubin 0.5 (0.2-1.3) mg/dL AST 27 (14-36) U/L ALT 10 (4-34) U/L Alkaline Phosphatase 105 (38-126) U/L Total Protein 6.1 L (6.3-8.2) g/dL Albumin 3.9 (3.5-5.0) g/dL Disposition Clinical Impression: Cutaneous candidiasis, Headache Disposition: HOME SELF-CARE Condition: Stable Instructions (If sedation given, give patient instructions): Yeast Infection (ED) Additional Instructions: Follow-up with primary care physician. Return to the ER for any new or worsening concerns. Prescriptions: Fluconazole [Diflucan] 150 mg PO ONCE 1 Days #1 tab Nystatin [Nystop] 1 applic TOPICAL BID 10 Days #30 gm Ketorolac [Toradol] 10 mg PO Q8HR #15 tab Is patient prescribed a controlled substance at d/c from ED?: No Referrals: Richard Montano MD [Primary Care Provider] - 1-2 days Time of Disposition: 15:26
[2024-02-29] MEDS: ONDANSETRON 4 MG/2 ML VIAL IVP STA (14:38)
[2024-02-29] MEDS: SODIUM CHLORIDE 0.9% 500 ML 500 ML IV STA (14:38)
[2024-02-29 14:40] LABS: Basophils % (A) 1 %; Eosinophils # (A) 0.4 k/uL (0-0.7); Eosinophils % (A) 9 %; HCT 37.2 % (34.0-46.0); Lymphocytes # (A) 1.6 k/uL (1.0-4.8); Lymphocytes % (A) 35 %; MCH 30.2 pg (25.0-35.0); MCHC 32.3 g/dL (31.0-37.0); MCV 93.5 fL (80.0-100.0); Mean Platelet Volume 8.1; Monocytes # (A) 0.2 k/uL (0-1.0); Monocytes % (A) 5 %; Neutrophils # (A) 2.2 k/uL (1.3-7.7); Neutrophils % (A) 49 %; Platelet Count 283 k/uL (150-450); RBC 3.98 m/uL (3.80-5.40); RDW 13.2 % (11.5-15.5); WBC 4.5 k/uL (3.8-10.6)
[2024-02-29] MEDS: KETOROLAC 15 MG/ML 1 ML VIAL IVP STA (14:40)
[2024-02-29] MEDS: FLUCONAZOLE 150 MG TAB PO STA (14:41)
[2024-02-29 14:49] LABS: ALT 10 U/L (4-34); AST 27 U/L (14-36); African American GFR (CKD) >90 (>60 ml/min/1.73 sqM); Albumin 3.9 g/dL (3.5-5.0); Alkaline Phosphatase 105 U/L (38-126); Anion Gap 5 mmol/L; Blood Urea Nitrogen 22 mg/dL (7-17); Calcium 9.2 mg/dL (8.4-10.2); Carbon Dioxide 27 mmol/L (22-30); Chloride 107 mmol/L (98-107); Glucose 101 mg/dL (74-99); Non-African American GFR(CKD) 87 (>60 ml/min/1.73 sqM); Potassium 4.4 mmol/L (3.5-5.1); Sodium 139 mmol/L (137-145); Total Bilirubin 0.5 mg/dL (0.2-1.3); Total Protein 6.1 g/dL (6.3-8.2)
[2024-02-29 15:50] VITALS: BP 142/79; RESP 18; TEMP 98.2
== END 2024-02-29 17:15 | disposition home or self-care (01) ==
LOC: EC 13:13
DX: B37.2 Candidiasis of skin and nail (principal); R51.9 Headache, unspecified; Z88.0 Allergy status to penicillin; Z88.1 Allergy status to other antibiotic agents; Z88.2 Allergy status to sulfonamides; Z88.6 Allergy status to analgesic agent
CPT/HCPCS: 36415; 80053; 85025; 99284; 96374; 96375; J2405; J1885

== ENCOUNTER 2024-03-06 12:55 | Emergency (ER) | payer MEDICARE, OTHER ==
--- NOTE | 2024-03-06 12:58 | ED ---
Skin/Abscess/FB HPI - General Source: patient, RN notes reviewed Mode of arrival: ambulatory Limitations: no limitations <Tahira Snowden - Last Filed: 03/06/24 12:56> - General Source: RN notes reviewed, old records reviewed Mode of arrival: ambulatory Limitations: no limitations - History of Present Illness MD complaint: rash -: days(s) Location: generalized Severity: moderate Severity scale (1-10): 4 Quality: stabbing Consistency: constant Improves with: none Worsens with: none Context: none Associated symptoms: denies other symptoms Treatments Prior to Arrival: none <Koko Hdz - Last Filed: 03/18/24 01:47> - General Chief complaint: Skin/Abscess/Foreign Body Stated complaint: yeast infection/breast/stomach Time Seen by Provider: 03/06/24 12:56 - History of Present Illness Initial comments: Quick Note: This is a 69-year-old female who presents to the emergency d epartment for concerns of a yeast infection. States that this is in the skin underneath her breasts and traveling down to her stomach. Also states that she has been treated for this multiple times in the past. (Tahira Snowden) This is a 69-year-old male to the ER for evaluation of bilateral breast cyst infection (Koko Hdz) - Related Data Home Medications Medication Instructions Recorded Confirmed Aspirin [[place] Aspirin EC] 81 mg PO HS 08/03/23 08/03/23 Atorvastatin [Lipitor] 10 mg PO HS 08/03/23 08/03/23 Furosemide [Lasix] 40 mg PO HS 08/03/23 08/03/23 HYDROcodone/APAP 7.5-325MG [[place] 1 tab PO BID PRN 08/03/23 08/03/23 7.5-325] diazePAM [Valium] 5 mg PO HS PRN 08/03/23 08/03/23 hydrALAZINE HCL [Apresoline] 25 mg PO HS 08/03/23 08/03/23 hydroCHLOROthiazide [Hydrodiuril] 25 mg PO HS 08/03/23 08/03/23 Previous Rx's Medication Instructions Recorded Nitrofurantoin Monohyd/M-Cryst 100 mg PO Q12HR #14 cap 08/03/23 [Macrobid] Cefuroxime [Ceftin] 500 mg PO BID 10 Days #40 tab 09/17/23 Nitrofurantoin Monohyd/M-Cryst 100 mg PO Q12HR 7 Days #14 cap 11/13/23 [Macrobid] Fluconazole [Diflucan] 150 mg PO ONCE 1 Days #1 tab 11/16/23 Fluconazole [Diflucan] 150 mg PO ONCE #2 tab 11/24/23 Nystatin 100,000 Unit/gm Powd 1 applic TOPICAL BID #15 gram 11/24/23 [Mycostatin Powder] Cephalexin [Keflex] 500 mg PO Q6HR 7 Days #28 cap 01/07/24 Promethazine/Dextromethorphan 5 ml PO Q4-6H PRN #473 ml 01/07/24 [Promethazine-Dm Syrup] Fluconazole [Diflucan] 150 mg PO ONCE #1 tab 02/13/24 Nystatin 100,000 Unit/gm Powd 1 applic TOPICAL BID #15 gram 02/13/24 [Mycostatin Powder] Fluconazole [Diflucan] 150 mg PO ONCE 1 Days #1 tab 02/29/24 Ketorolac [Toradol] 10 mg PO Q8HR #15 tab 02/29/24 Nystatin [Nystop] 1 applic TOPICAL BID 10 Days #30 gm 02/29/24 Fluconazole [Diflucan] 200 mg PO DAILY #7 tablet 03/06/24 Allergies Allergy/AdvReac Type Severity Reaction Status Date / Time ibuprofen [From Motrin] Allergy Rash/Hives Verified 03/12/24 14:52 sulfamethoxazole Allergy Rash/Hives Verified 03/12/24 14:52 [From Septra] trimethoprim [From Septra] Allergy Rash/Hives Verified 03/12/24 14:52 amoxicillin [From Augmentin] AdvReac Nausea & Verified 03/12/24 14:52 Vomiting & Diarrhea clavulanic acid AdvReac Nausea & Verified 03/12/24 14:52 [From Augmentin] Vomiting & Diarrhea Review of Systems ROS Other: All systems not noted in ROS Statement are negative. <Tahira Snowden - Last Filed: 03/06/24 12:56> ROS Other: All systems not noted in ROS Statement are negative. <Koko Hdz - Last Filed: 03/18/24 01:47> ROS Statement: Those systems with pertinent positive or pertinent negative responses have been documented in the HPI. 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 Source:: MRSA-site unknonw; ESBL-Urine Past Surgical History: Section, Cholecystectomy Additional Past Surgical History / Comment(s): endometriosis Past Anesthesia/Blood Transfusion Reactions: No Reported Reaction Past Psychological History: No Psychological Hx Reported Smoking Status: Never smoker Past Alcohol Use History: None Reported Past Drug Use History: None Reported - Past Family History Mother Family Medical History: No Reported History Father Family Medical History: Coronary Artery Disease (CAD) <Tahira Snowden - Last Filed: 03/06/24 12:56> General Exam <Tahira Snowden - Last Filed: 03/06/24 12:56> General appearance: alert, in no apparent distress Head exam: Present: atraumatic, normocephalic, normal inspection Eye exam: Present: normal appearance, PERRL, EOMI. Absent: scleral icterus, conjunctival injection, periorbital swelling ENT exam: Present: normal exam, mucous membranes moist Neck exam: Present: normal inspection. Absent: tenderness, meningismus, lymphadenopathy Respiratory exam: Present: normal lung sounds bilaterally. Absent: respiratory distress, wheezes, rales, rhonchi, stridor Cardiovascular Exam: Present: regular rate, normal rhythm, normal heart sounds. Absent: systolic murmur, diastolic murmur, rubs, gallop, clicks GI/Abdominal exam: Present: soft, normal bowel sounds. Absent: distended, tenderness, guarding, rebound, rigid Extremities exam: Present: normal inspection, full ROM, normal capillary refill. Absent: tenderness, pedal edema, joint swelling, calf tenderness Back exam: Present: normal inspection Neurological exam: Present: alert, oriented X3, CN II-XII intact Psychiatric exam: Present: normal affect, normal mood Skin exam: Present: warm, dry, intact, normal color. Absent: rash <Koko Hdz - Last Filed: 03/18/24 01:47> - General Exam Comments Initial Comments: Visual Physical Exam Vital signs reviewed General: Well-appearing, nontoxic, no acute distress. Head: Normocephalic, atraumatic Eyes: PERRLA, EOMI ENT: Airway patent Chest: Nonlabored breathing Skin: No visual rash, normal skin tone Neuro: Alert and oriented 3 Musculoskeletal: No gross abnormalities (Tahira Snowden) Course <Koko Hdz - Last Filed: 03/18/24 01:47> Vital Signs 03/06/24 03/06/24 13:08 19:17 Temperature 97.7 F 97.7 F Pulse Rate 88 77 Respiratory 16 18 Rate Blood Pressure 119/83 138/92 O2 Sat by Pulse 95 96 Oximetry - Reevaluation(s) Reevaluation #1: Records reviewed (Koko Hdz) Reevaluation #2: Symptoms unchanged (Koko Hdz) Reevaluation #3: Patient informed of results and questions answered (Koko Hdz) Reevaluation #4: Was pt. sent in by a medical professional or institution (, PA, IRRIGATION TECHNICIAN, urgent care, hospital, or [place] [facility]...) When possible be specific @ -no Did you speak to anyone other than the patient for history (EMS, parent, family, police, friend...)? What history was obtained from this source @ -no Did you review nursing and triage notes (agree or disagree)? Why? @ -agree Are old charts reviewed (outside hosp., previous admission, EMS record, old EKG, old radiological studies, urgent care reports/EKG's, [place] [facility] records)? Report findings @ -yes Differential Diagnosis (chest pain, altered mental status, abdominal pain women, abdominal pain men, vaginal bleeding, weakness, fever, dyspnea, syncope, headache, dizziness, GI bleed, back pain, seizure, CVA, palpatations, mental health, musculoskeletal)? @ -prior EKG interpreted by me (3pts min.). @ -no X-rays interpreted by me (1pt min.). @ -no CT interpreted by me (1pt min.). @ -no U/S interpreted by me (1pt. min.). @ -no What testing was considered but not performed or refused? (CT, X-rays, U/S, labs)? Why? @ -none What meds were considered but not given or refused? Why? @ -none Did you discuss the management of the patient with other professionals (professionals i.e. , PA, IRRIGATION TECHNICIAN, lab, RT, psych nurse, social and political studies professor, corporate lawyer, teacher, learning and development officer, cyanide case hardener)? Give summary @ -no Was smoking cessation discussed for >3mins.? @ -no Was critical care preformed (if so, how long)? @ -no Were there social determinants of health that impacted care today? How? (Homelessness, low income, unemployed, alcoholism, drug addiction, transportation, low edu. Level, literacy, decrease access to med. care, half-way, rehab)? @ -none Was there de-escalation of care discussed even if they declined (Discuss DNR or withdrawal of care, Hospice)? DNR status @ -no What co-morbidities impacted this encounter? (DM, HTN, Smoking, COPD, CAD, Cancer, CVA, ARF, Chemo, Hep., AIDS, mental health diagnosis, sleep apnea, morbid obesity)? @ -none Was patient admitted / discharged? Hospital course, mention meds given and route, prescriptions, significant lab abnormalities, going to OR and other pertinent info. @ -69 female with bilateral breast intertrigo, patient given treatment here in the ER and can be discharged home Undiagnosed new problem with uncertain prognosis? @ -no Drug Therapy requiring intensive monitoring for toxicity (Heparin, Nitro, Insulin, Cardizem)? @ -no Were any procedures done? @ -no Diagnosis/symptom? @ -Bilateral breast intertrigo Acute, or Chronic, or Acute on Chronic? @ -Acute Uncomplicated (without systemic symptoms) or Complicated (systemic symptoms)? @ -Complicated Side effects of treatment? @ -no Exacerbation, Progression, or Severe Exacerbation? @ -exacerbation Poses a threat to life or bodily function? How? (Chest pain, [place], [place], pneumonia, PE, COPD, DKA, ARF, appy, cholecystitis, CVA, Diverticulitis, Homicidal, Suicida l, threat to staff... and all critical care pts) @ -yes (Koko Hdz) Medical Decision Making <Tahira Snowden - Last Filed: 03/06/24 12:56> <Koko Hdz - Last Filed: 03/18/24 01:47> - Medical Decision Making I performed the QuickNote portion of this chart. Signed Tahira Snowden PA-C. (Tahira Snowden) 69 female with bilateral breast intertrigo given treatment here in the ER and can be discharged home (Koko Hdz) Disposition <Tahira Snowden - Last Filed: 03/06/24 12:56> Is patient prescribed a controlled substance at d/c from ED?: No Time of Disposition: 19:40 <Koko Hdz - Last Filed: 03/18/24 01:47> Clinical Impression: Intertrigo, Candidiasis of breast Disposition: HOME SELF-CARE Condition: Fair Instructions (If sedation given, give patient instructions): Skin Yeast Infection (ED) Prescriptions: Fluconazole [Diflucan] 200 mg PO DAILY #7 tablet Referrals: Richard Montano MD [Primary Care Provider] - 1-2 days
[2024-03-06 13:13] VITALS: TEMP 97.7
[2024-03-06 19:21] VITALS: BP 138/92; PULSE 77; RESP 18
[2024-03-06] MEDS: FLUCONAZOLE 100 MG TAB PO STA (20:00)
[2024-03-06] MEDS: NYSTATIN 100,000 UNIT/GM POWD 15 GM TOPICAL STA (20:01)
[2024-03-06] MEDS: NYSTATIN 100,000UNIT/GM CREAM 30 GM TUBE TOPICAL SCH (20:02)
[2024-03-06] MEDS: TRIAMCINOLONE 0.1% CREAM 80 GM TUBE TOPICAL SCH (20:02)
[2024-03-06] MEDS: NYSTAT-TRIAMCIN 100,000-0.1 UNIT/GM-% CREAM 30 GM TUBE TOPICAL STA (20:04)
== END 2024-03-06 20:06 | disposition home or self-care (01) ==
LOC: EC 12:55
DX: B37.89 Other sites of candidiasis (principal); L30.4 Erythema intertrigo; Z88.0 Allergy status to penicillin; Z88.1 Allergy status to other antibiotic agents; Z88.2 Allergy status to sulfonamides; Z88.6 Allergy status to analgesic agent
CPT/HCPCS: 99282

== ENCOUNTER 2024-03-12 14:42 | Emergency (ER) | payer MEDICARE, OTHER ==
[2024-03-12 14:52] VITALS: RESP 18; TEMP 97.9
--- NOTE | 2024-03-12 16:00 | ED ---
Lower Extremity Injury HPI - General Chief Complaint: Extremity Injury, Lower Stated Complaint: hurt left foot Time Seen by Provider: 03/12/24 15:36 Source: patient, RN notes reviewed, old records reviewed Mode of arrival: ambulatory Limitations: no limitations - History of Present Illness Initial Comments: This is a 69-year-old female with severe left hip pain. Patient is on sure of the cause of the left hip pain denies any traumatic injury. No other medical history takes no medications no change in symptoms no redness or swelling MD Complaint: foot injury -: days(s) Injury: Foot: Left Type of Injury: blunt Place: home Severity: moderate Severity scale (1-10): 7 Worsens With: weight bearing Associated Symptoms: numbness Treatments Prior to Arrival: other (0) - Related Data Home Medications Medication Instructions Recorded Confirmed Aspirin [[place] Aspirin EC] 81 mg PO HS 08/03/23 08/03/23 Atorvastatin [Lipitor] 10 mg PO HS 08/03/23 08/03/23 Furosemide [Lasix] 40 mg PO HS 08/03/23 08/03/23 HYDROcodone/APAP 7.5-325MG [[place] 1 tab PO BID PRN 08/03/23 08/03/23 7.5-325] diazePAM [Valium] 5 mg PO HS PRN 08/03/23 08/03/23 hydrALAZINE HCL [Apresoline] 25 mg PO HS 08/03/23 08/03/23 hydroCHLOROthiazide [Hydrodiuril] 25 mg PO HS 08/03/23 08/03/23 Previous Rx's Medication Instructions Recorded Nitrofurantoin Monohyd/M-Cryst 100 mg PO Q12HR #14 cap 08/03/23 [Macrobid] Cefuroxime [Ceftin] 500 mg PO BID 10 Days #40 tab 09/17/23 Nitrofurantoin Monohyd/M-Cryst 100 mg PO Q12HR 7 Days #14 cap 11/13/23 [Macrobid] Fluconazole [Diflucan] 150 mg PO ONCE 1 Days #1 tab 11/16/23 Fluconazole [Diflucan] 150 mg PO ONCE #2 tab 11/24/23 Nystatin 100,000 Unit/gm Powd 1 applic TOPICAL BID #15 gram 11/24/23 [Mycostatin Powder] Cephalexin [Keflex] 500 mg PO Q6HR 7 Days #28 cap 01/07/24 Promethazine/Dextromethorphan 5 ml PO Q4-6H PRN #473 ml 01/07/24 [Promethazine-Dm Syrup] Fluconazole [Diflucan] 150 mg PO ONCE #1 tab 02/13/24 Nystatin 100,000 Unit/gm Powd 1 applic TOPICAL BID #15 gram 02/13/24 [Mycostatin Powder] Fluconazole [Diflucan] 150 mg PO ONCE 1 Days #1 tab 02/29/24 Ketorolac [Toradol] 10 mg PO Q8HR #15 tab 02/29/24 Nystatin [Nystop] 1 applic TOPICAL BID 10 Days #30 gm 02/29/24 Fluconazole [Diflucan] 200 mg PO DAILY #7 tablet 03/06/24 Allergies Allergy/AdvReac Type Severity Reaction Status Date / Time ibuprofen [From Motrin] Allergy Rash/Hives Verified 03/12/24 14:52 sulfamethoxazole Allergy Rash/Hives Verified 03/12/24 14:52 [From Septra] trimethoprim [From Septra] Allergy Rash/Hives Verified 03/12/24 14:52 amoxicillin [From Augmentin] AdvReac Nausea & Verified 03/12/24 14:52 Vomiting & Diarrhea clavulanic acid AdvReac Nausea & Verified 03/12/24 14:52 [From Augmentin] Vomiting & Diarrhea Review of Systems ROS Statement: Those systems with pertinent positive or pertinent negative responses have been documented in the HPI. ROS Other: All systems not noted in ROS Statement are negative. 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 Source:: MRSA-site unknonw; ESBL-Urine Past Surgical History: Section, Cholecystectomy Additional Past Surgical History / Comment(s): endometriosis Past Anesthesia/Blood Transfusion Reactions: No Reported Reaction Past Psychological History: No Psychological Hx Reported Smoking Status: Never smoker Past Alcohol Use History: None Reported Past Drug Use History: None Reported - Past Family History Mother Family Medical History: No Reported History Father Family Medical History: Coronary Artery Disease (CAD) General Exam Limitations: no limitations General appearance: alert, in no apparent distress Head exam: Present: atraumatic, normocephalic, normal inspection Eye exam: Present: normal appearance, PERRL, EOMI. Absent: scleral icterus, conjunctival injection, periorbital swelling ENT exam: Present: normal exam, mucous membranes moist Neck exam: Present: normal inspection. Absent: tenderness, meningismus, lymphadenopathy Respiratory exam: Present: normal lung sounds bilaterally. Absent: respiratory distress, wheezes, rales, rhonchi, stridor Cardiovascular Exam: Present: regular rate, normal rhythm, normal heart sounds. Absent: systolic murmur, diastolic murmur, rubs, gallop, clicks GI/Abdominal exam: Present: soft, normal bowel sounds. Absent: distended, tenderness, guarding, rebound, rigid Extremities exam: Present: normal inspection, full ROM, normal capillary refill. Absent: tenderness, pedal edema, joint swelling, calf tenderness Back exam: Present: normal inspection Neurological exam: Present: alert, oriented X3, CN II-XII intact Psychiatric exam: Present: normal affect, normal mood Skin exam: Present: warm, dry, intact, normal color. Absent: rash Course Vital Signs 03/12/24 03/12/24 14:50 17:11 Temperature 97.9 F 97.9 F Pulse Rate 91 86 Respiratory 18 18 Rate Blood Pressure 135/94 120/86 O2 Sat by Pulse 98 97 Oximetry - Reevaluation(s) Reevaluation #1: Medical records reviewed Reevaluation #2: Patient symptoms unchanged Reevaluation #3: Patient informed of results and questions answered Reevaluation #4: Was pt. sent in by a medical professional or institution (, PA, WILL CALL CLERK, urgent care, hospital, or senior living...) When possible be specific @ -no Did you speak to anyone other than the patient for history (EMS, parent, family, police, friend...)? What history was obtained from this source @ -no Did you review nursing and triage notes (agree or disagree)? Why? @ -agree Are old charts reviewed (outside hosp., previous admission, EMS record, old EKG, old radiological studies, urgent care reports/EKG's, senior living records)? Report findings @ -yes Differential Diagnosis (chest pain, altered mental status, abdominal pain women, abdominal pain men, vaginal bleeding, weakness, fever, dyspnea, syncope, headache, dizziness, GI bleed, back pain, seizure, CVA, palpatations, mental health, musculoskeletal)? @ -prior EKG interpreted by me (3pts min.). @ -no X-rays interpreted by me (1pt min.). @ -yes negative for acute disease CT interpreted by me (1pt min.). @ -no U/S interpreted by me (1pt. min.). @ -no What testing was considered but not performed or refused? (CT, X-rays, U/S, labs)? Why? @ -none What meds were considered but not given or refused? Why? @ -none Did you discuss the management of the patient with other professionals (professionals i.e. DrFatou, PA, WILL CALL CLERK, lab, RT, psych nurse, nephrology social worker, water superintendent, teacher, cra officer, comp field case manager)? Give summary @ -no Was smoking cessation discussed for >3mins.? @ -no Was critical care preformed (if so, how long)? @ -no Were there social determinants of health that impacted care today? How? (Homelessness, low income, unemployed, alcoholism, drug addiction, transportation, low edu. Level, literacy, decrease access to med. care, skilled nursing, rehab)? @ -none Was there de-escalation of care discussed even if they declined (Discuss DNR or withdrawal of care, Hospice)? DNR status @ -no What co-morbidities impacted this encounter? (DM, HTN, Smoking, COPD, CAD, Cancer, CVA, ARF, Chemo, Hep., AIDS, mental health diagnosis, sleep apnea, morb id obesity)? @ -none Was patient admitted / discharged? Hospital course, mention meds given and route, prescriptions, significant lab abnormalities, going to OR and other pertinent info. @ - 69 female to ER with left foot pain. No acute findings or cause of pain here in the ER x-ray negative patient feels well can be discharged home Discharge Undiagnosed new problem with uncertain prognosis? @ -no Drug Therapy requiring intensive monitoring for toxicity (Heparin, Nitro, Insulin, Cardizem)? @ -no Were any procedures done? @ -no Diagnosis/symptom? @ -Left foot pain left toe pain left heel pain Acute, or Chronic, or Acute on Chronic? @ -Acute Uncomplicated (without systemic symptoms) or Complicated (systemic symptoms)? @ -Complicated Side effects of treatment? @ -no Exacerbation, Progression, or Severe Exacerbation? @ -exacerbation Poses a threat to patient's life @ -no Medical Decision Making - Medical Decision Making 69 female to ER with left foot pain. No acute findings or cause of pain here in the ER x-ray negative patient feels well can be discharged home - Radiology Data Radiology results: report reviewed (X-ray foot negative for traumatic or acute disease), image reviewed Disposition Clinical Impression: Pain of left heel, Left foot pain Disposition: HOME SELF-CARE Condition: Good Instructions (If sedation given, give patient instructions): Foot Contusion (ED) Is patient prescribed a controlled substance at d/c from ED?: No Referrals: Richard Montano MD [Primary Care Provider] - 1-2 days Time of Disposition: 17:00
[2024-03-12] MEDS: ACETAMINOPHEN TAB 500 MG TAB PO STA (16:02)
--- NOTE | 2024-03-12 16:27 | XR ---
EXAMINATION TYPE: XR foot complete LT DATE OF EXAM: 03/12/2024 COMPARISON: None HISTORY: Pain TECHNIQUE: 3 view left foot FINDINGS: Hallux valgus deformity is present. There is advanced degenerative joint changes at the fir st metatarsophalangeal joint space and in the distal interphalangeal joint space of the first digit. Some degenerative loss of joint space and also within the proximal distal interphalangeal joint space s of the digits. No acute fractures evident. There is flattening of the plantar arch. Hammertoes are present. Plantar calcaneal heel spur is present. Follow up exams can be performed 7-10 days from acute trauma for continued pain. IMPRESSION: 1. No acute osseous abnormality radiographically apparent. 2. Calcaneal heel spur. 3. Flattening of the plantar arch. 4. Degenerative joint changes greatest in the first digit
[2024-03-12 17:12] VITALS: BP 120/86; PULSE 86
== END 2024-03-12 17:28 | disposition home or self-care (01) ==
LOC: EC 14:42
DX: M79.672 Pain in left foot (principal); Z88.0 Allergy status to penicillin; Z88.1 Allergy status to other antibiotic agents; Z88.2 Allergy status to sulfonamides; Z88.6 Allergy status to analgesic agent
CPT/HCPCS: 99283

== ENCOUNTER 2024-05-21 09:58 | Emergency (ER) | payer MEDICARE, OTHER ==
[2024-05-21 10:02] VITALS: TEMP 98.1
[2024-05-21] MEDS: SODIUM CHLORIDE 0.9% 500 ML 500 ML IV STA (11:38)
[2024-05-21] MEDS: DICYCLOMINE 20 MG TAB PO STA (11:38)
[2024-05-21] MEDS: SODIUM CHLORIDE 0.9% 1,000 ML IV STA (11:38)
[2024-05-21] MEDS: ONDANSETRON 4 MG/2 ML VIAL IVP STA (11:38)
--- NOTE | 2024-05-21 12:08 | ED ---
General Adult HPI - General Chief complaint: Nausea/Vomiting/Diarrhea Stated complaint: Diarrhea/headache Time Seen by Provider: 05/21/24 10:37 Source: patient, RN notes reviewed Mode of arrival: ambulatory Limitations: no limitations - History of Present Illness Initial comments: 69-year-old female presents emergency department chief complaint of diarrhea. She states that she has had nausea vomiting associate with. She complains of diffuse abdominal discomfort and some bodyaches. No reported fever no chest pain or shortness of breath patient has no dysuria no sick contacts she states that she is intermittently able to hold down food. She has had prior cholecystectomy. - Related Data Home Medications Medication Instructions Recorded Confirmed Aspirin [[place] Aspirin EC] 81 mg PO HS 08/03/23 08/03/23 Atorvastatin [Lipitor] 10 mg PO HS 08/03/23 08/03/23 Furosemide [Lasix] 40 mg PO HS 08/03/23 08/03/23 HYDROcodone/APAP 7.5-325MG [[place] 1 tab PO BID PRN 08/03/23 08/03/23 7.5-325] diazePAM [Valium] 5 mg PO HS PRN 08/03/23 08/03/23 hydrALAZINE HCL [Apresoline] 25 mg PO HS 08/03/23 08/03/23 hydroCHLOROthiazide [Hydrodiuril] 25 mg PO HS 08/03/23 08/03/23 Previous Rx's Medication Instructions Recorded Nitrofurantoin Monohyd/M-Cryst 100 mg PO Q12HR #14 cap 08/03/23 [Macrobid] Cefuroxime [Ceftin] 500 mg PO BID 10 Days #40 tab 09/17/23 Nitrofurantoin Monohyd/M-Cryst 100 mg PO Q12HR 7 Days #14 cap 11/13/23 [Macrobid] Fluconazole [Diflucan] 150 mg PO ONCE 1 Days #1 tab 11/16/23 Fluconazole [Diflucan] 150 mg PO ONCE #2 tab 11/24/23 Nystatin 100,000 Unit/gm Powd 1 applic TOPICAL BID #15 gram 11/24/23 [Mycostatin Powder] Cephalexin [Keflex] 500 mg PO Q6HR 7 Days #28 cap 01/07/24 Promethazine/Dextromethorphan 5 ml PO Q4-6H PRN #473 ml 01/07/24 [Promethazine-Dm Syrup] Fluconazole [Diflucan] 150 mg PO ONCE #1 tab 02/13/24 Nystatin 100,000 Unit/gm Powd 1 applic TOPICAL BID #15 gram 02/13/24 [Mycostatin Powder] Fluconazole [Diflucan] 150 mg PO ONCE 1 Days #1 tab 02/29/24 Ketorolac [Toradol] 10 mg PO Q8HR #15 tab 02/29/24 Nystatin [Nystop] 1 applic TOPICAL BID 10 Days #30 gm 02/29/24 Fluconazole [Diflucan] 200 mg PO DAILY #7 tablet 03/06/24 Ondansetron Odt [Zofran Odt] 4 mg PO Q8HR PRN #10 tab 05/21/24 Allergies Allergy/AdvReac Type Severity Reaction Status Date / Time ibuprofen [From Motrin] Allergy Rash/Hives Verified 05/21/24 10:02 sulfamethoxazole Allergy Rash/Hives Verified 05/21/24 10:02 [From Septra] trimethoprim [From Septra] Allergy Rash/Hives Verified 05/21/24 10:02 amoxicillin [From Augmentin] AdvReac Nausea & Verified 05/21/24 10:02 Vomiting & Diarrhea clavulanic acid AdvReac Nausea & Verified 05/21/24 10:02 [From Augmentin] Vomiting & Diarrhea Review of Systems ROS Statement: Those systems with pertinent positive or pertinent negative responses have been documented in the HPI. ROS Other: All systems not noted in ROS Statement are negative. 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 Source:: MRSA-site unknonw; ESBL-Urine Past Surgical History: Section, Cholecystectomy Additional Past Surgical History / Comment(s): endometriosis Past Anesthesia/Blood Transfusion Reactions: No Reported Reaction Past Psychological History: No Psychological Hx Reported Smoking Status: Never smoker Past Alcohol Use History: None Reported Past Drug Use History: None Reported - Past Family History Mother Family Medical History: No Reported History Father Family Medical History: Coronary Artery Disease (CAD) General Exam Limitations: no limitations General appearance: alert, in no apparent distress Head exam: Present: atraumatic, normocephalic, normal inspection Eye exam: Present: normal appearance, PERRL, EOMI. Absent: scleral icterus, conjunctival injection, periorbital swelling ENT exam: Present: normal exam, normal oropharynx, mucous membranes moist Neck exam: Present: normal inspection, full ROM. Absent: tenderness, meningismus, lymphadenopathy Respiratory exam: Present: normal lung sounds bilaterally. Absent: respiratory distress, wheezes, rales, rhonchi, stridor Cardiovascular Exam: Present: regular rate, normal rhythm, normal heart sounds. Absent: systolic murmur, diastolic murmur, rubs, gallop, clicks GI/Abdominal exam: Present: soft, tenderness (Diffuse), normal bowel sounds. Absent: distended, guarding, rebound, rigid Back exam: Absent: CVA tenderness (R), CVA tenderness (L) Neurological exam: Present: alert Skin exam: Present: warm, dry, intact, normal color. Absent: rash Course Vital Signs 05/21/24 05/21/24 10:00 14:08 Temperature 98.1 F Pulse Rate 93 64 Respiratory 20 16 Rate Blood Pressure 117/78 135/65 O2 Sat by Pulse 96 100 Oximetry Medical Decision Making - Medical Decision Making Was pt. sent in by a medical professional or institution (, PA, APPLICATIONS COORDINATOR, urgent care, hospital, or residential...) When possible be specific @ -No Did you speak to anyone other than the patient for history (EMS, parent, family, police, friend...)? What history was obtained from this source @ -No Did you review nursing and triage notes (agree or disagree)? Why? @ -I reviewed and agree with nursing and triage notes Were old charts reviewed (outside hosp., previous admission, EMS record, old EKG, old radiological studies, urgent care reports/EKG's, residential records)? Report findings @ -No old charts were reviewed Differential Diagnosis (chest pain, altered mental status, abdominal pain women, abdominal pain men, vaginal bleeding, weakness, fever, dyspnea, syncope, headache, dizziness, GI bleed, back pain, seizure, CVA, palpatations, mental health, musculoskeletal)? @ -Differential Abdominal Pain Women: Appendicitis, Cholecystitis, diverticulosis, ischemic bowel, pancreatitis, hepatitis, UTI, gastroenteritis, AAA, incarcerated hernia, bowel obstruction, constipation, inflammatory bowel, hepatitis, peptic ulcer disease, splenic infarction, perforated viscus, vulvitis, ovarian torsion, PID, kidney stone, nnamdi centa abruption, this is not meant to be an all-inclusive list EKG interpreted by me (3pts min.). @ -None X-rays interpreted by me (1pt min.). @ -None done CT interpreted by me (1pt min.). @ -None done U/S interpreted by me (1pt. min.). @ -None done What testing was considered but not performed or refused? (CT, X-rays, U/S, labs)? Why? @ -None What meds were considered but not given or refused? Why? @ -None Did you discuss the management of the patient with other professionals (professionals i.e. , PA, APPLICATIONS COORDINATOR, lab, RT, psych nurse, oncology social worker, biology professor, teacher, optics technical officer, case operator)? Give summary @ -No Was smoking cessation discussed for >3mins.? @ -No Was critical care preformed (if so, how long)? @ -No Were there social determinants of health that impacted care today? How? (Yady elessness, low income, unemployed, alcoholism, drug addiction, transportation, low edu. Level, literacy, decrease access to med. care, care home, rehab)? @ -No Was there de-escalation of care discussed even if they declined (Discuss DNR or withdrawal of care, Hospice)? DNR status @ -No What co-morbidities impacted this encounter? (DM, HTN, Smoking, COPD, CAD, Cancer, CVA, ARF, Chemo, Hep., AIDS, mental health diagnosis, sleep apnea, morbid obesity)? @ -None Was patient admitted / discharged? Hospital course, mention meds given and route, prescriptions, significant lab abnormalities, going to OR and other pertinent info. @ -Discharge patient feels great improved IV fluids, antiemetics. Patient will be discharged in stable condition return transfer discussed. Patient updated on lab results. Undiagnosed new problem with uncertain prognosis? @ -No Drug Therapy requiring intensive monitoring for toxicity (Heparin, Nitro, Insulin, Cardizem)? @ -No Were any procedures done? @ -No Diagnosis/symptom? @ -Enteritis Acute, or Chronic, or Acute on Chronic? @ -acute Uncomplicated (without systemic symptoms) or Complicated (systemic symptoms)? @ -uncomplicated Side effects of treatment? @ -No Exacerbation, Progression, or Severe Exacerbation? @ -No Poses a threat to life or bodily function? How? (Chest pain, [place], PR, pneumonia, PE, COPD, DKA, ARF, appy, cholecystitis, CVA, Diverticulitis, Homicidal, Suicidal, threat to staff... and all critical care pts) @ -No - Lab Data Result diagrams: 05/21/24 11:35 05/21/24 11:35 Lab Results 05/21/24 05/21/24 Range/Units 11:35 11:35 WBC 5.1 (3.8-10.6) k/uL RBC 4.19 (3.80-5.40) m/uL Hgb 12.8 (11.4-16.0) gm/dL Hct 38.9 (34.0-46.0) % MCV 93.0 (80.0-100.0) fL MCH 30.7 (25.0-35.0) pg MCHC 33.0 (31.0-37.0) g/dL RDW 14.2 (11.5-15.5) % Plt Count 272 (150-450) k/uL MPV 8.5 Neutrophils % 66 % Lymphocytes % 23 % Monocytes % 6 % Eosinophils % 3 % Basophils % 1 % Neutrophils # 3.4 (1.3-7.7) k/uL Lymphocytes # 1.2 (1.0-4.8) k/uL Monocytes # 0.3 (0-1.0) k/uL Eosinophils # 0.2 (0-0.7) k/uL Basophils # 0.0 (0-0.2) k/uL Sodium 139 (137-145) mmol/L Potassium 3.6 (3.5-5.1) mmol/L Chloride 105 (98-107) mmol/L Carbon Dioxide 27 (22-30) mmol/L Anion Gap 7 mmol/L BUN 25 H (7-17) mg/dL Creatinine 1.05 H (0.52-1.04) mg/dL Est GFR (CKD-EPI)AfAm 63 (>60 ml/min/1.73 sqM) Est GFR (CKD-EPI)NonAf 55 (>60 ml/min/1.73 sqM) Glucose 98 (74-99) mg/dL Calcium 9.3 (8.4-10.2) mg/dL Magnesium 1.7 (1.6-2.3) mg/dL Total Bilirubin 0.9 (0.2-1.3) mg/dL AST 35 (14-36) U/L ALT 10 (4-34) U/L Alkaline Phosphatase 86 (38-126) U/L Total Protein 6.4 (6.3-8.2) g/dL Albumin 4.0 (3.5-5.0) g/dL Lipase 47 (23-300) U/L Disposition Clinical Impression: Gastroenteritis Disposition: HOME SELF-CARE Condition: Stable Instructions (If sedation given, give patient instructions): Gastroenteritis (ED) Additional Instructions: Please return to the Emergency Department if symptoms worsen or any other concerns. Prescriptions: Ondansetron Odt [Zofran Odt] 4 mg PO Q8HR PRN #10 tab PRN Reason: Nausea Is patient prescribed a controlled substance at d/c from ED?: No Referrals: Richard Montano MD [Primary Care Provider] - 1-2 days Time of Disposition: 14:31
[2024-05-21] MEDS: KETOROLAC 15 MG/ML 1 ML VIAL IVP STA (12:09)
[2024-05-21 12:10] LABS: Basophils % (A) 1 %; Eosinophils # (A) 0.2 k/uL (0-0.7); Eosinophils % (A) 3 %; HCT 38.9 % (34.0-46.0); HGB 12.8 gm/dL (11.4-16.0); Lymphocytes # (A) 1.2 k/uL (1.0-4.8); Lymphocytes % (A) 23 %; MCH 30.7 pg (25.0-35.0); Mean Platelet Volume 8.5; Monocytes # (A) 0.3 k/uL (0-1.0); Monocytes % (A) 6 %; Neutrophils # (A) 3.4 k/uL (1.3-7.7); Neutrophils % (A) 66 %; Platelet Count 272 k/uL (150-450); RBC 4.19 m/uL (3.80-5.40); RDW 14.2 % (11.5-15.5); WBC 5.1 k/uL (3.8-10.6)
[2024-05-21 12:27] LABS: ALT 10 U/L (4-34); AST 35 U/L (14-36); African American GFR (CKD) 63 (>60 ml/min/1.73 sqM); Alkaline Phosphatase 86 U/L (38-126); Anion Gap 7 mmol/L; Blood Urea Nitrogen 25 mg/dL (7-17); Calcium 9.3 mg/dL (8.4-10.2); Carbon Dioxide 27 mmol/L (22-30); Chloride 105 mmol/L (98-107); Glucose 98 mg/dL (74-99); Lipase 47 U/L (23-300); Magnesium 1.7 mg/dL (1.6-2.3); Non-African American GFR(CKD) 55 (>60 ml/min/1.73 sqM); Potassium 3.6 mmol/L (3.5-5.1); Sodium 139 mmol/L (137-145); Total Bilirubin 0.9 mg/dL (0.2-1.3); Total Protein 6.4 g/dL (6.3-8.2)
[2024-05-21 14:09] VITALS: BP 135/65; PULSE 64
[2024-05-21 14:52] VITALS: RESP 18
[2024-05-21 15:19] LABS: Appearance,Urine Cloudy (Clear); Bacteria,Urine Rare /hpf; Bilirubin,Urine Negative (Negative); Blood,Urine Negative (Negative); Color,Urine Yellow; Glucose,Urine (UA) Negative (Negative); Hyaline Casts,Urine 19 /lpf (0-2); Ketones,Urine 1+ (Negative); Leukocyte Esterase,Urine Large (Negative); Mucus,Urine Many /hpf; Nitrite,Urine Negative (Negative); Protein,Urine 1+ (Negative); RBC,Urine 2 /hpf (0-5); Specific Gravity,Urine 1.032 (1.001-1.035); Squamous Epithelial Cell,Urine 3 /hpf (0-4); WBC,Urine 78 /hpf (0-5)
== END 2024-05-21 14:52 | disposition home or self-care (01) ==
LOC: EC 09:58
CPT/HCPCS: 36415; 80053; 81001; 83690; 83735; 85025; 96361; 96374; 96375; 99284

== ENCOUNTER 2024-06-16 11:04 | Emergency (ER) | payer MEDICARE, OTHER ==
[2024-06-16 11:32] VITALS: RESP 18
--- NOTE | 2024-06-16 12:00 | ED ---
Skin/Abscess/FB HPI - General Chief complaint: Skin/Abscess/Foreign Body Stated complaint: RASH Time Seen by Provider: 06/16/24 11:21 Source: patient, RN notes reviewed Mode of arrival: ambulatory Limitations: no limitations - History of Present Illness Initial comments: This is a 69-year-old female presents emergency department chief complaint of a rash that has been present over the past 3 to 4 days. Patient states that she used a new sunscreen over the week, she was canoeing and used a new soap over the weekend as well. Patient states that the areas are pruritic. She denies shortness of breath, difficulty breathing, lip or tongue swelling. Patient has not attempted any at home remedies for the rash. No other acute complaints at this time. - Related Data Home Medications Medication Instructions Recorded Confirmed Aspirin [[place] Aspirin EC] 81 mg PO HS 08/03/23 08/03/23 Atorvastatin [Lipitor] 10 mg PO HS 08/03/23 08/03/23 Furosemide [Lasix] 40 mg PO HS 08/03/23 08/03/23 HYDROcodone/APAP 7.5-325MG [[place] 1 tab PO BID PRN 08/03/23 08/03/23 7.5-325] diazePAM [Valium] 5 mg PO HS PRN 08/03/23 08/03/23 hydrALAZINE HCL [Apresoline] 25 mg PO HS 08/03/23 08/03/23 hydroCHLOROthiazide [Hydrodiuril] 25 mg PO HS 08/03/23 08/03/23 Previous Rx's Medication Instructions Recorded Nitrofurantoin Monohyd/M-Cryst 100 mg PO Q12HR #14 cap 08/03/23 [Macrobid] Cefuroxime [Ceftin] 500 mg PO BID 10 Days #40 tab 09/17/23 Nitrofurantoin Monohyd/M-Cryst 100 mg PO Q12HR 7 Days #14 cap 11/13/23 [Macrobid] Fluconazole [Diflucan] 150 mg PO ONCE 1 Days #1 tab 11/16/23 Fluconazole [Diflucan] 150 mg PO ONCE #2 tab 11/24/23 Nystatin 100,000 Unit/gm Powd 1 applic TOPICAL BID #15 gram 11/24/23 [Mycostatin Powder] Cephalexin [Keflex] 500 mg PO Q6HR 7 Days #28 cap 01/07/24 Promethazine/Dextromethorphan 5 ml PO Q4-6H PRN #473 ml 01/07/24 [Promethazine-Dm Syrup] Fluconazole [Diflucan] 150 mg PO ONCE #1 tab 02/13/24 Nystatin 100,000 Unit/gm Powd 1 applic TOPICAL BID #15 gram 02/13/24 [Mycostatin Powder] Fluconazole [Diflucan] 150 mg PO ONCE 1 Days #1 tab 02/29/24 Ketorolac [Toradol] 10 mg PO Q8HR #15 tab 02/29/24 Nystatin [Nystop] 1 applic TOPICAL BID 10 Days #30 gm 02/29/24 Fluconazole [Diflucan] 200 mg PO DAILY #7 tablet 03/06/24 Ondansetron Odt [Zofran Odt] 4 mg PO Q8HR PRN #10 tab 05/21/24 Hydrocortisone Cream 1 applic TOPICAL BID #28 gm 06/16/24 [Hydrocortisone 1% Cream] Allergies Allergy/AdvReac Type Severity Reaction Status Date / Time ibuprofen [From Motrin] Allergy Rash/Hives Verified 06/16/24 11:32 sulfamethoxazole Allergy Rash/Hives Verified 06/16/24 11:32 [From Septra] trimethoprim [From Septra] Allergy Rash/Hives Verified 06/16/24 11:32 amoxicillin [From Augmentin] AdvReac Nausea & Verified 06/16/24 11:32 Vomiting & Diarrhea clavulanic acid AdvReac Nausea & Verified 06/16/24 11:32 [From Augmentin] Vomiting & Diarrhea Review of Systems ROS Statement: Those systems with pertinent positive or pertinent negative responses have been documented in the HPI. ROS Other: All systems not noted in ROS Statement are negative. 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 Source:: MRSA-site unknonw; ESBL-Urine Past Surgical History: Section, Cholecystectomy Additional Past Surgical History / Comment(s): endometriosis Past Anesthesia/Blood Transfusion Reactions: No Reported Reaction Past Psychological History: No Psychological Hx Reported Smoking Status: Never smoker Past Alcohol Use History: None Reported Past Drug Use History: None Reported - Past Family History Mother Family Medical History: No Reported History Father Family Medical History: Coronary Artery Disease (CAD) General Exam Limitations: no limitations General appearance: alert, in no apparent distress Head exam: Present: atraumatic, normocephalic, normal inspection Eye exam: Present: normal appearance, PERRL, EOMI. Absent: scleral icterus, conjunctival injection, periorbital swelling ENT exam: Present: normal exam, mucous membranes moist Neck exam: Present: normal inspection. Absent: tenderness, meningismus, lymphadenopathy Respiratory exam: Present: normal lung sounds bilaterally. Absent: respiratory distress, wheezes, rales, rhonchi, stridor Cardiovascular Exam: Present: regular rate, normal rhythm, normal heart sounds. Absent: systolic murmur, diastolic murmur, rubs, gallop, clicks GI/Abdominal exam: Present: soft, normal bowel sounds. Absent: distended, tende rness, guarding, rebound, rigid Neurological exam: Present: alert, oriented X3, CN II-XII intact Skin exam: Present: warm, dry, rash (erythematous and puritic rash over the anterior chest, right lower and left lower abdomen, no scaling/abscess/vesicules or papules) Course Vital Signs 06/16/24 06/16/24 11:29 12:24 Temperature 97.6 F 97.9 F Pulse Rate 67 76 Respiratory 18 18 Rate Blood Pressure 129/69 136/80 O2 Sat by Pulse 98 99 Oximetry Medical Decision Making - Medical Decision Making Was pt. sent in by a medical professional or institution (, PA, ARC WELDER APPRENTICE, urgent care, hospital, or halfway...) When possible be specific @ -No Did you speak to anyone other than the patient for history (EMS, parent, family, police, friend...)? What history was obtained from this source @ -No Did you review nursing and triage notes (agree or disagree)? Why? @ -I reviewed and agree with nursing and triage notes Were old charts reviewed (outside hosp., previous admission, EMS record, old EKG, old radiological studies, urgent care reports/EKG's, halfway records)? Report findings @ -No old charts were reviewed Differential Diagnosis (chest pain, altered mental status, abdominal pain women, abdominal pain men, vaginal bleeding, weakness, fever, dyspnea, syncope, headache, dizziness, GI bleed, back pain, seizure, CVA, palpatations, mental health, musculoskeletal)? @ -Dermatitis, shingles, scabies, sunburn, this list is not all inclusive EKG interpreted by me (3pts min.). @ -None X-rays interpreted by me (1pt min.). @ -None done CT interpreted by me (1pt min.). @ -None done U/S interpreted by me (1pt. min.). @ -None done What testing was considered but not performed or refused? (CT, X-rays, U/S, labs)? Why? @ -None What meds were considered but not given or refused? Why? @ -None Did you discuss the management of the patient with other professionals (professionals i.e. , PA, ARC WELDER APPRENTICE, lab, RT, psych nurse, social services coordinator, firebreak cutter, teacher, code enforcement officer, nurse case management)? Give summary @ -No Was smoking cessation discussed for >3mins.? @ -No Was critical care preformed (if so, how long)? @ -No Were there social determinants of health that impacted care today? How? (Homelessness, low income, unemployed, alcoholism, drug addiction, transportation, low edu. Level, literacy, decrease access to med. care, alf, rehab)? @ -No Was there de-escalation of care discussed even if they declined (Discuss DNR or withdrawal of care, Hospice)? DNR status @ -No What co-morbidities impacted this encounter? (DM, HTN, Smoking, COPD, CAD, Cancer, CVA, ARF, Chemo, Hep., AIDS, mental health diagnosis, sleep apnea, morbid obesity)? @ -None Was patient admitted / discharged? Hospital course, mention meds given and route, prescriptions, significant lab abnormalities, going to OR and other pertinent info. @Discharge. 69-year-old female with a rash. Patient's vitals are stable and she is not expressing symptoms of angioedema. Is resting comfortably. Skin examination reveals a erythematous and pruritic rash over the anterior chest, lower left and right abdomen with no signs of vesicles, papules, macules, open skin or excoriations. Symptoms align with contact dermatitis. Patient is red with dose of Benadryl and steroid in the emergency department will be sent a topical cream to use 2 times per day over the affected area of the skin. Recommend that she follows up with her primary care provider within the next few days for further evaluation as well. All questions answered at bedside and strict return parameters saleem with the patient she is verbalized understanding. Case discussed with Dr. Yang Undiagnosed new problem with uncertain prognosis? @ -No Drug Therapy requiring intensive monitoring for toxicity (Heparin, Nitro, Insulin, Cardizem)? @ -No Were any procedures done? @ -No Diagnosis/symptom? @ -Contact dermatitis Acute, or Chronic, or Acute on Chronic? @ -Acute Uncomplicated (without systemic symptoms) or Complicated (systemic symptoms)? @ -Uncomplicated Side effects of treatment? @ -No Exacerbation, Progression, or Severe Exacerbation? @ -No Poses a threat to life or bodily function? How? (Chest pain, [place], [place], pneumonia, PE, COPD, DKA, ARF, appy, cholecystitis, CVA, Diverticulitis, Homicidal, Suicidal, threat to staff... and all critical care pts) @ -No Disposition Clinical Impression: Contact dermatitis Disposition: HOME SELF-CARE Condition: Good Instructions (If sedation given, give patient instructions): Contact Dermatitis (ED) Additional Instructions: Return to the emergency department for any new or worsening symptoms. Recommend that use topical steroid cream up to 2 times per day over affected areas. Continue to keep areas clean and dry. Recommend that you discontinue use of irritant soap and suntan lotion Prescriptions: Hydrocortisone Cream [Hydrocortisone 1% Cream] 1 applic TOPICAL BID #28 gm Is patient prescribed a controlled substance at d/c from ED?: No Referrals: Richard Montano MD [Primary Care Provider] - 1-2 days Time of Disposition: 12:07
[2024-06-16] MEDS: diphenhydrAMINE 50 MG/ML 1 ML VIAL IM STA (12:17)
[2024-06-16] MEDS: methylPREDNISolone SOD SUCCI 125 MG/2 ML VIAL IM ONE (12:18)
[2024-06-16 12:26] VITALS: BP 136/80; PULSE 76; TEMP 97.9
[2024-06-16] MEDS: KETOROLAC 15 MG/ML 1 ML VIAL IM STA (12:26)
== END 2024-06-16 13:11 | disposition home or self-care (01) ==
LOC: EC 11:04
CPT/HCPCS: 96372; 99283

== ENCOUNTER 2024-12-24 09:49 | Emergency (ER) | payer MEDICARE, OTHER ==
--- NOTE | 2024-12-24 10:07 | ED ---
Skin/Abscess/FB HPI - General Chief complaint: Skin/Abscess/Foreign Body Stated complaint: yeast infection Time Seen by Provider: 12/24/24 10:06 Source: patient, RN notes reviewed Mode of arrival: ambulatory Limitations: no limitations - History of Present Illness Initial comments: 69-year-old female presented the ER for evaluation of a rash. Patient states she recently finished up ciprofloxacin for a UTI. About 4 days ago she started to notice a puritic erythematous rash noted under bilateral breast. Patient states she frequently gets yeast infections in these area and "spreads quickly". She has used [id number] baby powder and nystatin powder with little relief of symptoms. Upon evaluation, patient is requesting oral medications given concern that infection will "spread quickly. No rashes to vaginal or abdominal pannus region. She denies any fevers, chills or other complaints at this time. - Related Data Home Medications Medication Instructions Recorded Confirmed Aspirin [[place] Aspirin EC] 81 mg PO HS 08/03/23 08/03/23 Atorvastatin [Lipitor] 10 mg PO HS 08/03/23 08/03/23 Furosemide [Lasix] 40 mg PO HS 08/03/23 08/03/23 HYDROcodone/APAP 7.5-325MG [[place] 1 tab PO BID PRN 08/03/23 08/03/23 7.5-325] diazePAM [Valium] 5 mg PO HS PRN 08/03/23 08/03/23 hydrALAZINE HCL [Apresoline] 25 mg PO HS 08/03/23 08/03/23 hydroCHLOROthiazide [Hydrodiuril] 25 mg PO HS 08/03/23 08/03/23 Previous Rx's Medication Instructions Recorded Nitrofurantoin Monohyd/M-Cryst 100 mg PO Q12HR #14 cap 08/03/23 [Macrobid] Cefuroxime [Ceftin] 500 mg PO BID 10 Days #40 tab 09/17/23 Nitrofurantoin Monohyd/M-Cryst 100 mg PO Q12HR 7 Days #14 cap 11/13/23 [Macrobid] Fluconazole [Diflucan] 150 mg PO ONCE 1 Days #1 tab 11/16/23 Fluconazole [Diflucan] 150 mg PO ONCE #2 tab 11/24/23 Nystatin 100,000 Unit/gm Powd 1 applic TOPICAL BID #15 gram 11/24/23 [Mycostatin Powder] Cephalexin [Keflex] 500 mg PO Q6HR 7 Days #28 cap 01/07/24 Promethazine/Dextromethorphan 5 ml PO Q4-6H PRN #473 ml 01/07/24 [Promethazine-Dm Syrup] Fluconazole [Diflucan] 150 mg PO ONCE #1 tab 02/13/24 Nystatin 100,000 Unit/gm Powd 1 applic TOPICAL BID #15 gram 02/13/24 [Mycostatin Powder] Fluconazole [Diflucan] 150 mg PO ONCE 1 Days #1 tab 02/29/24 Ketorolac [Toradol] 10 mg PO Q8HR #15 tab 02/29/24 Nystatin [Nystop] 1 applic TOPICAL BID 10 Days #30 gm 02/29/24 Fluconazole [Diflucan] 200 mg PO DAILY #7 tablet 03/06/24 Ondansetron Odt [Zofran Odt] 4 mg PO Q8HR PRN #10 tab 05/21/24 Hydrocortisone Cream 1 applic TOPICAL BID #28 gm 06/16/24 [Hydrocortisone 1% Cream] Fluconazole [Diflucan] 150 mg PO ONCE #1 tab 12/24/24 Allergies Allergy/AdvReac Type Severity Reaction Status Date / Time ibuprofen [From Motrin] Allergy Rash/Hives Verified 12/24/24 09:55 sulfamethoxazole Allergy Rash/Hives Verified 12/24/24 09:55 [From Septra] trimethoprim [From Septra] Allergy Rash/Hives Verified 12/24/24 09:55 amoxicillin [From Augmentin] AdvReac Nausea & Verified 12/24/24 09:55 Vomiting & Diarrhea clavulanic acid AdvReac Nausea & Verified 12/24/24 09:55 [From Augmentin] Vomiting & Diarrhea Review of Systems ROS Statement: Those systems with pertinent positive or pertinent negative responses have been documented in the HPI. ROS Other: All systems not noted in ROS Statement are negative. 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 Source:: MRSA-site unknonw; ESBL-Urine Past Surgical History: Section, Cholecystectomy Additional Past Surgical History / Comment(s): endometriosis Past Anesthesia/Blood Transfusion Reactions: No Reported Reaction Past Psychological History: No Psychological Hx Reported Smoking Status: Never smoker Past Alcohol Use History: None Reported Past Drug Use History: None Reported - Past Family History Mother Family Medical History: No Reported History Father Family Medical History: Coronary Artery Disease (CAD) General Exam Limitations: no limitations General appearance: alert, in no apparent distress Respiratory exam: Present: normal lung sounds bilaterally. Absent: respiratory distress, wheezes, rales, rhonchi, stridor Cardiovascular Exam: Present: regular rate, normal rhythm, normal heart sounds. Absent: systolic murmur, diastolic murmur, rubs, gallop, clicks Neurological exam: Present: alert, oriented X3, CN II-XII intact Skin exam: Present: warm, dry, intact, normal color, rash (Erythematous macular rash under bilateral breasts. There are satellite lesions present. No rash inferior to abdominal pannus) Course Vital Signs 12/24/24 12/24/24 09:53 10:26 Temperature 98 F 98.0 F Pulse Rate 78 80 Respiratory 18 20 Rate Blood Pressure 148/80 140/76 O2 Sat by Pulse 100 100 Oximetry Medical Decision Making - Medical Decision Making Was pt. sent in by a medical professional or institution (, PA, DIESEL TECHNICIAN, urgent care, hospital, or shelter...) When possible be specific @ -No Did you speak to anyone other than the patient for history (EMS, parent, family, police, friend...)? What history was obtained from this source @ -No Did you review nursing and triage notes (agree or disagree)? Why? @ -I reviewed and agree with nursing and triage notes Were old charts reviewed (outside hosp., previous admission, EMS record, old EKG, old radiological studies, urgent care reports/EKG's, shelter records)? Report findings @ -No old charts were reviewed Differential Diagnosis (chest pain, altered mental status, abdominal pain women, abdominal pain men, vaginal bleeding, weakness, fever, dyspnea, syncope, headache, dizziness, GI bleed, back pain, seizure, CVA, palpatations, mental he alth, musculoskeletal)? @ -Tinea, continual infection, viral exanthem, allergic reaction... This list is not meant to be all-inclusive EKG interpreted by me (3pts min.). @ -None done X-rays interpreted by me (1pt min.). @ -None done CT interpreted by me (1pt min.). @ -None done U/S interpreted by me (1pt. min.). @ -None done What testing was considered but not performed or refused? (CT, X-rays, U/S, labs)? Why? @ -None What meds were considered but not given or refused? Why? @ -None Did you discuss the management of the patient with other professionals (professionals i.e. Dr., PA, DIESEL TECHNICIAN, lab, RT, psych nurse, social services manager, tipple oiler, teacher, sales promotion officer, case work aide)? Give summary @ -No Was smoking cessation discussed for >3mins.? @ -No Was critical care preformed (if so, how long)? @ -No Were there social determinants of health that impacted care today? How? (Homelessness, low income, unemployed, alcoholism, drug addiction, transportation, low edu. Level, literacy, decrease access to med. care, half-way, rehab)? @ -No Was there de-escalation of care discussed even if they declined (Discuss DNR or withdrawal of care, Hospice)? DNR status @ -No What co-morbidities impacted this encounter? (DM, HTN, Smoking, COPD, CAD, Cancer, CVA, ARF, Chemo, Hep., AIDS, mental health diagnosis, sleep apnea, morbid obesity)? @ -None Was patient admitted / discharged? Hospital course, mention meds given and route, prescriptions, significant lab abnormalities, going to OR and other pertinent info. @ -Discharge. 69-year-old female presented to ER for evaluation of a rash. Exam remarkable for an erythematous macular rash with satellite lesions noted under bilateral breasts consistent with candidal infection. Patient will be started on Diflucan, first dose in the emergency department. I advised her to continue using nystatin powder twice daily topically and good hygiene was also discussed with patient. Patient can be discharged in stable condition with follow-up to PCP. Strict return parameters discussed. Patient verbally expressed understanding agreement with care plan. Case discussed with ED attending, Dr. Hdz. Undiagnosed new problem with uncertain prognosis? @ -No Drug Therapy requiring intensive monitoring for toxicity (Heparin, Nitro, Insulin, Cardizem)? @ -No Were any procedures done? @ -No Diagnosis/symptom? @ -Cutaneous Zofia Acute, or Chronic, or Acute on Chronic? @ -Acute Uncomplicated (without systemic symptoms) or Complicated (systemic symptoms)? @ -Uncomplicated Side effects of treatment? @ -No Exacerbation, Progression, or Severe Exacerbation? @ -No Poses a threat to life or bodily function? How? (Chest pain, [place], [place], pneumonia, PE, COPD, DKA, ARF, appy, cholecystitis, CVA, Diverticulitis, Homicidal, Suicidal, threat to staff... and all critical care pts) @ -No Disposition Clinical Impression: Cutaneous candidiasis Disposition: HOME SELF-CARE Condition: Stable Instructions (If sedation given, give patient instructions): Skin Yeast Infection (ED) Additional Instructions: Continue using nystatin powder as prescribed. Take second dose of diflucan in 72 hours. Follow-up with PCP. Return to the ER for any new or worsening symptoms. Prescriptions: Fluconazole [Diflucan] 150 mg PO ONCE #1 tab Is patient prescribed a controlled substance at d/c from ED?: No Referrals: Richard Montano MD [Primary Care Provider] - 1-2 days Time of Disposition: 10:12
[2024-12-24] MEDS: FLUCONAZOLE 150 MG TAB PO STA (10:21)
[2024-12-24 10:29] VITALS: BP 140/76; PULSE 80; RESP 20; TEMP 98
== END 2024-12-24 11:15 | disposition home or self-care (01) ==
LOC: EC 09:49
DX: B37.2 Candidiasis of skin and nail (principal); Z88.0 Allergy status to penicillin; Z88.1 Allergy status to other antibiotic agents; Z88.2 Allergy status to sulfonamides; Z88.6 Allergy status to analgesic agent
CPT/HCPCS: 99282

== ENCOUNTER 2025-01-13 09:18 | Emergency (ER) | payer MEDICARE, OTHER ==
[2025-01-13 09:21] VITALS: BP 158/85; PULSE 90; RESP 16; TEMP 97.6
--- NOTE | 2025-01-13 10:00 | ED ---
Skin/Abscess/FB HPI - General Chief complaint: Skin/Abscess/Foreign Body Stated complaint: rash under breasts Time Seen by Provider: 01/13/25 09:26 Source: patient, RN notes reviewed Mode of arrival: ambulatory Limitations: no limitations - History of Present Illness Initial comments: 69-year-old female presents emergency department with chief complaint of rash underneath of her breast. Patient states that this is been going on for last few days. Patient states this happened in the past. She has appears chills no other associated complaints. - Related Data Home Medications Medication Instructions Recorded Confirmed Aspirin [[place] Aspirin EC] 81 mg PO HS 08/03/23 08/03/23 Atorvastatin [Lipitor] 10 mg PO HS 08/03/23 08/03/23 Furosemide [Lasix] 40 mg PO HS 08/03/23 08/03/23 HYDROcodone/APAP 7.5-325MG [[place] 1 tab PO BID PRN 08/03/23 08/03/23 7.5-325] diazePAM [Valium] 5 mg PO HS PRN 08/03/23 08/03/23 hydrALAZINE HCL [Apresoline] 25 mg PO HS 08/03/23 08/03/23 hydroCHLOROthiazide [Hydrodiuril] 25 mg PO HS 08/03/23 08/03/23 Previous Rx's Medication Instructions Recorded Nitrofurantoin Monohyd/M-Cryst 100 mg PO Q12HR #14 cap 08/03/23 [Macrobid] Cefuroxime [Ceftin] 500 mg PO BID 10 Days #40 tab 09/17/23 Nitrofurantoin Monohyd/M-Cryst 100 mg PO Q12HR 7 Days #14 cap 11/13/23 [Macrobid] Fluconazole [Diflucan] 150 mg PO ONCE 1 Days #1 tab 11/16/23 Fluconazole [Diflucan] 150 mg PO ONCE #2 tab 11/24/23 Nystatin 100,000 Unit/gm Powd 1 applic TOPICAL BID #15 gram 11/24/23 [Mycostatin Powder] Cephalexin [Keflex] 500 mg PO Q6HR 7 Days #28 cap 01/07/24 Promethazine/Dextromethorphan 5 ml PO Q4-6H PRN #473 ml 01/07/24 [Promethazine-Dm Syrup] Fluconazole [Diflucan] 150 mg PO ONCE #1 tab 02/13/24 Nystatin 100,000 Unit/gm Powd 1 applic TOPICAL BID #15 gram 02/13/24 [Mycostatin Powder] Fluconazole [Diflucan] 150 mg PO ONCE 1 Days #1 tab 02/29/24 Ketorolac [Toradol] 10 mg PO Q8HR #15 tab 02/29/24 Nystatin [Nystop] 1 applic TOPICAL BID 10 Days #30 gm 02/29/24 Fluconazole [Diflucan] 200 mg PO DAILY #7 tablet 03/06/24 Ondansetron Odt [Zofran Odt] 4 mg PO Q8HR PRN #10 tab 05/21/24 Hydrocortisone Cream 1 applic TOPICAL BID #28 gm 06/16/24 [Hydrocortisone 1% Cream] Fluconazole [Diflucan] 150 mg PO ONCE #1 tab 12/24/24 Nystatin 100,000Unit/gm Cream 1 applic TOPICAL BID #30 gm 01/13/25 [Mycostatin Cream] Allergies Allergy/AdvReac Type Severity Reaction Status Date / Time ibuprofen [From Motrin] Allergy Rash/Hives Verified 01/13/25 09:21 sulfamethoxazole Allergy Rash/Hives Verified 01/13/25 09:21 [From Septra] trimethoprim [From Septra] Allergy Rash/Hives Verified 01/13/25 09:21 amoxicillin [From Augmentin] AdvReac Nausea & Verified 01/13/25 09:21 Vomiting & Diarrhea clavulanic acid AdvReac Nausea & Verified 01/13/25 09:21 [From Augmentin] Vomiting & Diarrhea Review of Systems ROS Statement: Those systems with pertinent positive or pertinent negative responses have been documented in the HPI. ROS Other: All systems not noted in ROS Statement are negative. 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 Source:: MRSA-site unknonw; ESBL-Urine Past Surgical History: Section, Cholecystectomy Additional Past Surgical History / Comment(s): endometriosis Past Anesthesia/Blood Transfusion Reactions: No Reported Reaction Past Psychological History: No Psychological Hx Reported Smoking Status: Never smoker Past Alcohol Use History: None Reported Past Drug Use History: None Reported - Past Family History Mother Family Medical History: No Reported History Father Family Medical History: Coronary Artery Disease (CAD) General Exam Limitations: no limitations General appearance: alert, in no apparent distress Head exam: Present: atraumatic, normocephalic, normal inspection Neck exam: Present: normal inspection, full ROM. Absent: tenderness, meningismus, lymphadenopathy Respiratory exam: Present: normal lung sounds bilaterally. Absent: respiratory distress, wheezes, rales, rhonchi, stridor Cardiovascular Exam: Present: regular rate, normal rhythm, normal heart sounds. Absent: systolic murmur, diastolic murmur, rubs, gallop, clicks Skin exam: Present: rash (Erythematous rash under bilateral breasts, there is demarcated line) Course Vital Signs 01/13/25 09:19 Temperature 97.6 F Pulse Rate 90 Respiratory 16 Rate Blood Pressure 158/85 O2 Sat by Pulse 96 Oximetry Medical Decision Making - Medical Decision Making Was pt. sent in by a medical professional or institution (, PA, DISH TECHNICIAN, urgent care, hospital, or [place] [facility] facility...) When possible be specific @ -No Did you speak to anyone other than the patient for history (EMS, parent, family, police, friend...)? What history was obtained from this source @ -No Did you review nursing and triage notes (agree or disagree)? Why? @ -I reviewed and agree with nursing and triage notes Were old charts reviewed (outside hosp., previous admission, EMS record, old EKG, old radiological studies, urgent care reports/EKG's, [place] [facility] facility records)? Report findings @ -No old charts were reviewed Differential Diagnosis (chest pain, altered mental status, abdominal pain women, abdominal pain men, vaginal bleeding, weakness, fever, dyspnea, syncope, headache, dizziness, GI bleed, back pain, seizure, CVA, palpatations, mental health, musculoskeletal)? @ -Tinea, allergic reaction, contact dermatitis EKG interpreted by me (3pts min.). @ -As above X-rays interpreted by me (1pt min.). @ -None done CT interpreted by me (1pt min.). @ -None done U/S interpreted by me (1pt. min.). @ -None done What testing was considered but not performed or refused? (CT, X-rays, U/S, labs)? Why? @ -None What meds were considered but not given or refused? Why? @ -None Did you discuss the management of the patient with other professionals (professionals i.e. , PA, DISH TECHNICIAN, lab, RT, psych nurse, transition social worker, gas burner operator, teacher, donor relations officer, wrapper caser)? Give summary @ -No Was smoking cessation discussed for >3mins.? @ -No Was critical care preformed (if so, how long)? @ -No Were there social determinants of health that impacted care today? How? (Homelessness, low income, unemployed, alcoholism, drug addiction, transportation, low edu. Level, literacy, decrease access to med. care, usp, rehab)? @ -No Was there de-escalation of care discussed even if they declined (Discuss DNR or withdrawal of care, Hospice)? DNR status @ -No What co-morbidities impacted this encounter? (DM, HTN, Smoking, COPD, CAD, Cancer, CVA, ARF, Chemo, Hep., AIDS, mental health diagnosis, sleep apnea, morbid obesity)? @ -None Was patient admitted / discharged? Hospital course, mention meds given and route, prescriptions, significant lab abnormalities, going to OR and other pertinent info. @ -Discharge patient has rash and rash consistent with tinea. Patient started on antifungals return parameters cussed. Undiagnosed new problem with uncertain prognosis? @ -No Drug Therapy requiring intensive monitoring for toxicity (Heparin, Nitro, Insulin, Cardizem)? @ -No Were any procedures done? @ -No Diagnosis/symptom? @ -tinea intertrigo Acute, or Chronic, or Acute on Chronic? @ -acute Uncomplicated (without systemic symptoms) or Complicated (systemic symptoms)? @ -uncomplicated Side effects of treatment? @ -No Exacerbation, Progression, or Severe Exacerbation? @ -No Poses a threat to life or bodily function? How? (Chest pain, [place], [place], pneumonia, PE, COPD, DKA, ARF, appy, cholecystitis, CVA, Diverticulitis, Homicidal, Suicidal, threat to staff... and all critical care pts) @ -No Disposition Clinical Impression: Intertriginous candidiasis Disposition: HOME SELF-CARE Condition: Stable Instructions (If sedation given, give patient instructions): Skin Yeast Infection (ED) Additional Instructions: Please return to the Emergency Department if symptoms worsen or any other concerns. Prescriptions: Nystatin 100,000Unit/gm Cream [Mycostatin Cream] 1 applic TOPICAL BID #30 gm Is patient prescribed a controlled substance at d/c from ED?: No Referrals: Richard Montano MD [Primary Care Provider] - 1-2 days Time of Disposition: 10:00
[2025-01-13] MEDS: KETOROLAC 15 MG/ML 1 ML VIAL IM STA (10:27)
== END 2025-01-13 10:38 | disposition home or self-care (01) ==
LOC: EC 09:18
DX: B37.2 Candidiasis of skin and nail (principal); Z88.2 Allergy status to sulfonamides; Z88.1 Allergy status to other antibiotic agents; Z88.0 Allergy status to penicillin; Z88.6 Allergy status to analgesic agent
CPT/HCPCS: 99282; 96372; J1885